=== PATIENT | male | born 1940 | race Caucasian/White ===

== ENCOUNTER 2021-01-02 10:01 | Outpatient (CLI) | payer MEDICARE, MEDICAID, SELFPAY ==
--- NOTE | 2021-01-03 07:37 | ONC CON_ITS ---
Dr. Trivedi New Patient Note Patient: Mingo Davis V Unit #: [id number]: 1940 Dicatated By: Mingo Trivedi M.D.Date of Visit: Jan 02, 2021 Onc MED New Patient/Consult Referring Physician: Rashaad Bruce Chief Complaint: Basal cell skin cancer. 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 In September [address] Reji Villatoro in [place] for a skin lesion in his upper chest area. 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 He then had surgical oncology consultation with Dr. Yoandy Alan at the [facility] on 12/13/2020. Yes I do have a biopsy somewhere. On exam at that time, the lesion did appear locally advanced with fixation to the underlying sternum. He was felt to be a poor surgical candidate due to his underlying medical illnesses and comorbidities he was recommended to be evaluated for possible targeted therapy with vismodegib with possible surgery or radiation to follow. He has COPD, coronary artery disease, and a history of multiple strokes. His energy is poor and he has limited activity. ECOG score is 3. He had not been eating well, and his weight has dropped to as low as 130 pounds. He has since then been supplementing with Ensure and his weight has gotten back up to 150. He does not have fever. He sometimes has sweating at night. He is short of breath with activity. He coughs to clear phlegm from his throat. It is usually clear. He does not complain of chest pain. He sometimes has nausea. He reports having acid reflux all the time despite taking Prilosec. Bowel function has been okay. He has urinary frequency and nocturia. He reports having terrible arthritis, particularly in his wrists, knees, and hips. He also has chronic back pain. He does not complain of headache. He sometimes has dizziness. He has numbness and tingling in his hands and feet, but it is intermittent. He admits to having some depression. Past Medical History: His medical history includes chronic obstructive pulmonary disease, coronary artery disease, and gastroesophageal reflux disease. He is known to have an abdominal aortic aneurysm. He has a history of myocardial infarction and a history of multiple strokes. Past Surgical History: His surgical/procedural history includes wrist surgery, coronary angioplasty/stent placement in 1999, and back surgery in 1971. Medications: Mupirocin 1 Applicator (of 2 %) Ointment Topical every am, Omeprazole 1 Caplet (of 20 mg) Capsule Delayed Release Oral daily Allergies: No Known Allergies. Social History: Mr. Davis is . He has history of smoking since age 8, least 1 pack of cigarettes daily. He had heavy alcohol use beginning as a teenager. He quit drinking more than 30 years ago. Family History: His father and 2 brothers of cancer, but he does not know what type. He does not know the cause of his mother's . Review Of Symptoms: Constitutional - His energy has been poor and he has limited activity. He had not been eating well and he had lost weight. He has since then started drinking Ensure and he has gained 20 pounds. He does not have fever. He sometimes has sweating at night. ECOG score is 3, Eyes - He has cataracts, ENMT - No hearing loss or tinnitus. No sinus congestion/drainage. No mouth sores. No sore throat or difficulty swallowing, Hematologic/Lymphatic - He bruises easily, Respiratory - He has shortness of breath with activity. He has to cough to clear phlegm from his throat It is usually clear. No pleuritic pain or hemoptysis, Cardiovascular - No angina pain. No palpitations, Gastrointestinal - He sometimes has nausea. He reports having acid reflux all the time despite taking Prilosec. No diarrhea or constipation. No blood in the stool or black stools, Genitourinary (M) - No dysuria or hematuria. He has urinary frequency and he has nocturia up to 3 or 4 times. No urgency or incontinence, Musculoskeletal - He has terrible arthritis, mainly in his wrists, knees, and hips. He has chronic back pain, Integumentary - He has a skin cancer, Neurologic - No headache. He sometimes has dizziness. He has numbness/tingling in his hands and feet, but it is intermittent, Psychiatric - He has depression. No insomnia. Vital Signs: Performed on Jan 02, 2021 10:55: 0, 20.45, 1.89 sq.m, 72 in, 96 %, 57 /min (LOW), 18 /min, 137/70 mm(hg), 98.3 F (LOW), and 150.8 lbs (HIGH). Physical Examination: Constitutional - He appears chronically ill, Eyes - Sclerae nonicteric. Conjunctivae clear, ENMT - No lesions noted in the oral cavity, Neck - No mass or thyromegaly, Hematologic/Lymphatic - No cervical, clavicular, or axillary adenopathy, Respiratory - Lungs show diminished air movement with coarse rhonchi bilaterally, Cardiovascular - Heart tones are distant. The rhythm appears regular. There is no murmur, gallop, or rub noted, Abdomen - Soft and non-tender. Liver and spleen are not enlarged. There is no abdominal mass or ascites noted and there is no inguinal adenopathy, Back/Spine - No spine or CVA tenderness noted, Extremities - No edema. Pedal pulses are palpable bilaterally, Integumentary - There is an ulcerative lesion in the upper chest overlying the manubrium measuring approximately 2 x 1 cm. There is induration and erythema in the surrounding skin, Neurologic - No focal neurologic deficits noted. Problem List: 1. 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 2. COPD. 3. Coronary artery disease with previous myocardial infarction. 4. History of multiple strokes. 5. GERD. 6. Degenerative arthritis/degenerative disease of the spine. Problems Addressed with this Encounter and Plan: 1. 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 By clinical evaluation there appears to be fixation to the underlying sternum. As per recommendations, he will be given the option to begin a trial of therapy with vismodegib at a standard dose of 150 mg daily. Side effects may include fatigue, nausea, diarrhea, alopecia, and musculoskeletal pain, among others, including risk of severe skin reaction. Once we have verified insurance coverage, he will be scheduled for baseline laboratory studies to include CBC, comprehensive metabolic profile, and TSH level, and he will also have a staging chest CT scan. 2. He has GERD with persistent symptoms despite taking Prilosec. He will be given a prescription for Protonix 40 mg daily. 3. He is having depression and he would like to try medication for it. He will also be given a prescription for citalopram 10 mg daily. Signed By: Mingo Trivedi M.D. <<Signature on File>>
== END 2021-01-02 10:02 | disposition home or self-care (01) ==
PROVIDERS: Family Provider Internal Medicine; PCP Nurse Practitioner; Visit Provider Internal Medicine Medical Oncology
DX: C44.519 Basal cell carcinoma of skin of other part of trunk (principal); K21.9 Gastro-esophageal reflux disease without esophagitis; F32.9 Major depressive disorder, single episode, unspecified; Z79.899 Other long term (current) drug therapy
CPT/HCPCS: 99215

== ENCOUNTER 2021-03-30 11:27 | Outpatient (CLI) | payer MEDICARE, MEDICAID, SELFPAY ==
--- NOTE | 2021-03-30 13:00 | CT_ITS ---
WS: [id number] CT scan of the chest with IV contrast, additional two-dimensional coronal and sagittal reconstruction was performed. 03/30/2021 Clinical Data: UNSPECIFIED MALIGNANT NEOPLASM OF SKIN OF OTHER PART TRUNK Comparison: CT chest, 07/06/2018. DLP: 808.[address] scans at [facility] use at least one of these dose optimization techniques: automat ed exposure control; mA and/or kV adjustment per patient size (includes targeted exams where dose is matched to clinical indication); or iterative reconstruction. Findings: No nodules, masses or effusions are seen. No pneumonia or pneumothorax is seen. The heart size is nor mal with no pericardial effusion. The pulmonary arterial system and thoracic aorta demonstrate no dil atations. There is atherosclerotic change of the descending thoracic aorta and minimal mural thrombus . The trachea bifurcates into the bronchi. There is no axillary or significant mediastinal adenopathy . The upper abdomen shows irregularity of the liver surface which can be seen with cirrhosis. There is a low density area in the left lobe of the liver which is probably a cyst. There is a cyst of the rig ht kidney. The pancreas, gallbladder and spleen are unremarkable. There is vertebroplasty cement at t he T7 and T11 vertebral bodies. CT/CT chest w con* [id number] Impression: 1. Negative for lung nodules or masses. 2. Negative for acute cardiac or pulmonary abnormalities.
[2021-03-30 13:34] LABS: Basophils # 0.1 10^3/uL (0.0-0.1); Basophils % 0.7 %; Eosinophils # 0.1 10^3/uL (0.0-0.8); Eosinophils % 0.9 %; Hematocrit 44.9 % (42.0-52.0); Lymphocytes # 2.4 10^3/uL (0.8-4.8); Lymphocytes % 26.1 %; Mean Corpuscular HGB Conc 33.4 g/dL (30.0-36.0); Mean Corpuscular Hemoglobin 30.3 pg (28.0-34.0); Mean Corpuscular Volume 90.7 fL (80-94); Mean Platelet Volume 10.6 fL (7.4-10.4); Monocytes # 0.6 10^3/uL (0.2-0.9); Neutrophils # 6.04 10^3/uL (1.8-7.7); Neutrophils % 66.2 %; Nucleated Red Blood Cells % 0 %; Platelet Count 252 10^3/cmm (130-400); Red Blood Count 4.95 10^6/uL (4.1-5.3); Red Cell Distribution Width 13.1 % (12.1-15.1); White Blood Count 9.1 10^3/uL (4.0-10.0)
[2021-03-30 14:06] LABS: Alanine Aminotransferase 7 U/L (0-41); Albumin Level 3.8 g/dL (3.5-5.2); Alkaline Phosphatase 113 IU/L (40-130); Aspartate Amino Transferase 19 U/L (0-40); Blood Urea Nitrogen 26 mg/dL (8-23); Calcium 8.5 mg/dL (8.5-10.5); Carbon Dioxide 23 mmol/L (22-29); Chloride 102 mmol/L (98-107); Globulin 3.4 g/dL (1.3-4.6); Glucose 75 mg/dL (65-115); Osmolality Calculated 289 mOsm/kg (285-295); Sodium 138 mmol/L (136-145); Thyroid Stimulating Hormone 2.06 uIU/mL (0.27-4.20); Total Bilirubin 0.2 mg/dL (0.15-1.2); Total Protein 7.2 g/dL (6.6-8.7)
[2021-03-30 14:09] LABS: Anion Gap 17.4 (5-19); Potassium 4.4 mmol/L (3.5-5.1)
[2021-03-30] MEDS: iodixanol 320 mg/mL 100mL Btl IV (14:55)
== END 2021-03-30 11:28 | disposition home or self-care (01) ==
LOC: ONCMED 11:28
PROVIDERS: Internal Medicine Medical Oncology; PCP Nurse Practitioner; Visit Provider Nurse Practitioner
DX: C44.509 Unspecified malignant neoplasm of skin of other part of trunk (principal); Z79.899 Other long term (current) drug therapy
CPT/HCPCS: 36415; 71260; 80053; 84443; 85025; Q9967

== ENCOUNTER 2021-04-19 13:21 | Outpatient (CLI) | payer MEDICARE, MEDICAID, SELFPAY ==
[2021-04-19 14:47] LABS: Basophils % 0.3 %; Eosinophils % 0.4 %; Hematocrit 45.4 % (42.0-52.0); Hemoglobin 15.1 g/dL (11.7-16.6); Lymphocytes # 2.4 10^3/uL (0.8-4.8); Lymphocytes % 22.4 %; Mean Corpuscular HGB Conc 33.3 g/dL (30.0-36.0); Mean Corpuscular Hemoglobin 30.4 pg (28.0-34.0); Mean Corpuscular Volume 91.5 fL (80-94); Monocytes # 0.6 10^3/uL (0.2-0.9); Monocytes % 5.7 %; Neutrophils # 7.45 10^3/uL (1.8-7.7); Nucleated Red Blood Cells % 0 %; Platelet Count 269 10^3/cmm (130-400); Red Blood Count 4.96 10^6/uL (4.1-5.3); Red Cell Distribution Width 13.2 % (12.1-15.1); White Blood Count 10.5 10^3/uL (4.0-10.0)
[2021-04-19 15:03] LABS: Alanine Aminotransferase 9 U/L (0-41); Albumin Level 3.9 g/dL (3.5-5.2); Alkaline Phosphatase 110 IU/L (40-130); Anion Gap 15.1 (5-19); Aspartate Amino Transferase 17 U/L (0-40); Blood Urea Nitrogen 27 mg/dL (8-23); Calcium 9.5 mg/dL (8.5-10.5); Carbon Dioxide 28 mmol/L (22-29); Chloride 101 mmol/L (98-107); Globulin 3.5 g/dL (1.3-4.6); Glucose 97 mg/dL (65-115); Osmolality Calculated 295 mOsm/kg (285-295); Potassium 4.1 mmol/L (3.5-5.1); Sodium 140 mmol/L (136-145); Total Bilirubin 0.2 mg/dL (0.15-1.2); Total Protein 7.4 g/dL (6.6-8.7)
[2021-04-19] MEDS: pantoprazole DR 40 mg Tablet PO (15:44)
--- NOTE | 2021-04-23 08:17 | ONC FU_ITS ---
Dr. Trivedi Patient Follow-Up Note Patient: Mingo Davis V Unit #: [id number]: 1940 Dicatated By: Mingo Trivedi M.D.Date of Visit:Apr 19, 2021 Onc Med Follow-up/Prog Note Chief Complaint: Basal cell skin cancer. 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 In September [address] Reji Villatoro in [place] for a skin lesion in his upper chest area. 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 He then had surgical oncology consultation with Dr. Yoandy Alan at the [facility] on 12/13/2020. On exam at that time, the lesion appeared locally advanced with fixation to the underlying sternum. He was felt to be a poor surgical candidate due to his underlying medical illnesses and comorbidities. He was recommended to be evaluated for possible targeted therapy with vismodegib with possible surgery or radiation to follow. I had seen him initially on 01/02/2021. He then began treatment with vismodegib 150 mg daily. His other medical illnesses include COPD, coronary artery disease, GERD, and degenerative arthritis/degenerative disease of the spine. He has a history of multiple strokes. He is known to have abdominal aortic aneurysm. He has a long history of smoking, at least 1 pack of cigarettes daily. He has had heavy alcohol use in the past, but he quit drinking more than 30 years ago. He is seen for a follow-up visit. He has been feeling pretty good generally. His main complaint is that he had pretty bad nausea and heartburn last night, but he had run out of his medication and had not been taking it for several days. He has limited activity, but he does get up and around. His ECOG score is 2. He has pretty good appetite. He has not had fever. He says he does have night sweating quite a bit. He has not had sore mouth or throat. He is short of breath with activity and he is still smoking a pack of cigarettes daily. He does not complain of cough and he has not been having chest pain. He recently has had constipation. Bladder function remains adequate, but he does get up 3-4 times at night. He has joint pain, particularly in the wrists, and he has had pain in his left hand since his last stroke. He has chronic back pain. He does not complain of headache or dizziness. He does report having some numbness on the left side and he also still has depression. Medications: Mupirocin 1 Applicator (of 2 %) Ointment Topical every am, Omeprazole 1 Caplet (of 20 mg) Capsule Delayed Release Oral daily Allergies: No Known Allergies. Vital Signs: Performed on Apr 19, 2021 13:59 Height - 72.00 in Weight - 145.8 lbs (LOW) BSA - 1.86 sq.m BMI - 19.77 Physical Examination: Constitutional - He appears chronically ill, Eyes - Sclerae nonicteric. Conjunctivae clear, ENMT - No lesions noted in the oral cavity, Hematologic/Lymphatic - No cervical, clavicular, or axillary adenopathy, Respiratory - Lungs show diminished air movement and coarse breath sounds bilaterally, Cardiovascular - Heart tones are distant. The rhythm appears regular. There is no murmur, gallop, or rub noted, Abdomen - Soft. Liver and spleen are not enlarged. There is no abdominal mass or ascites noted and there is no inguinal adenopathy, Extremities - No edema, Integumentary - The ulcerative lesion in the upper chest wall has almost completed resolved. There is some residual scarring, Neurologic - No focal neurologic deficits noted. Lab/Imaging: Test performed on Apr 19, 2021 13:55 Sodium 140 mmol/L Potassium 4.1 mmol/L Chloride 101 mmol/L CO2 28 mmol/L Anion Gap 15.1 BUN 27 mg/dL Creatinine 1.9 mg/dL Cr Clearance (Est) 29.97 mL/min Glucose 97 mg/dL Osmolality - Calculated 295 mOsm/kg Calcium 9.5 mg/dL Protein, Total 7.4 g/dL Albumin 3.9 g/dL Globulin 3.5 g/dL Bilirubin, Total 0.2 mg/dL ALT (SGPT) 9 U/L AST (SGOT) 17 U/L Alkaline Phosphatase 110 IU/L WBC 10.5 10 3/uL RBC 4.96 10 6/uL HGB 15.1 g/dL HCT 45.4 % MCV 91.5 fL MCH 30.4 pg MCHC 33.3 g/dL RDW 13.2 % Platelet Count 269 10 3/cmm MPV 10.0 fL Neutrophils 7.45 10 3/uL Lymphocytes 2.4 10 3/uL Monocytes 0.6 10 3/uL Eosinophils 0.0 10 3/uL Basophils 0.0 10 3/uL Neutrophil % 71.0 % Lymphocyte % 22.4 % Monocyte % 5.7 % Eosinophil % 0.4 % Basophils % 0.3 % NRBC % 0 % Problem List: 1. 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 2. COPD. 3. Coronary artery disease with previous myocardial infarction. 4. History of multiple strokes. 5. GERD. 6. Degenerative arthritis/degenerative disease of the spine. Problems Addressed with this Encounter and Plan: 1. 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 By clinical evaluation there appeared to be fixation to the underlying sternum. In December 2020 he began a trial of therapy with vismodegib at a standard dose of 150 mg daily. He has been tolerating the medication with no apparent adverse effects, and at this point he appears to be showing a very good clinical response. He will continue treatment with vismodegib 150 mg daily. He will be scheduled for a follow-up visit in 3 months. In the meantime, I will confer with Dr. Villatoro regarding his further management. 2. He has GERD. He continues treatment with pantoprazole 40 mg daily. 3. He is still having depression. His citalopram dosage will be increased to 20 mg daily. Signed By: Mingo Trivedi M.D. <<Signature on File>>
== END 2021-04-19 13:22 | disposition home or self-care (01) ==
LOC: ONCMED 13:26
PROVIDERS: PCP Nurse Practitioner; Visit Provider Internal Medicine Medical Oncology
DX: C44.519 Basal cell carcinoma of skin of other part of trunk (principal); J44.9 Chronic obstructive pulmonary disease, unspecified; I25.10 Atherosclerotic heart disease of native coronary artery without angina pectoris; I25.2 Old myocardial infarction; Z86.73 Personal history of transient ischemic attack (TIA), and cerebral infarction without residual deficits; M47.9 Spondylosis, unspecified; Z92.21 Personal history of antineoplastic chemotherapy; K21.9 Gastro-esophageal reflux disease without esophagitis; Z79.899 Other long term (current) drug therapy; F32.9 Major depressive disorder, single episode, unspecified
CPT/HCPCS: 36415; 80053; 85025; 99214

== ENCOUNTER 2021-07-24 14:14 | Outpatient (CLI) | payer MEDICARE, MEDICAID, SELFPAY ==
[2021-07-24 15:10] LABS: Basophils % 0.5 %; Eosinophils # 0.1 10^3/uL (0.0-0.8); Eosinophils % 1.5 %; Hematocrit 44.6 % (42.0-52.0); Hemoglobin 14.9 g/dL (11.7-16.6); Lymphocytes # 2.5 10^3/uL (0.8-4.8); Lymphocytes % 29.1 %; Mean Corpuscular HGB Conc 33.4 g/dL (30.0-36.0); Mean Corpuscular Hemoglobin 30.7 pg (28.0-34.0); Mean Corpuscular Volume 91.8 fl (80-94); Mean Platelet Volume 9.4 fL (7.4-10.4); Monocytes # 0.6 10^3/uL (0.2-0.9); Monocytes % 6.8 %; Neutrophils # 5.31 10^3/uL (1.8-7.7); Neutrophils % 61.9 %; Nucleated Red Blood Cells % 0 %; Platelet Count 292 10^3/cmm (130-400); Red Blood Count 4.86 10^6/uL (4.1-5.3); Red Cell Distribution Width 12.9 % (12.1-15.1); White Blood Count 8.6 10^3/uL (4.0-10.0)
[2021-07-24 15:34] LABS: Alanine Aminotransferase 6 U/L (0-41); Alkaline Phosphatase 108 IU/L (40-130); Anion Gap 16.1 (5-19); Aspartate Amino Transferase 11 U/L (0-40); Blood Urea Nitrogen 15 mg/dL (8-23); Calcium 9.2 mg/dL (8.5-10.5); Carbon Dioxide 23 mmol/L (22-29); Chloride 102 mmol/L (98-107); Globulin 3.5 g/dL (1.3-4.6); Glucose 90 mg/dL (65-115); Osmolality Calculated 284 mOsm/kg (285-295); Potassium 4.1 mmol/L (3.5-5.1); Sodium 137 mmol/L (136-145); Total Bilirubin 0.3 mg/dL (0.15-1.2); Total Protein 7.5 g/dL (6.6-8.7)
--- NOTE | 2021-07-28 11:54 | ONC FU_ITS ---
Dr. Trivedi Patient Follow-Up Note Patient: Mingo Davis V Unit #: [id number]: 1940 Dicatated By: Mingo Trivedi M.D.Date of Visit:Jul 24, 2021 Onc Med Follow-up/Prog Note Chief Complaint: Basal cell skin cancer. 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 In September [address] Reji Villatoro in [place] for a skin lesion in his upper chest area. 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 He then had surgical oncology consultation with Dr. Yoandy Alan at the [facility] on 12/13/2020. On exam at that time, the lesion appeared locally advanced with fixation to the underlying sternum. He was felt to be a poor surgical candidate due to his underlying medical illnesses and comorbidities. He was recommended to be evaluated for possible targeted therapy with vismodegib with possible surgery or radiation to follow. I had seen him initially on 01/02/2021. He then began treatment with vismodegib 150 mg daily. His other medical illnesses include COPD, coronary artery disease, GERD, and degenerative arthritis/degenerative disease of the spine. He has a history of multiple strokes. He is known to have abdominal aortic aneurysm. He has a long history of smoking, at least 1 pack of cigarettes daily. He has had heavy alcohol use in the past, but he quit drinking more than 30 years ago. He is seen for a follow-up visit. He has continued to tolerate the vismodegib with no adverse effects. He has been feeling pretty good generally, though he does have very limited activity. ECOG score is 2. He says his appetite is not that good. He has had significant weight loss, now in the range of 15 pounds since December. He does not have fever or night sweats. He has not had sore mouth or throat. He does cough up phlegm. He has some shortness of breath, but his breathing is pretty good. He does not complain of chest pain. He does have heartburn all the time. He has no other GI or complaints. He has urinary frequency and nocturia. He says he has back pain 21/04. He does not complain of headache or dizziness, and he has no focal neurologic symptoms. He does have significant anxiety/depression. Medications: Citalopram Hydrobromide 1 Tablet (of 20 mg) Oral daily, Mupirocin 1 Applicator (of 2 %) Ointment Topical every am, Omeprazole 1 Caplet (of 20 mg) Capsule Delayed Release Oral daily Allergies: No Known Allergies. Vital Signs: Performed on Jul 24, 2021 15:29 Height - 72.00 in Weight - 134 lbs (LOW) BSA - 1.80 sq.m BMI - 18.17 Temperature - 98.0 F (LOW) Pulse - 61 /min Respiration - 18 /min BP - 133/69 mm(hg) O2 Sat - 97 % Pain - 0 Fatigue - 0 Physical Examination: Constitutional - He appears chronically ill, Eyes - Sclerae nonicteric. Conjunctivae clear, ENMT - No lesions noted in the oral cavity, Hematologic/Lymphatic - No cervical, clavicular, or axillary adenopathy, Respiratory - Lungs show coarse breath sounds with diminished air movement bilaterally, Cardiovascular - Heart rhythm is regular. There is no murmur, gallop, or rub noted, Abdomen - Soft. Liver and spleen are not enlarged. There is no abdominal mass or ascites noted and there is no inguinal adenopathy, Extremities - No edema, Integumentary - The ulcerative lesion in the upper chest wall appears completey healed. There is some residual scarring, and there is some mild desquamation, Neurologic - No focal neurologic deficits noted. Lab/Imaging: Test performed on Jul 24, 2021 14:56 Sodium 137 mmol/L Potassium 4.1 mmol/L Chloride 102 mmol/L CO2 23 mmol/L Anion Gap 16.1 BUN 15 mg/dL Creatinine 1.5 mg/dL Cr Clearance (Est) 34.8900 mL/min Glucose 90 mg/dL Osmolality - Calculated 284 mOsm/kg Calcium 9.2 mg/dL Protein, Total 7.5 g/dL Albumin 4.0 g/dL Globulin 3.5 g/dL Bilirubin, Total 0.3 mg/dL ALT (SGPT) 6 U/L AST (SGOT) 11 U/L Alkaline Phosphatase 108 IU/L WBC 8.6 10 3/uL RBC 4.86 10 6/uL HGB 14.9 g/dL HCT 44.6 % MCV 91.8 fl MCH 30.7 pg MCHC 33.4 g/dL RDW 12.9 % Platelet Count 292 10 3/cmm MPV 9.4 fL Neutrophils 5.31 10 3/uL Lymphocytes 2.5 10 3/uL Monocytes 0.6 10 3/uL Eosinophils 0.1 10 3/uL Basophils 0.0 10 3/uL Neutrophil % 61.9 % Lymphocyte % 29.1 % Monocyte % 6.8 % Eosinophil % 1.5 % Basophils % 0.5 % NRBC % 0 % Problem List: 1. 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 2. COPD. 3. Coronary artery disease with previous myocardial infarction. 4. History of multiple strokes. 5. GERD. 6. Degenerative arthritis/degenerative disease of the spine. Problems Addressed with this Encounter and Plan: 1. 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 By clinical evaluation there appeared to be fixation to the underlying sternum. In December 2020 he began a trial of therapy with vismodegib at a standard dose of 150 mg daily. He has been tolerating the medication with no apparent adverse effects, and he has had a very good clinical response. Following his visit in March 2021 I did confer with his surgeon at [facility], and he indicated that he was not considering any further surgery. As such, it may be reasonable now to consider consolidation radiation. My main concern now is that he has had significant weight loss. It is uncertain to what extent that may be treatment related. For now he will continue the vismodegib at 150 mg twice daily. If he is agreeable to come in for radiation, I will arrange for consultation with Dr. West. 2. He has GERD. He continues treatment with pantoprazole 40 mg daily. 3. He has anxiety and depression. His citalopram dosage will be increased to 40 mg daily. Signed By: Mingo Trivedi M.D. <<Signature on File>>
== END 2021-07-24 14:15 | disposition home or self-care (01) ==
LOC: ONCMED 14:16
PROVIDERS: PCP Nurse Practitioner; Visit Provider Internal Medicine Medical Oncology
DX: C44.509 Unspecified malignant neoplasm of skin of other part of trunk (principal)
CPT/HCPCS: 36415; 80053; 85025; 99214

== ENCOUNTER 2021-08-29 08:55 | Outpatient (CLI) | payer MEDICARE, MEDICAID, SELFPAY ==
--- NOTE | 2021-08-29 09:55 | N.ONRAD NP_ITS ---
Radiation Oncology Consultation Patient Name: Mingo Davis Date of : 1940 Date of Service: 08/29/2021 Attending Physician: Steven West M.D. Mingo Davis was seen in consultation this morning at the request of Mingo Trivedi M.D. for the management of a locally aggressive basal cell carcinoma of the sternum. In September 2020, he was evaluated at [facility] in [place], [place] for a sternal lesion. A punch biopsy (3 mm x 3 mm x 3 mm) diagnosed a sclerosing basal cell carcinoma (the pathology report was requested and personally reviewed in [facility]). He was referred to the [facility] surgical oncology department further management. At the time of consultation in November 2020, physical examination revealed an open wound measuring 4 cm x 2 cm x 1 cm with fixation to the sternum. No adenopathy was described. He was considered medically inoperable and referred for medical oncology evaluation. In December 2020, he was assessed by Mingo Trivedi M.D. The hedgehog signaling pathway targeted agent Erivedge (vismodegib ??? 150 mg daily) was recommended. He began treatment in January 2021 and continues targeted therapy without adverse events. The patient was evaluated for consolidative radiotherapy. I discussed with the patient the potential role of radiotherapy in the context of a complete clinical response with hedgehog signaling pathway inhibitor. No randomized clinical trials have been performed, however, a few case studies have indicated that the addition of radiotherapy to induction therapy provided additional local control. I would endorse a 5-week of radiotherapy considering the patient's response to targeted therapy and the preveniently acknowledged medical reports. The toxicities of radiotherapy were reviewed. The patient has verbalized understanding would like proceed as recommended. The patient's medical treatment plan was discussed with Mingo Trivedi M.D. Signed by: Dr. Steven West 10/02/2021 2:50:58 PM
== END 2021-08-29 08:56 | disposition home or self-care (01) ==
PROVIDERS: PCP Nurse Practitioner; Visit Provider Radiology Radiation Oncology
DX: C44.81 Basal cell carcinoma of overlapping sites of skin (principal); Z79.899 Other long term (current) drug therapy
CPT/HCPCS: 99205

== ENCOUNTER 2021-09-27 06:20 | Outpatient (RCR) | payer MEDICARE, MEDICAID, SELFPAY ==
--- NOTE | 2021-09-11 | CT_ITS ---
Radiation Therapy Planning CT images; total exam DLP: 163.88mGy-cm MTDD
--- NOTE | 2021-09-18 15:37 | ONCRAD TMN_ITS ---
Radiation Oncology Treatment Management Note Patient Name: Mingo Davis Date of : 1940 Date of Service: 09/18/2021 Attending Physician: Steven West M.D. 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 In September 2020, he was evaluated at [facility] in [place], [place] for a sternal lesion. 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 He was referred to the [facility] surgical oncology department further management. At the time of consultation in November 2020, physical examination revealed an open wound measuring 4 cm x 2 cm x 1 cm with fixation to the sternal. No adenopathy was described. He was considered medically inoperable and referred for medical oncology evaluation. In December 2020, he was assessed by Mingo Trivedi M.D. The hedgehog signaling pathway targeted agent Erivedge (vismodegib ??? 150 mg daily) was recommended. He began treatment in January 2021 and continues targeted therapy without adverse events. A significant response was achieved. The patient has received 10 Gy of a prescribed 50 [place] delivered with an enface electron radiotherapy plan and a 0.5 cm daily tissue hair dresser applied to the treatment port. Upon review of systems, he denied any complaints related to radiotherapy. On physical examination, the patient weighed 137 lbs. His temperature was 98.6 ???F and the blood pressure was 114/62 mmHg. His pulse was 59 bpm and the respiratory rate was 20. There was no erythema within the treatment jackson. Continue consolidative radiotherapy as prescribed. Signed by: Dr. Steven West 09/18/2021 3:36:13 PM
--- NOTE | 2021-09-25 15:48 | ONCRAD TMN_ITS ---
Radiation Oncology Weekly Treatment Management Patient: Ryan Cates MR#: [id number] : 1940> Attending Physician: Dr. Lambert Sotomayor Date of Service: 09/25/2021 Referring Physician(s) : Susan Masters Diagnosis: C44.509 - Unspecified malignant neoplasm of skin of other part of trunk, Diagnosed 10/25/2020 (Active) Radiotherapy to date: Course: Skin 2020, Treatment Site: Skin Ca - Chest Wall, Ref. ID: [id number], Energy: 6E, Dose/Fx (cGy): 200, #Fx: , Dose Correction (cGy): 0, Total Dose (cGy): 1,800, Start Date: 09/12/2021, Elapsed Days: 13 Reason for visit: The patient is being seen today as part of their regularly scheduled weekly on treatment visits to assess for acute toxicities from radiotherapy. He is receiving consolidation radiation for a locally advanced basal cell carcinoma of the skin overlying and fixed to the sternum, which is unresectable and has responded very well to Erivedge. Review of Systems: He has no complaints in the area of treatment. Specifically, he denies pain, skin irritation or soreness. His general condition is stable. He continues to have a poor appetite and GERD. He also has generalized fatigue, which is a chronic problem. Vital Signs: Performed on 09/25/2021 3:19 PM BMI - 18.581 kg/m2, Height - 72 in, Weight - 137 lbs, Temperature - 97.7 f, Pulse - 54 /min (low), Respiration - 17 /min, O2 Sat - 94 % (low), Pain - 8, Fatigue - 7 and BP - 117/ 66 mm(hg). Physical Exam: Alert, oriented, no distress. He appears chronically ill. He is ambulatory with the assistance of a cane. In the treatment area, there is very mild erythema. There is no evidence of residual neoplasm. There is no tenderness of the sternum. Imaging: Radiation therapy imaging related to accurate target localization (i.e. KV, MV and CBCT) was reviewed. Appropriate changes, if any, were made to ensure treatment accuracy. Plan: Continue treatment as planned. He was provided Aquaphor, though there is little need for it at this time. He was informed that he has 16 treatments to go. His only question was whether the treatment penetrated through his chest and ??? comes out the back . I discussed with him that the treatment is with a superficial electron beam and that most of the pain is stopped by the sternum. Signed by: Dr. Lambert Sotomayor 09/25/2021 3:48:16 PM
== END 2021-09-28 23:59 | disposition home or self-care (01) ==
LOC: ONCMED 06:20
PROVIDERS: PCP Nurse Practitioner; Visit Provider Specialist
DX: Z51.0 Encounter for antineoplastic radiation therapy (principal); C44.519 Basal cell carcinoma of skin of other part of trunk
CPT/HCPCS: 77290; 77321; 77331; 77334; 77336; 77412

== ENCOUNTER 2021-10-19 14:33 | Outpatient (RCR) | payer MEDICARE, MEDICAID, SELFPAY ==
--- NOTE | 2021-10-02 15:29 | ONCRAD TMN_ITS ---
Radiation Oncology Treatment Management Note Patient Name: Mingo Davis Date of : 1940 Date of Service: 10/02/2021 Attending Physician: Steven West M.D. 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 In September 2020, he was evaluated at [facility] in [place], [place] for a sternal lesion. 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 He was referred to the [facility] oncology department further management. At the time of consultation in November 2020, physical examination revealed an open wound measuring 4 cm x 2 cm x 1 cm with fixation to the sternal. No adenopathy was described. He was considered medically inoperable and referred for medical oncology evaluation. In December 2020, he was assessed by Mingo Trivedi M.D. The hedgehog signaling pathway targeted agent Erivedge (vismodegib ??? 150 mg daily) was recommended. He began treatment in January 2021 and continues targeted therapy without adverse events. A significant response was achieved. The patient has received 26 Gy of a prescribed 50 Piedra delivered with an enface electron radiotherapy plan and a 0.5 cm daily tissue diesel lube tech applied to the treatment port. Upon review of systems, he denied any complaints related to radiotherapy. On physical examination, the patient weighed 140 lbs. His temperature was 98.1 ???F and the blood pressure was 124/71 mmHg. His pulse was 64 bpm and the respiratory rate was 16. There was a grade I erythema of the skin within the treatment jackson. Continue consolidative radiotherapy as planned. Signed by: Dr. Steven West 10/02/2021 3:28:04 PM
--- NOTE | 2021-10-08 15:22 | ONCRAD TMN_ITS ---
Radiation Oncology Treatment Management Note Patient Name: Mingo Davis Date of : 1940 Date of Service: 10/08/2021 Attending Physician: Steven West M.D. 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 In September 2020, he was evaluated at [facility] in [place], [place] for a sternal lesion. 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 He was referred to the [facility] surgical oncology department further management. At the time of consultation in November 2020, physical examination revealed an open wound measuring 4 cm x 2 cm x 1 cm with fixation to the sternal. No adenopathy was described. He was considered medically inoperable and referred for medical oncology evaluation. In December 2020, he was assessed by Mingo Trivedi M.D. The hedgehog signaling pathway targeted agent Erivedge (vismodegib ??? 150 mg daily) was recommended. He began treatment in January 2021 and continues targeted therapy without adverse events. A significant response was achieved. The patient has received 32 Gy of a prescribed 50 Piedra delivered with an enface electron radiotherapy plan and a 0.5 cm daily tissue wash plant operator applied to the treatment port. Upon review of systems, he denied any complaints related to radiotherapy. On physical examination, the patient weighed 141 lbs. His temperature was 98.8 ???F and the blood pressure was 106/69 mmHg. His pulse was 69 bpm and the respiratory rate was 16. There was a grade I erythema of the skin within the treatment jackson. Continue consolidative radiotherapy as prescribed. Signed by: Dr. Steven West 10/08/2021 3:21:09 PM
--- NOTE | 2021-10-16 15:20 | ONCRAD TMN_ITS ---
Radiation Oncology Treatment Management Note Patient Name: Mingo Davis Date of : 1940 Date of Service: 10/16/2021 Attending Physician: Steven West M.D. 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 In September 2020, he was evaluated at [facility] in [place], [place] for a sternal lesion. 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 He was referred to the [facility] oncology department further management. At the time of consultation in November 2020, physical examination revealed an open wound measuring 4 cm x 2 cm x 1 cm with fixation to the sternal. No adenopathy was described. He was considered medically inoperable and referred for medical oncology evaluation. In December 2020, he was assessed by Mingo Trivedi M.D. The hedgehog signaling pathway targeted agent Erivedge (vismodegib ??? 150 mg daily) was recommended. He began treatment in January 2021 and continues targeted therapy without adverse events. A significant response was achieved. The patient has received 44 Gy of a prescribed 50 Piedra delivered with an enface electron radiotherapy plan and a 0.5 cm daily tissue claims supervisor applied to the treatment port. Upon review of systems, he denied any complaints related to radiotherapy. On physical examination, the patient weighed 140 lbs. His temperature was 97.8 ???F and the blood pressure was 120/64 mmHg. His pulse was 60 bpm and the respiratory rate was 19. There was a grade II erythema of the skin within the treatment jackson. Continue consolidative radiotherapy as planned. Signed by: Dr. Steven West 10/16/2021 3:19:23 PM
--- NOTE | 2021-10-19 09:02 | N.ONRD TS_ITS ---
Radiation OncologyTreatment Summary Patient Name: Mingo Davis Date of : 1940 Date of Service: 10/19/2021 Attending Physician: Steven West M.D. 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 In September 2020, he was evaluated at [facility] in [place], [place] for a sternal lesion. 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 He was referred to the [facility] surgical oncology department further management. At the time of consultation in November 2020, physical examination revealed an open wound measuring 4 cm x 2 cm x 1 cm with fixation to the sternal. No adenopathy was described. He was considered medically inoperable and referred for medical oncology evaluation. In December 2020, he was assessed by Mingo Trivedi M.D. The hedgehog signaling pathway targeted agent Erivedge (vismodegib ??? 150 mg daily) was recommended. He began treatment in January 2021 and continues targeted therapy without adverse events. A significant response was achieved. Daily radiotherapy was administered between the dates of September 12, 2021 through October 19, 2021. A prescribed dose of 50 Gy was delivered in 25 fractions encompassing 38 elapsed days. The remnant lesion was treated utilizing an electron treatment plan with enface portal field design. A gantry angle of 355??? was planned with a 0??? collimator angle. A 10 cm x 10 cm electron cone was employed. The SSD measured 100 cm with the field delivering 238 monitor units. All treatments were performed with the [employer] IX linear accelerator and an SSD technique. A daily 1 cm tissue heating element builder was applied. The dose was calculated by Electron Satya Riaz. An electron energy of 6E was administered with the plan prescribed to deliver 100% of the prescription dose to 95% of the target volume. Signed by: Dr. Steven West 10/19/2021 9:01:14 AM
== END 2021-10-29 23:59 | disposition home or self-care (01) ==
LOC: ONCMED 14:33
PROVIDERS: PCP Nurse Practitioner; Visit Provider Radiology Radiation Oncology
DX: Z51.0 Encounter for antineoplastic radiation therapy (principal); C44.509 Unspecified malignant neoplasm of skin of other part of trunk
CPT/HCPCS: 77336; 77412

== ENCOUNTER 2021-11-09 19:57 | Inpatient (IN) | payer MEDICARE, MEDICAID, SELFPAY ==
[2021-11-09 20:52] VITALS: BP 130/69; PULSE 64; RESP 18; TEMP 36.9; O2SAT 91; BMI 21.7
--- NOTE | 2021-11-09 20:59 | ED_ITS ---
Documented by User: Babak Newton MD 11/15/21 04:44 HPI - Altered Mental Status General: Chief Complaint: Weakness Stated Complaint: ams weakness Time Seen by Provider: 11/09/21 20:58 Limitations: altered mental status History of Present Illness: Mr. Davis is a 80-year-old gentleman with history of COPD and history of basal cell carcinoma with chemotherapy and radiation who presents the emergency department due to altered mental status. Patient is the only one present in the room and history is somewhat limited due to this. He reports no significant changes in health. He does have a chronic cough which she thinks is unchanged. He thinks he might be a little more confused but is unsure of exactly how long its been going on. Otherwise denies changes in health, exacerbating, relieving factors. He is unsure how to quantify intensity of symptoms. He denies any numbness, tingling, or motor changes, denies focality of any symptom. Onset (ago): unknown Severity: moderate Consistency of symptoms: Getting Worse Review of Systems General: Reports: ROS unobtainable due to mental status (10 point ROS attempted however reliability is severely limited) PFSH ED PFSH: Medical History AAA (abdominal aortic aneurysm) 4.9cmm 2018 Acute encephalopathy Acute respiratory failure with hypoxemia Basal cell carcinoma CAD (coronary artery disease) COPD (chronic obstructive pulmonary disease) History of heart attack History of stroke Hypoxia NSTEMI (non-ST elevated myocardial infarction) Pneumonia due to 2019 novel coronavirus Smoker unmotivated to quit Surgical History History of back surgery 1972 History of heart artery stent Early 1999 Family History Other Cancer Stroke Denies family history of Diabetes Dementia Hypertension Social History Smoking and tobacco status: current every day smoker cigarettes Packs smoked per day: 1 Years cigarettes smoked: 70 Second hand smoke exposure: No Smoking risk assessment/counseling performed?: Yes Alcohol intake: never Desire information about alcohol rehabilitation?: No Counseling given: No Desire information about substance/drug rehabilitation?: No Counseling given: No Adopted: No Caregiver/support person: No Lives independently: Yes Household members: friend(s) Housing: Manufactured/Mobile home Marital status: Number of children: 2 service: Yes branch: [employer] Current occupational status: retired History of recent travel: No Current gender identity: Male Physical Exam Const: COMMON NORMALS: alert; negative for patient oriented x3 GENERAL APPEARANCE: cooperative, well developed and ill appearing (Somewhat, likely also chronically) HENMT: COMMON NORMALS: normocephalic and atraumatic HEAD & SCALP: normocephalic and atraumatic Eye: COMMON NORMALS: conjunctivae normal CONJUNCTIVA: Yes conjunctivae normal SCLERA: sclerae normal Neck/C-Spine: COMMON NORMALS: supple GENERAL: Yes trachea midline Resp: AUSCULTATION: rhonchi lower bilaterally Cardio: COMMON NORMALS: regular rate and regular rhythm RATE: regular rate RHYTHM: regular rhythm GI: COMMON NORMALS: Soft to palpation PALPATION: Yes Soft to palpation and No Tenderness to palpation present (GI) PERCUSSION: normal to percussion Extremity: GENERAL: Yes normal exam except as noted and No edema Neuro: COMMON NORMALS: CN's II-XII intact bilaterally, moves all extremities, no focal motor deficits and no sensory deficits noted; negative for patient oriented x3 SENSORIUM/ORIENTATION: Yes alert and No Orie ntation impaired Skin: NARRATIVE SKIN EXAM: Prior areas of radiation on the sternal region, mild scabbing. No evidence of superimposed infection. Course ED course: - Patient was seen and evaluated by me at bedside - Patient placed on cardiac monitors, IV access obtained - Initial evaluation notable for nonfocal neurologic exam though patient has altered mental status with limited history provided, he is chronically ill in appearance with some superimposed likely component - Patient becomes tachypneic and in respiratory distress when oxygen removed with desaturation. - Patient care handed off to overnight ED physician Dr. Iglesias pending completion of ED evaluation. - Per review after completion labs notable for no leukocytosis, normal hemoglobin. No evidence of hypercapnia on ABG. Creatinine is elevated though near baseline and no acute electrolyte derangement to explain symptoms. Covid positive. - Per review after completion imaging notable for large chronic right MCA territory infarct without new acute abnormality identified on CT. Chest x-ray with infiltrates. Note: Click bubbles or prepopulated jackson in note writing are used for assistance with data collection and billing and are inherently more limited than narrative and other text portions of this note. Please use narrative for additional clinical history and defer to narrative/free test for any case of contradictory information. If information appears in only free text or click bubble it should be considered present or absent as reported. Please contact note writer technical publications for clarifications of clinical information or contradictory information. MDM is a brief summary, contradictory or erroneous seeming information should be clarified and full note should be reviewed. Vital Signs: Vital signs: Vital Signs Temperature 98.0 F 11/12/21 12:00 Pulse Rate 63 11/12/21 15:46 Respiratory Rate 18 11/12/21 15:46 Blood Pressure 166/92 11/12/21 12:00 Pulse Oximetry 94 11/12/21 15:46 MDM - Altered Mental Status Medical Decision Making 80-year-old gentleman presenting with altered mental status of unclear duration and etiology. Nonfocal neurologic exam. History limited by mental status. Patient care handed off to overnight ED physician Dr. Iglesias pending completion of ED evaluation and likely admission to the hospital. 80-year-old gentleman checked out to me by the previous physician at change of shift. This gentleman came in with altered mental status and generalized weakness. White blood cell count is 5.5, hemoglobin 13.5. Creatinine 1.6 which is his baseline. BMP is otherwise normal.Chest x-ray shows lingular and left lower lobe infiltrates. He is COVID-19 positive. He is hypoxic on blood gas testing, and placed on oxygen with improvement in oxygenation. His blood pressure is 118/64. He is nontachycardic. He likely has mild dementia at baseline, and would not do well at home. He seems frail. He has a history of COPD. He will be admitted for COVID-19 pneumonia with hypoxic respiratory failure. Medical Records I reviewed the patient's medical records. Lab Data I reviewed the patient's lab results. : 11/12/21 04:30 11/12/21 04:30 Radiology Impressions Chest X-Ray 11/09/21 21:11 IMPRESSION: Lingular and left lower lobe infiltrates. Head CT 11/09/21 21:11 IMPRESSION: Large chronic right MCA territory infarct. Carotid Doppler Study 11/10/21 06:26 IMPRESSION: 1. Moderate 50-69% stenosis in the proximal left internal carotid artery. 2. Mild stenosis in the right common carotid and internal carotid arteries. REFERENCES: SRU CRITERIA. The degree of internal carotid artery stenosis is based on criteria defined by the Society of Radiologists in Ultrasound (SRU). Normal is no stenosis. Mild is less than 50% stenosis. Moderate is 50-69% stenosis. Severe is greater than 69% stenosis to near occlusion. Near occlusion is a markedly narrowed lumen. Total occlusion is no detectable patent lumen. Chest CT 11/10/21 06:26 IMPRESSION: 1. Mild tree-in-bud nodularity is seen in the right upper lobe and bilateral lower lobes, consistent with aspiration or pneumonia 2. Partially imaged infrarenal abdominal aortic aneurysm measuring up to at least 4.8 cm. This reportedly measures 4.1 cm in 2018. This could be further evaluated with dedicated CTA abdomen pelvis. Laboratory Results WBC 5.5 10^3/uL (4.0-10.0) 11/09/21 21:05 RBC 4.45 10^6/uL (4.1-5.3) 11/09/21 21:05 Hgb 13.5 g/dL (11.7-16.6) 11/09/21 21:05 Hct 41.4 % (42.0-52.0) L 11/09/21 21:05 MCV 93.0 fl (80-94) 11/09/21 21:05 MCH 30.3 pg (28.0-34.0) 11/09/21 21:05 MCHC 32.6 g/dL (30.0-36.0) 11/09/21 21:05 RDW 13.2 % (12.1-15.1) 11/09/21 21:05 Plt Count 185 10^3/cmm (130-400) 11/09/21 21:05 MPV 10.5 fL (7.4-10.4) H 11/09/21 21:05 Neut % (Auto) 74.3 % 11/09/21 21:05 Lymph % (Auto) 17.5 % 11/09/21 21:05 Chester % (Auto) 7.8 % 11/09/21 21:05 Eos % (Auto) 0.0 % 11/09/21 21:05 Baso % (Auto) 0.2 % 11/09/21 21:05 Neut # (Auto) 4.08 10^3/uL (1.8-7.7) 11/09/21 21:05 Lymph # (Auto) 1.0 10^3/uL (0.8-4.8) 11/09/21 21:05 [place] # (Auto) 0.4 10^3/uL (0.2-0.9) 11/09/21 21:05 Eos # (Auto) 0.0 10^3/uL (0.0-0.8) 11/09/21 21:05 Baso # (Auto) 0.0 10^3/uL (0.0-0.1) 11/09/21 21:05 Nucleated RBC % (auto) 0 % 11/09/21 21:05 Nucleated RBCs # 0.0 /100WBC 11/09/21 21:05 Specimen Type Arterial 11/09/21 21:52 Sample Site Brachial, left 11/09/21 21:52 ABG pH 7.43 (7.35-7.45) 11/09/21 21:52 ABG pCO2 33.7 mmHg (35-45) L 11/09/21 21:52 ABG pO2 69.6 mmHg (80.0-100.0) L 11/09/21 21:52 ABG HCO3 22.1 mmol/L (22-26) 11/09/21 21:52 ABG Base Excess -1.6 mmol/L (-2.0-2.0) 11/09/21 21:52 Kunal Test Pos 11/09/21 21:52 Hematocrit 40.2 % (42-52) L 11/09/21 21:52 O2 Delivery Device Room air 11/09/21 21:52 Senior Storage Administrator ID Buttr 11/09/21 21:52 Sodium 137 mmol/L (136-145) 11/09/21 21:05 Potassium 3.8 mmol/L (3.5-5.1) 11/09/21 21:05 Chloride 101 mmol/L (98-107) 11/09/21 21:05 Carbon Dioxide 23 mmol/L (22-29) 11/09/21 21:05 Anion Gap 16.8 (5-19) 11/09/21 21:05 BUN 34 mg/dL (8-23) H 11/09/21 21:05 Creatinine 1.6 mg/dL (0.7-1.2) H 11/09/21 21:05 GFR Calculation Not Reportable 11/09/21 21:05 Glucose 97 mg/dL (65-115) 11/09/21 21:05 Calculated Osmolality 292 mOsm/kg (285-295) 11/09/21 21:05 Calcium 8.5 mg/dL (8.5-10.5) 11/09/21 21:05 Total Bilirubin 0.2 mg/dL (0.15-1.2) 11/09/21 21:05 AST 29 U/L (0-40) 11/09/21 21:05 ALT 13 U/L (0-41) 11/09/21 21:05 Alkaline Phosphatase 109 IU/L (40-130) 11/09/21 21:05 Troponin T Baseline 36 ng/L (0-15) H 11/09/21 21:05 Troponin T 120 Minute 37.75 ng/L (0-15) H 11/09/21 23:14 Delta Troponin T 1.75 ABS# (0-10) 11/09/21 23:14 C-Reactive Protein 71.1 mg/L (0.0-4.9) H 11/09/21 21:05 NT-Pro-B Natriuret Pep 1721 pg/mL (0-450) H 11/09/21 21:05 Total Protein 7.3 g/dL (6.6-8.7) 11/09/21 21:05 Albumin 3.8 g/dL (3.5-5.2) 11/09/21 21:05 Globulin 3.5 g/dL (1.3-4.6) 11/09/21 21:05 Procalcitonin 0.12 ng/mL (0-0.5) 11/09/21 21:05 TSH 2.39 uIU/mL (0.27-4.20) 11/09/21 21:05 Urine Color Yellow (Yellow) 11/09/21 23:36 Urine Appearance Clear (CLEAR) 11/09/21 23:36 Urine pH 5 (5-7) 11/09/21 23:36 Ur Specific [place]imas 1.020 (1.005-1.030) 11/09/21 23:36 Urine Protein Trace (Negative) 11/09/21 23:36 Urine Glucose (UA) Norm (Normal) 11/09/21 23:36 Urine Ketones 1+ (Negative) H 11/09/21 23:36 Urine Blood 3+ (Negative) H 11/09/21 23:36 Urine Nitrate Negative (Negative) 11/09/21 23:36 Urine Bilirubin Neg (Negative) 11/09/21 23:36 Urine Urobilinogen Norm mg/dL (Negative) 11/09/21 23:36 Ur Leukocyte Esterase Negative (Negative) 11/09/21 23:36 Urine RBC 5-10 /hpf (0-2) H 11/09/21 23:36 Urine WBC 0-4 /hpf (0-5) H 11/09/21 23:36 Ur Squamous Epith Cells 0-4 /hpf (0-5) H 11/09/21 23:36 Amorphous Sediment Trace /hpf 11/09/21 23:36 Urine Bacteria Trace /hpf (NONE) 11/09/21 23:36 SARS-CoV-2 Ag (Rapid) Positive (Negative) H 11/09/21 23:40 EKG Data EKG 1: I personally reviewed and interpreted this EKG as follows: EKG interpretation date: 11/09/21 EKG interpretation time: 22:01 Interpretation: Twelve-lead EKG shows a regular rhythm at a rate of 65. LA interval 125, QRS duration 96, QTc 448 Normal axis. Interpretation: Sinus rhythm. PVCs. Discharge Plan Discharge Patient Disposition: Admitted As Inpatient Admit Provider: Estrada Kimball Clinical Impression: Pneumonia due to 2019 novel coronavirus, Acute respiratory failure with hypoxemia Condition: Stable Discharge Diet: Regular Discharge Activity: Increase activity as tolerated Coding Level of Care Code ED Ski Lift Attendant for Chg Fwd Documented by User: David Iglesias DO 11/10/21 05:39 HPI - Altered Mental Status General: Chief Complaint: Weakness Stated Complaint: ams weakness Time Seen by Provider: 11/09/21 20:58 PFSH ED PFSH: Medical History AAA (abdominal aortic aneurysm) 4.9cmm 2018 Acute encephalopathy Acute respiratory failure with hypoxemia Basal cell carcinoma CAD (coronary artery disease) COPD (chronic obstructive pulmonary disease) History of heart attack History of stroke Hypoxia NSTEMI (non-ST elevated myocardial infarction) Pneumonia due to 2019 novel coronavirus Smoker unmotivated to quit Surgical History History of back surgery 1972 History of heart artery stent Early 1999 Family History Other Cancer Stroke Denies family history of Diabetes Dementia Hypertension Social History Smoking and tobacco status: current every day smoker cigarettes Packs smoked per day: 1 Years cigarettes smoked: 70 Second hand smoke exposure: No Smoking risk assessment/counseling performed?: Yes Alcohol intake: never Desire information about alcohol rehabilitation?: No Counseling given: No Desire information about substance/drug rehabilitation?: No Counseling given: No Adopted: No Caregiver/support person: No Lives independently: Yes Household members: friend(s) Housing: Manufactured/Mobile home Marital status: Number of children: 2 service: Yes branch: [employer] Current occupational status: retired History of recent travel: No Current gender identity: Male Course Consultations: Consultation #1: aliza Time: 02:16 Vital Signs: Vital signs: Vital Signs Temperature 98.0 F 11/12/21 12:00 Pulse Rate 63 11/12/21 15:46 Respiratory Rate 18 11/12/21 15:46 Blood Pressure 166/92 11/12/21 12:00 Pulse Oximetry 94 11/12/21 15:46 MDM - Altered Mental Status Medical Decision Making 80-year-old gentleman checked out to me by the previous physician at change of shift. This gentleman came in with altered mental status and generalized weakness. White blood cell count is 5.5, hemoglobin 13.5. Creatinine 1.6 which is his baseline. BMP is otherwise normal.Chest x-ray shows lingular and left lower lobe infiltrates. He is COVID-19 positive. He is hypoxic on blood gas testing, and placed on oxygen with improvement in oxygenation. His blood pressure is 118/64. He is nontachycardic. He likely has mild dementia at baseline, and would not do well at home. He seems frail. He has a history of COPD. He will be admitted for COVID-19 pneumonia with hypoxic respiratory failure. Lab Data : 11/12/21 04:30 11/12/21 04:30 Radiology Impressions Chest X-Ray 11/09/21 21:11 IMPRESSION: Lingular and left lower lobe infiltrates. Head CT 11/09/21 21:11 IMPRESSION: Large chronic right MCA territory infarct. Carotid Doppler Study 11/10/21 06:26 IMPRESSION: 1. Moderate 50-69% stenosis in the proximal left internal carotid artery. 2. Mild stenosis in the right common carotid and internal carotid arteries. REFERENCES: SRU CRITERIA. The degree of internal carotid artery stenosis is based on criteria defined by the Society of Radiologists in Ultrasound (SRU). Normal is no stenosis. Mild is less than 50% stenosis. Moderate is 50-69% stenosis. Severe is greater than 69% stenosis to near occlusion. Near occlusion is a markedly narrowed lumen. Total occlusion is no detectable patent lumen. Chest CT 11/10/21 06:26 IMPRESSION: 1. Mild tree-in-bud nodularity is seen in the right upper lobe and bilateral lower lobes, consistent with aspiration or pneumonia 2. Partially imaged infrarenal abdominal aortic aneurysm measuring up to at least 4.8 cm. This reportedly measures 4.1 cm in 2018. This could be further evaluated with dedicated CTA abdomen pelvis. Laboratory Results WBC 5.5 10^3/uL (4.0-10.0) 11/09/21 21:05 RBC 4.45 10^6/uL (4.1-5.3) 11/09/21 21:05 Hgb 13.5 g/dL (11.7-16.6) 11/09/21 21:05 Hct 41.4 % (42.0-52.0) L 11/09/21 21:05 MCV 93.0 fl (80-94) 11/09/21 21:05 MCH 30.3 pg (28.0-34.0) 11/09/21 21:05 MCHC 32.6 g/dL (30.0-36.0) 11/09/21 21:05 RDW 13.2 % (12.1-15.1) 11/09/21 21:05 Plt Count 185 10^3/cmm (130-400) 11/09/21 21:05 MPV 10.5 fL (7.4-10.4) H 11/09/21 21:05 Neut % (Auto) 74.3 % 11/09/21 21:05 Lymph % (Auto) 17.5 % 11/09/21 21:05 Chester % (Auto) 7.8 % 11/09/21 21:05 Eos % (Auto) 0.0 % 11/09/21 21:05 Baso % (Auto) 0.2 % 11/09/21 21:05 Neut # (Auto) 4.08 10^3/uL (1.8-7.7) 11/09/21 21:05 Lymph # (Auto) 1.0 10^3/uL (0.8-4.8) 11/09/21 21:05 Chester # (Auto) 0.4 10^3/uL (0.2-0.9) 11/09/21 21:05 Eos # (Auto) 0.0 10^3/uL (0.0-0.8) 11/09/21 21:05 Baso # (Auto) 0.0 10^3/uL (0.0-0.1) 11/09/21 21:05 Nucleated RBC % (auto) 0 % 11/09/21 21:05 Nucleated RBCs # 0.0 /100WBC 11/09/21 21:05 Specimen Type Arterial 11/09/21 21:52 Sample Site Brachial, left 11/09/21 21:52 ABG pH 7.43 (7.35-7.45) 11/09/21 21:52 ABG pCO2 33.7 mmHg (35-45) L 11/09/21 21:52 ABG pO2 69.6 mmHg (80.0-100.0) L 11/09/21 21:52 ABG HCO3 22.1 mmol/L (22-26) 11/09/21 21:52 ABG Base Excess -1.6 mmol/L (-2.0-2.0) 11/09/21 21:52 Kunal Test Pos 11/09/21 21:52 Hematocrit 40.2 % (42-52) L 11/09/21 21:52 O2 Delivery Device Room air 11/09/21 21:52 Senior Storage Administrator ID Buttr 11/09/21 21:52 Sodium 137 mmol/L (136-145) 11/09/21 21:05 Potassium 3.8 mmol/L (3.5-5.1) 11/09/21 21:05 Chloride 101 mmol/L (98-107) 11/09/21 21:05 Carbon Dioxide 23 mmol/L (22-29) 11/09/21 21:05 Anion Gap 16.8 (5-19) 11/09/21 21:05 BUN 34 mg/dL (8-23) H 11/09/21 21:05 Creatinine 1.6 mg/dL (0.7-1.2) H 11/09/21 21:05 GFR Calculation Not Reportable 11/09/21 21:05 Glucose 97 mg/dL (65-115) 11/09/21 21:05 Calculated Osmolality 292 mOsm/kg (285-295) 11/09/21 21:05 Calcium 8.5 mg/dL (8.5-10.5) 11/09/21 21:05 Total Bilirubin 0.2 mg/dL (0.15-1.2) 11/09/21 21:05 AST 29 U/L (0-40) 11/09/21 21:05 ALT 13 U/L (0-41) 11/09/21 21:05 Alkaline Phosphatase 109 IU/L (40-130) 11/09/21 21:05 Troponin T Baseline 36 ng/L (0-15) H 11/09/21 21:05 Troponin T 120 Minute 37.75 ng/L (0-15) H 11/09/21 23:14 Delta Troponin T 1.75 ABS# (0-10) 11/09/21 23:14 C-Reactive Protein 71.1 mg/L (0.0-4.9) H 11/09/21 21:05 NT-Pro-B Natriuret Pep 1721 pg/mL (0-450) H 11/09/21 21:05 Total Protein 7.3 g/dL (6.6-8.7) 11/09/21 21:05 Albumin 3.8 g/dL (3.5-5.2) 11/09/21 21:05 Globulin 3.5 g/dL (1.3-4.6) 11/09/21 21:05 Procalcitonin 0.12 ng/mL (0-0.5) 11/09/21 21:05 TSH 2.39 uIU/mL (0.27-4.20) 11/09/21 21:05 Urine Color Yellow (Yellow) 11/09/21 23:36 Urine Appearance Clear (CLEAR) 11/09/21 23:36 Urine pH 5 (5-7) 11/09/21 23:36 Ur Specific Animas 1.020 (1.005-1.030) 11/09/21 23:36 Urine Protein Trace (Negative) 11/09/21 23:36 Urine Glucose (UA) Norm (Normal) 11/09/21 23:36 Urine Ketones 1+ (Negative) H 11/09/21 23:36 Urine Blood 3+ (Negative) H 11/09/21 23:36 Urine Nitrate Negative (Negative) 11/09/21 23:36 Urine Bilirubin Neg (Negative) 11/09/21 23:36 Urine Urobilinogen Norm mg/dL (Negative) 11/09/21 23:36 Ur Leukocyte Esterase Negative (Negative) 11/09/21 23:36 Urine RBC 5-10 /hpf (0-2) H 11/09/21 23:36 Urine WBC 0-4 /hpf (0-5) H 11/09/21 23:36 Ur Squamous Epith Cells 0-4 /hpf (0-5) H 11/09/21 23:36 Amorphous Sediment Trace /hpf 11/09/21 23:36 Urine Bacteria Trace /hpf (NONE) 11/09/21 23:36 SARS-CoV-2 Ag (Rapid) Positive (Negative) H 11/09/21 23:40 Discharge Plan Discharge Patient Disposition: Admitted As Inpatient Admit Provider: Estrada Kimball Clinical Impression: Pneumonia due to 2019 novel coronavirus, Acute respiratory failure with hypoxemia Condition: Stable Discharge Diet: Regular Discharge Activity: Increase activity as tolerated Coding Level of Care Code ED Ski Lift Attendant for [employer]encion[employer] Caryl
--- NOTE | 2021-11-09 21:11 | ECG_ITS ---
[facility] Test Date: 2021-11-09 Pat Name: Mingo Davis Department: Room: Gender: Male [place] Laborer: : 1940 Requested By: Babak Newton Order Number: [id number] Jesus MD: Librado Villarreal M.D. Measurements Intervals [place] Rate: 65 P: 94 [place]: 125 QRS: 11 QRSD: 96 T: 28 QT: 437 QTc: 455 Interpretive Statements SINUS RHYTHM WITH OCCASIONAL VENTRICULAR PREMATURE COMPLEXES POSSIBLE RIGHT VENTRICULAR CONDUCTION DELAY [RSR (QR) IN V1/V2] Compared to ECG 01/08/2018 18:19:28 Ventricular premature complex(es) now present Incomplete right bundle-branch block no longer present Myocardial infarct finding no longer present Electronically Signed On 11-12-2021 8:54:48 UTILITY ASSEMBLER by Librado Villarreal M.D. [id number] f
--- NOTE | 2021-11-09 21:11 | XRR_ITS ---
PROCEDURE INFORMATION: Exam: XR Chest Exam date and time: 11/09/2021 9:11 PM Age: 80 years old Clinical indication: Cough; Additional info: AMS, cough TECHNIQUE: Imaging protocol: XR of the chest. Views: 1 view. COMPARISON: 1. CT chest w con* [id number] 2021-03-30 14:36 2. CR Chest 1 [place] [id number] 2018-01-31 19:48 3. CR Chest 1 [place] [id number] 2018-01-08 13:03 4. CR Chest 1 [place] [id number] 2017-10-10 21:40 FINDINGS: Lungs: Lingular and left lower lobe infiltrates. Pleural spaces: Unremarkable. No pleural effusion. No pneumothorax. Heart/Mediastinum: Unremarkable. No cardiomegaly. Bones/joints: Prior vertebral plasty of the thoracic spine. XR/XR chest 1V portable [id number] IMPRESSION: Lingular and left lower lobe infiltrates.
--- NOTE | 2021-11-09 21:11 | CTR_ITS ---
PROCEDURE INFORMATION: Exam: CT Head Without Contrast Exam date and time: 11/09/2021 9:11 PM Age: 80 years old Clinical indication: Altered mental status/memory loss; Confusion or disorientation; Patient HX: Weakness, confusion x 3 days; Additional info: AMS, HX cancer TECHNIQUE: Imaging protocol: Computed tomography of the head without contrast. Radiation optimization: All CT scans at this facility use at least one of these dose optimization techniques: automated exposure control; mA and/or kV adjustment per patient size (includes targeted exams where dose is matched to clinical indication); or iterative reconstruction. COMPARISON: MRI Cervical Spine w/o* [id number] 2016-04-23 07:58 RADIATION DOSE METRICS: Total DLP (mGy-cm): 808.58 FINDINGS: Brain: Large chronic right MCA territory infarct. Scattered chronic appearing lacunae in the deep castro structures and/or periventricular white matter. No midline shift, mass, fluid collection, or evidence of acute hemorrhage. Moderate chronic cerebral white matter disease. Cerebral ventricles: Right lateral ventricle ex vacuo dilatation from volume loss. Paranasal sinuses: Visualized sinuses are unremarkable. No fluid levels. Mastoid air cells: Visualized mastoid air cells are well aerated. Bones/joints: Unremarkable. No acute fracture. Soft tissues: Unremarkable. CT/CT head wo con* [id number] IMPRESSION: Large chronic right MCA territory infarct.
[2021-11-09] MEDS: sodium chloride 0.9% 500 ML IV (21:46)
[2021-11-09 21:50] LABS: Basophils % 0.2 %; Hematocrit 41.4 % (42.0-52.0); Hemoglobin 13.5 g/dL (11.7-16.6); Lymphocytes % 17.5 %; Mean Corpuscular HGB Conc 32.6 g/dL (30.0-36.0); Mean Corpuscular Hemoglobin 30.3 pg (28.0-34.0); Mean Platelet Volume 10.5 fL (7.4-10.4); Monocytes # 0.4 10^3/uL (0.2-0.9); Monocytes % 7.8 %; Neutrophils # 4.08 10^3/uL (1.8-7.7); Neutrophils % 74.3 %; Nucleated Red Blood Cells % 0 %; Platelet Count 185 10^3/cmm (130-400); Red Blood Count 4.45 10^6/uL (4.1-5.3); Red Cell Distribution Width 13.2 % (12.1-15.1); White Blood Count 5.5 10^3/uL (4.0-10.0)
[2021-11-09 22:05] LABS: ABG PCO2 33.7 mmHg (35-45); ABG PH Result 7.43 (7.35-7.45); Arterial Blood Gas Hematocrit 40.2 % (42-52); Base Excess ABG -1.6 mmol/L (-2.0-2.0); Blood Gas Allen Test Pos; Blood Gas Sample Site Brachial, left; Blood Gas Sample Type Arterial; HCO3 ABG 22.1 mmol/L (22-26); Oxygen Device ROOM AIR; PO2 ABG 69.6 mmHg (80.0-100.0)
[2021-11-09 22:38] LABS: Troponin(5th) Baseline 36 ng/L (0-15)
[2021-11-09 22:51] LABS: NT Pro B Type Natriuretic Pept 1721 pg/mL (0-450); Procalcitonin 0.12 ng/mL (0-0.5); Thyroid Stimulating Hormone 2.39 uIU/mL (0.27-4.20)
[2021-11-09 23:09] LABS: Alanine Aminotransferase 13 U/L (0-41); Albumin Level 3.8 g/dL (3.5-5.2); Alkaline Phosphatase 109 IU/L (40-130); Anion Gap 16.8 (5-19); Aspartate Amino Transferase 29 U/L (0-40); Blood Urea Nitrogen 34 mg/dL (8-23); C Reactive Protein 71.1 mg/L (0.0-4.9); Calcium 8.5 mg/dL (8.5-10.5); Carbon Dioxide 23 mmol/L (22-29); Chloride 101 mmol/L (98-107); Globulin 3.5 g/dL (1.3-4.6); Glucose 97 mg/dL (65-115); Osmolality Calculated 292 mOsm/kg (285-295); Potassium 3.8 mmol/L (3.5-5.1); Sodium 137 mmol/L (136-145); Total Bilirubin 0.2 mg/dL (0.15-1.2); Total Protein 7.3 g/dL (6.6-8.7)
[2021-11-09 23:27] LABS: Creatinine Clr Calc Pharmacy 41.9131
[2021-11-09 23:53] LABS: Troponin 5 2HR 37.75 ng/L (0-15)
[2021-11-09 23:55] LABS: Troponin 5 2HR Delta 1.75 ABS# (0-10)
[2021-11-10] VITALS (16 sets, daily range): BP systolic 101–134; BP diastolic 68–74; PULSE 62–81; RESP 16–19; TEMP 36.6–36.7; O2SAT 90–98
[2021-11-10 00:40] LABS: Bilirubin Urine Neg (Negative); Blood Urine 3+ (Negative); Glucose Urine UA Norm (Normal); Ketones Urine 1+ (Negative); Leukocyte Esterase Urine Negative (Negative); Nitrate Urine Negative (Negative); Protein Urine Trace (Negative); Urine Appearance Clear (CLEAR); Urine Color Yellow (Yellow); Urobilinogen Urine Norm (Negative); pH Urine 5 (5-7)
[2021-11-10 00:41] LABS: Add Urine Microscopic? YES
[2021-11-10] MEDS: LORazepam 2 mg/mL INJ 1 mL 1 MG IVP (00:42)
[2021-11-10 00:54] LABS: Add Urine Culture? No; Amorphous Sediment Urine TRACE /hpf; Bacteria Urine TRACE /hpf; Squamous Epithelial Cell Urine 0-4 /hpf (0-5); WBC Urine 0-4 /hpf (0-5)
[2021-11-10 01:19] LABS: SARS Covid-2 Antigen Positive (Negative)
--- NOTE | 2021-11-10 03:11 | ECG_ITS ---
[facility] Test Date: 2021-11-10 Pat Name: Mingo Davis Department: Room: Gender: Male Executive Relations Specialist: : 1940 Requested By: Babak Newton Order Number: [id number] Ann Marie MD: Librado Villarreal M.D. Measurements Intervals [place] Rate: 64 P: 59 [place]: 184 QRS: -12 QRSD: 82 T: 51 QT: 408 QTc: 423 Interpretive Statements SINUS RHYTHM LOW QRS VOLTAGE IN PRECORDIAL LEADS [QRS DEFLECTION < 1.0 mV IN CHEST LEADS] POSSIBLE RIGHT VENTRICULAR CONDUCTION DELAY [RSR (QR) IN V1/V2] NONSPECIFIC T-WAVE ABNORMALITY Compared to ECG 11/09/2021 21:55:30 Low QRS voltage now present T-wave abnormality now present Ventricular premature complex(es) no longer present Electronically Signed On 11-12-2021 9:04:21 GIFT MANAGER by Librado Villarreal M.D. [id number]
--- NOTE | 2021-11-10 03:18 | P.HP_ITS ---
Providers/Chief Complaint Primary Care Provider: Susan Masters, ELAINAC Chief Complaint: ams weakness History of Present Illness Mingo Davis is a 80 year old male with a past medical history of multiple CVAs, CAD, COPD, history of smoking, history of basal cell carcinoma status post radiation therapy who presents [facility] due to altered mental status. Currently patient is alert, does wake up, is on the liter, has active wheezing, but does not really answer questions, the most I got out of him after sternal rubbing him and ask him what was wrong he said I do not know, and kept repeating I do not know. Currently normotensive, pulse 64, respiratory rate 18, O2 sats 91%, requiring 1 L. Does localize pain, does withdraw from pain, spontaneous eye opening, pupils equal round reactive to light. No family at bed side. According to ER staff his mentation has not improved since getting here. His CT of his head shows an old right MCA stroke, looking at his prior CTs, he had old right MCA strokes and multiple locations, back in 2011. Review of Systems General: Reports: ROS unobtainable due to mental status Medications/Allergies Home Medications Medication Instructions Recorded Confirmed Last Taken Type mupirocin 2 % topical ointment 1 applic TOPICAL BID #22 g 09/18/20 12/22/20 Unknown Rx ranitidine HCl 150 mg tablet mg PO 09/18/20 12/22/20 Unknown History albuterol sulfate 90 mcg/actuation 2 puff INHALATION Q6H PRN 12/22/20 12/22/20 Unknown History aerosol inhaler (Ventolin HFA) budesonide-formoterol HFA 160 2 puff INHALATION BID 12/22/20 12/22/20 Unknown History mcg-4.5 mcg/actuation aerosol inhaler (Symbicort) Allergies Allergy/AdvReac Type Severity Reaction Status Date / Time No Known Allergies Allergy Verified 11/09/21 21:00 PFSH Acute PFSH: Medical History (Updated 11/10/21 @ 03:21 by Estrada Kimball MD) AAA (abdominal aortic aneurysm) 4.9cmm 2017 CAD (coronary artery disease) COPD (chronic obstructive pulmonary disease) History of heart attack History of stroke Surgical History History of back surgery 1972 History of heart artery stent Early 1999 Family History Other Cancer Stroke Denies family history of Diabetes Dementia Hypertension Social History Smoking and tobacco status: current every day smoker cigarettes Packs smoked per day: 1 Years cigarettes smoked: 70 Second hand smoke exposure: No Smoking risk assessment/counseling performed?: Yes Alcohol intake: never Desire information about alcohol rehabilitation?: No Counseling given: No Desire information about substance/drug rehabilitation?: No Counseling given: No Adopted: No Caregiver/support person: No Lives independently: Yes Household members: friend(s) Housing: Manufactured/Mobile home Marital status: Number of children: 2 service: Yes branch: [employer] Current occupational status: retired History of recent travel: No Current gender identity: Male Vitals/I&O/Wt Last Vital Signs Temp 98.4 F 11/09/21 20:52 Pulse 64 11/09/21 20:52 Resp 18 11/09/21 20:52 BP 130/69 11/09/21 20:52 Pulse Ox 91 11/09/21 20:52 11/09/21 11/09/21 11/10/21 14:59 22:59 06:59 Intake Total 500 / 500 Balance 500 / 500 Weight last 48 hrs Weight 74.843 kg Physical Exam Const: COMMON NORMALS: no acute distress EXAM LIMITATIONS: altered mental status ORIENTATION/CONSCIOUSNESS: Yes awake and Yes confused; not oriented to person, not oriented to place and not oriented to time HENMT: COMMON NORMALS: normocephalic HEAD & SCALP: normocephalic Eye: COMMON NORMALS: Equal, round and reactive pupils present Neck/C-Spine: COMMON NORMALS: no JVD Chest: OTHER: Center of the chest, 3 x 4 cm round superficial lesion Resp: COMMON NORMALS: normal respiratory effort, No retractions, No use of accessory muscles and clear to auscultation bilaterally AUSCULTATION: wheezes Cardio: COMMON NORMALS: no JVD, regular rate, regular rhythm, S1 normal heart sound present and S2 normal heart sound present RATE: regular rate RHYTHM: regular rhythm HEART SOUNDS: S1 normal heart sound present and S2 normal heart sound present GI: COMMON NORMALS: Normal to inspection, nondistended, normoactive bowel sounds present, Soft to palpation, non-tender, No hepatosplenomegaly present, no masses and no bruits PALPATION: Yes Soft to palpation and Yes No hepatosplenomegaly present Extremity: COMMON NORMALS: capillary refill normal, no clubbing, cyanosis or edema, no calf tenderness and no pedal edema Neuro: ALDA COMA SCALE: document GCS findings Mcgrann coma scale eye openin g: Spontaneous Mcgrann coma scale verbal response: Confused Mcgrann coma scale motor response: Localising Mcgrann coma scale total score: 13 Data : 11/09/21 21:05 11/09/21 21:05 A&P Assessment and plan (1) Pneumonia due to 2019 novel coronavirus: Status: Acute (2) Acute respiratory failure with hypoxemia: Status: Acute (3) COPD (chronic obstructive pulmonary disease): Status: Chronic (4) Basal cell carcinoma: Status: Acute (5) Smoker unmotivated to quit: Status: Acute (6) Acute encephalopathy: Status: Acute (7) NSTEMI (non-ST elevated myocardial infarction): Status: Acute Plan Hypoxia secondary COVID-19 -Decadron day one of 10 -Remdesivir day one of 5 -Sputum cultures, blood cultures, urine bacterial antigens, rapid flu -Rocephin and azithromycin -Vitamin C, vitamin D, zinc -Budesonide, ipratropium -Incentive spirometer, flutter valve -Full code -Lovenox for DVT prophylaxis -D-dimer, CT chest Acute encephalopathy -Secondary to COVID-19, hypoxia -On antibiotics as above -Carotid artery ultrasound, cardiac echo -Neurochecks, aspiration precautions History of seizure multiple CVAs History of CAD Elevated troponins, likely secondary to hypoxia secondary COVID-19, telemetry monitoring, serial EKGs, serial troponin, aspirin statin Basal cell carcinoma status post radiation chemotherapy Attestations Medical Necessity Statement*: Patient requires hospitalization for acute encephalopathy, COVID-19 pneumonia, greater than 2 midnights Coding Level of Care Code 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
[2021-11-10 03:54] LABS: Influenza A by IFA Negative (Negative); Influenza B by IFA Negative (Negative)
[2021-11-10 03:55] LABS: D Dimer 2.92 ug/mIFEU (0-0.59)
--- NOTE | 2021-11-10 06:26 | USCV_ITS ---
Mingo Davis Age: 80 Gender: M : 1940 Exam Date: 11/10/2021 10:17 Ordering Phys: Estrada Kimball MD Technologist: Bre Franco Exam Location: [facility] [place] Indication: AMS BP: 116 / 80 HR: 63 Rhythm: Sinus Technical Quality: Very technically difficult study MEASUREMENTS (Male / Female) Normal Values DOPPLER AV Peak Velocity 126.0 cm/s LVOT Peak Velocity 108.0 cm/s MV Area PHT 3.7 cm squared Mitral E to A Ratio 0.7 MV E' Velocity 35.2 cm/s Mitral E to MV E' Ratio 8.7 Mitral E to LV E' Lateral Ratio 8.3 Mitral E to LV E' Septal Ratio 9.1 FINDINGS Left Ventricle Grossly LV systolic function appears normal. Regional wall motion abnormalities cannot be assessed because of poor visualization Right Ventricle Not visualized Right Atrium Not visualized Left Atrium Not visualized Mitral Valve Not visualized Aortic Valve Not visualized Tricuspid Valve Not visualized Pulmonic Valve Not visualized Pericardium Not visualized Aorta Not visualized CONCLUSIONS Technically very limited quality echocardiogram with very limited visualization of cardiac structures. Grossly LV systolic function appears to be normal. Regional wall motion abnormalities cannot be assessed because of poor visualization. Comparison with prior echocardiograms is not possible because of poor quality images Librado Villarreal MD (Electronically Signed) Final Date: 10 November 2021 19:58 S
--- NOTE | 2021-11-10 06:26 | USR_ITS ---
PROCEDURE INFORMATION: Exam: US Duplex Bilateral Extracranial Arteries, Carotid Arteries Exam date and time: 11/10/2021 6:26 AM Age: 80 years old Clinical indication: Altered mental status/memory loss; Additional info: AMS TECHNIQUE: Imaging protocol: Real-time Duplex ultrasound scan of the bilateral carotid and vertebral arteries combining castro scale, color Doppler and spectral waveform analysis. Bilateral exam. Exam focused on the carotid arteries. COMPARISON: CT head wo con* [id number] 11/09/2021 9:23 PM FINDINGS: Right common carotid artery: The there is atherosclerotic plaque in the right common carotid artery with mild stenosis. Velocities and waveforms are normal. Right internal carotid artery: There is atherosclerotic plaque in the right internal carotid artery with mild stenosis. Velocities and waveforms are normal. Right ICA/CCA ratio: Within normal limits. Right external carotid artery: No stenosis in the origin. Right vertebral artery: Unremarkable. Antegrade flow. Left common carotid artery: Unremarkable. No occlusion or stenosis. Waveforms are normal. Left internal carotid artery: There is atherosclerotic plaque at the origin of the left internal carotid artery. Velocities are elevated in the proximal internal carotid artery with a peak systolic velocity of 149 cm/seconds. Findings are consistent with moderate 50-69% stenosis Left ICA/CCA ratio: Abnormally elevated at 4.28. Left external carotid artery: No stenosis in the origin. Left vertebral artery: Unremarkable. Antegrade flow. US/CV carotid duplex BI* [id number] IMPRESSION: 1. Moderate 50-69% stenosis in the proximal left internal carotid artery. 2. Mild stenosis in the right common carotid and internal carotid arteries. REFERENCES: SRU CRITERIA. The degree of internal carotid artery stenosis is based on criteria defined by the Society of Radiologists in Ultrasound (SRU). Normal is no stenosis. Mild is less than 50% stenosis. Moderate is 50-69% stenosis. Severe is greater than 69% stenosis to near occlusion. Near occlusion is a markedly narrowed lumen. Total occlusion is no detectable patent lumen.
--- NOTE | 2021-11-10 06:26 | CTR_ITS ---
PROCEDURE INFORMATION: Exam: CT Chest Without Contrast; Diagnostic Exam date and time: 11/10/2021 6:26 AM Age: 80 years old Clinical indication: Shortness of breath; Additional info: Pna, covid TECHNIQUE: Imaging protocol: Diagnostic computed tomography of the chest without contrast. Radiation optimization: All CT scans at this facility use at least one of these dose optimization techniques: automated exposure control; mA and/or kV adjustment per patient size (includes targeted exams where dose is matched to clinical indication); or iterative reconstruction. COMPARISON: CT chest w con* [id number] 03/30/2021 2:36 PM RADIATION DOSE METRICS: Total DLP (mGy-cm): 523.2 FINDINGS: Lungs: Moderate centrilobular emphysema. There is some tree-in-bud nodularity in the bilateral lower lobes and right upper lobe. Calcified granuloma in the right lung. Pleural spaces: Unremarkable. No pneumothorax. No pleural effusion. Heart: Mild coronary artery calcification. Aorta: Partially imaged infrarenal abdominal aortic aneurysm measuring up to at least 4.8 cm in AP dimension. This reportedly measured up to 4.1 cm on 01/31/2018. Lymph nodes: Calcified mediastinal and right hilar lymph nodes. Bones/joints: Remote compression fractures of T7 and T11 with changes of vertebral augmentation. Osteopenia. Soft tissues: Unremarkable. CT/CT chest con [id number] IMPRESSION: 1. Mild tree-in-bud nodularity is seen in the right upper lobe and bilateral lower lobes, consistent with aspiration or pneumonia 2. Partially imaged infrarenal abdominal aortic aneurysm measuring up to at least 4.8 cm. This reportedly measures 4.1 cm in 2018. This could be further evaluated with dedicated CTA abdomen pelvis.
--- NOTE | 2021-11-10 06:50 | PC.NURSE ---
Report given to Cindy MONTENEGRO
[2021-11-10] MEDS: enoxaparin 40 mg/0.4 mL Syringe SUBCUT (07:25)
[2021-11-10] MEDS: cefTRIAXone 1,000 MG in sodium chloride 0.9% (plus) 50 ML 100 MG IV (07:25)
[2021-11-10] MEDS: dexamethasone 10 mg/mL INJ 6 MG IVP (07:25)
[2021-11-10] MEDS: pantoprazole 40 mg SDV IVP (07:25)
[2021-11-10] MEDS: ipratropium-albuterol 3 mL Neb INHALATION ×4 (09:57→19:54)
[2021-11-10] MEDS: budesonide 0.5 mg/2 mL Neb INHALATION ×2 (09:57→19:54)
[2021-11-10] MEDS: azithromycin 500 MG in sodium chloride 0.9% 250 ML 250 MG IV (10:23)
[2021-11-10] MEDS: cholecalciferol (vitamin D3) 1,000 unit Tablet 1000 UNIT PO (10:23)
[2021-11-10] MEDS: docusate sodium 100 mg Capsule PO ×2 (10:23→18:18)
[2021-11-10] MEDS: aspirin 81 mg EC Tablet PO (10:23)
[2021-11-10] MEDS: ascorbic acid 500 mg Tablet PO ×2 (10:23→18:18)
[2021-11-10] MEDS: zinc gluconate 50 mg Tablet PO (10:23)
--- NOTE | 2021-11-10 19:39 | PC.NURSE ---
Patient asking to eat-currently NPO. Voalte message sent to Dr. Rhodes requesting to advance his diet. Awaiting diet.
[2021-11-11] VITALS (17 sets, daily range): BP systolic 108–132; BP diastolic 57–67; PULSE 56–70; RESP 14–18; TEMP 36.4–37; O2SAT 92–95
[2021-11-11 04:47] LABS: Hematocrit 40.4 % (42.0-52.0); Lymphocytes # 1.4 10^3/uL (0.8-4.8); Mean Corpuscular HGB Conc 32.2 g/dL (30.0-36.0); Mean Corpuscular Hemoglobin 30.2 pg (28.0-34.0); Mean Corpuscular Volume 93.7 fl (80-94); Mean Platelet Volume 10.6 fL (7.4-10.4); Monocytes # 0.6 10^3/uL (0.2-0.9); Neutrophils # 5.95 10^3/uL (1.8-7.7); Neutrophils % 74.6 %; Nucleated Red Blood Cells % 0 %; Platelet Count 186 10^3/cmm (130-400); Red Blood Count 4.31 10^6/uL (4.1-5.3); Red Cell Distribution Width 13.1 % (12.1-15.1)
[2021-11-11 05:01] LABS: D Dimer 2.62 ug/mIFEU (0-0.59)
[2021-11-11 05:05] LABS: Alanine Aminotransferase 18 U/L (0-41); Albumin Level 3.5 g/dL (3.5-5.2); Alkaline Phosphatase 100 IU/L (40-130); Blood Urea Nitrogen 29 mg/dL (8-23); C Reactive Protein 58.7 mg/L (0.0-4.9); Calcium 7.7 mg/dL (8.5-10.5); Carbon Dioxide 23 mmol/L (22-29); Chloride 105 mmol/L (98-107); Globulin 2.9 g/dL (1.3-4.6); Glucose 93 mg/dL (65-115); Magnesium 2.2 mg/dL (1.7-2.3); Osmolality Calculated 298 mOsm/kg (285-295); Phosphorus 2.1 mg/dL (2.5-4.5); Sodium 141 mmol/L (136-145); Total Bilirubin 0.2 mg/dL (0.15-1.2); Total Protein 6.4 g/dL (6.6-8.7)
[2021-11-11 05:07] LABS: Lactate (Lactic Acid level) 1.6 mmol/L (0.5-2.2)
[2021-11-11 05:09] LABS: Anion Gap 17.5 (5-19); Aspartate Amino Transferase 48 U/L (0-40); Creatinine Clr Calc Pharmacy 41.9131; Potassium 4.5 mmol/L (3.5-5.1)
[2021-11-11 05:14] LABS: NT Pro B Type Natriuretic Pept 2363 pg/mL (0-450); Procalcitonin 0.11 ng/mL (0-0.5)
[2021-11-11] MEDS: dexamethasone 10 mg/mL INJ 6 MG IVP (05:28)
[2021-11-11] MEDS: pantoprazole 40 mg SDV IVP (05:28)
[2021-11-11] MEDS: cefTRIAXone 1,000 MG in sodium chloride 0.9% (plus) 50 ML 100 MG IV (05:28)
[2021-11-11] MEDS: enoxaparin 40 mg/0.4 mL Syringe SUBCUT (05:28)
[2021-11-11 05:35] LABS: Creatine Phosphokinase 759 U/L (39-308)
[2021-11-11] MEDS: azithromycin 500 MG in sodium chloride 0.9% 250 ML 250 MG IV (06:01)
[2021-11-11] MEDS: budesonide 0.5 mg/2 mL Neb INHALATION ×2 (08:32→20:01)
[2021-11-11] MEDS: ipratropium-albuterol 3 mL Neb INHALATION ×4 (08:32→20:01)
[2021-11-11] MEDS: ascorbic acid 500 mg Tablet PO ×2 (09:07→16:31)
[2021-11-11] MEDS: aspirin 81 mg EC Tablet PO (09:07)
[2021-11-11] MEDS: zinc gluconate 50 mg Tablet PO (09:07)
[2021-11-11] MEDS: docusate sodium 100 mg Capsule PO ×2 (09:07→16:31)
--- NOTE | 2021-11-11 14:52 | P.PN_ITS ---
Subjective Subjective: Mentation continues to improve. AAox3 currently. between RA to 2lpm on supplemental 02. denies dyspnea, chest pain Vitals/I&O/Wt Last Vital Signs Temp 98.3 F 11/11/21 12:00 Pulse 60 11/11/21 12:00 Resp 18 11/11/21 12:00 BP 132/67 11/11/21 07:54 Pulse Ox 94 11/11/21 12:00 11/10/21 11/11/21 11/11/21 22:59 06:59 14:59 Intake Total 730 / 780 290 / 1070 970 / 970 Output Total 250 / 400 Balance 480 / 380 290 / 670 970 / 970 Weight last 48 hrs Weight 74.843 kg Physical Exam Narrative: GEN: Awake, alert and oriented, no acute distress, intermittently tearful, wishes to eat a regular diet CVS: S1S2 N RS: CTA B/L Abd: Soft, nt/nd , bs+ RUBBER CHEMIST: no focal neuro deficits Data : 11/11/21 04:28 11/11/21 04:28 Micro: Microbiology 11/10/21 03:30 Blood Culture - Preliminary Blood NEGATIVE TO DATE 11/10/21 03:30 Blood Culture - Preliminary Blood NEGATIVE TO DATE A&P Assessment and plan (1) Acute encephalopathy: Status: Acute (2) Pneumonia due to 2019 novel coronavirus: Status: Acute (3) Hypoxia: Status: Acute (4) COPD (chronic obstructive pulmonary disease): Status: Chronic Plan Hypoxia secondary COVID-19 -Decadron 6mg IVP to continue -Remdesivir day 2/5 -Continue Rocephin day 2/5 -Vitamin C, vitamin D, zinc -Budesonide, ipratropium standing nebulization - supplemental 02 to keep sat >90% -Incentive spirometer, flutter valve -Full code -Lovenox for DVT prophylaxis -D-dime elevated, however unable to get CTA due to cr 1.6 (baseline 1..6-1.9), lower suspicion as patient otherwise on room air today. CT chest w/o contrast with Mild tree-in-bud nodularity is seen in the right upper lobe and bilateral lower lobes, consistent with aspiration or pneumonia Acute encephalopathy -Secondary to COVID-19, hypoxia - mentation now improved, AAOx3 currently -On treatment as above - Ct head without acute events -Carotid artery ultrasound ?Moderate 50-69% stenosis in the proximal left internal carotid artery.Recommend outpatient f/up -Neurochecks, aspiration precautions History of seizure multiple CVAs History of CAD Elevated troponins, likely secondary to hypoxia secondary COVID-19, telemetry monitoring, serial EKGs, serial troponin, aspirin statin, no c/o chest pain at this time. 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
[2021-11-11] MEDS: sodium chloride 0.9% 1,000 ML 50 ML IV (16:31)
[2021-11-11] MEDS: atorvastatin 40 mg Tablet PO (20:41)
[2021-11-11] MEDS: acetaminophen 325 mg Tablet 650 MG PO (20:44)
[2021-11-12] VITALS (12 sets, daily range): BP systolic 132–166; BP diastolic 72–92; PULSE 59–79; RESP 16–20; TEMP 36.7–36.9; O2SAT 92–96
[2021-11-12 05:19] LABS: Basophils % 0.1 %; Hemoglobin 13.1 g/dL (11.7-16.6); Lymphocytes # 1.5 10^3/uL (0.8-4.8); Lymphocytes % 17.5 %; Mean Corpuscular Hemoglobin 30.3 pg (28.0-34.0); Mean Corpuscular Volume 94.7 fl (80-94); Mean Platelet Volume 10.6 fL (7.4-10.4); Monocytes # 0.8 10^3/uL (0.2-0.9); Monocytes % 8.8 %; Neutrophils # 6.34 10^3/uL (1.8-7.7); Neutrophils % 73.3 %; Nucleated Red Blood Cells % 0 %; Platelet Count 200 10^3/cmm (130-400); Red Blood Count 4.33 10^6/uL (4.1-5.3); White Blood Count 8.7 10^3/uL (4.0-10.0)
[2021-11-12] MEDS: cefTRIAXone 1,000 MG in sodium chloride 0.9% (plus) 50 ML 100 MG IV (05:34)
[2021-11-12] MEDS: enoxaparin 40 mg/0.4 mL Syringe SUBCUT (05:35)
[2021-11-12] MEDS: dexamethasone 10 mg/mL INJ 6 MG IVP (05:35)
[2021-11-12 05:39] LABS: Alanine Aminotransferase 22 U/L (0-41); Albumin Level 3.4 g/dL (3.5-5.2); Alkaline Phosphatase 92 IU/L (40-130); Anion Gap 17.5 (5-19); Aspartate Amino Transferase 48 U/L (0-40); Blood Urea Nitrogen 25 mg/dL (8-23); C Reactive Protein 27.6 mg/L (0.0-4.9); Calcium 8.2 mg/dL (8.5-10.5); Carbon Dioxide 19 mmol/L (22-29); Chloride 109 mmol/L (98-107); Globulin 3.2 g/dL (1.3-4.6); Glucose 86 mg/dL (65-115); Osmolality Calculated 298 mOsm/kg (285-295); Potassium 3.5 mmol/L (3.5-5.1); Sodium 142 mmol/L (136-145); Total Bilirubin 0.2 mg/dL (0.15-1.2); Total Protein 6.6 g/dL (6.6-8.7)
[2021-11-12 05:49] LABS: Creatine Phosphokinase 777 U/L (39-308)
[2021-11-12] MEDS: ipratropium-albuterol 3 mL Neb INHALATION ×2 (07:54→12:09)
[2021-11-12] MEDS: budesonide 0.5 mg/2 mL Neb INHALATION (07:54)
[2021-11-12] MEDS: aspirin 81 mg EC Tablet PO (09:39)
[2021-11-12] MEDS: docusate sodium 100 mg Capsule PO (09:39)
[2021-11-12] MEDS: ascorbic acid 500 mg Tablet PO (09:39)
[2021-11-12] MEDS: pantoprazole DR 40 mg Tablet PO (09:39)
[2021-11-12] MEDS: zinc gluconate 50 mg Tablet PO (09:39)
--- NOTE | 2021-11-12 11:38 | P.DS_ITS ---
Discharge Providers Date of Admission: 11/10/21 02:18 Date of Discharge: November 12, 2021 Attending Provider at Admission: Estrada Kimball MD Attending Provider at Discharge: Bernardo Couch MD Primary Care Provider: ANNA Elise Diagnoses at Discharge Discharge Diagnosis (1) Acute encephalopathy: Status: Acute (2) Pneumonia due to 2019 novel coronavirus: Status: Acute (3) Hypoxia: Status: Acute (4) COPD (chronic obstructive pulmonary disease): Status: Chronic Reason for Visit Reason for Visit: ams weakness Hospital Course Hospital Course 80 year old male with a past medical history of multiple CVAs, CAD, COPD, history of smoking, history of basal cell carcinoma status post radiation therapy who presents [facility] due to altered mental status. Further work-up during the hospital stay was managed for Ac encephalopathy secondary to COVID-19 , hypoxia, hypoxia secondary to COVID-19. Patient was continued on neuroid remdesivir,' DuoNebs , inhalers , supplemental oxygen as needed, incentive spirometry and flutter valve, CT chest w/o contrast with?Mild tree-in-bud nodularity is seen in the right upper lobe and bilateral lower lobes, consistent with aspiration or pneumonia , Ct head without no acute intracranial pathology, Carotid artery ultrasound??Moderate 50-69% stenosis in the proximal left internal carotid artery.blood culture were negative at the time of discharge. Responded well to the above medical management He was discharged on room air, the time of discharge he was at his baseline mentation. Patient family was reached out to make sure that he has good social support and is safe to be discharged to home. Family assured that he has good social support during this ongoing recovery phase. Patient was discharged in stable condition to home, he was continued on dexamethasone 2 mg p.o. daily for another 3 days, and continued on home inhalers. Physical Exam Const: COMMON NORMALS: patient oriented x3 HENMT: COMMON NORMALS: normocephalic, atraumatic, hearing grossly normal bilaterally and external ears normal HEAD & SCALP: normocephalic and atraumatic EXTERNAL EAR: Yes external ears normal Eye: COMMON NORMALS: no scleral icterus GENERAL EYE: appearance normal, both eyes and all related structures Chest: COMMONS NORMALS: normal inspection of the chest and normal palpation of entire chest wall CHEST: Yes Symmetrical chest wall rise Resp: COMMON NORMALS: normal respiratory effort, No retractions, No use of accessory muscles and clear to auscultation bilaterally EFFORT & INSPECTION: Yes symmetric chest movement AUSCULTATION: clear to auscultation bilaterally Cardio: COMMON NORMALS: regular rate, regular rhythm, S1 normal heart sound present, S2 normal heart sound present, No gallops present (Cardio), No murmurs present (Cardio), No rub (Cardio) and Peripheral pulses 2+ throughout RATE: regular rate RHYTHM: regular rhythm HEART SOUNDS: S1 normal heart sound present and S2 normal heart sound present PERIPHERAL PULSES: Peripheral pulses 2+ throughout GI: COMMON NORMALS: Normal to inspection, nondistended, normoactive bowel sounds present, Soft to palpation, non-tender, No hepatosplenomegaly present and no masses AUSCULTATION: Yes normoactive bowel sounds PALPATION: Yes Soft to palpation and Yes No hepatosplenomegaly present RECTAL EXAM: Yes deferred Extremity: COMMON NORMALS: no clubbing, cyanosis or edema and no pedal edema Neuro: COMMON NORMALS: patient oriented x3 Discharge Data Studies Completed and Pending Completed Studies During Hospitalization Category Date Time Status CT chest wo con [id number] Urgent Cat Scan 11/10/21 06:[address] head wo con* [id number] Urgent Cat Scan 11/09/21 21:11 Completed XR chest 1V portable [id number] Urgent Exams 11/09/21 21:11 Completed CV carotid duplex BI* [id number] Routine Ultrasound 11/10/21 06:26 Completed CV. echo complete* [id number] Routine Ultrasound 11/10/21 06:26 Completed Pending at discharge Category Date Time Status Bacterial Antigen Stat Lab 11/10/21 07:13 Ordered Blood Culture Stat Lab 11/10/21 03:30 Results C Reactive Protein AM LABS Lab 11/13/21 04:00 Ordered Complete Blood Count w/Auto AM LABS Lab 11/13/21 04:00 Ordered Comprehensive Metabolic Panel AM LABS Lab 11/13/21 04:00 Ordered Creatine Phosphokinase AM LABS Lab 11/13/21 04:00 Ordered Legionella Antigen STAT Stat Lab 11/10/21 07:13 Ordered Sputum Culture and Gram Stain Stat Lab 11/10/21 03:13 Uncollected Radiology Impressions Chest X-Ray 11/09/21 21:11 IMPRESSION: Lingular and left lower lobe infiltrates. Head CT 11/09/21 21:11 IMPRESSION: Large chronic right MCA territory infarct. Carotid Doppler Study 11/10/21 06:26 IMPRESSION: 1. Moderate 50-69% stenosis in the proximal left internal carotid artery. 2. Mild stenosis in the right common carotid and internal carotid arteries. REFERENCES: SRU CRITERIA. The degree of internal carotid artery stenosis is based on criteria defined by the Society of Radiologists in Ultrasound (SRU). Normal is no stenosis. Mild is less than 50% stenosis. Moderate is 50-69% stenosis. Severe is greater than 69% stenosis to near occlusion. Near occlusion is a markedly narrowed lumen. Total occlusion is no detectable patent lumen. Chest CT 11/10/21 06:26 IMPRESSION: 1. Mild tree-in-bud nodularity is seen in the right upper lobe and bilateral lower lobes, consistent with aspiration or pneumonia 2. Partially imaged infrarenal abdominal aortic aneurysm measuring up to at least 4.8 cm. This reportedly measures 4.1 cm in 2018. This could be further evaluated with dedicated CTA abdomen pelvis. Laboratory Results WBC 8.7 10^3/uL (4.0-10.0) 11/12/21 04:30 RBC 4.33 10^6/uL (4.1-5.3) 11/12/21 04:30 Hgb 13.1 g/dL (11.7-16.6) 11/12/21 04:30 Hct 41.0 % (42.0-52.0) L 11/12/21 04:30 MCV 94.7 fl (80-94) H 11/12/21 04:30 MCH 30.3 pg (28.0-34.0) 11/12/21 04:30 MCHC 32.0 g/dL (30.0-36.0) 11/12/21 04:30 RDW 13.0 % (12.1-15.1) 11/12/21 04:30 Plt Count 200 10^3/cmm (130-400) 11/12/21 04:30 MPV 10.6 fL (7.4-10.4) H 11/12/21 04:30 Neut % (Auto) 73.3 % 11/12/21 04:30 Lymph % (Auto) 17.5 % 11/12/21 04:30 [place] % (Auto) 8.8 % 11/12/21 04:30 Eos % (Auto) 0.0 % 11/12/21 04:30 Baso % (Auto) 0.1 % 11/12/21 04:30 Neut # (Auto) 6.34 10^3/uL (1.8-7.7) 11/12/21 04:30 Lymph # (Auto) 1.5 10^3/uL (0.8-4.8) 11/12/21 04:30 [place] # (Auto) 0.8 10^3/uL (0.2-0.9) 11/12/21 04:30 Eos # (Auto) 0.0 10^3/uL (0.0-0.8) 11/12/21 04:30 Baso # (Auto) 0.0 10^3/uL (0.0-0.1) 11/12/21 04:30 Nucleated RBC % (auto) 0 % 11/12/21 04:30 Nucleated RBCs # 0.0 /100WBC 11/12/21 04:30 D-Dimer 2.62 ug/mIFEU (0-0.59) H 11/11/21 04:28 Specimen Type Arterial 11/09/21 21:52 Sample Site Brachial, left 11/09/21 21:52 ABG pH 7.43 (7.35-7.45) 11/09/21 21:52 ABG pCO2 33.7 mmHg (35-45) L 11/09/21 21:52 ABG pO2 69.6 mmHg (80.0-100.0) L 11/09/21 21:52 ABG HCO3 22.1 mmol/L (22-26) 11/09/21 21:52 ABG Base Excess -1.6 mmol/L (-2.0-2.0) 11/09/21 21:52 Kunal Test Pos 11/09/21 21:52 Hematocrit 40.2 % (42-52) L 11/09/21 21:52 O2 Delivery Device Room air 11/09/21 21:52 Copy Machine Operator ID Buttr 11/09/21 21:52 Sodium 142 mmol/L (136-145) 11/12/21 04:30 Potassium 3.5 mmol/L (3.5-5.1) 11/12/21 04:30 Chloride 109 mmol/L (98-107) H 11/12/21 04:30 Carbon Dioxide 19 mmol/L (22-29) L 11/12/21 04:30 Anion Gap 17.5 (5-19) 11/12/21 04:30 BUN 25 mg/dL (8-23) H 11/12/21 04:30 Creatinine 1.4 mg/dL (0.7-1.2) H 11/12/21 04:30 GFR Calculation Not Reportable 11/12/21 04:30 Glucose 86 mg/dL (65-115) 11/12/21 04:30 Calculated Osmolality 298 mOsm/kg (285-295) H 11/12/21 04:30 Lactate 1.6 mmol/L (0.5-2.2) 11/11/21 04:28 Calcium 8.2 mg/dL (8.5-10.5) L 11/12/21 04:30 Phosphorus 2.1 mg/dL (2.5-4.5) L 11/11/21 04:28 Magnesium 2.2 mg/dL (1.7-2.3) 11/11/21 04:28 Total Bilirubin 0.2 mg/dL (0.15-1.2) 11/12/21 04:30 AST 48 U/L (0-40) H 11/12/21 04:30 ALT 22 U/L (0-41) 11/12/21 04:30 Alkaline Phosphatase 92 IU/L (40-130) 11/12/21 04:30 Creatine Kinase 777 U/L (39-308) H* 11/12/21 04:30 Troponin T Baseline 36 ng/L (0-15) H 11/09/21 21:05 Troponin T 120 Minute 37.75 ng/L (0-15) H 11/09/21 23:14 Delta Troponin T 1.75 ABS# (0-10) 11/09/21 23:14 Troponin T Hi Sens 6Hr 42.30 ng/L (0-15) H 11/10/21 03:30 Troponin T Hi Sens 6Hr Delta 6.30 ng/L (0-12) 11/10/21 03:30 C-Reactive Protein 27.6 mg/L (0.0-4.9) H 11/12/21 04:30 NT-Pro-B Natriuret Pep 2363 pg/mL (0-450) H 11/11/21 04:28 Total Protein 6.6 g/dL (6.6-8.7) 11/12/21 04:30 Albumin 3.4 g/dL (3.5-5.2) L 11/12/21 04:30 Globulin 3.2 g/dL (1.3-4.6) 11/12/21 04:30 Procalcitonin 0.11 ng/mL (0-0.5) 11/11/21 04:28 TSH 3.00 uIU/mL (0.27-4.20) 11/10/21 03:30 Urine Color Yellow (Yellow) 11/09/21 23:36 Urine Appearance Clear (CLEAR) 11/09/21 23:36 Urine pH 5 (5-7) 11/09/21 23:36 Ur Specific [place] 1.020 (1.005-1.030) 11/09/21 23:36 Urine Protein Trace (Negative) 11/09/21 23:36 Urine Glucose (UA) Norm (Normal) 11/09/21 23:36 Urine Ketones 1+ (Negative) H 11/09/21 23:36 Urine Blood 3+ (Negative) H 11/09/21 23:36 Urine Nitrate Negative (Negative) 11/09/21 23:36 Urine Bilirubin Neg (Negative) 11/09/21 23:36 Urine Urobilinogen Norm mg/dL (Negative) 11/09/21 23:36 Ur Leukocyte Esterase Negative (Negative) 11/09/21 23:36 Urine RBC 5-10 /hpf (0-2) H 11/09/21 23:36 Urine WBC 0-4 /hpf (0-5) H 11/09/21 23:36 Ur Squamous Epith Cells 0-4 /hpf (0-5) H 11/09/21 23:36 Amorphous Sediment Trace /hpf 11/09/21 23:36 Urine Bacteria Trace /hpf (NONE) 11/09/21 23:36 Influenza Type A Ag Negative (Negative) 11/10/21 03:25 Influenza Type B Ag Negative (Negative) 11/10/21 03:25 SARS-CoV-2 Ag (Rapid) Positive (Negative) H 11/09/21 23:40 Vitals Last Vital Signs Temp 98.2 F 11/12/21 08:00 Pulse 59 L 11/12/21 08:04 Resp 17 11/12/21 08:04 BP 132/74 11/12/21 08:00 Pulse Ox 94 11/12/21 08:04 Discharge Plan Discharge Patient Disposition: Home Condition: Stable Prescriptions: New dexamethasone 2 mg tablet 2 mg PO DAILY 3 Days Qty: 3 0RF Continued mupirocin 2 % ointment 1 applic topical BID Qty: 22 0RF citalopram 40 mg tablet 40 mg PO DAILY 0RF pantoprazole 40 mg tablet,delayed release (DR/EC) 40 mg PO DAILY 0RF Ventolin HFA 90 mcg/actuation HFA aerosol inhaler 2 puff inhalation Q6H PRN (Reason: shortness of breath or wheezing) 30 Days 1RF Symbicort 160-4.5 mcg/actuation HFA aerosol inhaler 2 puff inhalation BID 30 Days 1RF Discharge Orders: Discharge Order (Routine); Ordered 11/12/21 Ordered By: Bernardo Couch Other Ambulatory Orders: DME: [facility] (Order) Location: None Selected Ordered By: Steffanie Beebe Referrals: Susan Masters FNP-C [Primary Care Provider] - 11/13/21 11:20 am Discharge Diet: Regular Discharge Activity: Increase activity as tolerated Patient Instructions: Dexamethasone (By mouth), Hypoxia (GEN), COVID-19 (Coronavirus Disease 2019) (GEN), Opioid Safety Discharge Attestations Time Spent in Discharge Care*: greater than 30 min Specific Discharge Activities: educating patient, educating and/or supporting family/caregiver, discussing with case planner/social workers/dc planners, documenting/other paperwork and evaluating patient/reviewing data Status at Discharge: Cognitive status at discharge: cognitively intact , Behavioral status at discharge: cooperative , Functional status at discharge: independent ambulation , Overall status at discharge: patient is progressing back to baseline Quality Metrics Clinical Quality Measures [ No reported AMI, CVA or VTE this stay] Coding Level of Care Code Acute Chg FW DC note Diagnoses Acute encephalopathy G93.40 Pneumonia due to 2019 novel coronavirus U07.1; J12.82 Hypoxia R09.02 COPD (chronic obstructive pulmonary disease) J44.9
== END 2021-11-12 15:46 | disposition home or self-care (01) | DRG 177 ==
LOC: ER 11-10 02:17 → MEDSURG 11-10 06:45
PROVIDERS: Emergency Medicine; Admitting Provider Family Medicine; Emergency Provider Emergency Medicine; PCP Nurse Practitioner; Visit Provider Internal Medicine
DX: U07.1 COVID-19 (principal); J12.82 Pneumonia due to coronavirus disease 2019; J96.01 Acute respiratory failure with hypoxia; G93.40 Encephalopathy, unspecified; F17.210 Nicotine dependence, cigarettes, uncomplicated; Z86.73 Personal history of transient ischemic attack (TIA), and cerebral infarction without residual deficits; I25.10 Atherosclerotic heart disease of native coronary artery without angina pectoris; J44.9 Chronic obstructive pulmonary disease, unspecified; Z92.3 Personal history of irradiation; C44.91 Basal cell carcinoma of skin, unspecified; I65.22 Occlusion and stenosis of left carotid artery
CPT/HCPCS: 36415; 36600; 70450; 71045; 71250; 80053; 81001; 82550; 82803; 83605; 83735; 83880; 84100; 84145; 84443; 84484; 85025; 85378; 86140; 87040; 87426; 87804; 92523; 92610; 93005; 93306; 93880; 94640; 96361; 96372; 96374; 97110; 97116; 97161; 97166; 97530; 97535; 99285; C9113; J0456; J0696; J1100; J1650; J2060; J7030; J7040; J7050; J7626

== ENCOUNTER 2021-11-16 08:42 | Outpatient (RCR) | payer MEDICARE, MEDICAID, SELFPAY ==
--- NOTE | 2021-11-16 09:37 | ONCRAD EPV_ITS ---
Radiation Oncology Follow-Up Note Patient Name: Mingo Davis Date of : 1940 Date of Service: 11/16/2021 Attending Physician: Steven West M.D. Mingo Davis returned to my office this morning for a routinely scheduled follow-up appointment. He completed consolidative radiotherapy in September for the management of a locally advanced basal cell carcinoma of the chest wall. In September 2020, he was evaluated at [facility] in [place], [place] for a sternal lesion. 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 He was referred to the [facility] surgical oncology department further management. At the time of consultation in November 2020, physical examination revealed an open wound measuring 4 cm x 2 cm x 1 cm with fixation to the sternal. No adenopathy was described. He was considered medically inoperable and referred for medical oncology evaluation. In December 2020, he was assessed by Mingo Trivedi M.D. The hedgehog signaling pathway targeted agent Erivedge (vismodegib ??? 150 mg daily) was recommended. He began treatment in January 2021 and continues targeted therapy without adverse events. A significant response was achieved. Daily radiotherapy was administered between the dates of September 12, 2021 through October 19, 2021. A prescribed dose of 50 Gy was delivered in 25 fractions encompassing 38 elapsed days. On review of systems, he denied skin complaints related to radiotherapy. Examination identified hypopigmentation of the skin of the sternum with telangiectasias present. In summary, Mr. Davis returned for a routine post-radiotherapy follow-up. He has no sequelae from treatment and will continue follow-up with his medical oncologist. Signed by: Dr. Steven West 11/16/2021 9:35:32 AM
== END 2021-11-26 23:59 | disposition home or self-care (01) ==
LOC: ONCMED 08:42
PROVIDERS: PCP Nurse Practitioner; Visit Provider Radiology Radiation Oncology
DX: Z51.0 Encounter for antineoplastic radiation therapy (principal); C44.519 Basal cell carcinoma of skin of other part of trunk; Z79.899 Other long term (current) drug therapy
CPT/HCPCS: 99024

== ENCOUNTER 2021-12-12 08:48 | Outpatient (RCR) | payer MEDICARE, MEDICAID, SELFPAY ==
[2021-12-12 09:32] LABS: Basophils % 0.3 %; Eosinophils # 0.1 10^3/uL (0.0-0.8); Eosinophils % 1.3 %; Hemoglobin 13.8 g/dL (11.7-16.6); Lymphocytes # 1.6 10^3/uL (0.8-4.8); Lymphocytes % 16.9 %; Mean Corpuscular HGB Conc 32.9 g/dL (30.0-36.0); Mean Corpuscular Hemoglobin 30.3 pg (28.0-34.0); Mean Corpuscular Volume 92.3 fl (80-94); Mean Platelet Volume 9.4 fL (7.4-10.4); Monocytes # 0.6 10^3/uL (0.2-0.9); Monocytes % 6.2 %; Neutrophils # 7.25 10^3/uL (1.8-7.7); Neutrophils % 75.1 %; Nucleated Red Blood Cells % 0 %; Platelet Count 290 10^3/cmm (130-400); Red Blood Count 4.55 10^6/uL (4.1-5.3); Red Cell Distribution Width 13.6 % (12.1-15.1); White Blood Count 9.7 10^3/uL (4.0-10.0)
[2021-12-12 10:17] LABS: Alanine Aminotransferase 19 U/L (0-41); Alkaline Phosphatase 103 IU/L (40-130); Anion Gap 16.9 (5-19); Aspartate Amino Transferase 16 U/L (0-40); Blood Urea Nitrogen 27 mg/dL (8-23); Calcium 9.2 mg/dL (8.5-10.5); Carbon Dioxide 21 mmol/L (22-29); Chloride 102 mmol/L (98-107); Globulin 3.3 g/dL (1.3-4.6); Glucose 108 mg/dL (65-115); Osmolality Calculated 288 mOsm/kg (285-295); Potassium 3.9 mmol/L (3.5-5.1); Sodium 136 mmol/L (136-145); Total Bilirubin 0.4 mg/dL (0.15-1.2); Total Protein 7.3 g/dL (6.6-8.7)
--- NOTE | 2021-12-12 11:35 | ONC FU_ITS ---
Dr. Trivedi Patient Follow-Up Note Patient: Mingo Davis V Unit #: [id number]: 1940 Dicatated By: Mingo Trivedi M.D.Date of Visit:Dec 12, 2021 Onc Med Follow-up/Prog Note Chief Complaint: Basal cell skin cancer. 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 In September [address] Reji Villatoro in [place] for a skin lesion in his upper chest area. 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 He then had surgical oncology consultation with Dr. Yoandy Alan at the [facility] on 12/13/2020. On exam at that time, the lesion appeared locally advanced with fixation to the underlying sternum. He was felt to be a poor surgical candidate due to his underlying medical illnesses and comorbidities. He was recommended to be evaluated for possible targeted therapy with vismodegib with possible surgery or radiation to follow. I had seen him initially on 01/02/2021. He then began treatment with vismodegib 150 mg daily. As of his follow-up visit in June 2021 he appeared to be showing a very good clinical response. He had experienced some weight loss, which I suspected to have been treatment related. He was otherwise tolerating it well. He was then referred to Dr. West, and he began radiation to the involved area on 09/12/2021. He completed treatment on 10/19/2021 to a total dose of 5000 cGy, administered in 25 fractions. He tolerated it well. He was recommended to stop the vismodegib. His other medical illnesses include COPD, coronary artery disease, GERD, and degenerative arthritis/degenerative disease of the spine. He has a history of multiple strokes. He is known to have abdominal aortic aneurysm. He has a long history of smoking, at least 1 pack of cigarettes daily. He has had heavy alcohol use in the past, but he quit drinking more than 30 years ago. INTERIM HISTORY: On 09/09/2022 he was admitted to the hospital with pneumonia and acute respiratory failure in association with COVID-19 virus infection. He had presented to the emergency room with altered mental status. His head CT showed a large chronic right MCA territory infarct, but no acute findings. His chest CT showed some tree-in-bud nodularity in the bilateral lower lobes and in the right upper lobe consistent with aspiration or pneumonia. There was moderate centrilobular emphysema. Also noted was a partially imaged abdominal aortic aneurysm measuring up to at least 4.8 cm, increased from 4.1 cm in 2018. He had uneventful recovery on treatment with remdesivir and steroid therapy. He was discharged home on 09/11/2022. He returns for a scheduled follow-up visit. His main complaint is he has been feeling tired. He is up and around but he is mostly sitting and watching TV. He complains that he has no appetite, but his weight is up about 5 pounds since June. He is not having fever or night sweats. He does not complain of sore mouth or throat. He says he coughs to clear his throat. He has shortness of breath with activity. He does not complain of chest pain. He recently had some indigestion/vomiting, that seems to have resolved. Bowel and bladder function remain adequate, though he does have some urgency with urination. He does not so much complain of musculoskeletal pain as tiredness. He recently had a headache which came up from the back of his neck. It was severe enough that he thought it was going to kill him. He has no focal neurologic symptoms. Medications: Citalopram Hydrobromide 1 Tablet (of 20 mg) Tablet Oral daily, Mupirocin 1 Applicator (of 2 %) Ointment Topical every am Allergies: No Known Allergies. Vital Signs: Performed on Dec 12, 2021 10:44 Height - 72.00 in Weight - 140.4 lbs (HIGH) BSA - 1.83 sq.m BMI - 19.04 Temperature - 97.8 F (LOW) Pulse - 65 /min Respiration - 18 /min BP - 117/71 mm(hg) O2 Sat - 95 % (LOW) Pain - 0 Fatigue - 8 Physical Examination: Constitutional - He appears generally weak and chronically ill, Eyes - Sclerae nonicteric. Conjunctivae clear, ENMT - No lesions noted in the oral cavity, Hematologic/Lymphatic - No cervical, clavicular, or axillary adenopathy, Respiratory - Lungs show coarse breath sounds with diminished air movement bilaterally, Cardiovascular - Heart rhythm is regular. There is no murmur, gallop, or rub noted, Abdomen - Soft. Liver and spleen are not enlarged. There is no abdominal mass or ascites noted and there is no inguinal adenopathy, Extremities - No edema, Integumentary - The side of his basal cell cancer in the upper chest wall shows some residual scarring, but it appears well-healed with no evidence of local recurrence, Neurologic - No focal neurologic deficits noted. Lab/Imaging: Test performed on Dec 12, 2021 09:23 Sodium 136 mmol/L Potassium 3.9 mmol/L Chloride 102 mmol/L CO2 21 mmol/L Anion Gap 16.9 BUN 27 mg/dL Creatinine 1.6 mg/dL Cr Clearance (Est) 34.28 mL/min Glucose 108 mg/dL Osmolality - Calculated 288 mOsm/kg Calcium 9.2 mg/dL Protein, Total 7.3 g/dL Albumin 4.0 g/dL Globulin 3.3 g/dL Bilirubin, Total 0.4 mg/dL ALT (SGPT) 19 U/L AST (SGOT) 16 U/L Alkaline Phosphatase 103 IU/L WBC 9.7 10 3/uL RBC 4.55 10 6/uL HGB 13.8 g/dL HCT 42.0 % MCV 92.3 fl MCH 30.3 pg MCHC 32.9 g/dL RDW 13.6 % Platelet Count 290 10 3/cmm MPV 9.4 fL Neutrophils 7.25 10 3/uL Lymphocytes 1.6 10 3/uL Monocytes 0.6 10 3/uL Eosinophils 0.1 10 3/uL Basophils 0.0 10 3/uL Neutrophil % 75.1 % Lymphocyte % 16.9 % Monocyte % 6.2 % Eosinophil % 1.3 % Basophils % 0.3 % NRBC % 0 % Problem List: 1. 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 2. COPD. 3. Coronary artery disease with previous myocardial infarction. 4. History of multiple strokes. 5. GERD. 6. Degenerative arthritis/degenerative disease of the spine. 7. Abdominal aortic aneurysm. Problems Addressed with this Encounter and Plan: 1. 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 By clinical evaluation there appeared to be fixation to the underlying sternum. In December 2020 he began a trial of therapy with vismodegib at a standard dose of 150 mg daily. As of his follow-up visit in June 2021 he appeared to be showing a very good clinical response. He had experienced some weight loss, which I suspected to have been treatment related. He was otherwise tolerating it well. He was then referred to Dr. West, and he began radiation to the involved area on 09/12/2021. He completed treatment on 10/19/2021 to a total dose of 5000 cGy, administered in 25 fractions. He tolerated it well. He was recommended to stop the vismodegib. His further clinical course was complicated by hospitalization for COVID-19 virus infection with acute respiratory failure/pneumonia, but he recovered uneventfully. At this point any continues to have marginal performance status, but he does appear to have regained some weight. There has been no evidence of recurrence of the basal cell carcinoma. He continues on expectant management. I will see him again in 3 months. 2. He has a known abdominal aortic aneurysm. His recent CT scan showed a significant increase to 4.8 cm compared to 4.1 cm in 2018. As such, I will repeat a CT abdomen/pelvis with his follow-up visit in 3 months. Signed By: Mingo Trivedi M.D. <<Signature on File>>
== END 2021-12-27 23:59 | disposition home or self-care (01) ==
LOC: ONCMED 08:48
PROVIDERS: PCP Nurse Practitioner; Visit Provider Internal Medicine Medical Oncology
DX: Z08 Encounter for follow-up examination after completed treatment for malignant neoplasm (principal); Z85.828 Personal history of other malignant neoplasm of skin; J44.9 Chronic obstructive pulmonary disease, unspecified; I25.10 Atherosclerotic heart disease of native coronary artery without angina pectoris; I25.2 Old myocardial infarction; K21.9 Gastro-esophageal reflux disease without esophagitis; M47.9 Spondylosis, unspecified; I71.4 Abdominal aortic aneurysm, without rupture; Z86.73 Personal history of transient ischemic attack (TIA), and cerebral infarction without residual deficits; Z92.21 Personal history of antineoplastic chemotherapy; Z92.3 Personal history of irradiation
CPT/HCPCS: 36415; 80053; 85025; 99214

== ENCOUNTER 2022-04-15 11:00 | Oncology outpatient (recurring) (ONCR) | payer MEDICARE, MEDICAID, SELFPAY ==
--- NOTE | 2022-04-12 11:52 | CT_ITS ---
WS: [id number] CT ABDOMEN PELVIS TECHNIQUE: Contrast-enhanced CT of the abdomen and pelvis with coronal and sagittal reformatted image s. CLINICAL INFORMATION: ABDOMINAL ANEURYSM COMPARISON: None. DLP: 842.[address] scans at [facility] use at least one of these dose optimization techniques: automated e xposure control; mA and/or kV adjustment per patient size (includes targeted exams where dose is matc hed to clinical indication); or iterative reconstruction. FINDINGS: Infrarenal abdominal aortic aneurysm with peripheral thrombus measuring approximately 5.1 x 4.6 x 7.8 cm AP by transverse by craniocaudal. This is slightly progressed compared to 2018 where it measured approximately 4.1 x 4.2 x 4.7 cm. Tortuous common iliac arteries. Slightly aneurysmal RIGHT proximal common iliac artery measuring 13 m m. Lung bases are well aerated. Atelectasis in the lung bases. Mild diffuse fatty infiltration of the li felix. Small incidental RIGHT hepatic cyst. Normal portal vein and splenic vein. Fatty atrophy of the p ancreas. Celiac and SMA are patent. Bilateral renal atrophy. No hydronephrosis in either kidney. Simp le bilateral renal cysts. Adrenal glands are normal. Normal spleen.444 Mild rectosigmoid constipation. Disc space narrowing L5-S1. Chronic compression with vertebroplasty c hanges at T11. CT/CT abdomen pelvis w con* [id number] IMPRESSION: 1. Infrarenal abdominal aortic aneurysm with peripheral mural thrombus measuri ng 5.1 x 4.6 x 7.8 cm AP by transverse by craniocaudal. This is progressed comp ared to 2018. 2. Slightly aneurysmal RIGHT common iliac artery measuring 13 mm. 3. Mild diffuse fatty infiltration liver. 4. No other significant changes compared to previous.
[2022-04-12 13:35] LABS: Blood Urea Nitrogen 25 mg/dL (8-23)
[2022-04-12] MEDS: barium sulfate 450 mL Oral Susp PO (13:53)
[2022-04-12] MEDS: iodixanol 320 mg/mL 100mL Btl IV (13:55)
[2022-04-15 12:00] LABS: Basophils % 0.3 %; Eosinophils # 0.2 10^3/uL (0.0-0.8); Eosinophils % 1.5 %; Hematocrit 43.1 % (42.0-52.0); Hemoglobin 14.6 g/dL (11.7-16.6); Lymphocytes % 19.9 %; Mean Corpuscular HGB Conc 33.9 g/dL (30.0-36.0); Mean Corpuscular Hemoglobin 29.9 pg (28.0-34.0); Mean Corpuscular Volume 88.3 fl (80-94); Mean Platelet Volume 10.1 fL (7.4-10.4); Monocytes # 0.6 10^3/uL (0.2-0.9); Monocytes % 5.8 %; Neutrophils # 7.29 10^3/uL (1.8-7.7); Neutrophils % 72.2 %; Nucleated Red Blood Cells % 0 %; Platelet Count 245 10^3/cmm (130-400); Red Blood Count 4.88 10^6/uL (4.1-5.3); Red Cell Distribution Width 13.6 % (12.1-15.1); White Blood Count 10.1 10^3/uL (4.0-10.0)
[2022-04-15 12:30] LABS: Alanine Aminotransferase 10 U/L (0-41); Alkaline Phosphatase 95 IU/L (40-130); Aspartate Amino Transferase 16 U/L (0-40); Blood Urea Nitrogen 23 mg/dL (8-23); Carbon Dioxide 23 mmol/L (22-29); Chloride 105 mmol/L (98-107); Globulin 3.4 g/dL (1.3-4.6); Glucose 85 mg/dL (65-115); Osmolality Calculated 291 mOsm/kg (285-295); Sodium 139 mmol/L (136-145); Thyroid Stimulating Hormone 1.41 uIU/mL (0.27-4.20); Total Bilirubin 0.3 mg/dL (0.15-1.2); Total Protein 7.4 g/dL (6.6-8.7)
[2022-04-15 12:36] LABS: Anion Gap 15.3 (5-19); Potassium 4.3 mmol/L (3.5-5.1)
== END 2022-04-28 23:59 | disposition home or self-care (01) ==
LOC: RAD 11:05 → ONCMED 11:05
PROVIDERS: Internal Medicine Medical Oncology; PCP Nurse Practitioner; Referring Provider Nurse Practitioner; Visit Provider Nurse Practitioner
DX: C44.519 Basal cell carcinoma of skin of other part of trunk (principal); I71.4 Abdominal aortic aneurysm, without rupture; F17.210 Nicotine dependence, cigarettes, uncomplicated; R63.4 Abnormal weight loss; R53.83 Other fatigue
CPT/HCPCS: 74177; 80053; 82565; 84443; 84520; 85025; 99214

== ENCOUNTER → 2022-05-23 12:40 | Outpatient (BNVA) | payer MEDICARE, MEDICAID, SELFPAY | PROVIDERS: PCP Nurse Practitioner; Visit Provider Thoracic Surgery (Cardiothoracic Vascular Surgery) | DX: I71.4 Abdominal aortic aneurysm, without rupture (principal); J44.9 Chronic obstructive pulmonary disease, unspecified; F17.210 Nicotine dependence, cigarettes, uncomplicated | CPT/HCPCS: 99203 ==

== ENCOUNTER → 2022-05-30 14:08 | Outpatient (BNVA) | payer MEDICARE, MEDICAID, SELFPAY | PROVIDERS: PCP Nurse Practitioner; Visit Provider Internal Medicine Pulmonary Disease | DX: Z01.811 Encounter for preprocedural respiratory examination (principal); I71.4 Abdominal aortic aneurysm, without rupture; R06.09 Other forms of dyspnea; J43.2 Centrilobular emphysema; I69.354 Hemiplegia and hemiparesis following cerebral infarction affecting left non-dominant side; F17.210 Nicotine dependence, cigarettes, uncomplicated; Z99.81 Dependence on supplemental oxygen; Z86.16 Personal history of COVID-19 | CPT/HCPCS: 99204 ==

== ENCOUNTER 2022-07-31 12:26 | Outpatient (CLI) | payer MEDICARE, MEDICAID, SELFPAY | END 2022-07-31 12:27 | disposition home or self-care (01) | PROVIDERS: PCP Nurse Practitioner; Visit Provider Internal Medicine Pulmonary Disease | DX: J44.9 Chronic obstructive pulmonary disease, unspecified (principal) | CPT/HCPCS: 94060; 94618; 94726; 94729; J7611 ==

== ENCOUNTER 2022-11-18 10:48 | Oncology outpatient (recurring) (ONCR) | payer MEDICARE, MEDICAID, SELFPAY ==
[2022-11-18 11:41] LABS: Basophils # 0.1 10^3/uL (0.0-0.1); Basophils % 0.6 %; Eosinophils # 0.2 10^3/uL (0.0-0.8); Eosinophils % 1.9 %; Hemoglobin 13.5 g/dL (11.7-16.6); Lymphocytes # 2.2 10^3/uL (0.8-4.8); Lymphocytes % 25.8 %; Mean Corpuscular HGB Conc 32.9 g/dL (30.0-36.0); Mean Corpuscular Hemoglobin 30.1 pg (28.0-34.0); Mean Corpuscular Volume 91.5 fl (80-94); Mean Platelet Volume 9.7 fL (7.4-10.4); Monocytes # 0.6 10^3/uL (0.2-0.9); Monocytes % 6.4 %; Neutrophils # 5.56 10^3/uL (1.8-7.7); Neutrophils % 65.1 %; Nucleated Red Blood Cells % 0 %; Platelet Count 232 10^3/cmm (130-400); Red Blood Count 4.48 10^6/uL (4.1-5.3); Red Cell Distribution Width 13.5 % (12.1-15.1); White Blood Count 8.6 10^3/uL (4.0-10.0)
[2022-11-18 11:59] LABS: Alanine Aminotransferase < 5 U/L (0-41); Albumin Level 3.8 g/dL (3.5-5.2); Alkaline Phosphatase 120 U/L (40-130); Anion Gap 16.5 (5-19); Aspartate Amino Transferase 16 U/L (0-40); Blood Urea Nitrogen 25 mg/dL (8-23); Calcium 8.7 mg/dL (8.5-10.5); Carbon Dioxide 25 mmol/L (22-29); Chloride 102 mmol/L (98-107); Globulin 3.4 g/dL (1.3-4.6); Glucose 88 mg/dL (65-115); Osmolality Calculated 292 mOsm/kg (285-295); Potassium 4.5 mmol/L (3.5-5.1); Sodium 139 mmol/L (136-145); Total Bilirubin 0.2 mg/dL (0.15-1.2); Total Protein 7.2 g/dL (6.6-8.7)
== END 2022-11-26 23:59 | disposition home or self-care (01) ==
PROVIDERS: Internal Medicine Medical Oncology; PCP Nurse Practitioner; Visit Provider Nurse Practitioner Family
DX: C44.519 Basal cell carcinoma of skin of other part of trunk (principal); I71.40 Abdominal aortic aneurysm, without rupture, unspecified; F17.210 Nicotine dependence, cigarettes, uncomplicated; Z86.16 Personal history of COVID-19; Z92.3 Personal history of irradiation; Z79.899 Other long term (current) drug therapy
CPT/HCPCS: 36415; 80053; 85025; 99214

== ENCOUNTER 2023-01-23 01:12 | Inpatient (IN) | payer MEDICARE, MEDICAID, SELFPAY ==
[2023-01-23] VITALS (15 sets, daily range): BP systolic 90–160; BP diastolic 58–85; PULSE 58–79; RESP 16–22; TEMP 36.6–36.7; O2SAT 94–97; BMI 19.2; BMI 18.6
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
--- NOTE | 2023-01-23 01:16 | W.ED.CHESTPA ---
HPI - Chest Pain General: Chief Complaint: Chest Pain Stated Complaint: CP Time Seen by Provider: 01/23/23 01:12 Source: patient and EMS Mode of arrival: EMS Limitations: no limitations History of Present Illness: 32-year-old male states that he has been having chest pain for roughly the last hour he states is a pain in the center of his chest was going to the left side given nitro by EMS states currently pain-free does have a history of coronary disease denies any nausea denies any shortness of breath denies any diaphoresis. No vomiting or diarrhea. Associated symptoms: Deny abdominal pain, dyspnea, fever(s), nausea or vomiting Review of Systems Const: Denies: fever(s), chills, body aches or change in appetite Eyes: Denies: eye discomfort ENMT: Denies: throat pain or dental pain Card: Reports: chest pain Resp: Denies: dyspnea GI: Denies: abdominal pain, nausea, vomiting or diarrhea : Denies: dysuria Musc: Denies: neck pain or back pain Skin/Breast: Denies: rash Neuro: Denies: headache(s) Psych: Denies: depression PFSH ED PFSH: Medical History AAA (abdominal aortic aneurysm) 4.9cmm 2018 Acid reflux Acute encephalopathy Acute respiratory failure with hypoxemia Anxiety, generalized Basal cell carcinoma CAD (coronary artery disease) COPD (chronic obstructive pulmonary disease) History of heart attack History of stroke Hypoxia NSTEMI (non-ST elevated myocardial infarction) Pneumonia due to 2019 novel coronavirus Smoker unmotivated to quit Surgical History History of back surgery 1972 History of heart artery stent Early 1999 Family History Other Cancer Stroke Denies family history of Diabetes Dementia Hypertension Social History Smoking and tobacco status: current every day smoker cigarettes Packs smoked per day: 1 Years cigarettes smoked: 73 [ Other cigarette details: Started smoking at age 8.] Second hand smoke exposure: No Smoking risk assessment/counseling performed?: Yes Alcohol intake: never Desire information about alcohol rehabilitation?: No Counseling given: No Substance/Drug Use: current Substance/Drug use frequency: few times a week Desire information about substance/drug rehabilitation?: No Counseling given: No Adopted: No Caregiver/support person: No Lives independently: Yes Household members: friend(s) Housing: Manufactured/Mobile home Marital status: Number of children: 2 service: Yes branch: [employer] Current occupational status: retired Do you think of yourself as: Straight/Heterosexual Current gender identity: Male Physical Exam Const: COMMON NORMALS: no acute distress, patient oriented x3 and healthy appearing HENMT: COMMON NORMALS: normocephalic and atraumatic HEAD & SCALP: normocephalic and atraumatic Eye: COMMON NORMALS: conjunctivae normal CONJUNCTIVA: Yes conjunctivae normal Neck/C-Spine: COMMON NORMALS: full ROM and supple Chest: COMMONS NORMALS: normal inspection of the chest and normal palpation of entire chest wall Resp: COMMON NORMALS: normal respiratory effort, No retractions, No use of accessory muscles and clear to auscultation bilaterally AUSCULTATION: clear to auscultation bilaterally Cardio: COMMON NORMALS: regular rate, regular rhythm and No murmurs present (Cardio) RATE: regular rate RHYTHM: regular rhythm GI: COMMON NORMALS: Normal to inspection, nondistended, normoactive bowel sounds present, Soft to palpation, non-tender and no masses PALPATION: Yes Soft to palpation Extremity: COMMON NORMALS: normal to inspection and full ROM Neuro: COMMON NORMALS: patient oriented x3, moves all extremities and no focal motor deficits Psych: COMMON NORMALS: mental status grossly normal, Normal thought process present and cooperative THOUGHT PROCESS: Normal thought process present Skin: COMMON NORMALS: no rashes or lesions noted and no wounds GENERAL SKIN EXAM: no rashes or lesions noted Course Vital Signs: Vital signs: Vital Signs Temperature 98.0 F 01/23/23 01:13 Pulse Rate 59 L 01/23/23 02:30 Respiratory Rate 16 01/23/23 02:30 Blood Pressure 93/61 01/23/23 02:30 Pulse Oximetry 95 01/23/23 02:30 Oxygen Delivery Me thod Room Air 01/23/23 02:18 [facility] - Chest Pain Medical Decision Making Patient presents here with chest pain he has been chest pain-free here after nitro repeat troponin is positive will give him Lovenox spoke to the hospitalist and will admit at this time. Lab Data 01/23/23 00:45 01/23/23 00:45 Radiology Impressions Chest X-Ray 01/23/23 01:12 IMPRESSION: Negative for acute pulmonary disease. Laboratory Results WBC 10.4 10^3/uL (4.0-10.0) H 01/23/23 00:45 RBC 4.80 10^6/uL (4.1-5.3) 01/23/23 00:45 Hgb 14.1 g/dL (11.7-16.6) 01/23/23 00:45 Hct 43.4 % (42.0-52.0) 01/23/23 00:45 MCV 90.4 fl (80-94) 01/23/23 00:45 MCH 29.4 pg (28.0-34.0) 01/23/23 00:45 MCHC 32.5 g/dL (30.0-36.0) 01/23/23 00:45 RDW 13.7 % (12.1-15.1) 01/23/23 00:45 Plt Count 295 10^3/cmm (130-400) 01/23/23 00:45 MPV 10.6 fL (7.4-10.4) H 01/23/23 00:45 Neut % (Auto) 54.0 % 01/23/23 00:45 Lymph % (Auto) 37.0 % 01/23/23 00:45 [place] % (Auto) 7.1 % 01/23/23 00:45 Eos % (Auto) 1.3 % 01/23/23 00:45 Baso % (Auto) 0.4 % 01/23/23 00:45 Neut # (Auto) 5.62 10^3/uL (1.8-7.7) 01/23/23 00:45 Lymph # (Auto) 3.9 10^3/uL (0.8-4.8) 01/23/23 00:45 [place] # (Auto) 0.7 10^3/uL (0.2-0.9) 01/23/23 00:45 Eos # (Auto) 0.1 10^3/uL (0.0-0.8) 01/23/23 00:45 Baso # (Auto) 0.0 10^3/uL (0.0-0.1) 01/23/23 00:45 Nucleated RBC % (auto) 0 % 01/23/23 00:45 Nucleated RBCs # 0.0 /100WBC 01/23/23 00:45 Sodium 136 mmol/L (136-145) 01/23/23 00:45 Potassium 3.7 mmol/L (3.5-5.1) 01/23/23 00:45 Chloride 98 mmol/L (98-107) 01/23/23 00:45 Carbon Dioxide 26 mmol/L (22-29) 01/23/23 00:45 Anion Gap 15.7 (5-19) 01/23/23 00:45 BUN 29 mg/dL (8-23) H 01/23/23 00:45 Creatinine 1.6 mg/dL (0.7-1.2) H 01/23/23 00:45 GFR Calculation Not Reportable 01/23/23 00:45 Glucose 118 mg/dL (65-115) H 01/23/23 00:45 Calculated Osmolality 289 mOsm/kg (285-295) 01/23/23 00:45 Calcium 8.8 mg/dL (8.5-10.5) 01/23/23 00:45 Total Bilirubin 0.2 mg/dL (0.15-1.2) 01/23/23 00:45 AST 17 U/L (0-40) 01/23/23 00:45 ALT 8 U/L (0-41) 01/23/23 00:45 Alkaline Phosphatase 107 U/L (40-130) 01/23/23 00:45 Troponin T Baseline 26 ng/L (0-15) H 01/23/23 00:45 Troponin T 120 Minute 49.98 ng/L (0-15) H 01/23/23 02:35 Delta Troponin T 23.98 ABS# (0-10) H* 01/23/23 02:35 Total Protein 7.3 g/dL (6.6-8.7) 01/23/23 00:45 Albumin 4.0 g/dL (3.5-5.2) 01/23/23 00:45 Globulin 3.3 g/dL (1.3-4.6) 01/23/23 00:45 Imaging Data CXR: My impression: No acute abnormalities EKG Data EKG 1: I personally reviewed and interpreted this EKG as follows: EKG interpretation date: 01/23/23 EKG interpretation time: 01:17 Interpretation: nsr hr [address] elevation qrs 72 qtc 418 Discharge Plan Discharge Patient Disposition: Admitted As Inpatient Clinical Impression: Non-ST elevation [place] (NSTEMI) Condition: Stable Coding Level of Care Code ED Facility Technician for Thierno Hutson
--- NOTE | 2023-01-23 01:17 | ECG_ITS ---
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 Measurements Intervals [place] Rate: 68 P: 76 CO: 198 QRS: -41 QRSD: 72 T: 74 QT: 402 QTc: 428 Interpretive Statements SINUS RHYTHM WITH FREQUENT VENTRICULAR PREMATURE COMPLEXES WITH OCCASIONAL SUPRAVENTRICULAR PREMATURE COMPLEXES LEFT AXIS DEVIATION [QRS AXIS < -30] LOW QRS VOLTAGE IN PRECORDIAL LEADS [QRS DEFLECTION < 1.0 mV IN CHEST LEADS] POSSIBLE RIGHT VENTRICULAR CONDUCTION DELAY [RSR (QR) IN V1/V2] NONSPECIFIC ST & T-WAVE ABNORMALITY Compared to ECG 11/10/2021 03:08:54 Ventricular premature complex(es) now present Left-axis deviation now present T-wave abnormality still present Electronically Signed On 01-23-2023 16:13:27 CDT by Renny Johnson M.D. [id number]
[2023-01-23 01:23] LABS: Basophils % 0.4 %; Eosinophils # 0.1 10^3/uL (0.0-0.8); Eosinophils % 1.3 %; Hematocrit 43.4 % (42.0-52.0); Hemoglobin 14.1 g/dL (11.7-16.6); Lymphocytes # 3.9 10^3/uL (0.8-4.8); Mean Corpuscular HGB Conc 32.5 g/dL (30.0-36.0); Mean Corpuscular Hemoglobin 29.4 pg (28.0-34.0); Mean Corpuscular Volume 90.4 fl (80-94); Mean Platelet Volume 10.6 fL (7.4-10.4); Monocytes # 0.7 10^3/uL (0.2-0.9); Monocytes % 7.1 %; Neutrophils # 5.62 10^3/uL (1.8-7.7); Nucleated Red Blood Cells % 0 %; Platelet Count 295 10^3/cmm (130-400); Red Cell Distribution Width 13.7 % (12.1-15.1); White Blood Count 10.4 10^3/uL (4.0-10.0)
[2023-01-23 01:42] LABS: Alanine Aminotransferase 8 U/L (0-41); Alkaline Phosphatase 107 U/L (40-130); Aspartate Amino Transferase 17 U/L (0-40); Blood Urea Nitrogen 29 mg/dL (8-23); Calcium 8.8 mg/dL (8.5-10.5); Carbon Dioxide 26 mmol/L (22-29); Chloride 98 mmol/L (98-107); Globulin 3.3 g/dL (1.3-4.6); Glucose 118 mg/dL (65-115); Osmolality Calculated 289 mOsm/kg (285-295); Sodium 136 mmol/L (136-145); Total Bilirubin 0.2 mg/dL (0.15-1.2); Total Protein 7.3 g/dL (6.6-8.7)
[2023-01-23 01:43] LABS: Troponin(5th) Baseline 26 ng/L (0-15)
[2023-01-23 01:45] LABS: Anion Gap 15.7 (5-19); Potassium 3.7 mmol/L (3.5-5.1)
[2023-01-23] MEDS: sodium chloride 0.9% 1,000 ML 999 ML IV (02:52)
[2023-01-23 03:02] LABS: Troponin 5 2HR 49.98 ng/L (0-15)
[2023-01-23 03:08] LABS: Troponin 5 2HR Delta 23.98 ABS# (0-10)
--- NOTE | 2023-01-23 03:12 | ECG_ITS ---
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 Measurements Intervals [place] Rate: 54 P: 0 [place]: 0 QRS: -52 QRSD: 88 T: 120 QT: 434 QTc: 412 Interpretive Statements SUPRAVENTRICULAR BRADYCARDIA POSSIBLE RIGHT VENTRICULAR CONDUCTION DELAY [RSR (QR) IN V1/V2] LEFT ANTERIOR FASCICULAR BLOCK [QRS AXIS <= -45, QR IN I, RS IN II] ST DEVIATION AND MODERATE T-WAVE ABNORMALITY, CONSIDER ANTERIOR ISCHEMIA [-0.1+ mV T-WAVE IN V3/V4] Compared to ECG 01/23/2023 01:17:35 Left anterior fascicular block now present Possible ischemia now present Sinus rhythm no longer present Ventricular premature complex(es) no longer present Left-axis deviation no longer present T-wave abnormality still present Electronically Signed On 01-23-2023 16:16:10 CDT by Renny Johnson M.D. [id number]
[2023-01-23] MEDS: enoxaparin 80 mg/0.8 mL Syringe 70 MG SUBCUT (03:15)
--- NOTE | 2023-01-23 03:42 | P.HP_ITS ---
Providers/Chief Complaint Admitting Physician: Yusef Brice MD Primary Care Provider: Susan Masters, ARABELLA-C Chief Complaint: CP History of Present Illness Mingo Davis is a 82 year old male with past history of coronary disease and RCA stent greater than 10 years ago who presents to the emergency department with complaints of chest discomfort started about 130 this morning when he got up to urinate. He reports it was sharp, central but hard to define, with radia tion to his left arm. He believes it lasted about 30 minutes despite him sitting down to rest when he got it. He received some nitroglycerin, and aspirin by emergency services, and chest discomfort was gone by the time he arrived in the emergency department. He denies any preceding episodes of di scomfort in the last several months. He does report he falls on occasion, and he is not sure why. Usually this is when he gets up to urinate. No recent fevers, cough. Was evaluated for abdominal aortic aneurysm by 5 x 5 by 8 earlier this year and reports he does not want it repaired currently. Is amenable to coronary intervention if needed. Reports he had some darker stool several weeks ago but no obvious bright red blood. Review of Systems General: Reports: 10 or more systems reviewed and unremarkable except in HPI and below Const: Denies: fever(s) or chills Card: Reports: chest pain Resp: Denies: dyspnea, productive cough or non-productive cough GI: Denies: abdominal pain or hematochezia Medications/Allergies Home Medications Medication Instructions Recorded Confirmed Last Taken Type albuterol sulfate 90 mcg/actuation 2 puff inhalation Q6H PRN 11/12/21 11/18/22 Unknown Rx aerosol inhaler (Ventolin HFA) shortness of breath or wheezing 30 days hydrocodone 10 mg-acetaminophen 1 tab PO Q6H PRN 05/30/22 11/18/22 Unknown History 325 mg tablet fluticasone fur. 100 mcg-umeclid 1 inh inhalation DAILY #60 ea 10/02/22 11/18/22 Unknown Rx 62.5 mcg-vilant 25 mcg inhalat.powder (Trelegy Ellipta) citalopram 40 mg tablet 40 mg PO DAILY #30 tabs 01/01/23 Unknown Rx pantoprazole 40 mg tablet,delayed 40 mg PO DAILY #30 tabs 01/01/23 Unknown Rx release Allergies Allergy/AdvReac Type Severity Reaction Status Date / Time No Known Allergies Allergy Verified 01/23/23 01:19 PFSH Acute PFSH: Medical History AAA (abdominal aortic aneurysm) 4.9cmm 2017 Acid reflux Acute encephalopathy Acute respiratory failure with hypoxemia Anxiety, generalized Basal cell carcinoma CAD (coronary artery disease) Chronic kidney disease COPD (chronic obstructive pulmonary disease) History of heart attack History of stroke Hypoxia NSTEMI (non-ST elevated myocardial infarction) Pneumonia due to 2019 novel coronavirus Smoker unmotivated to quit Surgical History History of back surgery 1972 History of heart artery stent Early 1999 Family History Other Cancer Stroke Denies family history of Diabetes Dementia Hypertension Social History Smoking and tobacco status: current every day smoker cigarettes Packs smoked per day: 1 Years cigarettes smoked: 73 [ Other cigarette details: Started smoking at age 8.] Second hand smoke exposure: No Smoking risk assessment/counseling performed?: Yes Alcohol intake: never Desire information about alcohol rehabilitation?: No Counseling given: No Substance/Drug Use: current Substance/Drug use frequency: few times a week Desire information about substance/drug rehabilitation?: No Counseling given: No Adopted: No Caregiver/support person: No Lives independently: Yes Household members: friend(s) Housing: Manufactured/Mobile home Marital status: Number of children: 2 service: Yes branch: [employer] Current occupational status: retired Do you think of yourself as: Straight/Heterosexual Current gender identity: Male Vitals/I&O/Wt Last Vital Signs Temp 98.0 F 01/23/23 01:13 Pulse 79 01/23/23 03:00 Resp 20 H 01/23/23 03:00 BP 105/58 01/23/23 03:00 Pulse Ox 97 01/23/23 03:00 O2 Del Method Room Air 01/23/23 02:18 Weight last 48 hrs Weight 66.224 kg Physical Exam Narrative: General exam is a white male, in no distress, reporting no chest or arm discomfort. HEENT: Atraumatic and normocephalic. Pupils equally round. Oropharynx clear. Neck is supple no lymphadenopathy or thyromegaly Cardiovascular heart sounds distant. Regular and bradycardic. No murmur. Lungs diminished breath sounds bilaterally but no wheezes or crackles Abdomen is soft nontender positive bowel sounds. No obvious organomegaly exam was deferred Extremities no cyanosis clubbing or edema, cap refill brisk Skin no rash, scar chest consistent with previous treated basal cell carcinoma Neuro no obvious focal deficits Data 01/23/23 00:45 01/23/23 00:45 Other Labs: Chest x-ray to my read demonstrates foreign body near left humerus, atherosclerotic disease, no infiltrate EKG demonstrates occasional PVCs, left axis deviation, heart rate of 65, flipped T waves V2 through 5, 1 which appear new from prior EKGs LFTs are normal Initial troponin 26 with repeat of 50 Albumin normal Calcium normal A&P Assessment and plan (1) Non-ST elevation [place] (NSTEMI): Patient presents with chest pain and has enzyme elevation consistent with non-ST elevation ME. His EKG has some T wave changes from prior. He has no chest discomfort right now. He has received aspirin. Initiate statin Beta-maddie contraindicated secondary to his bradycardia Considered Plavix but is he is chest discomfort free currently, his coronary status is not known we will hold off. If he becomes symptomatic we will go ahead and load. If he needs bypass surgery, this could delay his surgery if given. His anticoagulation CBC tomorrow Lipid profile tomorrow Cardiology consultation. (2) AAA (abdominal aortic aneurysm): His abdominal aortic aneurysm is quite large. Currently he is refusing any surgery for this. He had met with pulmonary for preoperative clearance but is somewhat concerned about the risk of surgery. (3) COPD (chronic obstructive pulmonary disease): Budesonide DuoNeb every 6 hours as needed No evidence of active exacerbation (4) Syncope: Patient has had some episodes of syncope, went up to the bathroom at night to urinate. This might be vasovagal. We will await his medicine reconciliation. We will need to first address his non-ST elevation ME. Consider orthostatic blood pressures following this. Hydrate. Telemetry Check magnesium level, TSH (5) Smoker: Counseled on abstinence (6) Chronic kidney disease: Creatinine is 1.6, which appears better than his usual. No evidence of heart failure currently. Continue hydration until it is decided if he needs any cardiac intervention. He will be n.p.o. during this time. BMP daily Plan GERD. Continue Protonix. Hemoglobin is normal. Multiple other medical problems as outlined in past medical history Full code Lovenox will suffice for DVT prophylaxis Attestations Medical Necessity Statement*: Will need greater than 2 midnight stay for evaluation and treatment of non-ST elevation myocardial infarction. Diagnoses Non-ST elevation [place] (NSTEMI) I21.4 AAA (abdominal aortic aneurysm) I71.4 COPD (chronic obstructive pulmonary disease) J44.9 Syncope R55 Smoker F17.200 Chronic kidney disease N18.9 Time Spent (min) 49
[2023-01-23 04:06] LABS: Chol HDL Ratio 4.18 mg/dL (1.0-5.00); Cholesterol 138 mg/dL (0-200); HDL Cholesterol 33 mg/dL (60-100); LDL Cholesterol Calculated 79 mg/dL (50-129); LDL HDL Ratio 2.39 RATIO (0.00-3.22); Triglycerides 132 mg/dL (0-150)
[2023-01-23] MEDS: sodium chloride 0.9% 1,000 ML 75 ML IV (04:24)
[2023-01-23 04:40] LABS: Magnesium 2.3 mg/dL (1.7-2.3); Thyroid Stimulating Hormone 3.46 uIU/mL (0.27-4.20)
--- NOTE | 2023-01-23 06:27 | ECG_ITS ---
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 Measurements Intervals [place] Rate: 59 P: 0 [place]: 0 QRS: -56 QRSD: 74 T: 47 QT: 421 QTc: 420 Interpretive Statements Sinus bradycardia With PVCs LOW QRS VOLTAGE IN PRECORDIAL LEADS [QRS DEFLECTION < 1.0 mV IN CHEST LEADS] INFERIOR MYOCARDIAL INFARCTION , PROBABLY OLD [40+ ms Q WAVE AND/OR ST/T ABNORMALITY IN II/aVF] Compared to ECG 01/23/2023 03:18:48 Ventricular premature complex(es) now present Low QRS voltage now present Myocardial infarct finding now present Left anterior fascicular block no longer present T-wave abnormality no longer present Possible ischemia no longer present Electronically Signed On 01-23-2023 16:17:12 CDT by Renny Johnson M.D. [id number]
--- NOTE | 2023-01-23 07:50 | P.CONIM_ITS ---
Providers/Reason For Consult Consulting Physician/Specialty*: Cardiovascular medicine Reason for Consult*: Chest pain elevated troponin Requesting Physician: Yuniel Attending Physician: Yusef Brice MD Primary Care Provider: ANNA Elise History of Present Illness History of Present Illness Mingo Davis is a 82 year old male who was admitted a few hours ago with chest pain and a mild elevation in his troponin. He woke in the middle of the night to urinate and as he got back in bed he noticed some left-sided chest pain which radiated down his left arm. He called the ambulance. They gave him an aspirin and the pain went away. He has had no further pain. By the time he arrived here he was pain-free. He has chronic kidney disease with a creatinine of 1.6. His troponins have been 26 and 49. The third troponin is pending. Chest x-ray is unremarkable. He has been admitted. The aspirin continues. He has not been placed on a beta- maddie due to bradycardia. He is also been having some episodes of dizziness and syncope. He has been a smoker since age 8 at least 1 pack/day. He has a AAA. The last measurement was 5.1 x 4.6 cm. He was originally seen by Dr. Davis and plans were being made to repair this endovascularly. The risk was high and both he and the physicians decided not to intervene. He has longstanding COPD. 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 He had COVID in 2019. Several years ago he had a heart attack had a stent placed in his right coronary artery. He has degenerative joint disease. He had a locally advancing basal cell carcinoma of the upper chest. He was not a surgical candidate. He underwent radiation therapy with a good response. That portion of his chest has healed nicely. He also has carotid disease with a greater than 50% left internal carotid artery lesion. He had an echo a year ago which was very poor quality due to his COPD. No specifics could be delineated. Review of Systems Narrative: He complains of generalized weakness, dizziness and occasional episodes of syncope. Medications/Allergies Home Medications Medication Instructions Recorded Confirmed Last Taken Type albuterol sulfate 90 mcg/actuation 2 puff inhalation Q6H PRN 11/12/21 01/23/23 Unknown Rx aerosol inhaler (Ventolin HFA) shortness of breath or wheezing 30 days hydrocodone 10 mg-acetaminophen 1 tab PO Q6H PRN pain 05/30/22 01/23/23 Unknown History 325 mg tablet fluticasone fur. 100 mcg-umeclid 1 inh inhalation DAILY #60 ea 10/02/22 01/23/23 Unknown Rx 62.5 mcg-vilant 25 mcg inhalat.powder (Trelegy Ellipta) citalopram 40 mg tablet 40 mg PO DAILY #30 tabs 01/01/23 01/23/23 Unknown Rx pantoprazole 40 mg tablet,delayed 40 mg PO DAILY #30 tabs 01/01/23 01/23/23 Unknown Rx release Allergies Allergy/AdvReac Type Severity Reaction Status Date / Time No Known Allergies Allergy Verified 01/23/23 01:19 Current Medications Generic Name Dose Route Start Last Admin Trade Name Freq PRN Reason Stop Dose Admin Sodium Chloride 1,000 mls @ 75 mls/hr 01/23/23 03:45 01/23/23 04:24 Sodium Chloride 0.9% IV 75 mls/hr .[id number] AZAEL Administration PFSH Acute PFSH: Medical History AAA (abdominal aortic aneurysm) 4.9cmm 2018 Acid reflux Acute encephalopathy Acute respiratory failure with hypoxemia Anxiety, generalized Basal cell carcinoma CAD (coronary artery disease) Carotid stenosis Chronic kidney disease COPD (chronic obstructive pulmonary disease) History of heart attack History of stroke Hypoxia NSTEMI (non-ST elevated myocardial infarction) Pneumonia due to 2019 novel coronavirus Smoker unmotivated to quit Surgical History History of back surgery 1972 History of heart artery stent Early 1999 Family History Other Cancer Stroke Denies family history of Diabetes Dementia Hypertension Social History Smoking and tobacco status: current every day smoker cigarettes Packs smoked per day: 1 Years cigarettes smoked: 73 [ Other cigarette details: Started smoking at age 8.] Second hand smoke exposure: No Smoking risk assessment/counseling performed?: Yes Alcohol intake: never Desire information about alcohol rehabilitation?: No Counseling given: No Substance/Drug Use: current Substance/Drug use frequency: few times a week Desire information about substance/drug rehabilitation?: No Counseling given: No Adopted: No Caregiver/support person: No Lives independently: Yes Household members: friend(s) Housing: Manufactured/Mobile home Marital status: Number of children: 2 service: Yes branch: [employer] Current occupational status: retired Do you think of yourself as: Straight/Heterosexual Current gender identity: Male Vitals/I&O/Wt Last Vital Signs Temp 97.9 F 01/23/23 07:12 Pulse 59 L 01/23/23 07:12 Resp 18 01/23/23 07:12 BP 90/62 01/23/23 07:12 Pulse Ox 97 01/23/23 07:12 O2 Del Method Room Air 01/23/23 07:12 01/22/23 01/23/23 01/23/23 22:59 06:59 14:59 Output Total 0 / 0 290 / 290 Balance 0 / 0 -290 / -290 Weight last 48 hrs Weight 141 lb 5.061 oz Weight 146 lb Physical Exam Narrative: GENERAL: In general he is awake and alert but very thin and frail HEENT: Exam within normal limits. [] NECK: Supple without jugular vein distention. The carotid upstroke is normal without bruits. [] BACK: Exam normal. [] LUNGS: Clear. Decreased breath sounds bilaterally. Expiratory phase greater than the inspiratory phase. Occasional scattered wheezes. HEART: Regular rate and rhythm. [] ABDOMEN: Benign without organomegaly or tenderness. [] EXTREMITIES: No edema. [] NEUROLOGIC: Exam normal. [] SKIN: The skin of the chest at the point of radiation has healed nicely. Data 01/23/23 00:45 01/23/23 00:45 A&P Assessment and plan (1) Chronic kidney disease: (2) Syncope: (3) Non-ST elevation [place] (NSTEMI): (4) Smoker: (5) Exertional dyspnea: (6) CAD (coronary artery disease): (7) Basal cell carcinoma: (8) AAA (abdominal aortic aneurysm): (9) COPD (chronic obstructive pulmonary disease): (10) History of stroke: (11) Carotid stenosis: Consult Attestations Medical Necessity Statement: He presents a difficult challenge. Angiography will be relatively high risk due to his underlying renal insufficiency, lung disease, presence of the AAA. Sin ce his troponins were minimally elevated and he is free of pain I would like to start out with a stress test to stratify his risk. He would not be a candidate for open heart surgery in any way due to his underlying age, frailty, COPD and the radiation treatment to his chest wall. Angiography would be done first through the arm to avoid the AAA. The AAA may not be negotiable from below. If he has no or a small amount of ischemia my preference would be to treat him medically. and Moderate Time for a total of 50 minutes, includes reviewing past or interval history, examining/interviewing patient, placing orders, counseling patient/family/other support, updating patient/family/other support, discussing plan of care with staff, communicating with other healthcare providers, documenting encounter and coordinating care Diagnoses Chronic kidney disease N18.9 Syncope R55 Non-ST elevation [place] (NSTEMI) I21.4 Smoker F17.200 Exertional dyspnea R06.09 CAD (coronary artery disease) I25.10 Basal cell carcinoma C44.91 AAA (abdominal aortic aneurysm) I71.4 COPD (chronic obstructive pulmonary disease) J44.9 History of stroke Z86.73 Carotid stenosis I65.29
[2023-01-23] MEDS: pantoprazole DR 40 mg Tablet PO (08:22)
[2023-01-23] MEDS: aspirin 325 mg EC Tablet PO (08:22)
[2023-01-23] MEDS: citalopram 20 mg Tablet 40 MG PO (08:22)
[2023-01-23 08:31] LABS: Troponin 5 6HR 152.9 ng/L (0-15); Troponin 5 6HR Delta 126.9 ng/L (0-12)
[2023-01-23] MEDS: budesonide 0.5 mg/2 mL Neb INHALATION (08:36)
[2023-01-23] MEDS: enoxaparin 100 mg/mL Syringe 70 MG SUBCUT (14:16)
[2023-01-23] MEDS: atorvastatin 40 mg Tablet PO (20:45)
[2023-01-24] VITALS (11 sets, daily range): BP systolic 106–137; BP diastolic 62–81; PULSE 51–68; RESP 16–26; TEMP 36.4–37; O2SAT 93–97
--- NOTE | 2023-01-24 | ECG_ITS ---
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 Interpretive Statements NAME OF STUDY: LEXISCAN SESTAMIBI STRESS TEST INDICATION: Chest Pain, PROCEDURE: At the baseline, the EKG revealed sinus bradycardia with a rate of 55 bpm. Possibly due to V2 V3 reversal. Diffuse nonspecific T wave changes. The baseline heart was 55 bpm with a blood pressue of 178/84 mm of Hg Lexiscan was infused over a period of 20 seconds. A total of 0.4 milligrams of Lexiscan was infused. The stress phase was continued for a total of 5 minutes. Heart rate at the end of the stress phase was 72 bpm with a blood pressure 133/62 mm of Hg. The EKG at the peak infusion revealed no significant changes frequent PVCs were noted with a peak infusion. Sestamibi was injected 20 seconds after the Lexiscan infusion. Heart rate at the end of the recovery phase was 67 bpm with a blood pressure of 146/63 mm of Hg. CONCLUSION: 1. No significant EKG changes with the LexiScan infusion 2. No LexiScan induced chest pain or cardiac arrhythmia 3. Normal blood pressure and heart rate response 4. Sestamibi/sestamibi perfusion scan pending; see separate report. Electronically Signed On 01-26-2023 23:13:22 CDT by Lety Fox M.D. [id number]
[2023-01-24] MEDS: enoxaparin 100 mg/mL Syringe 70 MG SUBCUT ×2 (02:16→14:56)
[2023-01-24 03:22] LABS: Basophils # 0.1 10^3/uL (0.0-0.1); Basophils % 0.7 %; Eosinophils # 0.2 10^3/uL (0.0-0.8); Eosinophils % 1.9 %; Hemoglobin 13.1 g/dL (11.7-16.6); Lymphocytes # 2.9 10^3/uL (0.8-4.8); Lymphocytes % 34.7 %; Mean Corpuscular Volume 90.9 fl (80-94); Mean Platelet Volume 10.2 fL (7.4-10.4); Monocytes # 0.6 10^3/uL (0.2-0.9); Monocytes % 7.7 %; Neutrophils # 4.53 10^3/uL (1.8-7.7); Neutrophils % 54.8 %; Nucleated Red Blood Cells % 0 %; Platelet Count 260 10^3/cmm (130-400); Red Blood Count 4.51 10^6/uL (4.1-5.3); Red Cell Distribution Width 13.7 % (12.1-15.1); White Blood Count 8.3 10^3/uL (4.0-10.0)
[2023-01-24 03:51] LABS: Alanine Aminotransferase 8 U/L (0-41); Albumin Level 3.5 g/dL (3.5-5.2); Alkaline Phosphatase 86 U/L (40-130); Aspartate Amino Transferase 16 U/L (0-40); Blood Urea Nitrogen 21 mg/dL (8-23); Calcium 8.3 mg/dL (8.5-10.5); Carbon Dioxide 24 mmol/L (22-29); Chloride 108 mmol/L (98-107); Glucose 82 mg/dL (65-115); Magnesium 2.2 mg/dL (1.7-2.3); Osmolality Calculated 294 mOsm/kg (285-295); Sodium 141 mmol/L (136-145); Total Bilirubin 0.3 mg/dL (0.15-1.2); Total Protein 6.5 g/dL (6.6-8.7)
[2023-01-24] MEDS: regadenoson 0.4 Mg/5 ml Syringe IVP (07:31)
--- NOTE | 2023-01-24 07:41 | PM.PN ---
Subjective Subjective: Patient is down in nuclear medicine for the remainder of the stress test. His third troponin was 153. No further symptoms. Vitals/I&O/Wt Last Vital Signs Temp 97.6 F 01/24/23 04:00 Pulse 68 01/24/23 07:32 Resp 17 01/24/23 04:00 BP 135/62 01/24/23 07:32 Pulse Ox 95 01/24/23 04:00 O2 Del Method Room Air 01/24/23 04:00 01/23/23 01/24/23 01/24/23 22:59 06:59 14:59 Intake Total 2380 / 2740 200 / 2940 Output Total 600 / 890 300 / 1190 Balance 1780 / 1850 -100 / 1750 Weight last 48 hrs Weight 138 lb 7.205 oz Weight 141 lb 5.061 oz Weight 146 lb Physical Exam Narrative: GENERAL: In general he is unchanged from yesterday HEENT: Exam within normal limits. NECK: Supple without jugular vein distention. The carotid upstroke is normal without bruits. BACK: Exam normal. LUNGS: Decreased breath sounds. Scattered wheezing. HEART: Regular rate and rhythm. ABDOMEN: Benign without organomegaly or tenderness. EXTREMITIES: No edema. NEUROLOGIC: Exam normal. SKIN: Unremarkable. Data 01/24/23 02:19 01/24/23 02:19 A&P Assessment and plan (1) Carotid stenosis: (2) Chronic kidney disease: (3) Syncope: (4) Non-ST elevation [place] (NSTEMI): (5) Smoker: (6) CAD (coronary artery disease): (7) AAA (abdominal aortic aneurysm): (8) COPD (chronic obstructive pulmonary disease): Plan Evaluate stress test. Based on results, medical therapy versus coronary angiography. Attestations Medical Necessity Statement*: Hospitalization for chest pain and troponin elevation. and Straight Forward/Low Time for a total of 15 minutes, includes reviewing past or interval history, examining/interviewing patient, updating patient/family/other support and documenting encounter Diagnoses Carotid stenosis I65.29 Chronic kidney disease N18.9 Syncope R55 Non-ST elevation [place] (NSTEMI) I21.4 Smoker F17.200 CAD (coronary artery disease) I25.10 AAA (abdominal aortic aneurysm) I71.4 COPD (chronic obstructive pulmonary disease) J44.9
--- NOTE | 2023-01-24 07:48 | NMCV_ITS ---
NM ruby perf SPECT r/s* [id number] Mingo Davis Age: 82 Gender: M : 1940 Exam Date: 01/24/2023 06:41 Ordering Phys: Renny Johnson MD ([email or web address]) Technologist: MERLE Finch Exam Location: [facility] Indications: CHEST PAIN STRESS TEST Please see separate stress test report in [facility] for full findings IMAGE PROTOCOL Rest/Stress 1 Lexiscan Day Radiopharmaceutical Dose (mCi) Administration Site Administered by Rest: Tc-99m 10.7 IV MERLE Weiss Sestamibi Stress:Tc-99m 32.4 IV MERLE Weiss Sestamibi Rest: 24-Jan-2023 60 Discovery 630 Stress: 24-Jan-2023 30 Discovery 630 0.4mg Lexiscan. Supine position only as patient was unable to lay prone. SPECT RESULTS Technical Quality: Excellent Raw Data Analysis: Normal, Subdiaphragmatic activity Image Corrections: No attenuation or motion correction applied Summed Stress Score: 7 Summed Rest Score: 10 Summed Difference Score: 0 PERFUSION FINDINGS Moderate area of moderately decreased tracer uptake in the basal and mid inferolateral, mid and apical inferior wall regions. No significant reversibility was noted in these regions. FUNCTIONAL RESULTS (calculated via Gated SPECT) Stress Image LV EF (%): 50 Stress EDV (mL):118 TID: 0.84 Stress ESV (mL):59 FUNCTIONAL FINDINGS: Segmental wall motion analysis revealing no gross wall motion abnormalities IMPRESSIONS 1. Myocardial perfusion imaging revealing moderate area of persistent decreased tracer uptake inferior and inferolateral regions, suggesting myocardial scarring versus attenuation artifact. 2. Normal LV ejection fraction of 50%. 3. LV wall motion analysis revealing no gross wall motion abnormalities. 4. Mildly dilated LV cavity No significant coronary ischemia, based on the above findings Dr Lety Fox MD FAC (Electronically Signed) Final Date: 24 January 2023 15:48 S
[2023-01-24] MEDS: pantoprazole DR 40 mg Tablet PO (08:46)
[2023-01-24] MEDS: aspirin 325 mg EC Tablet PO (08:46)
[2023-01-24] MEDS: citalopram 20 mg Tablet 40 MG PO (08:46)
--- NOTE | 2023-01-24 09:07 | P.PN_ITS ---
Subjective Subjective: Mingo reports no chest discomfort this morning. He has undergone a stress test. Denies any shortness of breath. Overall feels better. Medications: Reviewed: Yes Vitals/I&O/Wt Last Vital Signs Temp 97.6 F 01/24/23 04:00 Pulse 68 01/24/23 07:32 Resp 17 01/24/23 04:00 BP 135/62 01/24/23 07:32 Pulse Ox 95 01/24/23 04:00 O2 Del Method Room Air 01/24/23 04:00 01/23/23 01/24/23 01/24/23 22:59 06:59 14:59 Intake Total 2380 / 2740 200 / 2940 Output Total 600 / 890 300 / 1190 Balance 1780 / 1850 -100 / 1750 Weight last 48 hrs Weight 62.8 kg Weight 64.1 kg Weight 66.224 kg Physical Exam 2 Narrative: General exam no distress, denies pain, eating breakfast Neck is supple no lymphadenopathy or thyromegaly Cardiovascular heart sounds distant. Regular without murmur. Telemetry reviewed. Episodes of bradycardia noted Lungs diminished breath sounds bilaterally but no wheezes or crackles Abdomen is soft nontender positive bowel sounds. No obvious organomegaly Extremities no cyanosis clubbing or edema, cap refill brisk Data 01/24/23 02:19 01/24/23 02:19 A&P Assessment and plan (1) Non-ST elevation [place] (NSTEMI): Patient presents with chest pain and has enzyme elevation consistent with non-ST elevation [place]. His EKG has some T wave changes from prior. He has no chest discomfort right now. Continue aspirin and statin Beta-maddie contraindicated secondary to his bradycardia Considered Plavix but is he is chest discomfort free currently, his coronary status is not known we will hold off. If he becomes symptomatic we will go ahead and load. If he needs bypass surgery, this could delay his surgery if given. Continue anticoagulation with Lovenox. Likely continue this for another 24 hours making 48 hours total CBC and BMP tomorrow Appreciate cardiology consultation. Nuclear stress testing being performed today to stratify risk. (2) AAA (abdominal aortic aneurysm): His abdominal aortic aneurysm is quite large. Currently he is refusing any surgery for this. He had met with pulmonary for preoperative clearance but is somewhat concerned about the risk of surgery. (3) COPD (chronic obstructive pulmonary disease): Budesonide DuoNeb every 6 hours as needed No evidence of active exacerbation (4) Syncope: Patient has had some episodes of syncope, went up to the bathroom at night to urinate. This might be vasovagal. Denies dizziness today. Check orthostatic blood pressures. Telemetry Magnesium level, TSH acceptable (5) Smoker: Counseled on abstinence (6) Chronic kidney disease: Creatinine 1.6 today, improved Hold further hydration BMP daily Plan GERD. Continue Protonix. Hemoglobin is normal. Multiple other medical problems as outlined in past medical history Full code Lovenox will suffice for DVT prophylaxis Attestations Medical Necessity Statement*: Needs continued hospitalization for further delineation of non-ST elevation myocardial infarction, possible need for intervention, continue anticoagulation for another 24 hours Diagnoses Non-ST elevation [place] (NSTEMI) I21.4 AAA (abdominal aortic aneurysm) I71.4 COPD (chronic obstructive pulmonary disease) J44.9 Syncope R55 Smoker F17.200 Chronic kidney disease N18.9 Time Spent (min) 25
[2023-01-24] MEDS: budesonide 0.5 mg/2 mL Neb INHALATION (20:55)
[2023-01-24] MEDS: acetaminophen 325 mg Tablet 650 MG PO (21:04)
[2023-01-24] MEDS: atorvastatin 40 mg Tablet PO (21:04)
[2023-01-24] MEDS: HYDROcodone-acetaminophen 5-325 mg Tablet 1 TAB PO (22:25)
[2023-01-25] VITALS (14 sets, daily range): BP systolic 91–146; BP diastolic 44–82; PULSE 50–68; RESP 16–20; TEMP 36.6–36.9; O2SAT 90–96
[2023-01-25 03:40] LABS: Basophils % 0.5 %; Eosinophils # 0.1 10^3/uL (0.0-0.8); Eosinophils % 1.7 %; Hematocrit 40.7 % (42.0-52.0); Hemoglobin 13.4 g/dL (11.7-16.6); Lymphocytes # 2.7 10^3/uL (0.8-4.8); Lymphocytes % 33.1 %; Mean Corpuscular HGB Conc 32.9 g/dL (30.0-36.0); Mean Corpuscular Hemoglobin 29.5 pg (28.0-34.0); Mean Corpuscular Volume 89.5 fl (80-94); Mean Platelet Volume 9.9 fL (7.4-10.4); Monocytes # 0.6 10^3/uL (0.2-0.9); Monocytes % 6.9 %; Neutrophils # 4.72 10^3/uL (1.8-7.7); Neutrophils % 57.6 %; Nucleated Red Blood Cells % 0 %; Platelet Count 242 10^3/cmm (130-400); Red Blood Count 4.55 10^6/uL (4.1-5.3); Red Cell Distribution Width 13.5 % (12.1-15.1); White Blood Count 8.2 10^3/uL (4.0-10.0)
[2023-01-25 04:00] LABS: Anion Gap 16.8 (5-19); Blood Urea Nitrogen 17 mg/dL (8-23); Calcium 8.1 mg/dL (8.5-10.5); Carbon Dioxide 20 mmol/L (22-29); Chloride 108 mmol/L (98-107); Glucose 82 mg/dL (65-115); Osmolality Calculated 293 mOsm/kg (285-295); Potassium 3.8 mmol/L (3.5-5.1); Sodium 141 mmol/L (136-145)
[2023-01-25] MEDS: budesonide 0.5 mg/2 mL Neb INHALATION ×2 (07:41→20:22)
[2023-01-25] MEDS: isosorbide mononitrate ER 30 mg Tablet PO (09:21)
[2023-01-25] MEDS: pantoprazole DR 40 mg Tablet PO (09:21)
[2023-01-25] MEDS: aspirin 325 mg EC Tablet PO (09:21)
[2023-01-25] MEDS: citalopram 20 mg Tablet 40 MG PO (09:21)
[2023-01-25] MEDS: enoxaparin 30 mg/0.3 mL Syringe SUBCUT (09:22)
[2023-01-25] MEDS: HYDROcodone-acetaminophen 5-325 mg Tablet 1 TAB PO ×2 (09:57→18:18)
--- NOTE | 2023-01-25 13:35 | PM.PN ---
Subjective Subjective: Cardiology coverage patient did not have any chest pain since yesterday. Denies any unusual shortness of breath. No new symptoms. No fever or chills. Still has a shortness of breath with activities which is almost back to his baseline status. Medications: Medication Review Details: Current Medications Acetaminophen (Acetaminophen 325 Mg Tablet) 650 mg PO Q6H PRN PRN Reason: Mild/Mod Pain Or Temp >/= 101 Last Admin: 01/24/23 21:04 Dose: 650 mg Hydrocodone Bitart/Acetaminophen (Hydrocodone-Acetaminophen 5-325 Mg Tablet) 1 tab PO Q6H PRN PRN Reason: MODERATE PAIN Last Admin: 01/25/23 09:57 Dose: 1 tab Albuterol/Ipratropium (Ipratropium-Albuterol 3 Ml Neb) 3 ml INHALATION Q6H.RESP PRN PRN Reason: SHORTNESS OF BREATH Aspirin (Aspirin 325 Mg Ec Tablet) 325 mg PO DAILY [facility] Last Admin: 01/25/23 09:21 Dose: 325 mg Atorvastatin Calcium (Atorvastatin 40 Mg Tablet) 40 mg PO BEDTIME AZAEL Last Admin: 01/24/23 21:04 Dose: 40 mg Budesonide (Budesonide 0.5 Mg/2 Ml Neb) 0.5 mg INHALATION BID.RESPIRATORY [facility] Last Admin: 01/25/23 07:41 Dose: 0.5 mg Citalopram Hydrobromide (Citalopram 20 Mg Tablet) 40 mg PO DAILY [facility] Last Admin: 01/25/23 09:21 Dose: 40 mg Enoxaparin Sodium (Enoxaparin 30 Mg/0.3 Ml Syringe) 30 mg SUBCUT DAILY [facility] Last Admin: 01/25/23 09:22 Dose: 30 mg Isosorbide Mononitrate (Isosorbide Mononitrate Er 30 Mg Tablet) 30 mg PO DAILY [facility] Last Admin: 01/25/23 09:21 Dose: 30 mg Ondansetron HCl (Ondansetron 2 Mg/Ml Sdv 2 Ml) 4 mg IVP Q6H PRN PRN Reason: vomiting, or N/V if npo Ondansetron HCl (Ondansetron 2 Mg/Ml Sdv 2 Ml) 4 mg IVP Q2M PRN PRN Reason: NAUSEA Pantoprazole Sodium (Pantoprazole Dr 40 Mg Tablet) 40 mg PO DAILY [facility] Last Admin: 01/25/23 09:21 Dose: 40 mg Vitals/I&O/Wt Last Vital Signs Temp 97.8 F 01/25/23 07:38 Pulse 62 01/25/23 11:31 Resp 18 01/25/23 11:31 BP 106/59 01/25/23 11:31 Pulse Ox 90 01/25/23 11:31 O2 Del Method Room Air 01/25/23 11:31 01/24/23 01/25/23 01/25/23 22:59 06:59 14:59 Intake Total 120 / 360 200 / 560 720 / 720 Output Total 700 / 1300 400 / 400 Balance -580 / -940 200 / -740 320 / 320 Weight last 48 hrs Weight 61 lb 14.4 oz Weight 138 lb 7.205 oz Physical Exam Narrative: GENERAL: The patient is alert and oriented times three. Not in any acute distress. HEENT: Moderate pallor. No icterus or lymphadenopathy.Oral cavity: There are no mucous membrane lesions. NECK: Trachea appears to be central. No masses noted. No JVD or thyromegaly appreciated. RESPIRATORY: Breath sounds heard bilaterally with scattered expiratory wheezing and occasional coarse crackles. The intensity of breath sounds are diminished in the bases. BREASTS: Deferred. HEART: The heart sounds are normal. No S3 or S4. Short systolic murmur at the left sternal border. No diastolic murmurs. No pericardial rub ABDOMEN: No vessel pulsations or distention. No tenderness. No organomegaly appreciated. Bowel sounds are normally heard. : Deferred. RECTAL: Deferred. LYMPHATIC: No lymphadenopathy noted in the neck. EXTREMITIES: No edema or cyanosis. No clubbing. MUSCULOSKELETAL: No acute joint deformities or swelling SKIN: There are no significant rashes or ecchymosis NEUROPSYCHIATRIC: The patient is alert and oriented x3. Appears to be in a good mood. No focal motor deficits. Data 01/25/23 03:10 01/25/23 03:10 Other Labs: Laboratory Last Values WBC 8.2 10^3/uL (4.0-10.0) 01/25/23 03:10 RBC 4.55 10^6/uL (4.1-5.3) 01/25/23 03:10 Hgb 13.4 g/dL (11.7-16.6) 01/25/23 03:10 Hct 40.7 % (42.0-52.0) L 01/25/23 03:10 MCV 89.5 fl (80-94) 01/25/23 03:10 MCH 29.5 pg (28.0-34.0) 01/25/23 03:10 MCHC 32.9 g/dL (30.0-36.0) 01/25/23 03:10 RDW 13.5 % (12.1-15.1) 01/25/23 03:10 Plt Count 242 10^3/cmm (130-400) 01/25/23 03:10 MPV 9.9 fL (7.4-10.4) 01/25/23 03:10 Neut % (Auto) 57.6 % 01/25/23 03:10 Lymph % (Auto) 33.1 % 01/25/23 03:10 Cotton % (Auto) 6.9 % 01/25/23 03:10 Eos % (Auto) 1.7 % 01/25/23 03:10 Baso % (Auto) 0.5 % 01/25/23 03:10 Neut # (Auto) 4.72 10^3/uL (1.8-7.7) 01/25/23 03:10 Lymph # (Auto) 2.7 10^3/uL (0.8-4.8) 01/25/23 03:10 Cotton # (Auto) 0.6 10^3/uL (0.2-0.9) 01/25/23 03:10 Eos # (Auto) 0.1 10^3/uL (0.0-0.8) 01/25/23 03:10 Baso # (Auto) 0.0 10^3/uL (0.0-0.1) 01/25/23 03:10 Nucleated RBC % (auto) 0 % 01/25/23 03:10 Nucleated RBCs # 0.0 /100WBC 01/25/23 03:10 Sodium 141 mmol/L (136-145) 01/25/23 03:10 Potassium 3.8 mmol/L (3.5-5.1) 01/25/23 03:10 Chloride 108 mmol/L (98-107) H 01/25/23 03:10 Carbon Dioxide 20 mmol/L (22-29) L 01/25/23 03:10 Anion Gap 16.8 (5-19) 01/25/23 03:10 BUN 17 mg/dL (8-23) 01/25/23 03:10 Creatinine 1.4 mg/dL (0.7-1.2) H 01/25/23 03:10 GFR Calculation Not Reportable 01/25/23 03:10 Glucose 82 mg/dL (65-115) 01/25/23 03:10 Calculated Osmolality 293 mOsm/kg (285-295) 01/25/23 03:10 Calcium 8.1 mg/dL (8.5-10.5) L 01/25/23 03:10 Magnesium 2.2 mg/dL (1.7-2.3) 01/24/23 02:19 Total Bilirubin 0.3 mg/dL (0.15-1.2) 01/24/23 02:19 AST 16 U/L (0-40) 01/24/23 02:19 ALT 8 U/L (0-41) 01/24/23 02:19 Alkaline Phosphatase 86 U/L (40-130) 01/24/23 02:19 Troponin T Baseline 26 ng/L (0-15) H 01/23/23 00:45 Troponin T 120 Minute 49.98 ng/L (0-15) H 01/23/23 02:35 Delta Troponin T 23.98 ABS# (0-10) H* 01/23/23 02:35 Troponin T Hi Sens 6Hr 152.9 ng/L (0-15) H 01/23/23 06:56 Troponin T Hi Sens 6Hr Delta 126.9 ng/L (0-12) H* 01/23/23 06:56 Total Protein 6.5 g/dL (6.6-8.7) L 01/24/23 02:19 Albumin 3.5 g/dL (3.5-5.2) 01/24/23 02:19 Globulin 3.0 g/dL (1.3-4.6) 01/24/23 02:19 Triglycerides 132 mg/dL (0-150) 01/23/23 02:35 Cholesterol 138 mg/dL (0-200) 01/23/23 02:35 LDL Cholesterol, Calc 79 mg/dL (50-129) 01/23/23 02:35 HDL Cholesterol 33 mg/dL (60-100) L 01/23/23 02:35 LDL/HDL Ratio 2.39 RATIO (0.00-3.22) 01/23/23 02:35 Cholesterol/HDL Ratio 4.18 mg/dL (1.0-5.00) 01/23/23 02:35 TSH 3.46 uIU/mL (0.27-4.20) 01/23/23 02:35 A&P Assessment and plan (1) Non-ST elevation [place] (NSTEMI): Pain and currently seems to be stable hemodynamically. Has not had any chest pain for the last 24 hours. May continue on the current medications. It would be ideal for him to be on Plavix as well. But because of the anemia, there is an increased chance of bleeding. I will discuss with the primary and then make a decision on this. (2) Carotid stenosis: The patient is known to have 50 to 69% stenosis on the left side and less than 50% stenosis on the right side. Has not had any recent CVAs. May continue on the current medication. (3) Chronic kidney disease: Continue on the current measures. (4) Syncope: Has not had a recent syncope. (5) CAD (coronary artery disease): It was decided to treat the patient medically. At this point, we may optimize her medical treatment. (6) AAA (abdominal aortic aneurysm): Patient has a large infrarenal abdominal aortic aneurysm with thrombus formation. It was decided not to intervene (7) COPD (chronic obstructive pulmonary disease): Continue on the current measures. Plan Continue to optimize medical treatment. Since he seems to be stable with no recurrence of chest pain, may continue on the current medications for the time being. Attestations Medical Necessity Statement*: Disposition as per the primary Coding Level of Care Code 88885 Diagnoses Non-ST elevation [place] (NSTEMI) I21.4 Carotid stenosis I65.29 Chronic kidney disease N18.9 Syncope R55 CAD (coronary artery disease) I25.10 AAA (abdominal aortic aneurysm) I71.4 COPD (chronic obstructive pulmonary disease) J44.9
--- NOTE | 2023-01-25 13:58 | P.PN_ITS ---
Subjective Subjective: Denies any chest pain or shortness of breath today. He did have his stress test yesterday. No other concerns at this time. Vitals/I&O/Wt Last Vital Signs Temp 97.8 F 01/25/23 07:38 Pulse 62 01/25/23 11:31 Resp 18 01/25/23 11:31 BP 106/59 01/25/23 11:31 Pulse Ox 90 01/25/23 11:31 O2 Del Method Room Air 01/25/23 11:31 01/24/23 01/25/23 01/25/23 22:59 06:59 14:59 Intake Total 120 / 360 200 / 560 720 / 720 Output Total 700 / 1300 400 / 400 Balance -580 / -940 200 / -740 320 / 320 Weight last 48 hrs Weight 61 lb 14.4 oz Weight 138 lb 7.205 oz Physical Exam Narrative: General: Cooperative patient in no apparent distress. Well developed. HEENT: Normocephalic, Atraumatic. External ears normal. Nasal passages patent without drainage. MMM. Heart: RRR. Resp: LCTA. No respiratory distress, no use of accessory muscles. Abd: Soft, non-tender. Non-distended. Extremities: No edema. Skin: No rash or lesions on exposed areas. Data 01/25/23 03:10 01/25/23 03:10 A&P Assessment and plan (1) Non-ST elevation KS (NSTEMI): Patient presents with chest pain and has enzyme elevation consistent with non-ST elevation KS. Stress test performed yesterday. No significant ischemia was ascertained. Continue aspirin and statin. Can consider Plavix per cardiology. Will continue to monitor his anemia, and if this stays stable and we have no other bleeding develop we can add at discharge or possibly with F/U with PCP. Beta-maddie contraindicated secondary to his bradycardia Continue anticoagulation with Lovenox. Likely continue this for another 24 hours making 48 hours total CBC and BMP tomorrow Appreciate cardiology consultation. (2) AAA (abdominal aortic aneurysm): His abdominal aortic aneurysm is quite large. Currently he is refusing any chris mony for this. He had met with pulmonary for preoperative clearance but is somewhat concerned about the risk of surgery. (3) COPD (chronic obstructive pulmonary disease): Budesonide DuoNeb every 6 hours as needed No evidence of active exacerbation (4) Syncope: Patient has had some episodes of syncope, went up to the bathroom at night to urinate. This might be vasovagal. Denies dizziness today. Check orthostatic blood pressures. Telemetry Magnesium level, TSH acceptable (5) Smoker: Counseled on abstinence (6) Chronic kidney disease: Creatinine 1.6 today, improved Hold further hydration BMP daily Plan Code Status: Full IVF: Non DVT PPx: Lovenox GI PPx: protonix ABx: None Diet: Cardiac Discharge plan: Home Attestations Medical Necessity Statement*: Continue inpatient monitoring for cardiac monitoring, ACS protocol and anemia. Coding Level of Care Code Acute Code for Chg Fwd Moderate MDM includes number and complexity of problems actively addressed during encounter, amount and/or complexity of data reviewed/ordered and described risk of complication, morbidity or mortality of management as documented Diagnoses Non-ST elevation KS (NSTEMI) I21.4 AAA (abdominal aortic aneurysm) I71.4 COPD (chronic obstructive pulmonary disease) J44.9 Syncope R55 Smoker F17.200 Chronic kidney disease N18.9
--- NOTE | 2023-01-25 14:54 | PC.NURSE ---
Patient ambulated in gomez with RN. Patient was able to ambulate in the gomez for about 50 feet. Patient did not have any problems turning around to return back to his room. Patient returned to room and placed on monitor. Patient tolerated well.
--- NOTE | 2023-01-25 18:33 | PC.NURSE ---
Patient and patient's son completed a medical power of trademark attorney for the patient. A copy was made and placed in that patient's chart.
[2023-01-25] MEDS: atorvastatin 40 mg Tablet PO (21:04)
[2023-01-26] VITALS (7 sets, daily range): BP systolic 90–140; BP diastolic 52–73; PULSE 52–74; RESP 15–18; TEMP 36.5–37.1; O2SAT 90–94
[2023-01-26 05:20] LABS: Basophils # 0.1 10^3/uL (0.0-0.1); Basophils % 0.6 %; Eosinophils # 0.1 10^3/uL (0.0-0.8); Eosinophils % 1.5 %; Hematocrit 39.6 % (42.0-52.0); Lymphocytes # 2.7 10^3/uL (0.8-4.8); Lymphocytes % 30.2 %; Mean Corpuscular HGB Conc 32.8 g/dL (30.0-36.0); Mean Corpuscular Hemoglobin 29.9 pg (28.0-34.0); Mean Platelet Volume 9.9 fL (7.4-10.4); Monocytes # 0.6 10^3/uL (0.2-0.9); Neutrophils # 5.47 10^3/uL (1.8-7.7); Neutrophils % 60.4 %; Nucleated Red Blood Cells % 0 %; Platelet Count 254 10^3/cmm (130-400); Red Blood Count 4.35 10^6/uL (4.1-5.3); Red Cell Distribution Width 13.6 % (12.1-15.1); White Blood Count 9.1 10^3/uL (4.0-10.0)
[2023-01-26 05:31] LABS: Blood Urea Nitrogen 19 mg/dL (8-23); Calcium 8.5 mg/dL (8.5-10.5); Carbon Dioxide 21 mmol/L (22-29); Chloride 104 mmol/L (98-107); Glucose 74 mg/dL (65-115); Osmolality Calculated 285 mOsm/kg (285-295); Sodium 137 mmol/L (136-145)
--- NOTE | 2023-01-26 08:18 | P.PN_ITS ---
Subjective Subjective: The patient is feeling okay. Has no recurrence of chest pain. Vital signs are stable. No new symptoms. Medications: Medication Review Details: Current Medications Acetaminophen (Acetaminophen 325 Mg Tablet) 650 mg PO Q6H PRN PRN Reason: Mild/Mod Pain Or Temp >/= 101 Last Admin: 01/24/23 21:04 Dose: 650 mg Hydrocodone Bitart/Acetaminophen (Hydrocodone-Acetaminophen 5-325 Mg Tablet) 1 tab PO Q6H PRN PRN Reason: MODERATE PAIN Last Admin: 01/25/23 18:18 Dose: 1 tab Albuterol/Ipratropium (Ipratropium-Albuterol 3 Ml Neb) 3 ml INHALATION Q6H.RESP PRN PRN Reason: SHORTNESS OF BREATH Aspirin (Aspirin 325 Mg Ec Tablet) 325 mg PO DAILY AZAEL Last Admin: 01/25/23 09:21 Dose: 325 mg Atorvastatin Calcium (Atorvastatin 40 Mg Tablet) 40 mg PO BEDTIME AZAEL Last Admin: 01/25/23 21:04 Dose: 40 mg Budesonide (Budesonide 0.5 Mg/2 Ml Neb) 0.5 mg INHALATION BID.RESPIRATORY AZAEL Last Admin: 01/25/23 20:22 Dose: 0.5 mg Citalopram Hydrobromide (Citalopram 20 Mg Tablet) 40 mg PO DAILY AZAEL Last Admin: 01/25/23 09:21 Dose: 40 mg Enoxaparin Sodium (Enoxaparin 30 Mg/0.3 Ml Syringe) 30 mg SUBCUT DAILY AZAEL Last Admin: 01/25/23 09:22 Dose: 30 mg Isosorbide Mononitrate (Isosorbide Mononitrate Er 30 Mg Tablet) 30 mg PO DAILY AZALE Last Admin: 01/25/23 09:21 Dose: 30 mg Ondansetron HCl (Ondansetron 2 Mg/Ml Sdv 2 Ml) 4 mg IVP Q6H PRN PRN Reason: vomiting, or N/V if npo Ondansetron HCl (Ondansetron 2 Mg/Ml Sdv 2 Ml) 4 mg IVP Q2M PRN PRN Reason: NAUSEA Pantoprazole Sodium (Pantoprazole Dr 40 Mg Tablet) 40 mg PO DAILY AZAEL Last Admin: 01/25/23 09:21 Dose: 40 mg Vitals/I&O/Wt Last Vital Signs Temp 98.8 F 01/26/23 07:43 Pulse 61 01/26/23 07:43 Resp 17 01/26/23 07:43 BP 125/73 01/26/23 07:43 Pulse Ox 90 01/26/23 07:43 O2 Del Method Room Air 01/26/23 07:43 01/25/23 01/26/23 01/26/23 22:59 06:59 14:59 Intake Total 450 / 1170 Output Total 350 / 750 200 / 950 Balance 100 / 420 -200 / 220 Weight last 48 hrs Weight 61 lb 14.4 oz Physical Exam Narrative: GENERAL: The patient is alert and oriented times three. Not in any acute distress. HEENT: Moderate pallor. No icterus or lymphadenopathy.Oral cavity: There are no mucous membrane lesions. NECK: Trachea appears to be central. No masses noted. No JVD or thyromegaly appreciated. RESPIRATORY: Breath sounds heard bilaterally with scattered expiratory wheezing and occasional coarse crackles. The intensity of breath sounds are diminished in the bases. BREASTS: Deferred. HEART: The heart sounds are normal. No S3 or S4. Short systolic murmur at the left sternal border. No diastolic murmurs. No pericardial rub ABDOMEN: No vessel pulsations or distention. No tenderness. No organomegaly appreciated. Bowel sounds are normally heard. : Deferred. RECTAL: Deferred. LYMPHATIC: No lymphadenopathy noted in the neck. EXTREMITIES: No edema or cyanosis. No clubbing. MUSCULOSKELETAL: No acute joint deformities or swelling SKIN: There are no significant rashes or ecchymosis NEUROPSYCHIATRIC: The patient is alert and oriented x3. Appears to be in a good mood. No focal motor deficits. Data 01/26/23 04:37 01/26/23 04:37 Other Labs: Laboratory Last Values WBC 9.1 10^3/uL (4.0-10.0) 01/26/23 04:37 RBC 4.35 10^6/uL (4.1-5.3) 01/26/23 04:37 Hgb 13.0 g/dL (11.7-16.6) 01/26/23 04:37 Hct 39.6 % (42.0-52.0) L 01/26/23 04:37 MCV 91.0 fl (80-94) 01/26/23 04:37 MCH 29.9 pg (28.0-34.0) 01/26/23 04:37 MCHC 32.8 g/dL (30.0-36.0) 01/26/23 04:37 RDW 13.6 % (12.1-15.1) 01/26/23 04:37 Plt Count 254 10^3/cmm (130-400) 01/26/23 04:37 MPV 9.9 fL (7.4-10.4) 01/26/23 04:37 Neut % (Auto) 60.4 % 01/26/23 04:37 Lymph % (Auto) 30.2 % 01/26/23 04:37 [place] % (Auto) 7.0 % 01/26/23 04:37 Eos % (Auto) 1.5 % 01/26/23 04:37 Baso % (Auto) 0.6 % 01/26/23 04:37 Neut # (Auto) 5.47 10^3/uL (1.8-7.7) 01/26/23 04:37 Lymph # (Auto) 2.7 10^3/uL (0.8-4.8) 01/26/23 04:37 [place] # (Auto) 0.6 10^3/uL (0.2-0.9) 01/26/23 04:37 Eos # (Auto) 0.1 10^3/uL (0.0-0.8) 01/26/23 04:37 Baso # (Auto) 0.1 10^3/uL (0.0-0.1) 01/26/23 04:37 Nucleated RBC % (auto) 0 % 01/26/23 04:37 Nucleated RBCs # 0.0 /100WBC 01/26/23 04:37 Sodium 137 mmol/L (136-145) 01/26/23 04:37 Potassium 4.0 mmol/L (3.5-5.1) 01/26/23 04:37 Chloride 104 mmol/L (98-107) 01/26/23 04:37 Carbon Dioxide 21 mmol/L (22-29) L 01/26/23 04:37 Anion Gap 16.0 (5-19) 01/26/23 04:37 BUN 19 mg/dL (8-23) 01/26/23 04:37 Creatinine 1.6 mg/dL (0.7-1.2) H 01/26/23 04:37 GFR Calculation Not Reportable 01/26/23 04:37 Glucose 74 mg/dL (65-115) 01/26/23 04:37 Calculated Osmolality 285 mOsm/kg (285-295) 01/26/23 04:37 Calcium 8.5 mg/dL (8.5-10.5) 01/26/23 04:37 Magnesium 2.2 mg/dL (1.7-2.3) 01/24/23 02:19 Total Bilirubin 0.3 mg/dL (0.15-1.2) 01/24/23 02:19 AST 16 U/L (0-40) 01/24/23 02:19 ALT 8 U/L (0-41) 01/24/23 02:19 Alkaline Phosphatase 86 U/L (40-130) 01/24/23 02:19 Troponin T Baseline 26 ng/L (0-15) H 01/23/23 00:45 Troponin T 120 Minute 49.98 ng/L (0-15) H 01/23/23 02:35 Delta Troponin T 23.98 ABS# (0-10) H* 01/23/23 02:35 Troponin T Hi Sens 6Hr 152.9 ng/L (0-15) H 01/23/23 06:56 Troponin T Hi Sens 6Hr Delta 126.9 ng/L (0-12) H* 01/23/23 06:56 Total Protein 6.5 g/dL (6.6-8.7) L 01/24/23 02:19 Albumin 3.5 g/dL (3.5-5.2) 01/24/23 02:19 Globulin 3.0 g/dL (1.3-4.6) 01/24/23 02:19 Triglycerides 132 mg/dL (0-150) 01/23/23 02:35 Cholesterol 138 mg/dL (0-200) 01/23/23 02:35 LDL Cholesterol, Calc 79 mg/dL (50-129) 01/23/23 02:35 HDL Cholesterol 33 mg/dL (60-100) L 01/23/23 02:35 LDL/HDL Ratio 2.39 RATIO (0.00-3.22) 01/23/23 02:35 Cholesterol/HDL Ratio 4.18 mg/dL (1.0-5.00) 01/23/23 02:35 TSH 3.46 uIU/mL (0.27-4.20) 01/23/23 02:35 A&P Assessment and plan (1) Non-ST elevation HI (NSTEMI): Pain and currently seems to be stable hemodynamically. Has not had any chest pain for the last 24 hours. May continue on the current medications. It was decided to continue the medical treatment (2) Carotid stenosis: The patient is known to have 50 to 69% stenosis on the left side and less than 50% stenosis on the right side. Has not had any recent CVAs. May continue on the current medication. (3) Chronic kidney disease: Continue on the current measures. (4) Syncope: Has not had a recent syncope. (5) CAD (coronary artery disease): It was decided to treat the patient medically. At this point, we may optimize h er medical treatment. (6) AAA (abdominal aortic aneurysm): Patient has a large infrarenal abdominal aortic aneurysm with thrombus formation. It was decided not to intervene (7) COPD (chronic obstructive pulmonary disease): Continue on the current measures. Plan Continue on the current treatment. The Myocardial perfusion imaging results and its implications were once again discussed with the patient. Attestations Medical Necessity Statement*: Deferred to the primary Coding Level of Care Code 32456 Diagnoses Non-ST elevation HI (NSTEMI) I21.4 Carotid stenosis I65.29 Chronic kidney disease N18.9 Syncope R55 CAD (coronary artery disease) I25.10 AAA (abdominal aortic aneurysm) I71.4 COPD (chronic obstructive pulmonary disease) J44.9
[2023-01-26] MEDS: budesonide 0.5 mg/2 mL Neb INHALATION (08:30)
[2023-01-26] MEDS: enoxaparin 30 mg/0.3 mL Syringe SUBCUT (09:21)
[2023-01-26] MEDS: HYDROcodone-acetaminophen 5-325 mg Tablet 1 TAB PO (09:21)
[2023-01-26] MEDS: aspirin 325 mg EC Tablet PO ×2 (09:21)
[2023-01-26] MEDS: citalopram 20 mg Tablet 40 MG PO (09:22)
[2023-01-26] MEDS: pantoprazole DR 40 mg Tablet PO (09:22)
--- NOTE | 2023-01-26 09:24 | PC.SOCIAL ---
IMM update IMM updated with patient. Copy Pg 2 provided. Verbalized an understanding. Initialled, dated, timed, and placed in chart.
[2023-01-26] MEDS: isosorbide mononitrate ER 30 mg Tablet PO (09:54)
--- NOTE | 2023-01-26 10:21 | PM.DCS ---
Discharge Providers Date of Admission: 01/23/23 03:46 Date of Discharge: January 26, 2023 Attending Provider at Admission: Yusef Brice MD Attending Provider at Discharge: Prosper Nicolas MD Primary Care Provider: ANNA Elise Diagnoses at Discharge Discharge Diagnosis (1) Non-ST elevation ID (NSTEMI): Status: Acute (2) Carotid stenosis: Status: Acute (3) Chronic kidney disease: Status: Acute (4) Syncope: Status: Acute (5) CAD (coronary artery disease): Status: Acute (6) AAA (abdominal aortic aneurysm): Status: Acute Permanent problem details: 4.9cmm 2018 (7) COPD (chronic obstructive pulmonary disease): Status: Chronic Reason for Visit Reason for Visit: CP Hospital Course Hospital Course 82-year-old male who lives with a friend, has history of coronary disease with stent in the RCA 10 years ago, AAA 5x8, malnourished, during this visit patient was admitted for management evaluation of NSTEMI, cardiology was consulted, Dr. Johnson recommended stress test which showed old scarring versus attenuation artifact, patient has chronic kidney disease decision was made to manage medically with optimization of medication to aspirin and Plavix, he does have AAA with mural thrombus, decision was made not to intervene at this point, patient has COPD as well however not requiring oxygen during this visit, patient is very frail and lethargic does not want to go to any long-term stating he would like to go back home, he has been counseled on smoking cessation, creatinine around baseline. Goals of care discussed with the patient he remains full code He is high risk for complications related to his multiple comorbid conditions. Physical Exam Narrative: patient looks malnourished Cachectic S1, S2 Hemodynamic stable currently on room air No active complaints Awake and alert Pleasant and cooperative Discharge Data Studies Completed and Pending Completed Studies During Hospitalization Category Date Time Status Cardiac Stress Test MIBI [Sestamibi Stress Test Request Exams 01/24/23 07:04 Draft ] Routine XR chest 1V portable [id number] Stat Exams 01/23/23 01:12 Completed NM ruby perf SPECT r/s* [id number] Routine Nuc Med 01/24/23 07:48 Completed Radiology Impressions Chest X-Ray 01/23/23 01:12 IMPRESSION: Negative for acute pulmonary disease. Laboratory Results WBC 9.1 10^3/uL (4.0-10.0) 01/26/23 04:37 RBC 4.35 10^6/uL (4.1-5.3) 01/26/23 04:37 Hgb 13.0 g/dL (11.7-16.6) 01/26/23 04:37 Hct 39.6 % (42.0-52.0) L 01/26/23 04:37 MCV 91.0 fl (80-94) 01/26/23 04:37 MCH 29.9 pg (28.0-34.0) 01/26/23 04:37 MCHC 32.8 g/dL (30.0-36.0) 01/26/23 04:37 RDW 13.6 % (12.1-15.1) 01/26/23 04:37 Plt Count 254 10^3/cmm (130-400) 01/26/23 04:37 MPV 9.9 fL (7.4-10.4) 01/26/23 04:37 Neut % (Auto) 60.4 % 01/26/23 04:37 Lymph % (Auto) 30.2 % 01/26/23 04:37 [place] % (Auto) 7.0 % 01/26/23 04:37 Eos % (Auto) 1.5 % 01/26/23 04:37 Baso % (Auto) 0.6 % 01/26/23 04:37 Neut # (Auto) 5.47 10^3/uL (1.8-7.7) 01/26/23 04:37 Lymph # (Auto) 2.7 10^3/uL (0.8-4.8) 01/26/23 04:37 [place] # (Auto) 0.6 10^3/uL (0.2-0.9) 01/26/23 04:37 Eos # (Auto) 0.1 10^3/uL (0.0-0.8) 01/26/23 04:37 Baso # (Auto) 0.1 10^3/uL (0.0-0.1) 01/26/23 04:37 Nucleated RBC % (auto) 0 % 01/26/23 04:37 Nucleated RBCs # 0.0 /100WBC 01/26/23 04:37 Sodium 137 mmol/L (136-145) 01/26/23 04:37 Potassium 4.0 mmol/L (3.5-5.1) 01/26/23 04:37 Chloride 104 mmol/L (98-107) 01/26/23 04:37 Carbon Dioxide 21 mmol/L (22-29) L 01/26/23 04:37 Anion Gap 16.0 (5-19) 01/26/23 04:37 BUN 19 mg/dL (8-23) 01/26/23 04:37 Creatinine 1.6 mg/dL (0.7-1.2) H 01/26/23 04:37 GFR Calculation Not Reportable 01/26/23 04:37 Glucose 74 mg/dL (65-115) 01/26/23 04:37 Calculated Osmolality 285 mOsm/kg (285-295) 01/26/23 04:37 Calcium 8.5 mg/dL (8.5-10.5) 01/26/23 04:37 Magnesium 2.2 mg/dL (1.7-2.3) 01/24/23 02:19 Total Bilirubin 0.3 mg/dL (0.15-1.2) 01/24/23 02:19 AST 16 U/L (0-40) 01/24/23 02:19 ALT 8 U/L (0-41) 01/24/23 02:19 Alkaline Phosphatase 86 U/L (40-130) 01/24/23 02:19 Troponin T Baseline 26 ng/L (0-15) H 01/23/23 00:45 Troponin T 120 Minute 49.98 ng/L (0-15) H 01/23/23 02:35 Delta Troponin T 23.98 ABS# (0-10) H* 01/23/23 02:35 Troponin T Hi Sens 6Hr 152.9 ng/L (0-15) H 01/23/23 06:56 Troponin T Hi Sens 6Hr Delta 126.9 ng/L (0-12) H* 01/23/23 06:56 Total Protein 6.5 g/dL (6.6-8.7) L 01/24/23 02:19 Albumin 3.5 g/dL (3.5-5.2) 01/24/23 02:19 Globulin 3.0 g/dL (1.3-4.6) 01/24/23 02:19 Triglycerides 132 mg/dL (0-150) 01/23/23 02:35 Cholesterol 138 mg/dL (0-200) 01/23/23 02:35 LDL Cholesterol, Calc 79 mg/dL (50-129) 01/23/23 02:35 HDL Cholesterol 33 mg/dL (60-100) L 01/23/23 02:35 LDL/HDL Ratio 2.39 RATIO (0.00-3.22) 01/23/23 02:35 Cholesterol/HDL Ratio 4.18 mg/dL (1.0-5.00) 01/23/23 02:35 TSH 3.46 uIU/mL (0.27-4.20) 01/23/23 02:35 Vitals Last Vital Signs Temp 98.8 F 01/26/23 07:43 Pulse 70 01/26/23 08:29 Resp 16 01/26/23 08:29 BP 125/73 01/26/23 07:43 Pulse Ox 92 01/26/23 08:29 O2 Del Method Room Air 01/26/23 08:29 Discharge Plan Discharge Patient Disposition: Home Condition: Stable Prescriptions: New aspirin 81 mg tablet,delayed release (DR/EC) 81 mg PO DAILY Qty: 90 3RF atorvastatin 40 mg tablet 40 mg PO DAILY Qty: 90 3RF clopidogrel [Plavix] 75 mg tablet 75 mg PO DAILY Qty: 90 3RF Continued hydrocodone-acetaminophen 10-325 mg tablet 1 tab PO Q6H PRN (Reason: pain) Trelegy Ellipta 100-62.5-25 mcg blister with device 1 inh inhalation DAILY Qty: 60 3RF citalopram 40 mg tablet 40 mg PO DAILY Qty: 30 1RF pantoprazole 40 mg tablet,delayed release (DR/EC) 40 mg PO DAILY Qty: 30 1RF albuterol sulfate [Ventolin HFA] 90 mcg/actuation HFA aerosol inhaler 2 puff inhalation Q6H PRN (Reason: shortness of breath or wheezing) 30 Days 1RF Discharge Orders: Discharge Order (Routine); Ordered 01/26/23 Ordered By: Prosper Nicolas Referrals: Susan Masters FNP-C [Primary Care Provider] - Patient Instructions: Opioid Safety Discharge Attestations Time Spent in Discharge Care*: greater than 30 min Status at Discharge: Cognitive status at discharge: cognitively intact, Behavioral status at discharge: cooperative, Quality Metrics Clinical Quality Measures [ No reported AMI, CVA or VTE this stay] Coding Level of Care Code Acute Code for Chg Fwd Diagnoses Non-ST elevation ID (NSTEMI) I21.4 Carotid stenosis I65.29 Chronic kidney disease N18.9 Syncope R55 CAD (coronary artery disease) I25.10 AAA (abdominal aortic aneurysm) I71.4 COPD (chronic obstructive pulmonary disease) J44.9
--- NOTE | 2023-01-26 12:38 | PC.NURSE ---
Patient ambulated with min assist. Patient tolerated activity well. Discharge education provided to patient. His new medication will be going to [facility] in [place], [place] and RN verified that they were open to fill his prescriptions. All discharge questions and concerns were answered and addressed. Patient discharge home with friend.
== END 2023-01-26 12:45 | disposition home or self-care (01) | DRG 281 ==
LOC: ER 03:16 → CSU 03:18
PROVIDERS: Family Medicine; Admitting Provider Internal Medicine; Emergency Provider Emergency Medicine; PCP Nurse Practitioner; Visit Provider Internal Medicine
DX: I21.4 Non-ST elevation (NSTEMI) myocardial infarction (principal); E46 Unspecified protein-calorie malnutrition; Z68.1 Body mass index [BMI] 19.9 or less, adult; N17.9 Acute kidney failure, unspecified; I25.10 Atherosclerotic heart disease of native coronary artery without angina pectoris; Z95.5 Presence of coronary angioplasty implant and graft; I71.40 Abdominal aortic aneurysm, without rupture, unspecified; J44.9 Chronic obstructive pulmonary disease, unspecified; Z79.891 Long term (current) use of opiate analgesic; Z79.51 Long term (current) use of inhaled steroids; F41.1 Generalized anxiety disorder; Z85.828 Personal history of other malignant neoplasm of skin; Z86.73 Personal history of transient ischemic attack (TIA), and cerebral infarction without residual deficits; I25.2 Old myocardial infarction; Z86.16 Personal history of COVID-19; F17.210 Nicotine dependence, cigarettes, uncomplicated; K21.9 Gastro-esophageal reflux disease without esophagitis; Z92.3 Personal history of irradiation; R55 Syncope and collapse
CPT/HCPCS: 36415; 71045; 78452; 80048; 80053; 80061; 83735; 84443; 84484; 85025; 93005; 93017; 94640; 96372; 96374; 99285; A9500; G0378; J1650; J2785; J7030; J7626

== ENCOUNTER 2023-03-27 01:35 | Inpatient (IN) | payer MEDICARE, MEDICAID, SELFPAY ==
[2023-03-27] VITALS (94 sets, daily range): BP systolic 69–166; BP diastolic 28–83; PULSE 50–105; RESP 14–22; TEMP 36.5–37.4; O2SAT 93–100; BMI 17.1
--- NOTE | 2023-03-27 01:38 | XRR_ITS ---
PROCEDURE INFORMATION: Exam: XR Chest Exam date and time: 03/27/2023 1:43 AM Age: 82 years old Clinical indication: Other: Stemi TECHNIQUE: Imaging protocol: Radiologic exam of the chest. Views: 1 view. COMPARISON: CR (CHEST, ) 01/23/2023 1:15 AM FINDINGS: Lungs: Hazy left basilar opacity which could be secondary to atelectasis or pneumonia. Pleural spaces: Unremarkable. No pleural effusion. No pneumothorax. Heart/Mediastinum: Unremarkable. No cardiomegaly. Bones/joints: kyphoplasty has been performed at multiple thoracic vertebral bodies. XR/XR chest 1V portable [id number] IMPRESSION: Hazy left basilar opacity which could be secondary to atelectasis or pneumonia.
--- NOTE | 2023-03-27 01:39 | ECG_ITS ---
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 Measurements Intervals [place] Rate: 90 P: 72 [place]: 171 QRS: -46 QRSD: 99 T: 64 QT: 376 QTc: 461 Interpretive Statements SINUS RHYTHM LOW QRS VOLTAGE [QRS DEFLECTION < 0.5/1.0 mV IN LIMB/CHEST LEADS] INFERIOR MYOCARDIAL INFARCTION , OF INDETERMINATE AGE [40+ ms Q WAVE AND/OR ST/T ABNORMALITY IN II/aVF] ANTEROLATERAL MYOCARDIAL INFARCTION , PROBABLY RECENT [40+ ms Q WAVE IN I/aVL/V3-V6] ACUTE RI Compared to ECG 01/23/2023 06:27:03 Sinus bradycardia no longer present Ventricular premature complex(es) no longer present Myocardial infarct finding still present Electronically Signed On 03-27-2023 11:02:24 CDT by Mayte Manjarrez M.D. [email or web address]
[2023-03-27] MEDS: aspirin 325 mg Tablet PO (01:43)
[2023-03-27] MEDS: clopidogrel 300 mg Tablet 600 MG PO (01:43)
[2023-03-27] MEDS: heparin 5,000 unit/mL INJ 1 mL 4000 UNIT IVP (01:44)
[2023-03-27 01:45] LABS: Basophils # 0.1 10^3/uL (0.0-0.1); Basophils % 0.5 %; Eosinophils # 0.3 10^3/uL (0.0-0.8); Eosinophils % 2.6 %; Hematocrit 40.1 % (42.0-52.0); Hemoglobin 12.8 g/dL (11.7-16.6); Lymphocytes # 4.3 10^3/uL (0.8-4.8); Lymphocytes % 35.9 %; Mean Corpuscular HGB Conc 31.9 g/dL (30.0-36.0); Mean Corpuscular Hemoglobin 28.6 pg (28.0-34.0); Mean Corpuscular Volume 89.7 fl (80-94); Mean Platelet Volume 10.7 fL (7.4-10.4); Monocytes # 0.9 10^3/uL (0.2-0.9); Monocytes % 7.4 %; Neutrophils # 6.41 10^3/uL (1.8-7.7); Neutrophils % 53.4 %; Nucleated Red Blood Cells % 0 %; Platelet Count 266 10^3/cmm (130-400); Red Blood Count 4.47 10^6/uL (4.1-5.3); Red Cell Distribution Width 13.2 % (12.1-15.1)
--- NOTE | 2023-03-27 01:46 | XACV_ITS ---
Exam Room: ED.ROOM10 Ht: 183 cm Wt: 68 kg BSA: 1.85 m2 Gender: Male : 1940 Exam Priority: Routine Indication(s): - ST changes Procedure(s): Procedure Description: Diagnostic procedure Procedure Description: PCI procedure Procedure Description: Aortogram Procedure Description: Drug Eluting Coronary Stent Procedure Description: PTCA Procedure Description: Miscellaneous Procedure Description: IABP Insertion Procedure Description: ACT Procedure Description: Coronary Angiography Diagnostic Cath Status: Emergency Diagnostic Findings * INDICATION: ST elevation WA. * Left Main has no significant disease. * Circumflex has diffuse luminal irregularities. * Proximal Left Anterior Descending: total thrombotic occlusion, NATASHA: 0 flow. This is culprit vessel for ST elevation WA. * Mid Right Coronary Artery: critical 95% in-stent thrombotic stenosis, NATASHA: 3 flow. * Abdominal aorta is aneurysmal. * Coronary angiography shows right dominance. PCI Status: Emergency PCI Indication: Immediate PCI for STEMI Interventional Findings * PROCEDURE DETAIL: We engaged left artery with XB 3.5 guide catheter. IV heparin was administered to maintain anticoagulation. 0.014 run-through guidewire was used to cross the totally occluded proximal LAD segment. This was culprit vessel for ST elevation [place]. We then predilated the stenosis with 2.5 x 12 mm semicompliant balloon. This was followed by placement of 3.5 x 18 mm resolute [place] drug-eluting stent. At this time final angiogram was performed that showed excellent stent apposition, no residual stenosis and NATASHA-3 flow. We then turned attention to RCA. We engaged with JR4 guide catheter. Run-through wire was used to cross the stenotic segment. In-stent restenotic segment was treated with balloon angioplasty with 2.5 x 12 mm balloon. This restored blood flow with good expansion. At this time final angiogram was performed. Patient developed pulmonary edema during the procedure. Emergent intubation was performed. Patient also had cardiogenic shock. Access was obtained in the right common femoral artery.We proceeded with emergent placement of intra-aortic balloon pump. . * Proximal Left Anterior Descendin% stenosis treated with a AB TREK 2.50X12 RX BALLOON, and MDT R CLARENCE 3.5X18 RUDOLPH. 0% residual stenosis, NATASHA: 3 flow. * Mid Right Coronary Artery: 95% stenosis treated with a AB TREK 2.50X12 RX BALLOON. 0% residual stenosis, NATASHA: 3 flow. Conclusions 1. Total thrombotic occlusion of proximal LAD s/p successful revascularization with 1 stent. 2. Severe in-stent restenosis of 3. mid RCA 4. with 5. thrombosis 6. . S/p successful revascularization with balloon angioplasty.. 7. Cardiogenic shock. S/p successful placement of intra-aortic balloon pump. 8. Proximal Left Anterior Descending was treated with a Balloon, and Drug Eluting Stent. 9. Mid Right Coronary Artery was treated with a Balloon. Recommendations * Transfer to ICU. * Daul antiplatelet therapy with aspirin and plavix. * Ordering echocardiogram. * Vasopressors as needed. Interventional RX Recommendation: PCI w/o planned CABG Diagnostic RX Recommendation: PCI w/o planned CABG Pressures Phase:Rest AO : 94 / 73 ( 84 ) @ 10:30:47 PM 88 / 70 ( 79 ) @ 10:30:47 PM 61 / 54 ( 58 ) @ 10:30:47 PM 121 / 71 ( 87 ) @ 10:30:47 PM 107 / 63 ( 75 ) @ 10:30:47 PM 75 / 48 ( 56 ) @ 10:30:47 PM 120 / 69 ( 83 ) @ 10:30:47 PM 137 / 76 ( 94 ) @ 10:30:47 PM Clinical Evaluation EBL: 5mL-10mL Procedural Details Admit Source: Emergency department. Pre-Procedure Time Out. Identified patient by full name and date of as verbalized by the patient/guarantor. Does the consent match the physician's order: N/A Emergent; Informed Consent not obtained due to time critical life threat. Accurate & Complete Informed Consent: N/A Emergent; Informed Consent not obtained due to time critical life threat. Inpatient/Outpatient History & Physical on Chart: N/A Emergent; Informed Consent not obtained due to time critical life threat. If H&P is completed, is and addenduem needed: N/A Emergent; Informed Consent not obtained due to time critical life threat; If yes, is the addendum complete: N/A Emergent; Informed Consent not obtained due to time critical life threat. Visualize and Verify Site with Patient/Guarantor: N/A. Relevant Radiology Images available: N/A. The risks, benefits, and alternatives of sedation and/or procedure were discussed by physician. The patient agrees to continue. Procedure started. [facility] Clinical Fraility Score: 6: Moderately Frail. Shipyard Helper Indications: ACS <= 24 hours. Chest Pain Symptom Assessment: Typical Angina Symptoms. Cardiovascular Instability: Yes, if yes, Persistant Ischemic Symptoms. Correct patient, site and procedure confirmed by cath team. Current diagnosis: STEMI. PERRLA. Strong, equal hand gas engine performance engineer bilaterally. Lungs clear x 5 lobes. IV Site on Arrival: 18 gauge in the right anticubital. IV Site on Arrival: 20 gauge in the right hand. IV Fluids: 0.9% NaCl at KVO. 0 mL infused prior to microbiology lab technician. Pre Procedural Pulses: right radial was 2+. Pre Procedural Pulses: bilateral dorsalis pedis was 2+. Oxygen started at 2liters/min via nasal canula. right groin was prepped with chloroprep then draped in the usual sterile fashion. right radial was prepped with chloroprep then draped in the usual sterile fashion. Physician notified. Baseline sample Acquired. HR: 108 BPM. Physician arrived. Physician scrubbed in. Immediate Pre-Procedure Time Out. Correct Patient: Yes; Correct Procedure: Yes; Correct Site: Yes; Correct Patient Position: Yes; Correct Supplies: Yes; Dried Flammable Prep: Yes; Blood Products Available: N/A;. Lidocaine 1% infiltrated to the right radial. Arterial access obtained. 6 kinyarwanda XB 3.5 guide catheter was inserted over the wire. Multiple views taken of left coronary artery. Runthrough guidewire was advanced through the guide catheter to lesion in the prox LAD and positioned in the distal LAD. Balloon inserted to lesion in the prox LAD. Inflation number : 1 A AB TREK 2.50X12 RX BALLOON was prepped and advanced across the Prox LAD , then inflated to 4 NICOLASA for 0:08 seconds. Inflation number: 2 The AB TREK 2.50X12 RX BALLOON was reinflated across the Prox LAD, to 8 NICOLASA for 0:12 seconds. Results checked. Inflation number: 3 The AB TREK 2.50X12 RX BALLOON was reinflated across the Prox LAD, to 12 NICOLASA for 0:11 seconds. Balloon out. Results checked. Stent inserted to lesion in the prox LAD. Inflation Number : 4 A EMEKA Andrade CLARENCE 3.5X18 RUDOLPH -Lot Number# [id number] Exp 11/12/2024 was prepped and advanced across the Prox LAD. The stent was deployed at 12 NICOLASA for 0:17 seconds. Stent balloon out over wire. Results checked. Guide catheter and Runthrough wire out. A 6 kinyarwanda JR4 catheter in over wire. Multiple views taken of right coronary artery. Catheter out over the exchange wire. 6 kinyarwanda JR 4 guide catheter was inserted over the wire. ACT drawn. Results 280 seconds. Therapeutic limits - pre-heparin administration 90-150 seconds and monitoring heparin during a vascular procedure >250 seconds. Current Diagnosis : STEMI. Runthrough guidewire was advanced through the guide catheter to lesion in the mid RCA. PCI Indication : Immediate PCI for STEMI. Inflation number: 1 The AB TREK 2.50X12 RX BALLOON was reinflated across the Mid RCA, to 12 NICOLASA for 0:04 seconds. Inflation number: 2 The AB TREK 2.50X12 RX BALLOON was reinflated across the Mid RCA, to 12 NICOLASA for 0:09 seconds. Balloon inserted to lesion in the mid RCA. ED called to intubate patient due to respiratory status and overall deterioration. Balloon out and wire out. Results checked. Levophed gtt increased to 16mcg/min. Dr Newton present to intubate patient at this time, RT in room. Arreguin catheter inserted by Bre MONTENEGRO. Ketamine 250mg given prior to intubation. ACT drawn. Results 301 seconds. Therapeutic limits - pre-heparin administration 90-150 seconds and monitoring heparin during a vascular procedure >250 seconds. Lidocaine 1% infiltrated to the right groin. Pt was intibated by Dr Newtonwith a 8.0Fr endotrachial tube. Breath sounds equal bilaterally. Tube was taped into position at 24cm. Ventilator settings being monitored by RT. A 5 kinyarwanda Angled Pig catheter in over wire. Pigtail positioned in the abdominal aorta. Aortogram performed in [place] @ 10 mL/second for a total of 20 mL. Catheter out over the standard wire. 5 [place] sheath exchanged for IABP 6 [place] sheath. 40cc IAB inserted in the Right Femoral Artery. Augmentation: 1:1. Trigger: Pressure. Augmenter BP: 91/60. A Suture was successful obtaining hemostatsis at the Right Femoral artery insertion site. Post-op diagnosis: Totally occluded Prox LAD s/p x1 stent, Subtotally occluded RCA with successful ballooning, Cardiogenic Shock. A TR Band was successful obtaining hemostatsis at the Right Radial artery insertion site. Sheath(s) sutured into position with 2-0 silk and sterile 4x4's and Op-site applied over the site. No oozing or signs and symptoms of hematoma noted. Post Procedure: Pulses reassessed and unchanged. PERRLA. Strong, equal hand gas engine performance engineer bilaterally. No VTE prophylaxis required. Medication's Wasted: Other = Fentanyl 75 mcg. Medication's Wasted: Other = Lasix 60 mg. Total IV fluids: 46 mL. PCI Indication: STEMI. Complications: none. Estimated blood loss: 5mL-10mL. Responsiveness - Sedated/Intubated. Airway - Mechanical Ventilation. Circulation: W/N/L, pulses unchanged. Nausea/Vomiting: No. Procedure completed. Patient transferred by bed to ICU. Vital chart was stopped. Access Site Site: Right Radial artery Sheath Size: 6 Fr Hemostasis Method: TR Band Hemostasis Success: Successful Site: Right Femoral artery Sheath Size: 5 Fr Hemostasis Method: Suture Hemostasis Success: Successful Procedure Medications Start: 2:04 AM Stop: 2:04 AM Medication: Versed Amount: 1 mg Route: I.V. Start: 2:09 AM Stop: 2:09 AM Medication: Heparin Amount: 2000 units Route: I.V. Start: 2:11 AM Stop: 2:11 AM Medication: Versed Amount: 1 mg Route: I.V. Start: 2:18 AM Stop: 2:18 AM Medication: Neosynephrine Amount: 100 mcg Route: I.V. Start: 2:19 AM Stop: 2:19 AM Medication: Lasix (furosemide) Amount: 40 mg Route: I.V. Start: 2:21 AM Stop: 2:21 AM Medication: Neosynephrine Amount: 100 mcg Route: I.V. Start: 2:25 AM Stop: 2:25 AM Medication: Heparin Amount: 1000 units Route: I.V. Start: 2:27 AM Stop: 2:27 AM Medication: Levophed (norepinephrine) Amount: 4 mcg/min Route: I.V. drip Start: 2:38 AM Stop: 2:38 AM Medication: Heparin Amount: 1000 units Route: I.V. Start: 2:59 AM Stop: 2:59 AM Medication: Versed Amount: 1 mg Route: I.V. Start: 3:16 AM Stop: 3:16 AM Medication: Versed Amount: 1 mg Route: I.V. Start: 3:17 AM Stop: 3:17 AM Medication: Fentanyl Amount: 25 mcg Route: I.V. I, the attending physician, have reviewed and verified all procedure medications. Yes, all medications given per verbal order History/Risk Factors Peripheral Arterial Disease (PAD): No Report Signatures Finalized by Librado Villarreal MD on 03/29/2023 09:31 AM
[2023-03-27] MEDS: sodium chloride 0.9% 1,000 ML 999 ML IV ×2 (01:47→09:40)
--- NOTE | 2023-03-27 01:52 | W.ED.CHESTPA ---
HPI - Chest Pain General: Chief Complaint: Chest Pain Stated Complaint: CHEST PAIN Time Seen by Provider: 03/27/23 01:36 History of Present Illness: Mr. Davis is an 82-year-old gentleman with significant past medical history of CAD, COPD, history of NSTEMI, stroke, [place], AAA presented to the emergency department for chest pain as EMS STEMI activation. He endorses symptoms began acutely less than 2 hours ago. Substernal pain that woke him from sleep. Pain radiates to the left arm. EMS found the patient to be somewhat diaphoretic and mildly hypotensive. EKG showed evolution of STEMI and patient brought emergently to the emergency department. He denies frequent episodes of chest pain. Otherwise denies changes in health. No other specific changes in health, exacerbating, or alleviating factors identified. Onset (ago): hour(s) Timing of current episode: constant Onset: awoke with symptoms Severity: severe Associated symptoms: Reports diaphoresis and dyspnea Review of Systems General: Reports: 10 or more systems reviewed and unremarkable except in HPI and below Const: Reports: diaphoresis Resp: Reports: dyspnea PFS ED PFSH: Medical History (Updated 03/27/23 @ 02:00 by Librado Villarreal M.D) AAA (abdominal aortic aneurysm) 4.9cmm 2018 Acid reflux Acute encephalopathy Acute respiratory failure with hypoxemia Anxiety, generalized Basal cell carcinoma CAD (coronary artery disease) Carotid stenosis Chronic kidney disease COPD (chronic obstructive pulmonary disease) Exertional dyspnea History of heart attack History of stroke Hypoxia Non-ST elevation [place] (NSTEMI) NSTEMI (non-ST elevated myocardial infarction) Pneumonia due to 2019 novel coronavirus Smoker Smoker unmotivated to quit Syncope Surgical History History of back surgery 1972 History of heart artery stent Early 1999 Family History Other Cancer Stroke Denies family history of Diabetes Dementia Hypertension Social History Smoking and tobacco status: current every day smoker cigarettes Packs smoked per day: 1 Years cigarettes smoked: 73 [ Other cigarette details: Started smoking at age 8.] Second hand smoke exposure: No Smoking risk assessment/counseling performed?: Yes Alcohol intake: never Desire information about alcohol rehabilitation?: No Counseling given: No Substance/Drug Use: current Substance/Drug use frequency: few times a week Desire information about substance/drug rehabilitation?: No Counseling given: No Adopted: No Caregiver/support person: No Lives independently: Yes Household members: friend(s) Housing: Manufactured/Mobile home Marital status: Number of children: 2 service: Yes branch: [employer] Current occupational status: retired Do you think of yourself as: Straight/Heterosexual Current gender identity: Male Physical Exam Const: COMMON NORMALS: alert GENERAL APPEARANCE: cooperative, well developed and ill appearing HENMT: COMMON NORMALS: normocephalic and atraumatic HEAD & SCALP: normocephalic and atraumatic Eye: COMMON NORMALS: conjunctivae normal CONJUNCTIVA: Yes conjunctivae normal SCLERA: sclerae normal Neck/C-Spine: COMMON NORMALS: supple GENERAL: Yes trachea midline Resp: COMMON NORMALS: clear to auscultation bilaterally EFFORT & INSPECTION: Yes able to speak in complete sentences AUSCULTATION: clear to auscultation bilaterally Cardio: COMMON NORMALS: regular rate and regular rhythm RATE: regular rate RHYTHM: regular rhythm OTHER: Normal peripheral pulses, warm well-perfused extremities. GI: COMMON NORMALS: Soft to palpation PALPATION: Yes Soft to palpation and No Tenderness to palpation present (GI) Extremity: GENERAL: Yes normal exam except as noted and No edema Neuro: COMMON NORMALS: moves all extremities SENSORIUM/ORIENTATION: Yes alert and No Orientation impaired Psych: COMMON NORMALS: mental status grossly normal and Normal thought process present THOUGHT PROCESS: Normal thought process present Course Vital Signs: Vital signs: Vital Signs Pulse Rate 95 03/27/23 01:37 Respiratory Rate 18 03/27/23 01:37 Blood Pressure 101/60 03/27/23 01:37 Pulse Oximetry 95 03/27/23 01:37 Oxygen Delivery Me thod Nasal Cannula 03/27/23 01:37 Oxygen Flow Rate 2 03/27/23 01:37 MDM - Chest Pain Medical Decision Making 82-year-old gentleman presenting via EMS as a STEMI activation. Patient has chronically ill appearance however is nontoxic. Lung sounds diminished throughout with history of COPD. He is requiring oxygen which is new for him. No evidence of gross peripheral volume overload. Upon review of EKG STEMI activation confirmed. Patient treated with aspirin, heparin bolus, Plavix. tire center supervisor on-call at bedside. Laboratory studies at time of admission. Chest x-ray reviewed without lobar consolidation or pneumothorax. Discussed results of evaluation with patient and need for emergent transfer to [facility] for intervention. Patient transferred to [facility] in guarded condition. Medical Records I reviewed the patient's medical records. Lab Data I reviewed the patient's lab results. 03/27/23 01:37 03/27/23 01:37 Laboratory Results WBC 12.0 10^3/uL (4.0-10.0) H 03/27/23 01:37 RBC 4.47 10^6/uL (4.1-5.3) 03/27/23 01:37 Hgb 12.8 g/dL (11.7-16.6) 03/27/23 01:37 Hct 40.1 % (42.0-52.0) L 03/27/23 01:37 MCV 89.7 fl (80-94) 03/27/23 01:37 MCH 28.6 pg (28.0-34.0) 03/27/23 01:37 MCHC 31.9 g/dL (30.0-36.0) 03/27/23 01:37 RDW 13.2 % (12.1-15.1) 03/27/23 01:37 Plt Count 266 10^3/cmm (130-400) 03/27/23 01:37 MPV 10.7 fL (7.4-10.4) H 03/27/23 01:37 Neut % (Auto) 53.4 % 03/27/23 01:37 Lymph % (Auto) 35.9 % 03/27/23 01:37 [place] % (Auto) 7.4 % 03/27/23 01:37 Eos % (Auto) 2.6 % 03/27/23 01:37 Baso % (Auto) 0.5 % 03/27/23 01:37 Neut # (Auto) 6.41 10^3/uL (1.8-7.7) 03/27/23 01:37 Lymph # (Auto) 4.3 10^3/uL (0.8-4.8) 03/27/23 01:37 [place] # (Auto) 0.9 10^3/uL (0.2-0.9) 03/27/23 01:37 Eos # (Auto) 0.3 10^3/uL (0.0-0.8) 03/27/23 01:37 Baso # (Auto) 0.1 10^3/uL (0.0-0.1) 03/27/23 01:37 Nucleated RBC % (auto) 0 % 03/27/23 01:37 Nucleated RBCs # 0.0 /100WBC 03/27/23 01:37 PT 12.30 SECONDS (12.1-14.9) 03/27/23 01:37 INR 0.89 (0.8-1.2) 03/27/23 01:37 APTT 25.4 SECONDS (23.9-36.7) 03/27/23 01:37 Sodium 143 mmol/L (136-145) 03/27/23 01:37 Potassium 4.3 mmol/L (3.5-5.1) 03/27/23 01:37 Chloride 105 mmol/L (98-107) 03/27/23 01:37 Carbon Dioxide 24 mmol/L (22-29) 03/27/23 01:37 Anion Gap 18.3 (5-19) 03/27/23 01:37 BUN 40 mg/dL (8-23) H 03/27/23 01:37 Creatinine 1.9 mg/dL (0.7-1.2) H 03/27/23 01:37 GFR Calculation Not Reportable 03/27/23 01:37 Glucose 150 mg/dL (65-115) H 03/27/23 01:37 Calculated Osmolality 309 mOsm/kg (285-295) H 03/27/23 01:37 Calcium 8.9 mg/dL (8.5-10.5) 03/27/23 01:37 Total Bilirubin 0.2 mg/dL (0.15-1.2) 03/27/23 01:37 AST 15 U/L (0-40) 03/27/23 01:37 ALT 9 U/L (0-41) 03/27/23 01:37 Alkaline Phosphatase 123 U/L (40-130) 03/27/23 01:37 Troponin T Baseline 33 ng/L (0-15) H 03/27/23 01:37 NT-Pro-B Natriuret Pep 922 pg/mL (0-450) H 03/27/23 01:37 Total Protein 7.2 g/dL (6.6-8.7) 03/27/23 01:37 Albumin 4.3 g/dL (3.5-5.2) 03/27/23 01:37 Globulin 2.9 g/dL (1.3-4.6) 03/27/23 01:37 Lipase 35 U/L (13-60) 03/27/23 01:37 Critical Care Time Critical Care Time: Critical Care Time: Yes Total Critical Care Time: 31 Attestation: Due to a high probability of clinically significant, possibly life threatening deterioration, the patient required my highest level of attention and preparedness to intervene emergently and I personally spent this critical care time directly and personally managing the patient. This critical care time included obtaining a history; examining the patient; pulse oximetry; ordering and review of laboratory and imaging studies; arranging urgent treatment with development of a management plan; evaluation of patient's response to treatment; frequent reassessment; and, discussions with other providers as applicable. It was exclusive of separately billable procedures. Primary system involved is cardiovascular. Discharge Plan Discharge Patient Disposition: Admitted As Inpatient Clinical Impression: ST elevation myocardial infarction (STEMI) Condition: Serious Coding Level of Care Code ED Safe And Vault Installer for Thierno Hutson
--- NOTE | 2023-03-27 01:55 | P.HP_ITS ---
Providers/Chief Complaint Admitting Physician: Librado Villarreal MD/ Cardiology Primary Care Provider: ANNA Elise Chief Complaint: CHEST PAIN History of Present Illness Mingo Davis is a 82 year old male with past medical history of CAD, COPD, AAA who presented with 1 hour of severe substernal chest pain. EKG demonstrated significant ST elevations from the distal V1 through V6 and inferior leads. Patient was brought emergently to cardiac An Employee Sponsor Or Advocate And Review of Systems General: Reports: 10 or more systems reviewed and unremarkable except in HPI and below Const: Reports: diaphoresis Card: Reports: chest pain Resp: Reports: dyspnea Medications/Allergies Home Medications Medication Instructions Recorded Confirmed Last Taken Type albuterol sulfate 90 mcg/actuation 2 puff inhalation Q6H PRN 11/12/21 01/23/23 Unknown Rx aerosol inhaler (Ventolin HFA) shortness of breath or wheezing 30 days hydrocodone 10 mg-acetaminophen 1 tab PO Q6H PRN pain 05/30/22 01/23/23 Unknown History 325 mg tablet fluticasone fur. 100 mcg-umeclid 1 inh inhalation DAILY #60 ea 10/02/22 01/23/23 Unknown Rx 62.5 mcg-vilant 25 mcg inhalat.powder (Trelegy Ellipta) citalopram 40 mg tablet 40 mg PO DAILY #30 tabs 01/01/23 01/23/23 Unknown Rx pantoprazole 40 mg tablet,delayed 40 mg PO DAILY #30 tabs 01/01/23 01/23/23 Unknown Rx release aspirin 81 mg tablet,delayed 81 mg PO DAILY #90 tabs 01/26/23 Unknown Rx release atorvastatin 40 mg tablet 40 mg PO DAILY #90 tabs 01/26/23 Unknown Rx clopidogrel 75 mg tablet (Plavix) 75 mg PO DAILY #90 tabs 01/26/23 Unknown Rx Allergies Allergy/AdvReac Type Severity Reaction Status Date / Time No Known Allergies Allergy Verified 01/23/23 01:19 PFSH Acute PFSH: Medical History (Updated 03/27/23 @ 02:00 by Librado Villarreal M.D) AAA (abdominal aortic aneurysm) 4.9cmm 2017 Acid reflux Acute encephalopathy Acute respiratory failure with hypoxemia Anxiety, generalized Basal cell carcinoma CAD (coronary artery disease) Carotid stenosis Chronic kidney disease COPD (chronic obstructive pulmonary disease) Exertional dyspnea History of heart attack History of stroke Hypoxia Non-ST elevation [place] (NSTEMI) NSTEMI (non-ST elevated myocardial infarction) Pneumonia due to 2019 novel coronavirus Smoker Smoker unmotivated to quit Syncope Surgical History History of back surgery 1972 History of heart artery stent Early 1999 Family History Other Cancer Stroke Denies family history of Diabetes Dementia Hypertension Social History Smoking and tobacco status: current every day smoker cigarettes Packs smoked per day: 1 Years cigarettes smoked: 73 [ Other cigarette details: Started smoking at age 8.] Second hand smoke exposure: No Smoking risk assessment/counseling performed?: Yes Alcohol intake: never Desire information about alcohol rehabilitation?: No Counseling given: No Substance/Drug Use: current Substance/Drug use frequency: few times a week Desire information about substance/drug rehabilitation?: No Counseling given: No Adopted: No Caregiver/support person: No Lives independently: Yes Household members: friend(s) Housing: Manufactured/Mobile home Marital status: Number of children: 2 service: Yes branch: [employer] Current occupational status: retired Do you think of yourself as: Straight/Heterosexual Current gender identity: Male Vitals/I&O/Wt Last Vital Signs Pulse 95 03/27/23 01:37 Resp 18 03/27/23 01:37 BP 101/60 03/27/23 01:37 Pulse Ox 95 03/27/23 01:37 O2 Del Method Nasal Cannula 03/27/23 01:37 O2 Flow Rate 2 03/27/23 01:37 Weight last 48 hrs Weight 130 lb Physical Exam Narrative: GENERAL: Patient is alert, awake and oriented x3. [] NECK: No jugular vein distension. [] HEENT: No cyanosis. No icterus. No pallor. [] HEART: Regular S1 and S2. No murmur, rub or gallop. [] LUNGS:Has bilateral crackles CENTRAL NERVOUS SYSTEM: Grossly nonfocal. [] EXTREMITIES: Lower extremities with no edema Data 03/27/23 01:37 03/27/23 01:37 A&P Assessment and plan (1) ST elevation myocardial infarction (STEMI): (2) CAD (coronary artery disease): (3) Chronic kidney disease: Plan Patient has presented with ST elevation [place]. He is emergently taken to cardiac An Employee Sponsor Or Advocate And for coronary angiogram with percutaneous coronary intervention. He has been loaded with aspirin, Plavix and heparin bolus. We will obtain echocardiogram. Attestations Medical Necessity Statement*: Care expected to cross 2 midnights. Patient has presented with ST elevation OK and is going for emergent cardiac catheterization. Coding Level of Care Code Acute Code for [facility] Diagnoses ST elevation myocardial infarction (STEMI) I21.3 CAD (coronary artery disease) I25.10 Chronic kidney disease N18.9
[2023-03-27 01:57] LABS: INR 0.89 (0.8-1.2); Partial Thromboplastin Time 25.4 SECONDS (23.9-36.7)
[2023-03-27 02:07] LABS: Troponin(5th) Baseline 33 ng/L (0-15)
[2023-03-27 02:16] LABS: Alanine Aminotransferase 9 U/L (0-41); Albumin Level 4.3 g/dL (3.5-5.2); Alkaline Phosphatase 123 U/L (40-130); Anion Gap 18.3 (5-19); Aspartate Amino Transferase 15 U/L (0-40); Blood Urea Nitrogen 40 mg/dL (8-23); Calcium 8.9 mg/dL (8.5-10.5); Carbon Dioxide 24 mmol/L (22-29); Chloride 105 mmol/L (98-107); Globulin 2.9 g/dL (1.3-4.6); Glucose 150 mg/dL (65-115); Lipase 35 U/L (13-60); NT Pro B Type Natriuretic Pept 922 pg/mL (0-450); Osmolality Calculated 309 mOsm/kg (285-295); Potassium 4.3 mmol/L (3.5-5.1); Sodium 143 mmol/L (136-145); Total Bilirubin 0.2 mg/dL (0.15-1.2); Total Protein 7.2 g/dL (6.6-8.7)
--- NOTE | 2023-03-27 03:01 | P.PNCC_ITS ---
Critical Care Event Note I was requested by truck car and bus cleaner to the It Support Consultant to intubate patient. Patient has evidence of pulmonary edema and worsening vital signs/clinical status. He requires additional procedures which need to be performed emergently and require intubation to prevent clinically significant deterioration and/or . Patient intubated as noted below. Babak Newton MD Emergency Medicine Critical Care Time Code activated: No Critical Care Time (min): 0 Procedures Intubation Time out performed: No (Patient emergently to It Support Consultant and procedure performed under emergent condi) Sedative: ketamine Mg given: 250 Paralytic: rocuronium Mg given: 7 Laryngoscope: fiber optic video scope ET tube size: 8 ET tube uncuffed: No Tube secured depth (cm): 23 Tube secured location: teeth Tube placement confirmation: visualized tube passing through cords, equal breath sounds bilaterally and color change noted Patient tolerated procedure: well Additional comments: Patient required 2 attempts at laryngoscopy, first attempt complicated by inadequate paralysis and cough reflex. Patient received qsk-sglfz-jlnk ventilations and subsequent attempt with easy success. Patient's underlying medical conditions and current clinical status did have suboptimal starting oxygenation and oxygen saturation postintubation did decrease to just above 70% prior to quickly recovering. Coding Level of Care Code Acute Code for Chg Fwd
--- NOTE | 2023-03-27 03:38 | ECG_ITS ---
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 Measurements Intervals [place] Rate: 100 P: 66 AR: 207 QRS: -43 QRSD: 91 T: 38 QT: 354 QTc: 458 Interpretive Statements SINUS TACHYCARDIA WITH FREQUENT VENTRICULAR PREMATURE COMPLEXES LEFT AXIS DEVIATION [QRS AXIS < -30] LOW QRS VOLTAGE [QRS DEFLECTION < 0.5/1.0 mV IN LIMB/CHEST LEADS] POSSIBLE INFERIOR MYOCARDIAL INFARCTION , OF INDETERMINATE AGE [30 ms Q WAVE IN II/aVF] ANTEROSEPTAL MYOCARDIAL INFARCTION , PROBABLY RECENT [40+ ms Q WAVE IN V1-V4] Compared to ECG 03/27/2023 01:39:00 Ventricular premature complex(es) now present Left-axis deviation now present Sinus rhythm no longer present Myocardial infarct finding still present Electronically Signed On 03-27-2023 12:22:10 CDT by Mayte Manjarrez M.D. [id number]
--- NOTE | 2023-03-27 03:39 | XR_ITS ---
WS: [id number] Exam: XR chest 1V portable [id number] Date/Time of Exam: 03/27/2023 5:36 AM Reason For Exam: Assess endotracheal tube position Comparison with the last exam performed 03/27/2023 at 1:45 AM. An ET tube is been placed and ends about 6 cm above the gill in satisfactory position. A second opa que line noted in the midline that may represent an esophageal monitoring lead. The chest otherwise s hows little change since the prior study. Heart size remains normal. The lung apices are out of the f [id number]. Signs of vertebral plasty involving the thoracic spine. XR/XR chest 1V portable [id number] IMPRESSION: 1. ET tube ending about 6 cm above the gill in good position. 2. A second opaque lead is noted in the midline and may represent an esophageal monitoring device. The chest is otherwise unchanged.
--- NOTE | 2023-03-27 03:44 | P.MISC_ITS ---
Miscellaneous Note Purpose of Documentation: Brief procedure note Note: Patient underwent successful revascularization of the proximal LAD that was totally occluded (culprit vessel for STEMI) with 1 stent. Patient also had subtotal occlusion of mid RCA stent that underwent successful revascularization with balloon angioplasty. He went into pulmonary edema and cardiogenic shock during the procedure. Was put on Levophed. He was intubated. We placed intra-aortic balloon pump. Patient left cath lab radiology technician in a stable condition. Recommendations: Continue aspirin and Plavix Transfer to ICU. We will consult hospitalist service for management of vent, sedation and medical therapy for other noncardiac medical issues. Continue Levophed drip. Maintain balloon pump on 1:1 augmentation. We will start heparin infusion at 500units/h as has balloon pump in place. Lasix dose given during procedure. Monitor urine output. Has CKD and creatinine is 1.9.
--- NOTE | 2023-03-27 03:50 | USCV_ITS ---
RyanMingo Age: 82 Gender: M : 1940 Exam Date: 03/27/2023 08:04 Ordering Phys: Librado Villarreal M.D ([email or web address]) Technologist: Mir Lai [place] [facility] [place] Ind[place]: pt on vent BP: / HR: Rhythm: Sinus Technical Quality: no echo windows MEASUREMENTS (Male / Female) Normal Values FINDINGS Left Ventricle Right Ventricle Right Atrium Left Atrium Mitral Valve Aortic Valve Tricuspid Valve Pulmonic Valve Pericardium Aorta IVC CONCLUSIONS Different views were attempted however cardiac structures could not be visualized because of extremely limited echocardiographic windows. Librado Villarreal MD (Electronically Signed) Final Date: 27 March 2023 11:47 S
[2023-03-27] MEDS: propofol 1,000 MG/100 ML INJ 10.61 MG IV (04:32)
[2023-03-27] MEDS: heparin drip 25,000 UNIT/500 ML PREMIX 10 UNIT IV (04:42)
--- NOTE | 2023-03-27 05:02 | P.CONIM_ITS ---
Providers/Reason For Consult Consulting Physician/Specialty*: Hospitalist Reason for Consult*: vent management Requesting Physician: Cherelle Attending Physician: Librado Villarreal M.D Primary Care Provider: ANNA Elise History of Present Illness History of Present Illness Mingo Davis is a 82 year old male with known coronary artery disease and RCA stent greater than 10 years prior. He was hospitalized in December 2022 for a non- ST segment elevation SD he had a negative stress test at that time. He was no sadie to have a large infrarenal AAA with thrombosis that was not intervened on. He was given medical therapy for his NSTEMI. Patient presented today with marked ST ELEVATION in the inferior leads and V1 through V6. Patient was taken to Track Service Person where a stent was placed in the LAD and balloon angioplasty was performed on the RCA stent. Patient was placed on a intra arterial balloon pump and was intubated and sent to ICU in cardiogenic shock. Patient has a history of tobacco abuse and is a current everyday smoker, COPD, CKD. While it was reported that patient did not want his brother contacted, his chart reveals a life partner Isabela Oden [phone]. His living will and DPOA name Naty Mathis [phone]. Please refer to this documentation that shows his wishes if meaningful recovery is not attainable Review of Systems General: Reports: ROS unobtainable due to endotracheal tube and ROS unobtainable due to medical condition Medications/Allergies Home Medications Medication Instructions Recorded Confirmed Last Taken Type albuterol sulfate 90 mcg/actuation 2 puff inhalation Q6H PRN 11/12/21 01/23/23 Unknown Rx aerosol inhaler (Ventolin HFA) shortness of breath or wheezing 30 days hydrocodone 10 mg-acetaminophen 1 tab PO Q6H PRN pain 05/30/22 01/23/23 Unknown History 325 mg tablet fluticasone fur. 100 mcg-umeclid 1 inh inhalation DAILY #60 ea 10/02/22 01/23/23 Unknown Rx 62.5 mcg-vilant 25 mcg inhalat.powder (Trelegy Ellipta) citalopram 40 mg tablet 40 mg PO DAILY #30 tabs 01/01/23 01/23/23 Unknown Rx pantoprazole 40 mg tablet,delayed 40 mg PO DAILY #30 tabs 01/01/23 01/23/23 Unknown Rx release aspirin 81 mg tablet,delayed 81 mg PO DAILY #90 tabs 01/26/23 Unknown Rx release atorvastatin 40 mg tablet 40 mg PO DAILY #90 tabs 01/26/23 Unknown Rx clopidogrel 75 mg tablet (Plavix) 75 mg PO DAILY #90 tabs 01/26/23 Unknown Rx Allergies Allergy/AdvReac Type Severity Reaction Status Date / Time No Known Allergies Allergy Verified 01/23/23 01:19 Current Medications Generic Name Dose Route Start Last Admin Trade Name Jasonq PRN Reason Stop Dose Admin Norepinephrine Bitartrate 4 mg 254 mls @ 0 mls/hr 03/27/23 02:30 03/27/23 04:00 / Dextrose IV 16 mcg/min .Q0M AZAEL 60.96 mls/hr Administration Protocol Per Protocol Heparin Sodium/Sodium Chloride 25,000 unit in 500 mls @ 10 mls/hr 03/27/23 03:45 03/27/23 04:42 Heparin Drip IV 500 unit/hr .Q24H AZAEL 10 mls/hr Administration Protocol Fentanyl 2,500 mcg/ Sodium 250 mls @ 0 mls/hr 03/27/23 04:00 03/27/23 04:38 Chloride IV 25 mcg/hr .Q0M AZAEL 2.5 mls/hr Administration Protocol Per Protocol Propofol 1,000 mg in 100 mls @ 0 mls/hr 03/27/23 04:00 03/27/23 04:32 Diprivan IV 30 mcg/kg/min .Q0M AZAEL 10.61 mls/hr Administration Protocol Per Protocol PFSH Acute PFSH: Medical History (Updated 03/27/23 @ 05:20 by Sea Cabello DO) AAA (abdominal aortic aneurysm) 4.9cmm 2017 Acid reflux Acute encephalopathy Acute respiratory failure with hypoxemia Anxiety, generalized Basal cell carcinoma CAD (coronary artery disease) Carotid stenosis Chronic kidney disease COPD (chronic obstructive pulmonary disease) Exertional dyspnea History of heart attack History of stroke Hypoxia Non-ST elevation SD (NSTEMI) NSTEMI (non-ST elevated myocardial infarction) Pneumonia due to 2019 novel coronavirus Smoker Smoker unmotivated to quit Syncope Surgical History History of back surgery 1972 History of heart artery stent Early 1999 Family History Other Cancer Stroke Denies family history of Diabetes Dementia Hypertension Social History Smoking and tobacco status: current every day smoker cigarettes Packs smoked per day: 1 Years cigarettes smoked: 73 [ Other cigarette details: Started smoking at age 8.] Second hand smoke exposure: No Smoking risk assessment/counseling performed?: Yes Alcohol intake: never Desire information about alcohol rehabilitation?: No Counseling given: No Substance/Drug Use: current Substance/Drug use frequency: few times a week Desire information about substance/drug rehabilitation?: No Counseling given: No Adopted: No Caregiver/support person: No Lives independently: Yes Household members: friend(s) Housing: Manufactured/Mobile home Marital status: Number of children: 2 service: Yes branch: [employer] Current occupational status: retired Do you think of yourself as: Straight/Heterosexual Current gender identity: Male Vitals/I&O/Wt Last Vital Signs Pulse 92 03/27/23 01:45 Resp 15 03/27/23 04:00 BP 98/73 03/27/23 01:45 Pulse Ox 99 03/27/23 04:00 O2 Del Method Nasal Cannula 03/27/23 01:45 O2 Flow Rate 2 03/27/23 01:37 FiO2 100 03/27/23 04:00 03/26/23 03/26/23 03/27/23 14:59 22:59 06:59 Intake Total 1000 / 1000 Balance 1000 / 1000 Weight last 48 hrs Weight 58.967 kg Physical Exam Narrative: Patient is seen in ICU bed 5. He is sedated on the ventilator. His eye lids are open. Thin cachectic appearing male Neuro: Response to deep painful stimuli HEENT: Nc/AT. Pupils pinpt ET tube in place. clear secretions in pharynx, Neck thin no carotid bruit ausc. However, lungs very rhochrous. H: distant heart sounds, regular L: loud rhonchi heard without stethoscope in all lung jackson a: thin soft decreased BS E: no edema nl male skin: no lesions/rashes Data 03/27/23 01:37 03/27/23 01:37 In icu: EKG computer-generated impression: old inf and lateral SD ABG Interpretation 2: 03/27/23 04:53 ABG pH 7.36 ABG pCO2 41.3 ABG pO2 419.0 H ABG HCO3 23.3 ABG O2 Saturation > 100.0 ABG Base Excess -2.1 L My Interpretation: Normal acid-base. Hyperoxygenated. A&P Assessment and plan (1) Ventilator dependence: Sedated, not breathing over vent. Will wean oxygen per protocol. Maintain current settings otherwise. (2) Pulmonary edema cardiac cause: Per nursing staff patient received dose of Lasix in Track Service Person. Will likely need persistent dosing (3) Postprocedural cardiogenic shock: IABP per cardiology (4) Chronic kidney disease: With worsening creatinine. Repeat labs pending (5) ST elevation myocardial infarction (STEMI): Status post stenting to LAD and angioplasty to RCA Consult Attestations Medical Necessity Statement: Acute SD with cardiogenic shock patient requires ICU level care. Will need greater than 2 midnights Coding Level of Care Code Acute Code for Chg Fwd Diagnoses Ventilator dependence Z99.11 Pulmonary edema cardiac cause I50.1 Postprocedural cardiogenic shock T81.11XA Chronic kidney disease N18.9 ST elevation myocardial infarction (STEMI) I21.3
[2023-03-27 05:06] LABS: ABG PCO2 41.3 mmHg (35-45); ABG PH Result 7.36 (7.35-7.45); Base Excess ABG -2.1 mmol/L (-2.0-2.0); Blood Gas Allen Test Pos; Blood Gas Operator Identificat MONRO; Blood Gas Sample Site Femoral, left; Blood Gas Sample Type Arterial; Carboxyhemoglobin 1.1 %THgb (0.4-20.1); HCO3 ABG 23.3 mmol/L (22-26); HGB O2 Sat 99.3 % (95-100); Ionized Calcium Level - ABG 1.1 mmol/L (1.1-1.4); Methemoglobin 0.3 % (0.4-1.5); Oxygen Device VENT; Oxygen Saturation ABG > 100.0; Potassium Level - ABG 4.5 mmol/L (3.5-5.0); Total Hemoglobin 12.4 g/dL (14-18)
[2023-03-27 05:07] LABS: Alveolar-Arterial Oxygen Gradi 29.8 mmHg (5-10)
[2023-03-27 05:31] LABS: Basophils # 0.1 10^3/uL (0.0-0.1); Basophils % 0.5 %; Eosinophils # 0.1 10^3/uL (0.0-0.8); Eosinophils % 0.5 %; Hematocrit 40.7 % (42.0-52.0); Hemoglobin 12.3 g/dL (11.7-16.6); Lymphocytes # 1.6 10^3/uL (0.8-4.8); Lymphocytes % 9.8 %; Mean Corpuscular HGB Conc 30.2 g/dL (30.0-36.0); Mean Corpuscular Hemoglobin 28.5 pg (28.0-34.0); Mean Corpuscular Volume 94.4 fl (80-94); Mean Platelet Volume 10.7 fL (7.4-10.4); Monocytes # 0.8 10^3/uL (0.2-0.9); Neutrophils # 13.87 10^3/uL (1.8-7.7); Neutrophils % 83.8 %; Nucleated Red Blood Cells % 0 %; Platelet Count 253 10^3/cmm (130-400); Red Blood Count 4.31 10^6/uL (4.1-5.3); Red Cell Distribution Width 13.1 % (12.1-15.1); White Blood Count 16.6 10^3/uL (4.0-10.0)
[2023-03-27 05:49] LABS: Alanine Aminotransferase 77 U/L (0-41); Albumin Level 3.6 g/dL (3.5-5.2); Alkaline Phosphatase 120 U/L (40-130); Anion Gap 18.2 (5-19); Aspartate Amino Transferase 391 U/L (0-40); Blood Urea Nitrogen 40 mg/dL (8-23); Calcium 8.3 mg/dL (8.5-10.5); Carbon Dioxide 21 mmol/L (22-29); Chloride 103 mmol/L (98-107); Globulin 3.2 g/dL (1.3-4.6); Glucose 184 mg/dL (65-115); Osmolality Calculated 301 mOsm/kg (285-295); Potassium 4.2 mmol/L (3.5-5.1); Sodium 138 mmol/L (136-145); Total Bilirubin 0.2 mg/dL (0.15-1.2); Total Protein 6.8 g/dL (6.6-8.7)
[2023-03-27 05:51] LABS: Lactate (Lactic Acid level) 2.9 mmol/L (0.5-2.2)
[2023-03-27 06:00] LABS: Partial Thromboplastin Time 220.9 SECONDS (23.9-36.7)
--- NOTE | 2023-03-27 06:30 | PC.NURSE ---
At 0440 Lost Gas Pressure alarm sounded, with subsequent auto hold of bedside Impella. Pt was assessed with no distress noted. All lines and cables between balloon pump and patient were assessed, with no obvious indicators of alarm. Dr Hurley and Riaz gonsalez notified immediately. advised this RN to press IAB Fill and restart the balloon pump. After a total of 13 minutes paused, the IABP restarted. Pt remained free of distress. Dr Hurley arrived in the ICU at 0515, he assessed pt and IABP. No new orders at this time. Will continue to monitor.
[2023-03-27 06:43] LABS: Troponin T (5th) Once > 10000 ng/L (0-15)
--- NOTE | 2023-03-27 07:38 | ECG_ITS ---
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 Measurements Intervals [place] Rate: 62 P: 72 LA: 176 QRS: -69 QRSD: 79 T: 0 QT: 403 QTc: 412 Interpretive Statements SINUS RHYTHM LOW QRS VOLTAGE [QRS DEFLECTION < 0.5/1.0 mV IN LIMB/CHEST LEADS] INFERIOR MYOCARDIAL INFARCTION , PROBABLY OLD [40+ ms Q WAVE AND/OR ST/T ABNORMALITY IN II/aVF] ANTEROSEPTAL MYOCARDIAL INFARCTION , OF INDETERMINATE AGE [40+ ms Q WAVE IN V1-V4] Compared to ECG 03/27/2023 04:49:06 Sinus tachycardia no longer present Ventricular premature complex(es) no longer present Left-axis deviation no longer present Myocardial infarct finding still present Electronically Signed On 03-27-2023 11:22:37 CDT by Mayte Manjarrez M.D. [id number]
--- NOTE | 2023-03-27 08:20 | PC.NURSE ---
Repositioning: HOB elevation and lateral lying contraindicated due to IABP. Bed lateral rotation and reverse trendelenburg positions utilized frequently for prevention of pressure areas. Heel protectors applied to prevent pressure areas. Bilat legs slightly elevated to alleviate heel pressure also.
--- NOTE | 2023-03-27 08:55 | P.PN_ITS ---
Subjective Subjective: Admitted overnight. H&P and labs appreciated. Today morning seen in ICU on ventilator support with FiO2 of 40%, PEEP of 5. ABG appreciated on FiO2 of 100%. Currently patient is on Levophed of 16, propofol of 50, fentanyl of 50 with fluids running at 30 cc/h. IABP in place 1 EXTR 1. Mean artery pressure maintained around 65 with systolic in 70 mmHg with augmentation. Poor urine output. Blood work appreciated for leukocytosis, hemoglobin of 12.3, creatinine of 1.9 with mild BUN elevation and mild metabolic acidosis. Elevated troponin of more than 10,000, elevated LFTs. Vitals/I&O/Wt Last Vital Signs Temp 97.9 F 03/27/23 07:45 Pulse 67 03/27/23 07:45 Resp 15 03/27/23 07:45 BP 109/72 03/27/23 07:45 Pulse Ox 100 03/27/23 07:45 O2 Del Method Mechanical Ventilation 03/27/23 07:45 O2 Flow Rate 2 03/27/23 01:37 FiO2 40 03/27/23 08:00 03/26/23 03/27/23 03/27/23 22:59 06:59 14:59 Intake Total 1215.260 / 1215.260 Output Total 100 / 100 Balance 1215.260 / 1215.260 -100 / -100 Weight last 48 hrs Weight 58.967 kg Physical Exam Narrative: General: Intubated, sedated, on IABP HEENT: PERRLA, pupils bilaterally equal and reactive Chest: Bilateral bronchial breath sounds all over lung jackson with occasional rhonchi, CVS: S1-S2 regular, soft pansystolic murmur at apex, early diastolic murmur at aortic, no tachycardia, no gallops, no rubs Abdomen: Soft, nontender, no organomegaly, bowel sounds present, Neuro: Intubated, sedated Data 03/27/23 05:14 03/27/23 05:14 A&P Assessment and plan (1) ST elevation myocardial infarction (STEMI): Post successful revascularization of proximal LAD with 1 RUDOLPH, balloon angioplasty of mid RCA stent. Continue with aspirin, Plavix, statin. Follow-up echocardiogram. We will start beta-maddie and AKIKO inhibitor once out of cardiogenic shock. (2) Cardiogenic shock: With assistance from intra-aortic balloon pump. Currently 1: 1. Management as per cardiology team. Keep mean artery pressure greater than 65-70. Wean Levophed accordingly. 1.5 L fluid bolus followed by normal saline at 50 cc/h. Strict input output charting. Continue [place] catheter. (3) On intra-aortic balloon pump assist: (4) Respiratory failure: Ventilator dependent. Most likely in setting of cardiogenic shock and pulmonary edema ABG, chest x-ray daily. Keep saturation over 92%. DuoNebs every 6 hours, budesonide twice daily. Qualifiers: Chronicity: acute Respiratory failure complication: hypoxia Qualified Code(s): J96.01 - Acute respiratory failure with hypoxia (5) Acute kidney injury superimposed on CKD: Baseline creatinine 1.4-1.6. Currently 1.9. Medical reconciliation done for nephrotoxic drugs. Maintain mean artery pressure above. Fluid as above. Monitor electrolytes and for metabolic acidosis. Strict input output charting. (6) Leukocytosis: Most likely reactionary to ST elevation NJ. As patient is critically sick for now will cover with IV antibiotics. Follow-up sputum culture. Check urinalysis, blood culture, MRSA swab. Follow empirically started on IV vancomycin and Zosyn as per creatinine clearance. Will eval creatinine levels. Change vancomycin dose accordingly. (7) Elevated lactic acid level: Most likely in setting of cardiogenic shock. IABP and fluids as above. Wean Levophed accordingly. (8) AAA (abdominal aortic aneurysm): Last imaging from March 2022 shows abdominal aortic aneurysm with peripheral mural thrombus measuring 5.1 x 4.6 x 7.8 which had progressed since 2018. We will continue to monitor. Plan CODE STATUS: Discussed in detail with patient's [id number] who is also secondary DPOA. Full code for now. NG tube placement. N.p.o. for now. Protonix for PUD prophylaxis. Heparin drip through IABP will suffice as DVT prophylaxis. Patient is critically sick. Goals of care discussion: Discussed in detail with patient's son and casey? Ms. Prakash over the phone. We discussed that unfortunately patient is critically sick because of extubation NJ complicated by cardiogenic shock and respiratory failure. We discussed for now patient is requiring mechanical and medical support for cardiogenic shock. DPOA is patient's son and son's casey? yesterday. Son is [employer] with numbers [phone] while son casey? dizziness Naty Mathis [phone].? Please refer to this documentation that shows his wishes if meaningful recovery is not attainable Attestations Medical Necessity Statement*: Patient requires further hospitalization for management of cardiogenic shock requiring IABP, respiratory failure in setting of ST elevation NJ Coding Level of Care Code Critical Care >/= 30 minutes Critical care time (in minutes): 70 The high probability of a clinically significant, sudden or life threatening deterioration, as referenced in this documentation, required my full and direct attention, intervention and personal management. The critical care time shown is in addition to time spent performing any reported separately billable procedures and includes the following: [x] Data and vital sign review and interpretation [x ] Patient assessment, examination and intervention [x] Medication orders and management [x] Patient/Family updates as able [x] Care Coordination and Documentation. Diagnoses ST elevation myocardial infarction (STEMI) I21.3 Cardiogenic shock R57.0 On intra-aortic balloon pump assist Z98.890 Respiratory failure J96.01 Chronicity: acute Respiratory failure complication: hypoxia Acute kidney injury superimposed on CKD N17.9; N18.9 Leukocytosis D72.829 Elevated lactic acid level R79.89 AAA (abdominal aortic aneurysm) I71.4
--- NOTE | 2023-03-27 09:14 | XR_ITS ---
WS: [id number] Exam: XR chest 1V portable [id number] Date/Time of Exam: 03/27/2023 9:26 AM Reason For Exam: OG placement and other tube placements Comparison with the earlier exam performed on the same day at 5:41 AM. An OG tube has been placed and the ends in the fundus of the stomach in good position. ET tube remain s in place ending about 4 cm above the gill in satisfactory location. An esophageal monitoring lead is again noted. Heart size remains normal. The remainder of the chest is unchanged. XR/XR chest 1V portable [id number] IMPRESSION: 1. OG tube in satisfactory location in the fundus of the stomach. ET tube remai ns in satisfactory position without change. 2. No other changes in the overall appearance the chest.
[2023-03-27] MEDS: sodium chloride 0.9% 1,000 ML 50 ML IV (09:40)
[2023-03-27 09:42] LABS: Add Urine Microscopic? YES; Bilirubin Urine Neg (Negative); Blood Urine 2+ (Negative); Glucose Urine UA Norm (Normal); Ketones Urine Negative (Negative); Leukocyte Esterase Urine Negative (Negative); Nitrate Urine Negative (Negative); Protein Urine Neg (Negative); Specific Gravity, Urine 1.015 (1.005-1.030); Urine Appearance Clear (CLEAR); Urine Color Yellow (Yellow); Urobilinogen Urine Norm (Negative); pH Urine 5 (5-7)
[2023-03-27] MEDS: budesonide 0.5 mg/2 mL Neb INHALATION ×2 (09:45→20:04)
[2023-03-27 09:48] LABS: Partial Thromboplastin Time 57.6 SECONDS (23.9-36.7)
[2023-03-27 09:52] LABS: Iron 42 ug/dL (59-158); Percent Saturation 14.6 % (20-50); Total Iron Binding Capacity 287 mcg/dl; Unsaturated Iron Binding 245 ug/dL (112-347)
[2023-03-27 09:52] LABS: Lactic Sepsis W/Reflex 3.5 mmol/L (0.5-2.2)
[2023-03-27] MEDS: propofol 1,000 MG/100 ML INJ 14.15 MG IV ×2 (09:52→19:18)
[2023-03-27] MEDS: pantoprazole 40 mg SDV IVP (09:52)
[2023-03-27 09:58] LABS: Potassium, Radom Urine 48 mmol/L
[2023-03-27 10:08] LABS: Vitamin B12 391 pg/mL (232-1245)
[2023-03-27 10:19] LABS: Urine Random Chloride 16 mmol/L; Urine Random Sodium < 10 mmol/L
[2023-03-27 10:21] LABS: Add Urine Culture? No; Bacteria Urine TRACE /hpf; Fine Granular Casts Urine RARE /lpf; Mucus Urine 1+ /hpf; RBC Urine 0-4 /hpf (0-2); Squamous Epithelial Cell Urine 0-4 /hpf (0-5); WBC Urine 0-4 /hpf (0-5)
[2023-03-27] MEDS: vancomycin 1,000 MG in sodium chloride 0.9% 250 ML 250 MG IV (10:51)
[2023-03-27] MEDS: clopidogrel 75 mg Tablet OG-TUBE (10:51)
[2023-03-27] MEDS: piperacillin-tazobactam 3.375 GM in sodium chloride 0.9% (plus) 50 ML IV ×2 (10:51→17:56)
[2023-03-27] MEDS: aspirin 81 mg EC Tablet XX (10:52)
[2023-03-27 11:18] LABS: Reflex Lactate Order REFLEX LACTIC ORDERD
[2023-03-27] MEDS: sodium chloride 0.9% 500 ML 999 ML IV (11:18)
--- NOTE | 2023-03-27 11:50 | PC.NURSE ---
Frequent alarming from monitor: Low voltage or asystole. Pt does has pulse.
[2023-03-27] MEDS: ipratropium-albuterol 3 mL Neb INHALATION ×2 (13:30→20:04)
[2023-03-27 13:53] LABS: Lactic Acid level (Lactate) 3.8 mmol/L (0.5-2.2)
--- NOTE | 2023-03-27 14:09 | PC.NURSE ---
Brownish p ink drainage noted in oral cavity. Oral suctioning provided. OG now to
[2023-03-27 15:06] LABS: Albumin Level 3.1 g/dL (3.5-5.2); Alkaline Phosphatase 104 U/L (40-130); Blood Urea Nitrogen 39 mg/dL (8-23); Calcium 7.6 mg/dL (8.5-10.5); Carbon Dioxide 19 mmol/L (22-29); Chloride 104 mmol/L (98-107); Globulin 3.3 g/dL (1.3-4.6); Glucose 189 mg/dL (65-115); Osmolality Calculated 298 mOsm/kg (285-295); Sodium 137 mmol/L (136-145); Total Bilirubin 0.2 mg/dL (0.15-1.2); Total Protein 6.4 g/dL (6.6-8.7)
[2023-03-27 15:09] LABS: Anion Gap 19.5 (5-19); Aspartate Amino Transferase 437 U/L (0-40); Potassium 5.5 mmol/L (3.5-5.1)
[2023-03-27 15:10] LABS: Alanine Aminotransferase 93 U/L (0-41)
--- NOTE | 2023-03-27 15:20 | PC.NURSE ---
TR band removal completed. Bioclusive dressing applied.
[2023-03-27] MEDS: norepinephrine 8 MG in dextrose 5 % 500 ML 64.77 MG IV (15:49)
[2023-03-27] MEDS: insulin regular-human 10 UNIT in SYRINGE 1 EACH IVP (16:01)
[2023-03-27] MEDS: sodium bicarbonate 8.4% 1 mEq/mL 50mL Syr 100 MEQ IVP (16:01)
[2023-03-27] MEDS: sodium chloride 0.9% 1,000 ML 75 ML IV (17:58)
--- NOTE | 2023-03-27 18:19 | PC.NURSE ---
Lost gas pressure alarm on IABP. No signs of pt distress noted. No blood inline or loosened connections noted. Followed previous note prompts IAP fill, start then IAP fill again. No further alarms or issues. Pt remains distress free.
--- NOTE | 2023-03-27 18:25 | PC.NURSE ---
SHift report: Pt remains sedated and intubated. FIO2 now at 30%. IAPB remains in place at 1:1 augmentation. Site asymptomatic, no bleeding or hematomas noted. Line remains free of blood., slight fogging in line nearest module unchanged this shift. Pedal pulses barely able to doppler. Pt is in sinus rhythm with frequent PVCs noted. Pt remains on Levophed at 17mcg/min, unable to wean down this shift. Heparin restarted at 500units/ hour. No change in Fentanyl gtt 25mcg/hr. Propofol adjusted down to 30mcg/kg/min today but pt started coughing and biting tube some, increased it back to the 40. SBP 77-126 today. MAP 56-80's today. Urine output 420ml this shift. Dr Rosado and Dr Villarreal had been notified and are aware of low out. NO BM or flatulence noted today. Skin is intact with no reddened areas. Heel protectors remained in place. Repositioning done with bed maneuvers frequently throughout the shift.
[2023-03-27] MEDS: norepinephrine 8 MG in dextrose 5 % 500 ML 72.39 MG IV (19:57)
[2023-03-27 21:04] LABS: Anion Gap 16.1 (5-19); Blood Urea Nitrogen 35 mg/dL (8-23); Carbon Dioxide 22 mmol/L (22-29); Chloride 105 mmol/L (98-107); Glucose 129 mg/dL (65-115); Osmolality Calculated 298 mOsm/kg (285-295); Potassium 4.1 mmol/L (3.5-5.1); Sodium 139 mmol/L (136-145)
--- NOTE | 2023-03-27 23:37 | PM.MISC ---
Miscellaneous Note Purpose of Documentation: Overnight events Note: Pt's son Odell Davis Jr and his son came to visit bedside. They were distraught. They spoke mostly about the travel distance. Initially with the RN, son wished for patient to be removed from machines. I spoke with Dr. Lomeli. We both agree that it hasn't even been 24 hours since the patients STEMI and it's too early to prognosticate. Dr. Lomeli plans to meet with family tomorrow at 11 am to discuss. I relayed this to the son. Again his major concern was distance and both he and the grandson (who ended up walking away abruptly) said they were going home and live >3 hours away. My advice was for them to go home or find a place to stay. They declined assistance with accomodations from our CM team. Therefore, I recommended that they give their loved one about 72 hrs to be able to make an informed decision for their dad/grandfather. The son was in agreement and they left. Pt is stable, no change.
[2023-03-28] VITALS (90 sets, daily range): BP systolic 72–117; BP diastolic 35–72; PULSE 0–91; RESP 12–26; TEMP 36.5–38.5; O2SAT 91–100
[2023-03-28] MEDS: norepinephrine 8 MG in dextrose 5 % 500 ML 49.53 MG IV (00:59)
[2023-03-28] MEDS: piperacillin-tazobactam 3.375 GM in sodium chloride 0.9% (plus) 50 ML IV ×3 (01:33→17:38)
[2023-03-28] MEDS: propofol 1,000 MG/100 ML INJ 14.15 MG IV (01:33)
[2023-03-28] MEDS: ipratropium-albuterol 3 mL Neb INHALATION ×4 (02:53→20:35)
[2023-03-28 04:54] LABS: Basophils # 0.1 10^3/uL (0.0-0.1); Basophils % 0.6 %; Eosinophils # 0.1 10^3/uL (0.0-0.8); Eosinophils % 1.1 %; Hemoglobin 10.4 g/dL (11.7-16.6); Lymphocytes # 2.3 10^3/uL (0.8-4.8); Lymphocytes % 17.7 %; Mean Corpuscular HGB Conc 30.6 g/dL (30.0-36.0); Mean Corpuscular Hemoglobin 28.5 pg (28.0-34.0); Mean Corpuscular Volume 93.2 fl (80-94); Mean Platelet Volume 10.7 fL (7.4-10.4); Monocytes % 7.6 %; Neutrophils # 9.22 10^3/uL (1.8-7.7); Neutrophils % 72.6 %; Nucleated Red Blood Cells % 0 %; Platelet Count 190 10^3/cmm (130-400); Red Blood Count 3.65 10^6/uL (4.1-5.3); Red Cell Distribution Width 13.3 % (12.1-15.1); White Blood Count 12.7 10^3/uL (4.0-10.0)
[2023-03-28 05:03] LABS: ABG PCO2 39.5 mmHg (35-45); ABG PH Result 7.41 (7.35-7.45); Alveolar-Arterial Oxygen Gradi 10.3 mmHg (5-10); Arterial Blood Gas Hematocrit 42.2 % (42-52); Base Excess ABG 0.6 mmol/L (-2.0-2.0); Blood Gas Allen Test Pos; Blood Gas Sample Site Brachial, right; Blood Gas Sample Type Arterial; Blood Gas Tidal Volume 0.45; Carboxyhemoglobin 1.3 %THgb (0.4-20.1); HCO3 ABG 25.2 mmol/L (22-26); HGB O2 Sat 95.9 % (95-100); Methemoglobin 0.6 % (0.4-1.5); Oxygen Device VENT; Oxygen Saturation ABG 97.6; Potassium Level - ABG 3.9 mmol/L (3.5-5.0); Total Hemoglobin 13.8 g/dL (14-18)
[2023-03-28 05:10] LABS: Estmated Average Glucose 111; Hemoglobin A1C 5.5 % (4.0-6.0); Partial Thromboplastin Time 51.5 SECONDS (23.9-36.7)
[2023-03-28 05:13] LABS: Vancomycin Random 5.6 ug/mL (20.0-40.0)
[2023-03-28 05:15] LABS: Alanine Aminotransferase 68 U/L (0-41); Albumin Level 2.8 g/dL (3.5-5.2); Alkaline Phosphatase 75 U/L (40-130); Anion Gap 15.9 (5-19); Aspartate Amino Transferase 251 U/L (0-40); Blood Urea Nitrogen 32 mg/dL (8-23); Calcium 6.7 mg/dL (8.5-10.5); Carbon Dioxide 22 mmol/L (22-29); Chloride 104 mmol/L (98-107); Globulin 2.4 g/dL (1.3-4.6); Glucose 142 mg/dL (65-115); Osmolality Calculated 295 mOsm/kg (285-295); Potassium 3.9 mmol/L (3.5-5.1); Sodium 138 mmol/L (136-145); Total Bilirubin 0.2 mg/dL (0.15-1.2); Total Protein 5.2 g/dL (6.6-8.7)
--- NOTE | 2023-03-28 06:00 | XRR_ITS ---
PROCEDURE INFORMATION: Exam: XR Chest Exam date and time: 03/28/2023 4:00 AM Age: 82 years old Clinical indication: Other: Daily port for intubated patient; Patient HX: Balloon pump TECHNIQUE: Imaging protocol: Radiologic exam of the chest. Views: 1 view. COMPARISON: CR XR chest 1V portable [id number] 03/27/2023 8:28 AM FINDINGS: Tubes, catheters and devices: ET tube in place within the lower trachea with tip approximately 1.4 cm above the gill. OG tube extends into the stomach and below the lower edge of the x-ray. Esophageal probe in place within the lower esophagus adjacent to the OG tube. IABP unchanged in position with radiopaque tip marker in place just below the aortic knob. Numerous monitor leads and wires project over the chest. Lungs: Mild hazy bilateral interstitial edema versus pneumonia. No lobar consolidation. Pleural spaces: No significant costophrenic angle blunting. No evidence of pneumothorax. Heart/Mediastinum: Heart size within normal limits given the portable AP technique. Vasculature: Atherosclerotic tortuosity of the thoracic aorta. Bones/joints: Previous T7 and T11 vertebroplasty. XR/XR chest 1V portable [id number] IMPRESSION: 1. Supportive lines and tubes in place as described. 2. Mild hazy bilateral interstitial edema versus pneumonia.
[2023-03-28] MEDS: propofol 1,000 MG/100 ML INJ 15.92 MG IV ×3 (07:46→15:21)
[2023-03-28] MEDS: sodium chloride 0.9% 1,000 ML 999 ML IV (07:47)
[2023-03-28] MEDS: sodium chloride 0.9% 1,000 ML 75 ML IV ×2 (07:57→18:29)
[2023-03-28] MEDS: pantoprazole 40 mg SDV IVP ×2 (08:03→23:50)
[2023-03-28] MEDS: aspirin 81 mg EC Tablet XX (08:03)
[2023-03-28] MEDS: clopidogrel 75 mg Tablet OG-TUBE (08:03)
[2023-03-28] MEDS: atorvastatin 40 mg Tablet PO (08:04)
[2023-03-28] MEDS: budesonide 0.5 mg/2 mL Neb INHALATION ×2 (08:16→20:35)
--- NOTE | 2023-03-28 08:21 | PC.NURSE ---
Dr Limon called update ivf bolus started at this time .. weaning levophed at this time oral care done noted whitish exudate in mouth .pulses in feet weak but palpable
--- NOTE | 2023-03-28 08:25 | P.PN_ITS ---
Subjective Subjective: Patient had brief episode of V-fib today. Brief CPR. Labs are stable today. Vitals/I&O/Wt Last Vital Signs Temp 97.9 F 03/28/23 07:15 Pulse 67 03/28/23 08:15 Resp 12 03/28/23 08:19 BP 84/55 03/28/23 07:45 Pulse Ox 97 03/28/23 08:19 O2 Del Method Mechanical Ventilation 03/28/23 08:15 O2 Flow Rate 2 03/27/23 01:37 FiO2 30 03/28/23 08:19 03/27/23 03/28/23 03/28/23 22:59 06:59 14:59 Intake Total 1234.403 / 3621.238 477.145 / 4098.383 1287.950 / 1287.950 Output Total 1435 / 1715 670 / 2385 100 / 100 Balance -200.597 / 1906.238 -192.855 / 4023.316 5417.950 / 1187.950 Weight last 48 hrs Weight 130 lb Physical Exam Narrative: GENERAL: Patient is intubated and sedated NECK: No jugular vein distension. [] HEENT: No cyanosis. No icterus. No pallor. [] HEART: Regular S1 and S2. No murmur, rub or gallop. [] LUNGS:Diminished breath sounds CENTRAL NERVOUS SYSTEM: Grossly nonfocal. [] EXTREMITIES: Lower extremities with no edema. Has intra-aortic balloon pump in place Urinary Catheter Management: Arreguin: Cath Placed During This Visit: yes Reason for Continuing Indwelling Catheter: Accurate Measurement of Urinary Output in Critically Ill Patients Urinary Catheter Date of Insertion: 03/27/23 Urinary Catheter Time of Insertion: 03:20 Data 03/29/23 04:15 03/29/23 04:15 Micro: Microbiology 03/27/23 03:50 Gram Stain - Final Sputum - Endotracheal Tube Aspirate 03/27/23 09:24 MRSA Culture - Final Nose 03/27/23 09:22 Blood Culture - Preliminary Blood SPECIMEN COLLECTED 03/27/23 09:22 Blood Culture - Preliminary Blood SPECIMEN COLLECTED A&P Assessment and plan (1) ST elevation myocardial infarction (STEMI): (2) CAD (coronary artery disease): (3) Chronic kidney disease: (4) Elevated lactic acid level: (5) Acute kidney injury superimposed on CKD: (6) Cardiogenic shock: (7) Respiratory failure: Qualifiers: Chronicity: acute Respiratory failure complication: hypoxia Qualified Code(s): J96.01 - Acute respiratory failure with hypoxia (8) Ventricular fibrillation: Plan Patient has totally occluded proximal LAD stenosis and underwent successful revascularization with stent and stent. Severe in-stent restenosis of RCA was also found and underwent revascularization with balloon angioplasty. Patient went into cardiogenic shock and had intra-aortic balloon pump inserted as well. No echo windows available however given his presentation patient likely has severely low LV systolic function Continue aspirin and Plavix. Levophed can be titrated with goal mean blood pressure more than 65 mmHg. Patient's intra-aortic balloon pump was inserted emergently during the procedure. Later was found in the chart that he has abdominal aortic aneurysm. Given he is tolerating it, we will continue keeping it for now Renal function has stabilized He had brief episode of V-fib. Started on amiodarone gtt Medicine team on board for medical management. Appreciate recs and communication with family. Once we are able to decrease inotropic support, will remove intra-aortic balloon pump. Vent management per medicine team. Attestations Medical Necessity Statement*: Care expected to cross 2 midnights. Patient had stated with ST elevation NM and underwent successful revascularization of proximal LAD with 1 stent and of RCA with balloon angioplasty. Currently intubated and has intra-aortic balloon pump Coding Level of Care Code Acute Code for [facility] Diagnoses ST elevation myocardial infarction (STEMI) I21.3 CAD (coronary artery disease) I25.10 Chronic kidney disease N18.9 Elevated lactic acid level R79.89 Acute kidney injury superimposed on CKD N17.9; N18.9 Cardiogenic shock R57.0 Respiratory failure J96.01 Chronicity: acute Respiratory failure complication: hypoxia Ventricular fibrillation I49.01
[2023-03-28 09:39] LABS: Lactate (Lactic Acid level) 4.6 mmol/L (0.5-2.2)
[2023-03-28] MEDS: calcium gluconate 0.9% NaCL 1 GM/50 ML PREMIX IV (10:45)
--- NOTE | 2023-03-28 10:55 | PC.NURSE ---
Dr Limon here aware arrythmias. orders noted at this time ... monitor
[2023-03-28 10:57] LABS: Magnesium 1.8 mg/dL (1.7-2.3); Phosphorus 3.4 mg/dL (2.5-4.5)
--- NOTE | 2023-03-28 12:47 | ECG_ITS ---
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 Measurements Intervals [place] Rate: 70 P: 80 [place]: 196 QRS: -61 QRSD: 79 T: -89 QT: 409 QTc: 443 Interpretive Statements SINUS RHYTHM WITH OCCASIONAL VENTRICULAR PREMATURE COMPLEXES LOW QRS VOLTAGE [QRS DEFLECTION < 0.5/1.0 mV IN LIMB/CHEST LEADS] INFERIOR MYOCARDIAL INFARCTION , OF INDETERMINATE AGE [40+ ms Q WAVE AND/OR ST/T ABNORMALITY IN II/aVF] ANTEROSEPTAL MYOCARDIAL INFARCTION , PROBABLY RECENT [40+ ms Q WAVE IN V1-V4] ACUTE VT Compared to ECG 03/27/2023 10:20:21 Ventricular premature complex(es) now present Myocardial infarct finding still present Electronically Signed On 03-28-2023 15:53:07 CDT by Librado Villarreal M.D. [id number]
--- NOTE | 2023-03-28 12:53 | PC.NURSE ---
pt had run of vtach with loss of pulse cpr started for brief time regained rhythm in less than 30 seconds return of pressure on artline noted pulse check done
[2023-03-28] MEDS: norepinephrine 8 MG in dextrose 5 % 500 ML 38.1 MG IV ×2 (13:31→15:59)
[2023-03-28] MEDS: nystatin 100,000 unit/mL UDC 5 mL 100000 UNIT PO ×3 (13:56→22:00)
--- NOTE | 2023-03-28 14:10 | P.PN_ITS ---
Subjective Subjective: No acute events overnight. Patient has remained hemodynamically stable. Mean has maintained over 65. Overnight patient was on Levophed of 19 which is turned down to Levophed of 10 by midday. He is on propofol of 40 and fentanyl 25. IABP continues to remain 1: 1. Documented urine output in last 24 hours of around 2.3 L. Blood work appreciated for resolving leukocytosis down to 12, stable hemoglobin, BMP showing stable electrolytes with creatinine of 2.1 and BUN of 32, lactate of 4.6. Patient having frequent episodes of VPCs on monitor and then had 1 episode of V- fib for which he had small chest compressions after which he he went back into normal sinus rhythm. EKG post V-fib did not show any ST elevations. Patient started on amiodarone drip. ABG appreciated. Ventilator settings are FiO2 30%, tidal volume 450, PEEP of 5. Vitals/I&O/Wt Last Vital Signs Temp 97.7 F 03/28/23 10:30 Pulse 86 03/28/23 14:00 Resp 21 H 03/28/23 13:00 BP 95/56 03/28/23 14:00 Pulse Ox 96 03/28/23 14:00 O2 Del Method Mechanical Ventilation 03/28/23 13:00 O2 Flow Rate 2 03/27/23 01:37 FiO2 30 03/28/23 14:00 03/27/23 03/28/23 03/28/23 22:59 06:59 14:59 Intake Total 1234.403 / 3621.238 477.145 / 4098.383 2665.734 / 2665.734 Output Total 1435 / 1715 670 / 2385 600 / 600 Balance -200.597 / 1906.238 -192.855 / 4518.718 9924.734 / 2065.734 Weight last 48 hrs Weight 58.967 kg Physical Exam Narrative: General: Intubated, sedated, on IABP HEENT: PERRLA, pupils bilaterally equal and reactive Chest: Bilateral bronchial breath sounds all over lung jackson with occasional rhonchi, CVS: S1-S2 regular, soft pansystolic murmur at apex, early diastolic murmur at aortic, no tachycardia, no gallops, no rubs Abdomen: Soft, nontender, no organomegaly, bowel sounds present, Neuro: Intubated, sedated Extremities: Bilateral pulses dopplerable Urinary Catheter Management: Arreguin: Cath Placed During This Visit: yes Reason for Continuing Indwelling Catheter: Accurate Measurement of Urinary Output in Critically Ill Patients Urinary Catheter Date of Insertion: 03/27/23 Urinary Catheter Time of Insertion: 03:20 Data 03/28/23 04:43 03/28/23 04:43 Micro: Microbiology 03/27/23 09:22 Blood Culture - Preliminary Blood NEGATIVE TO DATE 03/27/23 09:22 Blood Culture - Preliminary Blood NEGATIVE TO DATE 03/27/23 03:50 Gram Stain - Final Sputum - Endotracheal Tube Aspirate 03/27/23 09:24 MRSA Culture - Final Nose A&P Assessment and plan (1) ST elevation myocardial infarction (STEMI): Post successful revascularization of proximal LAD with 1 RUDOLPH, balloon angioplasty of mid RCA stent. Continue with aspirin, Plavix, statin. Echocardiogram poor study given body habitus. We will start beta-maddie and AKIKO inhibitor once out of cardiogenic shock. (2) Cardiogenic shock: With assistance from intra-aortic balloon pump. Currently 1: 1. Management as per cardiology team. Keep mean artery pressure greater than 65-70. Wean Levophed accordingly. Strict input/output charting. We will try to balance euvolemia today. Increase fluid up to 125 cc/h. Patient having around 80-100 cc of urine per hour now. (3) Ventricular fibrillation: Keep magnesium around 2, potassium over 4. Replete magnesium and calcium accordingly. Start on amiodarone drip. (4) On intra-aortic balloon pump assist: (5) Respiratory failure: Ventilator dependent. Most likely in setting of cardiogenic shock and pulmonary edema. On minimal ventilator settings. ABG, chest x-ray daily. Keep saturation over 92%. Plan to extubate once IABP is removed. DuoNebs every 6 hours, budesonide twice daily. Qualifiers: Chronicity: acute Respiratory failure complication: hypoxia Qualified Code(s): J96.01 - Acute respiratory failure with hypoxia (6) Acute kidney injury superimposed on CKD: Baseline creatinine 1.4-1.6. Creatinine slightly worsened to 2.1. Medical reconciliation done for nephrotoxic drugs. Maintain mean artery pressure above 65-70. Fluid as above. Monitor electrolytes and for metabolic acidosis. Strict input output charting. (7) Leukocytosis: Most likely reactionary to ST elevation CA. As patient is critically sick for now will cover with IV antibiotics. Follow-up sputum culture, blood culture. MRSA swab negative. Continue vancomycin for at least 24 more hours. If remains afebrile with resolving of leukocytosis further we will stop vancomycin. Continue with vancomycin and Zosyn as per creatinine clearance. Check vancomycin random daily levels. (8) Elevated lactic acid level: Most likely in setting of cardiogenic shock. IABP and fluids as above. Wean Levophed accordingly. (9) AAA (abdominal aortic aneurysm): Last imaging from March 2022 shows abdominal aortic aneurysm with peripheral mural thrombus measuring 5.1 x 4.6 x 7.8 which had progressed since 2018. We will continue to monitor. Plan CODE STATUS: Discussed in detail with patient's [id number] who is also secondary DPOA. Full code for now. NG tube placement. N.p.o. for now. Protonix for PUD prophylaxis. Heparin drip through IABP will suffice as DVT prophylaxis. Patient is critically sick. Repeat CBC, BMP in afternoon. Goals of care discussion: Discussed in detail with patient's son and casey? Ms. Prakash over the phone. We discussed that unfortunately patient is critically sick because of extubation CA complicated by cardiogenic shock and respiratory failure. We discussed for now patient is requiring mechanical and medical support for cardiogenic shock. DPOA is patient's son and son's casey? yesterday. Son is Mingo with numbers [phone] while son casey? dizziness Naty [place] [phone].? Please refer to this documentation that shows his wishes if meaningful recovery is not attainable. Goals of care family meeting with patient's son/DPOA set at around 10 PM on Friday. Attestations Medical Necessity Statement*: Requires further hospitalization for management of cardiogenic shock in setting of ST elevation CA, respiratory failure on mechanical ventilation and IABP, ventricular fibrillation. Coding Level of Care Code Critical Care >/= 30 minutes Critical care time (in minutes): 90 The high probability of a clinically significant, sudden or life threatening deterioration, as referenced in this documentation, required my full and direct attention, intervention and personal management. The critical care time shown is in addition to time spent performing any reported separately billable procedures and includes the following: [x] Data and vital sign review and interpretation [x ] Patient assessment, examination and intervention [x] Medication orders and management [x] Patient/Family updates as able [x] Care Coordination and Documentation. Diagnoses ST elevation myocardial infarction (STEMI) I21.3 Cardiogenic shock R57.0 Ventricular fibrillation I49.01 On intra-aortic balloon pump assist Z98.890 Respiratory failure J96.01 Chronicity: acute Respiratory failure complication: hypoxia Acute kidney injury superimposed on CKD N17.9; N18.9 Leukocytosis D72.829 Elevated lactic acid level R79.89 AAA (abdominal aortic aneurysm) I71.4
[2023-03-28] MEDS: vancomycin 750 MG in sodium chloride 0.9% 250 ML 250 MG IV (14:28)
[2023-03-28 15:11] LABS: Basophils # 0.1 10^3/uL (0.0-0.1); Basophils % 0.4 %; Eosinophils # 0.2 10^3/uL (0.0-0.8); Eosinophils % 1.6 %; Hematocrit 35.2 % (42.0-52.0); Hemoglobin 10.8 g/dL (11.7-16.6); Lymphocytes # 1.8 10^3/uL (0.8-4.8); Lymphocytes % 13.7 %; Mean Corpuscular HGB Conc 30.7 g/dL (30.0-36.0); Mean Corpuscular Hemoglobin 28.3 pg (28.0-34.0); Mean Corpuscular Volume 92.1 fl (80-94); Mean Platelet Volume 10.5 fL (7.4-10.4); Monocytes # 0.9 10^3/uL (0.2-0.9); Monocytes % 7.1 %; Neutrophils # 10.18 10^3/uL (1.8-7.7); Neutrophils % 76.8 %; Nucleated Red Blood Cells % 0 %; Platelet Count 179 10^3/cmm (130-400); Red Blood Count 3.82 10^6/uL (4.1-5.3); Red Cell Distribution Width 13.7 % (12.1-15.1); White Blood Count 13.2 10^3/uL (4.0-10.0)
[2023-03-28 15:23] LABS: Partial Thromboplastin Time 47.2 SECONDS (23.9-36.7)
[2023-03-28 15:33] LABS: Anion Gap 20.1 (5-19); Blood Urea Nitrogen 29 mg/dL (8-23); Carbon Dioxide 20 mmol/L (22-29); Chloride 104 mmol/L (98-107); Glucose 121 mg/dL (65-115); Osmolality Calculated 297 mOsm/kg (285-295); Potassium 4.1 mmol/L (3.5-5.1); Sodium 140 mmol/L (136-145)
[2023-03-28] MEDS: sodium bicarbonate 8.4% 1 mEq/mL 50mL Syr 100 MEQ IVP (16:50)
[2023-03-28] MEDS: acetaminophen 1,000 MG/100 ML PIGGYBACK 400 MG IV (19:39)
[2023-03-28] MEDS: propofol 1,000 MG/100 ML INJ 19.46 MG IV (21:14)
[2023-03-29] VITALS (63 sets, daily range): BP systolic 72–111; BP diastolic 52–80; PULSE 0–90; RESP 14–27; TEMP 36.1–37.5; O2SAT 87–98
[2023-03-29] MEDS: norepinephrine 8 MG in dextrose 5 % 500 ML 68.58 MG IV (01:33)
[2023-03-29] MEDS: sodium chloride 0.9% 1,000 ML 125 ML IV (02:18)
[2023-03-29] MEDS: piperacillin-tazobactam 3.375 GM in sodium chloride 0.9% (plus) 50 ML IV ×3 (02:19→17:39)
[2023-03-29] MEDS: ipratropium-albuterol 3 mL Neb INHALATION ×4 (02:38→19:45)
[2023-03-29] MEDS: propofol 1,000 MG/100 ML INJ 14.15 MG IV (03:04)
--- NOTE | 2023-03-29 03:37 | PM.MISC ---
Miscellaneous Note Purpose of Documentation: overnight events Note: RN notified me that patient had become bradycardic. Of note the patient had been on amiodarone since having an episode of V-fib. After review of the patient's chart, medications it was concluded that perhaps amiodarone should be discontinued as because of bradycardia. Since this was stopped his heart rate came back up to the low 60s. My approach tonight is no escalation of care given the likelihood that the family will likely wish to withdrawal care tomorrow.
[2023-03-29] MEDS: heparin drip 25,000 UNIT/500 ML PREMIX 11 UNIT IV (04:21)
[2023-03-29 04:37] LABS: Basophils # 0.1 10^3/uL (0.0-0.1); Basophils % 0.6 %; Eosinophils # 0.2 10^3/uL (0.0-0.8); Eosinophils % 2.2 %; Hematocrit 33.6 % (42.0-52.0); Hemoglobin 10.2 g/dL (11.7-16.6); Lymphocytes # 1.3 10^3/uL (0.8-4.8); Lymphocytes % 11.9 %; Mean Corpuscular HGB Conc 30.4 g/dL (30.0-36.0); Mean Corpuscular Hemoglobin 29.3 pg (28.0-34.0); Mean Corpuscular Volume 96.6 fl (80-94); Mean Platelet Volume 10.8 fL (7.4-10.4); Monocytes # 0.6 10^3/uL (0.2-0.9); Monocytes % 5.7 %; Neutrophils # 8.59 10^3/uL (1.8-7.7); Neutrophils % 79.2 %; Nucleated Red Blood Cells % 0 %; Platelet Count 160 10^3/cmm (130-400); Red Blood Count 3.48 10^6/uL (4.1-5.3); Red Cell Distribution Width 13.6 % (12.1-15.1); White Blood Count 10.8 10^3/uL (4.0-10.0)
[2023-03-29 05:00] LABS: Alanine Aminotransferase 57 U/L (0-41); Albumin Level 2.4 g/dL (3.5-5.2); Alkaline Phosphatase 82 U/L (40-130); Blood Urea Nitrogen 25 mg/dL (8-23); Calcium 6.9 mg/dL (8.5-10.5); Carbon Dioxide 19 mmol/L (22-29); Chloride 106 mmol/L (98-107); Glucose 140 mg/dL (65-115); Osmolality Calculated 297 mOsm/kg (285-295); Sodium 140 mmol/L (136-145); Total Bilirubin 0.2 mg/dL (0.15-1.2); Total Protein 5.4 g/dL (6.6-8.7)
[2023-03-29 05:01] LABS: Vancomycin Random 7.4 ug/mL (20.0-40.0)
[2023-03-29 05:05] LABS: Aspartate Amino Transferase 158 U/L (0-40)
[2023-03-29 05:22] LABS: ABG PH Result 7.38 (7.35-7.45); Alveolar-Arterial Oxygen Gradi 14.4 mmHg (5-10); Arterial Blood Gas Hematocrit 36.2 % (42-52); Base Excess ABG -2.7 mmol/L (-2.0-2.0); Blood Gas Allen Test Pos; Blood Gas Operator Identificat JB; Blood Gas Sample Site Radial, right; Blood Gas Sample Type Arterial; Blood Gas Tidal Volume 0.45; Carboxyhemoglobin 1.3 %THgb (0.4-20.1); HGB O2 Sat 87.6 % (95-100); Methemoglobin 0.5 % (0.4-1.5); Oxygen Device VENT; Oxygen Saturation ABG 89.2; PO2 ABG 56.5 mmHg (80.0-100.0); Potassium Level - ABG 3.4 mmol/L (3.5-5.0); Total Hemoglobin 11.8 g/dL (14-18)
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
[2023-03-29] MEDS: vancomycin 1,000 MG in sodium chloride 0.9% 250 ML 250 MG IV (07:04)
--- NOTE | 2023-03-29 07:43 | PM.PN ---
Subjective Subjective: Patient is stable. Wakes up on reduction of sedation. Renal function is stable. Has good urine output. Vitals/I&O/Wt Last Vital Signs Temp 97.5 F L 03/29/23 07:30 Pulse 62 03/29/23 07:30 Resp 16 03/29/23 05:00 BP 89/55 03/29/23 07:30 Pulse Ox 88 L 03/29/23 07:30 O2 Del Method Mechanical Ventilation 03/29/23 03:30 O2 Flow Rate 2 03/27/23 01:37 FiO2 30 03/29/23 05:59 03/28/23 03/29/23 03/29/23 22:59 06:59 14:59 Intake Total 2070.706 / 4886.440 1655.950 / 6542.390 Output Total 715 / 1315 / 2024 Balance 1355.706 / 3571.440 945.950 / 4517.390 Physical Exam Narrative: GENERAL: Patient is intubated and sedated NECK: No jugular vein distension. [] HEENT: No cyanosis. No icterus. No pallor. [] HEART: Regular S1 and S2. No murmur, rub or gallop. [] LUNGS:Diminished breath sounds CENTRAL NERVOUS SYSTEM: Grossly nonfocal. [] EXTREMITIES: Lower extremities with no edema. Has intra-aortic balloon pump in place Urinary Catheter Management: Arreguin: Cath Placed During This Visit: yes Reason for Continuing Indwelling Catheter: Accurate Measurement of Urinary Output in Critically Ill Patients Urinary Catheter Date of Insertion: 03/27/23 Urinary Catheter Time of Insertion: 03:20 Data 03/30/23 05:08 03/30/23 02:57 Micro: Microbiology 03/27/23 03:50 Gram Stain - Final Sputum - Endotracheal Tube Aspirate Sputum Culture - Preliminary 03/27/23 09:22 Blood Culture - Preliminary Blood NEGATIVE TO DATE 03/27/23 09:22 Blood Culture - Preliminary Blood NEGATIVE TO DATE A&P Assessment and plan (1) ST elevation myocardial infarction (STEMI): (2) CAD (coronary artery disease): (3) Chronic kidney disease: (4) Elevated lactic acid level: (5) Acute kidney injury superimposed on CKD: (6) Cardiogenic shock: (7) Respiratory failure: Qualifiers: Chronicity: acute Respiratory failure complication: hypoxia Qualified Code(s): J96.01 - Acute respiratory failure with hypoxia (8) Ventricular fibrillation: Plan Patient has totally occluded proximal LAD stenosis and underwent successful revascularization with stent and stent. Severe in-stent restenosis of RCA was also found and underwent revascularization with balloon angioplasty. Patient's cardiogenic shock is improving. We removed intra-aortic balloon pump today. No echo windows available however given his presentation patient likely has severely low LV systolic function Continue aspirin and Plavix. Levophed can be titrated with goal mean blood pressure more than 65 mmHg. Renal function is stable Continue amiodarone PO. Had a vfib brief episode Medicine team on board for medical management. Appreciate recs and communication with family. Vent management per medicine team. We had a detailed discussion with patient's family regarding goals of care. As overall patient is stable, shared decision made with his son to continue vent support for another 24 to 48 hours. His chest x-ray looks volume overloaded. He is getting diuresis. Best chances to avoid re-intubation respiratory failure will be if we have further diuresis. He has showed understanding and agreed. Attestations Medical Necessity Statement*: Care expected to cross 2 midnights. Patient has cardiogenic shock and intubated Coding Level of Care Code Acute Code for [facility] Diagnoses ST elevation myocardial infarction (STEMI) I21.3 CAD (coronary artery disease) I25.10 Chronic kidney disease N18.9 Elevated lactic acid level R79.89 Acute kidney injury superimposed on CKD N17.9; N18.9 Cardiogenic shock R57.0 Respiratory failure J96.01 Chronicity: acute Respiratory failure complication: hypoxia Ventricular fibrillation I49.01
[2023-03-29] MEDS: budesonide 0.5 mg/2 mL Neb INHALATION (08:11)
[2023-03-29] MEDS: atorvastatin 40 mg Tablet PO (08:32)
[2023-03-29] MEDS: clopidogrel 75 mg Tablet OG-TUBE (08:32)
[2023-03-29] MEDS: aspirin 81 mg EC Tablet XX (08:32)
[2023-03-29] MEDS: nystatin 100,000 unit/mL UDC 5 mL 100000 UNIT PO ×4 (08:34→21:40)
[2023-03-29 08:37] LABS: Lactate (Lactic Acid level) 3.5 mmol/L (0.5-2.2)
[2023-03-29] MEDS: propofol 1,000 MG/100 ML INJ 17.69 MG IV ×3 (09:12→23:57)
--- NOTE | 2023-03-29 09:17 | PC.NURSE ---
Dr Rebollar here and heparing gtt stopped prior to remove iabp today .. fio2 increased this am to to and then lowered slowly to 40%
[2023-03-29] MEDS: norepinephrine 8 MG in dextrose 5 % 500 ML 53.34 MG IV ×2 (11:20→22:25)
[2023-03-29] MEDS: sodium bicarbonate 8.4% 1 mEq/mL 50mL Syr 100 MEQ IVP (11:20)
[2023-03-29 11:32] LABS: Partial Thromboplastin Time 31.4 SECONDS (23.9-36.7)
[2023-03-29] MEDS: FUROsemide 10 mg/mL SDV 4mL 40 MG IVP (11:33)
[2023-03-29] MEDS: pantoprazole 40 mg SDV IVP (11:33)
[2023-03-29] MEDS: amiodarone 200 mg Tablet PO ×2 (11:33→17:40)
[2023-03-29 11:43] LABS: Blood Urea Nitrogen 22 mg/dL (8-23); Calcium 6.7 mg/dL (8.5-10.5); Carbon Dioxide 17 mmol/L (22-29); Chloride 108 mmol/L (98-107); Creatinine Clr Calc Pharmacy 24.5696; Glucose 104 mg/dL (65-115); Osmolality Calculated 294 mOsm/kg (285-295); Sodium 140 mmol/L (136-145)
[2023-03-29 11:46] LABS: Anion Gap 18.7 (5-19)
[2023-03-29 11:47] LABS: Potassium 3.7 mmol/L (3.5-5.1)
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
--- NOTE | 2023-03-29 12:42 | PC.NURSE ---
Doctor removed right femoral IABP pressure held and dressing placed
[2023-03-29] MEDS: heparin 5,000 unit/mL INJ 1 mL 5000 UNIT SUBCUT (14:36)
[2023-03-29] MEDS: lidocaine 1% 5 ML in potassium chloride premix 100 ML 26.25 ML IV ×2 (14:37→21:25)
--- NOTE | 2023-03-29 15:28 | P.PN_ITS ---
Subjective Subjective: Overnight patient had episode of hypotension and bradycardia after which amiodarone drip was stopped. Otherwise patient has remained hemodynamically stable with mean arterial pressure over 65-70. Today morning seen with Levophed of 12. Patient is on sedation with fentanyl of 25 and propofol of 40. Patient on slightly higher oxygen supplementation 40% overnight required 50%. PEEP of 5. Around 2 L of urine output in last 24 hours. Patient around 7 L positive. Patient was given 40 mg of IV Lasix after which he had robust urine output till midday. IABP was successfully removed. Levophed has been maintained at around 10. Patient is sedated. Blood work appreciated for stable CBC with resolution of leukocytosis, ABG showing slightly worsening of oxygenation today on 30% FiO2, BMP showing a stable electrolytes with slight worsening of metabolic acidosis, creatinine down to 2 with resolution of uremia, lactate down to 3.5, calcium of 6.7. Goals of care meeting done with son at bedside. Vitals/I&O/Wt Last Vital Signs Temp 98.1 F 03/29/23 09:00 Pulse 89 03/29/23 15:00 Resp 16 03/29/23 14:00 BP 95/60 03/29/23 15:00 Pulse Ox 93 03/29/23 15:00 O2 Del Method Mechanical Ventilation 03/29/23 14:00 O2 Flow Rate 2 03/29/23 14:00 FiO2 40 03/29/23 14:00 03/29/23 03/29/23 03/29/23 06:59 14:59 22:59 Intake Total 1655.950 / 6542.390 1801.253 / 1801.253 Output Total / 2025 1830 / 1830 Balance 945.950 / 4517.390 -28.747 / -28.747 Physical Exam Narrative: General: Intubated, sedated. HEENT: PERRLA, pupils bilaterally equal and reactive Chest: Bilateral bronchial breath sounds all over lung jackson with occasional rhonchi, CVS: S1-S2 regular, soft pansystolic murmur at apex, early diastolic murmur at aortic, no tachycardia, no gallops, no rubs Abdomen: Soft, nontender, no organomegaly, bowel sounds present, Neuro: Intubated, sedated Extremities: Bilateral pulses dopplerable Urinary Catheter Management: Arreguin: Cath Placed During This Visit: yes Reason for Continuing Indwelling Catheter: Accurate Measurement of Urinary Output in Critically Ill Patients Urinary Catheter Date of Insertion: 03/27/23 Urinary Catheter Time of Insertion: 03:20 Data 03/29/23 04:15 03/29/23 11:13 Micro: Microbiology 03/27/23 03:50 Gram Stain - Final Sputum - Endotracheal Tube Aspirate Sputum Culture - Final A&P Assessment and plan (1) ST elevation myocardial infarction (STEMI): Post successful revascularization of proximal LAD with 1 RUDOLPH, balloon angioplasty of mid RCA stent. Continue with aspirin, Plavix, statin. Echocardiogram poor study given body habitus. We will start beta-maddie and AKIKO inhibitor once out of cardiogenic shock. (2) Cardiogenic shock: Improving. IABP removed. Wean Levophed keeping mean arterial pressure over 65-70. Management as per cardiology team. Strict input/output charting. Hold off on fluids today. Will start with IV Lasix today and plan for possible extubation within next 24 to 48 hours. (3) Ventricular fibrillation: Keep magnesium around 2, potassium over 4. Replete magnesium and calcium accordingly. Amiodarone stopped overnight because of bradycardia. Switch to oral amiodarone 200 mg twice daily. (4) On intra-aortic balloon pump assist: Removed on 03/29. (5) Respiratory failure: Ventilator dependent. Most likely in setting of cardiogenic shock and pulmonary edema. Patient developing mild congestive heart failure today. Stop IV fluids. IV Lasix 40 mg one-time. Plan to extubate within next 24 to 48 hours depending on oxygen requirement and chest x-ray. We will try to get patient net negative for next 24 to 46 hours. Start on home dose of Celexa to avoid withdrawal once preparing for extubation Keep saturation over 92%. Qualifiers: Chronicity: acute Respiratory failure complication: hypoxia Qualified Code(s): J96.01 - Acute respiratory failure with hypoxia (6) Acute kidney injury superimposed on CKD: Baseline creatinine 1.4-1.6. Creatinine stable. Uremia resolved. Medical reconciliation done for nephrotoxic drugs. Maintain mean artery pressure above 65-70. Sodium bicarbonate 100 mEq one-time. Monitor electrolytes and for metabolic acidosis. Strict input output charting. (7) Leukocytosis: Most likely reactionary to ST elevation MD. As patient is critically sick for now will cover with IV antibiotics. Sputum cultures so far showing normal sally. Blood cultures so far negative. MRSA swab negative. Discontinue vancomycin. Continue with Zosyn. (8) Elevated lactic acid level: Most likely in setting of cardiogenic shock. (9) AAA (abdominal aortic aneurysm): Last imaging from March 2022 shows abdominal aortic aneurysm with peripheral mural thrombus measuring 5.1 x 4.6 x 7.8 which had progressed since 2018. We will continue to monitor. (10) Goals of care, counseling/discussion: Plan CODE STATUS: Discussed in detail with patient's [id number] who is also secondary DPOA. Full code for now. NG tube placement. N.p.o. for now. Protonix for PUD prophylaxis. Heparin drip through IABP will suffice as DVT prophylaxis. For now start on tube feeds with goal of 40 cc/h. Increase 10 cc every 4 hours. Patient is critically sick. Repeat CBC, BMP in afternoon. Goals of care discussion: Family meeting done with patient's son/DPOA at bedside. We discussed that patient was admitted for ST elevation MD requiring PCI to LAD and balloon angioplasty to RCA. During procedure patient developed cardiogenic shock and pulmonary edema requiring mechanical ventilation and placement of IABP. We discussed patient's renal functions have remained stable, he seems to be improving very gradually with removal of IABP today and patient requiring Levophed. Mean arterial pressure being maintained. Discussed that patient is having good urine output and most likely depending on clinical picture over the next 24 to 48 hours can plan to extubate. Son also has his fianc?e Ms. Anand was also home patient's DPOA paperwork over the phone. All the questions were answered. For now they are agreeable with continuation of current treatment plan. DPOA is patient's son and son's fianc? yesterday. Son is [employer]. with numbers [phone] while son fianc? [facility] [phone].? Please refer to this documentation that shows his wishes if meaningful recovery is not attainable. Attestations Medical Necessity Statement*: Requires further hospitalization for management of cardiogenic shock requiring IABP which was removed on March 29, congestive heart failure in setting of ST elevation MD, respiratory failure as patient remains ventilator dependent Coding Level of Care Code Critical Care >/= 30 minutes Critical care time (in minutes): 80 The high probability of a clinically significant, sudden or life threatening deterioration, as referenced in this documentation, required my full and direct attention, intervention and personal management. The critical care time shown is in addition to time spent performing any reported separately billable procedures and includes the following: [x] Data and vital sign review and interpretation [x ] Patient assessment, examination and intervention [x] Medication orders and management [x] Patient/Family updates as able [x] Care Coordination and Documentation. Diagnoses ST elevation myocardial infarction (STEMI) I21.3 Cardiogenic shock R57.0 Ventricular fibrillation I49.01 On intra-aortic balloon pump assist Z98.890 Respiratory failure J96.01 Chronicity: acute Respiratory failure complication: hypoxia Acute kidney injury superimposed on CKD N17.9; N18.9 Leukocytosis D72.829 Elevated lactic acid level R79.89 AAA (abdominal aortic aneurysm) I71.4 Goals of care, counseling/discussion Z71.89
--- NOTE | 2023-03-29 17:15 | PC.NURSE ---
son here requesting tube feeding off and to goahead and pull everythig else off now too.. he never wanted any of this life support explained that it was only possible for only 24 hrs more and became anxious request that we remove it . Both doctor resendiz and Dr Rebollar called and informed lowered sedation some at this time
--- NOTE | 2023-03-29 18:30 | PC.NUTR ---
MD consult for TF recs. Recommend TF goal rate of Jevity 1.2 at 70ml/hr x 20hrs with FWF 150ml q4hrs. This provides 1400ml TF, 1680kcal, 78g protein, and 1134ml TF fluids; 900ml FWF; total 2043ml fluids. With propofol 17.69ml/hr providing an additional 467kcal. Meeting 100% est needs.
[2023-03-29 20:31] LABS: Anion Gap 11.3 (5-19); Blood Urea Nitrogen 21 mg/dL (8-23); Calcium 6.8 mg/dL (8.5-10.5); Carbon Dioxide 26 mmol/L (22-29); Chloride 102 mmol/L (98-107); Glucose 123 mg/dL (65-115); Magnesium 1.9 mg/dL (1.7-2.3); Osmolality Calculated 286 mOsm/kg (285-295); Potassium 3.3 mmol/L (3.5-5.1); Sodium 136 mmol/L (136-145)
[2023-03-30] VITALS (68 sets, daily range): BP systolic 74–116; BP diastolic 49–79; PULSE 56–121; RESP 9–25; TEMP 36.2–37.3; O2SAT 91–99
[2023-03-30] MEDS: pantoprazole 40 mg SDV IVP ×3 (00:10→23:50)
[2023-03-30] MEDS: ipratropium-albuterol 3 mL Neb INHALATION ×4 (02:27→19:52)
[2023-03-30] MEDS: piperacillin-tazobactam 3.375 GM in sodium chloride 0.9% (plus) 50 ML IV ×3 (03:13→17:30)
[2023-03-30] MEDS: heparin 5,000 unit/mL INJ 1 mL 5000 UNIT SUBCUT ×2 (03:13→14:39)
[2023-03-30 04:45] LABS: Alanine Aminotransferase 41 U/L (0-41); Albumin Level 2.2 g/dL (3.5-5.2); Alkaline Phosphatase 95 U/L (40-130); Anion Gap 15.8 (5-19); Aspartate Amino Transferase 90 U/L (0-40); Blood Urea Nitrogen 21 mg/dL (8-23); Calcium 7.2 mg/dL (8.5-10.5); Carbon Dioxide 23 mmol/L (22-29); Chloride 105 mmol/L (98-107); Globulin 3.1 g/dL (1.3-4.6); Glucose 121 mg/dL (65-115); Osmolality Calculated 294 mOsm/kg (285-295); Potassium 3.8 mmol/L (3.5-5.1); Sodium 140 mmol/L (136-145); Total Bilirubin 0.2 mg/dL (0.15-1.2); Total Protein 5.3 g/dL (6.6-8.7)
[2023-03-30 05:15] LABS: Basophils % 0.4 %; Eosinophils # 0.2 10^3/uL (0.0-0.8); Eosinophils % 2.3 %; Hematocrit 32.3 % (42.0-52.0); Hemoglobin 10.1 g/dL (11.7-16.6); Lymphocytes % 10.8 %; Mean Corpuscular HGB Conc 31.3 g/dL (30.0-36.0); Mean Corpuscular Hemoglobin 28.1 pg (28.0-34.0); Monocytes # 0.6 10^3/uL (0.2-0.9); Monocytes % 6.6 %; Neutrophils # 7.63 10^3/uL (1.8-7.7); Neutrophils % 79.7 %; Nucleated Red Blood Cells % 0 %; Platelet Count 162 10^3/cmm (130-400); Red Blood Count 3.59 10^6/uL (4.1-5.3); Red Cell Distribution Width 13.7 % (12.1-15.1); White Blood Count 9.6 10^3/uL (4.0-10.0)
[2023-03-30] MEDS: propofol 1,000 MG/100 ML INJ 17.69 MG IV ×2 (05:24→11:34)
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
[2023-03-30] MEDS: budesonide 0.5 mg/2 mL Neb INHALATION ×2 (07:49→19:50)
[2023-03-30] MEDS: albumin 12.5 GM/50 ML VIAL IV ×3 (08:04→23:49)
--- NOTE | 2023-03-30 08:37 | P.PN_ITS ---
Subjective Subjective: Patient was extubated. Stable. Vitals/I&O/Wt Last Vital Signs Temp 97.8 F 03/30/23 08:00 Pulse 58 L 03/30/23 08:14 Resp 10 L 03/30/23 07:57 BP 77/53 03/30/23 06:30 Pulse Ox 96 03/30/23 07:57 O2 Del Method Mechanical Ventilation 03/30/23 07:57 O2 Flow Rate 2 03/30/23 05:49 FiO2 35 03/30/23 07:57 03/29/23 03/30/23 03/30/23 22:59 06:59 14:59 Intake Total 793 / 2694.253 737.784 / 3432.037 50 / 50 Output Total 625 / 2455 370 / 2825 Balance 168 / 239.253 367.784 / 607.037 50 / 50 Physical Exam Narrative: GENERAL: Patient is alert. NECK: No jugular vein distension. [] HEENT: No cyanosis. No icterus. No pallor. [] HEART: Regular S1 and S2. No murmur, rub or gallop. [] LUNGS:Diminished breath sounds CENTRAL NERVOUS SYSTEM: Grossly nonfocal. [] EXTREMITIES: Lower extremities with no edema. Has intra-aortic balloon pump in place Urinary Catheter Management: Arreguin: Cath Placed During This Visit: yes Reason for Continuing Indwelling Catheter: Accurate Measurement of Urinary Output in Critically Ill Patients Urinary Catheter Date of Insertion: 03/27/23 Urinary Catheter Time of Insertion: 03:20 Data 03/31/23 02:34 03/31/23 02:34 Micro: Microbiology 03/27/23 03:50 Gram Stain - Final Sputum - Endotracheal Tube Aspirate Sputum Culture - Final A&P Assessment and plan (1) ST elevation myocardial infarction (STEMI): (2) CAD (coronary artery disease): (3) Chronic kidney disease: (4) Elevated lactic acid level: (5) Acute kidney injury superimposed on CKD: (6) Cardiogenic shock: (7) Respiratory failure: Qualifiers: Chronicity: acute Respiratory failure complication: hypoxia Qualified Code(s): J96.01 - Acute respiratory failure with hypoxia (8) Ventricular fibrillation: Plan Patient has totally occluded proximal LAD stenosis and underwent successful revascularization with stent and stent. Severe in-stent restenosis of RCA was also found and underwent revascularization with balloon angioplasty. Patients levophed requirement increased today. Son who is the DPOA wanted to extubate patient as per him his father did not want to be on ventilator unless it was very short term. Patient was extubated after further diuresis. Patient is alert and wants to be full code if needed. No echo windows available however given his presentation patient likely has severely low LV systolic function Continue aspirin and Plavix. Levophed can be titrated with goal mean blood pressure more than 65 mmHg. We will continue diuresis. Continue amiodarone PO. Had a vfib brief episode Medicine team on board for medical management. Appreciate recs and communication with family. Attestations Medical Necessity Statement*: Care expected to cross 2 midnights. Patient has been extubated. Coding Level of Care Code Acute Code for [facility] Diagnoses ST elevation myocardial infarction (STEMI) I21.3 CAD (coronary artery disease) I25.10 Chronic kidney disease N18.9 Elevated lactic acid level R79.89 Acute kidney injury superimposed on CKD N17.9; N18.9 Cardiogenic shock R57.0 Respiratory failure J96.01 Chronicity: acute Respiratory failure complication: hypoxia Ventricular fibrillation I49.01
[2023-03-30] MEDS: norepinephrine 8 MG in dextrose 5 % 500 ML 68.58 MG IV (08:40)
--- NOTE | 2023-03-30 09:46 | PC.SOCIAL ---
IMM update Copy PG 2 left at bedside as patient is intubated and no family at bedside. Patient isn't expected to dc in the next 24-48 hours.
[2023-03-30 09:49] LABS: Lactate (Lactic Acid level) 1.5 mmol/L (0.5-2.2)
[2023-03-30] MEDS: atorvastatin 40 mg Tablet PO (10:04)
[2023-03-30] MEDS: clopidogrel 75 mg Tablet OG-TUBE (10:04)
[2023-03-30] MEDS: citalopram 20 mg Tablet 40 MG PO (10:05)
[2023-03-30] MEDS: aspirin 81 mg EC Tablet XX (10:05)
[2023-03-30] MEDS: amiodarone 200 mg Tablet PO ×2 (10:05→16:57)
[2023-03-30] MEDS: nystatin 100,000 unit/mL UDC 5 mL 100000 UNIT PO ×3 (10:07→21:42)
[2023-03-30] MEDS: FUROsemide 10 mg/mL SDV 4mL 40 MG IVP ×2 (11:23→14:38)
--- NOTE | 2023-03-30 13:18 | PC.NURSE ---
lasix given prior and sedation weaned down to extubate and evaluate pt wishes son
--- NOTE | 2023-03-30 14:07 | PC.NURSE ---
pt extubated and placed on high flow at this time... talked with both doctor and nurse with [facility] that if status does worsen he would want to be reintubated and placed on brooke
--- NOTE | 2023-03-30 15:52 | PM.PN ---
Subjective Subjective: Patient today morning seen with legal summer intern/primary at bedside. Seen multiple times today. Overnight patient remained on mechanical ventilator. Patient had mild hypotension for which Levophed was turned up to 16. Mean artery pressure have remained over 65. Today morning on examination he was on 30% FiO2, tidal volume 450 with PEEP of 5. Chest x-ray reviewed to have bilateral vascular congestion. Urine output documented around 4 L in last 24 hours. Seen with multiple family members at bedside. Blood work done today morning showed a hemoglobin of 10.1, no leukocytosis, BMP showing a creatinine of 2.3 with normal BUN and electrolytes, proBNP of more than 22,000. We discussed that given worsening of cardiogenic shock and patient requiring higher vasopressors today along with vascular congestion on the chest x-ray it might not be a good idea to extubate the patient as he is at a higher risk of failure to extubation. Goals of care discussed in detail with patient's son/DPOA at bedside. As per son his father would not have wanted to be on a mechanical ventilator want him to be extubated at the earliest. We discussed extubation for now would be high risk. Son is agreeable to high risk extubation. We did discuss there is a high chance of failure to extubation for patient requiring reintubation or even . Son verbalized understanding and would want to go ahead with extubation. We did discuss once patient is extubated if patient is AOx3 we will go ahead and discuss with patient again about goals of care. Patient was eventually extubated to heated high flow and then BiPAP. Postextubation once goals of care were confirmed with legal summer intern and nurse at bedside patient confirmed that he would want to remain full code and if needed he is okay with going on ventilator again. Goals of care discussion complicated to patient's son. Vitals/I&O/Wt Last Vital Signs Temp 97.6 F 03/30/23 12:00 Pulse 117 H 03/30/23 14:14 Resp 18 03/30/23 14:03 BP 116/74 03/30/23 14:00 Pulse Ox 93 03/30/23 14:14 O2 Del Method Mechanical Ventilation 03/30/23 13:10 O2 Flow Rate 40 03/30/23 14:03 FiO2 50 03/30/23 14:14 03/30/23 03/30/23 03/30/23 06:59 14:59 22:59 Intake Total 737.784 / 3432.037 540.230 / 540.230 0.253 / 540.483 Output Total 370 / 2825 1000 / 1000 Balance 367.784 / 607.037 -459.770 / -459.770 0.253 / -459.517 Physical Exam Narrative: General: Intubated, sedated and postextubation drowsy, sick appearing but able to follow simple commands HEENT: PERRLA, pupils bilaterally equal and reactive Chest: Bilateral bronchial breath sounds all over lung jackson with occasional rhonchi,, fine crackles present bilaterally up to lower to mid zone CVS: S1-S2 regular, soft pansystolic murmur at apex, early diastolic murmur at aortic, no tachycardia, no gallops, no rubs Abdomen: Soft, nontender, no organomegaly, bowel sounds present, Neuro: No focal deficit Extremities: Bilateral pulses dopplerable Urinary Catheter Management: Arreguin: Cath Placed During This Visit: yes Reason for Continuing Indwelling Catheter: Accurate Measurement of Urinary Output in Critically Ill Patients Urinary Catheter Date of Insertion: 03/27/23 Urinary Catheter Time of Insertion: 03:20 Data 03/30/23 05:08 03/30/23 02:57 Micro: Microbiology 03/27/23 03:50 Gram Stain - Final Sputum - Endotracheal Tube Aspirate Sputum Culture - Final A&P Assessment and plan (1) ST elevation myocardial infarction (STEMI): Post successful revascularization of proximal LAD with 1 RUDOLPH, balloon angioplasty of mid RCA stent. Continue with aspirin, Plavix, statin. Echocardiogram poor study given body habitus. We will start beta-maddie and AKIKO inhibitor once out of cardiogenic shock. (2) Cardiogenic shock: Improving. IABP removed. Wean Levophed as possible keeping mean arterial pressure over 65-70. Management as per cardiology team. Strict input/output charting. IV Lasix 40 mg given earlier in the day. We will most likely repeat further doses as per urine output and hemodynamics for the next 24 hours. (3) Respiratory failure: Extubated 03/30. High risk extubation as per goals of care discussion with patient's DPOA/son at bedside. Extubated to BiPAP. IV Lasix 40 mg one-time. Repeat in afternoon. Possibly we will try to have net negative of at least 2 L in next 24 hours if hemodynamically able Keep saturation over 90%. Ricardo every 6 hour, budesonide twice daily. Strict input/output charting. Daily weights. Fluid restriction up to 1500 cc. Qualifiers: Chronicity: acute Respiratory failure complication: hypoxia Qualified Code(s): J96.01 - Acute respiratory failure with hypoxia (4) Ventricular fibrillation: Keep magnesium around 2, potassium over 4. Replete magnesium and calcium accordingly. Continue with oral amiodarone 200 mg twice daily. (5) Acute kidney injury superimposed on CKD: Baseline creatinine 1.4-1.6. Most likely in setting of ATN from cardiogenic shock. Creatinine stable around 2. Uremia resolved. Monitor urine output. Getting Lasix as above. Medical reconciliation done for nephrotoxic drugs. Maintain mean artery pressure above 65-70. BMP daily. (6) Leukocytosis: Most likely reactionary to ST elevation MD. As patient is critically sick for now will cover with IV antibiotics. Sputum cultures so far showing normal sally. Blood cultures so far negative. MRSA swab negative. Discontinue vancomycin. Continue with Zosyn. Plan to complete antibiotics for 5 days if blood cultures remain negative. (7) Elevated lactic acid level: Most likely in setting of cardiogenic shock. (8) AAA (abdominal aortic aneurysm): Last imaging from March 2022 shows abdominal aortic aneurysm with peripheral mural thrombus measuring 5.1 x 4.6 x 7.8 which had progressed since 2018. We will continue to monitor. (9) On intra-aortic balloon pump assist: Removed on 03/29. (10) Goals of care, counseling/discussion: (11) Congestive heart failure: Plan CODE STATUS: Discussed in detail with patient's [id number] who is also secondary DPOA. Full code for now. N.p.o. for now. Protonix for PUD prophylaxis. Heparin 5000 every 12 hourly for DVT prophylaxis. If patient remains extubated and hemodynamically stable will plan for PT/OT/speech evaluation within next 24 hours. Patient is critically sick. Goals of care discussion: 03/30: We discussed that given worsening of cardiogenic shock and patient requiring higher vasopressors today along with vascular congestion on the chest x-ray it might not be a good idea to extubate the patient as he is at a higher risk of failure to extubation. Goals of care discussed in detail with patient's son/DPOA at bedside. As per son his father would not have wanted to be on a mechanical ventilator want him to be extubated at the earliest. We discussed extubation for now would be high risk. Son is agreeable to high risk extubation. We did discuss there is a high chance of failure to extubation for patient requiring reintubation or even . Son verbalized understanding and would want to go ahead with extubation. We did discuss once patient is extubated if patient is AOx3 we will go ahead and discuss with patient again about goals of care. Patient was eventually extubated to heated high flow and then BiPAP. Postextubation once goals of care were confirmed with legal summer intern and nurse at bedside patient confirmed that he would want to remain full code and if needed he is okay with going on ventilator again. Goals of care discussion complicated to patient's son. We will continue to discuss goals of care further with both patient and patient's son/DPOA when possible. DPOA is patient's son and son's casey? yesterday. Son is [employer]. with numbers [phone] while son casey? dizziness [facility] [phone].? Please refer to this documentation that shows his wishes if meaningful recovery is not attainable. Thank you for involving us in care of Mr. Aguila. We will continue to follow. Care discussed in detail with patient's primary and nurse at bedside. Attestations Medical Necessity Statement*: Requires further hospitalization for management of cardiogenic shock. Patient admitted with acute ST elevation MD, pulmonary edema postextubation care Coding Level of Care Code Critical Care >/= 30 minutes Critical care time (in minutes): 90 The high probability of a clinically significant, sudden or life threatening deterioration, as referenced in this documentation, required my full and direct attention, intervention and personal management. The critical care time shown is in addition to time spent performing any reported separately billable procedures and includes the following: [x] Data and vital sign review and interpretation [x] Patient assessment, examination and intervention [x] Medication orders and management [x] Patient/Family updates as able [x] Care Coordination and Documentation. Diagnoses ST elevation myocardial infarction (STEMI) I21.3 Cardiogenic shock R57.0 Respiratory failure J96.01 Chronicity: acute Respiratory failure complication: hypoxia Ventricular fibrillation I49.01 Acute kidney injury superimposed on CKD N17.9; N18.9 Leukocytosis D72.829 Elevated lactic acid level R79.89 AAA (abdominal aortic aneurysm) I71.4 On intra-aortic balloon pump assist Z98.890 Goals of care, counseling/discussion Z71.89 Congestive heart failure I50.9
[2023-03-30] MEDS: norepinephrine 8 MG in dextrose 5 % 500 ML 60.96 MG IV (16:57)
[2023-03-30 20:12] LABS: Anion Gap 17.5 (5-19); Blood Urea Nitrogen 21 mg/dL (8-23); Calcium 7.8 mg/dL (8.5-10.5); Carbon Dioxide 24 mmol/L (22-29); Chloride 102 mmol/L (98-107); Glucose 107 mg/dL (65-115); Osmolality Calculated 293 mOsm/kg (285-295); Potassium 3.5 mmol/L (3.5-5.1); Sodium 140 mmol/L (136-145)
[2023-03-30] MEDS: HYDROcodone-acetaminophen 5-325 mg Tablet 1 TAB PO (23:49)
[2023-03-30] MEDS: temazepam 15 mg Capsule PO (23:50)
[2023-03-31] VITALS (57 sets, daily range): BP systolic 79–122; BP diastolic 53–70; PULSE 64–118; RESP 13–38; TEMP 36.4–36.6; O2SAT 91–98
[2023-03-31] MEDS: ipratropium-albuterol 3 mL Neb INHALATION ×4 (02:08→20:00)
[2023-03-31] MEDS: heparin 5,000 unit/mL INJ 1 mL 5000 UNIT SUBCUT ×2 (02:56→14:44)
[2023-03-31] MEDS: piperacillin-tazobactam 3.375 GM in sodium chloride 0.9% (plus) 50 ML IV ×3 (02:56→17:24)
[2023-03-31 03:20] LABS: Basophils % 0.4 %; Eosinophils # 0.1 10^3/uL (0.0-0.8); Eosinophils % 0.7 %; Hematocrit 33.6 % (42.0-52.0); Hemoglobin 10.7 g/dL (11.7-16.6); Lymphocytes % 10.4 %; Mean Corpuscular HGB Conc 31.8 g/dL (30.0-36.0); Mean Corpuscular Hemoglobin 29.2 pg (28.0-34.0); Mean Corpuscular Volume 91.8 fl (80-94); Mean Platelet Volume 11.1 fL (7.4-10.4); Monocytes # 0.6 10^3/uL (0.2-0.9); Monocytes % 6.4 %; Neutrophils # 8.01 10^3/uL (1.8-7.7); Neutrophils % 81.8 %; Nucleated Red Blood Cells % 0 %; Platelet Count 183 10^3/cmm (130-400); Red Blood Count 3.66 10^6/uL (4.1-5.3); Red Cell Distribution Width 13.8 % (12.1-15.1); White Blood Count 9.8 10^3/uL (4.0-10.0)
[2023-03-31 03:35] LABS: Alanine Aminotransferase 37 U/L (0-41); Alkaline Phosphatase 100 U/L (40-130); Anion Gap 19.2 (5-19); Aspartate Amino Transferase 79 U/L (0-40); Blood Urea Nitrogen 21 mg/dL (8-23); Calcium 7.6 mg/dL (8.5-10.5); Carbon Dioxide 23 mmol/L (22-29); Chloride 102 mmol/L (98-107); Globulin 3.1 g/dL (1.3-4.6); Glucose 112 mg/dL (65-115); Osmolality Calculated 296 mOsm/kg (285-295); Potassium 3.2 mmol/L (3.5-5.1); Sodium 141 mmol/L (136-145); Total Bilirubin 0.5 mg/dL (0.15-1.2); Total Protein 6.1 g/dL (6.6-8.7)
[2023-03-31] MEDS: HYDROcodone-acetaminophen 5-325 mg Tablet 1 TAB PO ×2 (05:50→21:05)
[2023-03-31] MEDS: norepinephrine 8 MG in dextrose 5 % 500 ML 60.96 MG IV (06:14)
--- NOTE | 2023-03-31 06:20 | XRR_ITS ---
PROCEDURE INFORMATION: Exam: XR Chest Exam date and time: 03/31/2023 6:43 AM Age: 82 years old Clinical indication: Condition or disease; Other: Pulmonary edema TECHNIQUE: Imaging protocol: Radiologic exam of the chest. Views: 1 view. COMPARISON: CR (CHEST, ) 03/30/2023 3:38 AM FINDINGS: Lungs: Similar bilateral interstitial and airspace opacities. Pleural spaces: Small bilateral pleural effusions. No pneumothorax. Heart/Mediastinum: Unremarkable. No cardiomegaly. Bones/joints: Unremarkable. XR/XR chest 1V portable [id number] IMPRESSION: Small bilateral pleural effusions with similar bilateral interstitial and airspace opacities, which may reflect some combination of pneumonia and pulmonary edema.
[2023-03-31 07:16] LABS: NT Pro B Type Natriuretic Pept 37822 pg/mL (0-450)
[2023-03-31 07:29] LABS: Lactate (Lactic Acid level) 1.3 mmol/L (0.5-2.2)
--- NOTE | 2023-03-31 07:41 | PM.PN ---
Subjective Subjective: Patient is short of breath. No chest pain. Vitals/I&O/Wt Last Vital Signs Temp 98.2 F 03/30/23 16:00 Pulse 87 03/31/23 06:00 Resp 23 H 03/31/23 06:00 BP 96/65 03/31/23 06:00 Pulse Ox 96 03/31/23 06:00 O2 Del Method Heated High Flow 03/31/23 02:05 O2 Flow Rate 50 03/31/23 02:05 FiO2 40 03/31/23 06:00 03/30/23 03/31/23 03/31/23 22:59 06:59 14:59 Intake Total 715.253 / 1255.483 919 / 2174.483 50 / 50 Output Total 3300 / 4300 1300 / 5600 Balance -2584.747 / -3044.517 -381 / -3425.517 50 / 50 Physical Exam Narrative: GENERAL: Patient is alert. NECK: No jugular vein distension. [] HEENT: No cyanosis. No icterus. No pallor. [] HEART: Regular S1 and S2. No murmur, rub or gallop. [] LUNGS:Diminished breath sounds CENTRAL NERVOUS SYSTEM: Grossly nonfocal. [] EXTREMITIES: Lower extremities with no edema. Has intra-aortic balloon pump in place Urinary Catheter Management: Arreguin: Cath Placed During This Visit: yes Reason for Continuing Indwelling Catheter: Accurate Measurement of Urinary Output in Critically Ill Patients Urinary Catheter Date of Insertion: 03/27/23 Urinary Catheter Time of Insertion: 03:20 Data 04/01/23 03:35 04/01/23 03:35 A&P Assessment and plan (1) ST elevation myocardial infarction (STEMI): (2) CAD (coronary artery disease): (3) Chronic kidney disease: (4) Elevated lactic acid level: (5) Acute kidney injury superimposed on CKD: (6) Cardiogenic shock: (7) Respiratory failure: Qualifiers: Chronicity: acute Respiratory failure complication: hypoxia Qualified Code(s): J96.01 - Acute respiratory failure with hypoxia (8) Ventricular fibrillation: Plan Patient tolerating extubation. On high flow nasal cannula. O2 sats are maintained. She has diuresed well. Potassium replacement as needed. Renal function is stable. Gentle IV Lasix. Monitor I and Os. Continue levophed. Wean down as able with goal mean BP of 65mmHg. Aspirin and Plavix Medicine team on board for medical management. Appreciate recs and communication with family. Attestations Medical Necessity Statement*: Care expected to cross 2 midnights. Coding Level of Care Code Acute Code for [facility] Fwd Diagnoses ST elevation myocardial infarction (STEMI) I21.3 CAD (coronary artery disease) I25.10 Chronic kidney disease N18.9 Elevated lactic acid level R79.89 Acute kidney injury superimposed on CKD N17.9; N18.9 Cardiogenic shock R57.0 Respiratory failure J96.01 Chronicity: acute Respiratory failure complication: hypoxia Ventricular fibrillation I49.01
[2023-03-31] MEDS: albumin 12.5 GM/50 ML VIAL IV ×3 (08:14→23:17)
[2023-03-31] MEDS: atorvastatin 40 mg Tablet PO (08:15)
[2023-03-31] MEDS: citalopram 20 mg Tablet 40 MG PO (08:15)
[2023-03-31] MEDS: aspirin 81 mg EC Tablet XX (08:15)
[2023-03-31] MEDS: amiodarone 200 mg Tablet PO ×2 (08:15→17:23)
[2023-03-31] MEDS: clopidogrel 75 mg Tablet OG-TUBE (08:15)
[2023-03-31] MEDS: nystatin 100,000 unit/mL UDC 5 mL 100000 UNIT PO ×4 (08:30→21:04)
[2023-03-31] MEDS: budesonide 0.5 mg/2 mL Neb INHALATION ×2 (08:45→20:00)
[2023-03-31] MEDS: FUROsemide 10 mg/mL SDV 2mL 20 MG IVP ×2 (09:14→17:24)
[2023-03-31] MEDS: lidocaine 1% 5 ML in potassium chloride premix 100 ML 26.25 ML IV (09:20)
[2023-03-31] MEDS: pantoprazole 40 mg SDV IVP ×2 (12:19→23:17)
[2023-03-31] MEDS: guaiFENesin 600 mg Tablet 1200 MG PO (17:23)
[2023-03-31] MEDS: norepinephrine 8 MG in dextrose 5 % 500 ML 38.1 MG IV (18:13)
--- NOTE | 2023-03-31 19:01 | PM.PN ---
Subjective Subjective: He is awake. Generally weak. Denies chest pain or pressure. Denies trouble breathing. Has some phlegm building up, says that it is not wanting to come up. Discussed with him expectorant, discussed flutter valve, chest vest. States current year correctly. States that he is upset at his son and at current time does not want us contacting him. He states that his son is his power of research attorney, but that he will not want him making decisions going forward. Naming [place] his instead. Discussing with him regarding further treatments here, subsequently consideration of LTAC, states my son did not let me go up to that place . Vitals/I&O/Wt Last Vital Signs Temp 97.6 F 03/31/23 14:00 Pulse 85 03/31/23 18:00 Resp 22 H 03/31/23 18:00 BP 83/55 03/31/23 18:00 Pulse Ox 94 03/31/23 18:00 O2 Del Method Heated High Flow 03/31/23 17:07 O2 Flow Rate 40 03/31/23 17:07 FiO2 40 03/31/23 17:07 03/31/23 03/31/23 03/31/23 06:59 14:59 22:59 Intake Total 919 / 2174.483 709.152 / 709.152 103.848 / 813.000 Output Total 1300 / 5600 800 / 800 Balance -381 / -3425.517 709.152 / 709.152 -696.152 / 13.000 Physical Exam Const: COMMON NORMALS: patient oriented x3 and alert GENERAL APPEARANCE: cooperative and frail appearing ORIENTATION/CONSCIOUSNESS: Yes awake OTHER: Generally weak HENMT: COMMON NORMALS: oropharynx normal Neck/C-Spine: COMMON NORMALS: no JVD Resp: AUSCULTATION: rhonchi OTHER: HHF Cardio: COMMON NORMALS: no JVD, regular rhythm, S1 normal heart sound present, S2 normal heart sound present and No murmurs present (Cardio) RHYTHM: regular rhythm HEART SOUNDS: S1 normal heart sound present and S2 normal heart sound present GI: COMMON NORMALS: Normal to inspection, nondistended, normoactive bowel sounds present, Soft to palpation and non-tender PALPATION: Yes Soft to palpation Extremity: COMMON NORMALS: no joint enlargement and no pedal edema Neuro: COMMON NORMALS: patient oriented x3 and moves all extremities SENSORIUM/ORIENTATION: Yes alert Urinary Catheter Management: Arreguin: Cath Placed During This Visit: yes Reason for Continuing Indwelling Catheter: Accurate Measurement of Urinary Output in Critically Ill Patients Urinary Catheter Date of Insertion: 03/27/23 Urinary Catheter Time of Insertion: 03:20 Data 03/31/23 02:34 03/31/23 02:34 A&P Assessment and plan (1) Cardiogenic shock: Still hypotensive, requiring pressor, this morning on 16 mcg/min Levophed, pressor requirement with some improvement through the day, down to 14 mcg initially, down to low 8 mcg this evening, although blood pressure soft. Discussed with cardiology. Difficult to assess current LV function. Continue weaning of pressors. He is overall generally weak. Deconditioned. Add PT assessment. IABP removed. Wean Levophed as possible keeping mean arterial pressure over 65-70. Management as per cardiology team. Strict input/output charting. Discussed with case management. Discussed with him depending on further condition consideration of LTAC. (2) Respiratory failure: Significant rhonchi, discussed with him cannot exclude component of pneumonia. Continues on Zosyn. He is coughing, but having difficulty bringing up phlegm. Discussed with him at expectorants, flutter valve. Discussed with cardiology also okay for him to get treatment with chest vest as well. Speech therapy assessment. Aspiration precautions. He additionally received 2 more doses of Lasix 20 mg IV today. Follow-up volume status, chemistry. Extubated 03/30. High risk extubation as per goals of care discussion with patient's DPOA/son at bedside. Extubated to BiPAP. IV Lasix 40 mg one-time. Repeat in afternoon. Possibly we will try to have net negative of at least 2 L in next 24 hours if hemodynamically able Keep saturation over 90%. DuoNebs every 6 hour, budesonide twice daily. Strict input/output charting. Daily weights. Fluid restriction up to 1500 cc. Qualifiers: Chronicity: acute Respiratory failure complication: hypoxia Qualified Code(s): J96.01 - Acute respiratory failure with hypoxia (3) Goals of care, counseling/discussion: He additionally states does not want his son contacted. Does not want him as a deep POA any further. States that he is upset with him. States prefers [place], although I do not see that name listed on his list of contacts. He is oriented at this time. It is not entirely clear how much insight he has into his condition. He states that he is upset at his son for not wanting him to go to that place , and apparent reference to possibly LTAC, although as per discussion with care team does not appear that LTAC has been brought up previously. Will need to reassess. (4) Poor intravenous access: Poor intravenous access, several loose diabetes, additionally still slow to wean off pressors. PICC line discussed with him and requested as per myself and cardiology. (5) ST elevation myocardial infarction (STEMI): Post successful revascularization of proximal LAD with 1 RUDOLPH, balloon angioplasty of mid RCA stent. Continue with aspirin, Plavix, statin. Echocardiogram poor study, difficult to assess current LV function Consider beta-maddie and AKIKO inhibitor once out of cardiogenic shock. (6) Ventricular fibrillation: Received potassium today. Follow-up chemistries requested. Follow-up magnesium level. Check ionized calcium. Keep magnesium around 2, potassium over 4. Replete magnesium and calcium accordingly. Continue with oral amiodarone 200 mg twice daily. (7) Acute kidney injury superimposed on CKD: Creatinine with noted some worsening up to 2.5. Continue hemodynamic support. Albumin. Wean down pressors as tolerating. Possible cardiorenal syndrome. Monitor LARA, weights. Recheck chemistry. (8) Leukocytosis: Resolved. Continue Zosyn for now as he has quite a bit of secretions still currently which she has difficulty clearing, cannot exclude pneumonia on imaging. Most likely reactionary to ST elevation [place]. As patient is critically sick for now will cover with IV antibiotics. Sputum cultures so far showing normal sally. Blood cultures so far negative. MRSA swab negative. Discontinue vancomycin. Continue with Zosyn. (9) Elevated lactic acid level: Most likely in setting of cardiogenic shock. (10) AAA (abdominal aortic aneurysm): Last imaging from March 2022 shows abdominal aortic aneurysm with peripheral mural thrombus measuring 5.1 x 4.6 x 7.8 which had progressed since 2018. We will continue to monitor. (11) On intra-aortic balloon pump assist: Removed on 03/29. (12) Congestive heart failure: Attestations Medical Necessity Statement*: Continue admission for assessment management of cardiogenic shock, slowly improving respiratory failure, CHF, ELIESER on CKD, possible superimposed pneumonia, additional comorbidities as above including deconditioning, further goals of care assessment, post-discharge planning. Coding Level of Care Code Critical Care >/= 30 minutes Critical care time (in minutes): 35 The high probability of a clinically significant, sudden or life threatening deterioration, as referenced in this documentation, required my full and direct attention, intervention and personal management. The critical care time shown is in addition to time spent performing any reported separately billable procedures and includes the following: [x] Data and vital sign review and interpretation [x] Patient assessment, examination and intervention [x] Medication orders and management [x] Patient/Family updates as able [x] Care Coordination and Documentation. Diagnoses Cardiogenic shock R57.0 Respiratory failure J96.01 Chronicity: acute Respiratory failure complication: hypoxia Goals of care, counseling/discussion Z71.89 Poor intravenous access Z78.9 ST elevation myocardial infarction (STEMI) I21.3 Ventricular fibrillation I49.01 Acute kidney injury superimposed on CKD N17.9; N18.9 Leukocytosis D72.829 Elevated lactic acid level R79.89 AAA (abdominal aortic aneurysm) I71.4 On intra-aortic balloon pump assist Z98.890 Congestive heart failure I50.9
--- NOTE | 2023-03-31 19:07 | XRR_ITS ---
PROCEDURE INFORMATION: Exam: XR Chest Exam date and time: 03/31/2023 6:17 PM Age: 82 years old Clinical indication: Device placement; Picc; Additional info: Picc line placement TECHNIQUE: Imaging protocol: Radiologic exam of the chest. Views: 1 view. COMPARISON: CR XR chest 1V portable [id number] 03/31/2023 6:43 AM FINDINGS: Tubes, catheters and devices: A PICC line has been placed on the left, with tip of the catheter appearing in good position at the expected level of the superior vena cava near the cavoatrial junction. Lungs: Continued findings of bilateral airspace disease, particularly mid and lower lungs along with component of basilar effusions as noted with exam earlier same date. Pleural spaces: See Lungs finding. Heart/Mediastinum: Cardiac size is within normal limits. Bones/joints: Chronic changes of prior vertebroplasty. XR/XR chest 1V portable [id number] IMPRESSION: Status post PICC line placement on the left appearing in good position, as noted above.
--- NOTE | 2023-03-31 19:28 | PC.NURSE ---
Consulted by House Charge for placement of PICC for frequent failed PIVs and needs access for an extended period of time. Upon arrival pt is A&Ox4. Pt gave verbal consent to primary nurse and myself. Assessed KRISTINA as SARWAT has 2 upper arm PIVs in place that due to dressing and placement eliminate it as access point. Noted the L basilic vein is 6 mm in diameter and free of evidence of thrombus or stenosis. Using US guidance, MST, and sterile technique the L basilic was accessed x 1 stick. Device fed easily. All 3 ports aspirate and flush easily. Device secured and dressed. EBL 5ml. Pt tolerated well. Chest xray ordered. Device appears to be in lower 1/3 of SVC near CAJ, but pending physician approval. Length 47 cm. KRISTINA circumference at 10 cm above the AC fossa is 27 cm. Report to primary nurse.
[2023-03-31 21:17] LABS: Anion Gap 16.9 (5-19); Blood Urea Nitrogen 24 mg/dL (8-23); Calcium 7.8 mg/dL (8.5-10.5); Carbon Dioxide 23 mmol/L (22-29); Chloride 100 mmol/L (98-107); Glucose 98 mg/dL (65-115); Osmolality Calculated 288 mOsm/kg (285-295); Sodium 137 mmol/L (136-145)
[2023-03-31 21:37] LABS: Potassium 2.9 mmol/L (3.5-5.1)
[2023-03-31] MEDS: LORazepam 2 mg/mL INJ 1 mL 0.25 MG IVP (21:49)
[2023-03-31] MEDS: potassium chloride premix 100 ML 50 MEQ IV (23:18)
[2023-04-01] VITALS (66 sets, daily range): BP systolic 70–138; BP diastolic 48–83; PULSE 84–102; RESP 13–39; TEMP 36.6–37.3; O2SAT 89–98
[2023-04-01] MEDS: ipratropium-albuterol 3 mL Neb INHALATION ×4 (01:51→20:13)
[2023-04-01] MEDS: piperacillin-tazobactam 3.375 GM in sodium chloride 0.9% (plus) 50 ML IV ×3 (02:50→17:24)
[2023-04-01] MEDS: heparin 5,000 unit/mL INJ 1 mL 5000 UNIT SUBCUT ×2 (02:50→16:43)
[2023-04-01 04:02] LABS: Basophils % 0.4 %; Eosinophils # 0.1 10^3/uL (0.0-0.8); Eosinophils % 0.9 %; Hematocrit 31.5 % (42.0-52.0); Hemoglobin 9.7 g/dL (11.7-16.6); Lymphocytes # 0.8 10^3/uL (0.8-4.8); Lymphocytes % 9.7 %; Mean Corpuscular HGB Conc 30.8 g/dL (30.0-36.0); Mean Corpuscular Hemoglobin 29.2 pg (28.0-34.0); Mean Corpuscular Volume 94.9 fl (80-94); Mean Platelet Volume 11.4 fL (7.4-10.4); Monocytes # 0.5 10^3/uL (0.2-0.9); Monocytes % 6.5 %; Neutrophils # 6.49 10^3/uL (1.8-7.7); Neutrophils % 82.1 %; Nucleated Red Blood Cells % 0 %; Platelet Count 155 10^3/cmm (130-400); Red Blood Count 3.32 10^6/uL (4.1-5.3); Red Cell Distribution Width 13.8 % (12.1-15.1); White Blood Count 7.9 10^3/uL (4.0-10.0)
[2023-04-01 04:25] LABS: Alanine Aminotransferase 30 U/L (0-41); Albumin Level 3.5 g/dL (3.5-5.2); Alkaline Phosphatase 92 U/L (40-130); Anion Gap 17.2 (5-19); Aspartate Amino Transferase 53 U/L (0-40); Blood Urea Nitrogen 25 mg/dL (8-23); Calcium 7.6 mg/dL (8.5-10.5); Carbon Dioxide 24 mmol/L (22-29); Chloride 104 mmol/L (98-107); Globulin 1.9 g/dL (1.3-4.6); Glucose 84 mg/dL (65-115); Osmolality Calculated 298 mOsm/kg (285-295); Potassium 3.2 mmol/L (3.5-5.1); Sodium 142 mmol/L (136-145); Total Bilirubin 0.3 mg/dL (0.15-1.2); Total Protein 5.4 g/dL (6.6-8.7)
[2023-04-01] MEDS: albumin 12.5 GM/50 ML VIAL IV ×3 (08:11→23:57)
[2023-04-01] MEDS: budesonide 0.5 mg/2 mL Neb INHALATION ×2 (08:20→20:13)
[2023-04-01] MEDS: aspirin 81 mg EC Tablet XX (08:21)
[2023-04-01] MEDS: amiodarone 200 mg Tablet PO ×2 (08:21→17:24)
[2023-04-01] MEDS: clopidogrel 75 mg Tablet OG-TUBE (08:21)
[2023-04-01] MEDS: atorvastatin 40 mg Tablet PO (08:21)
[2023-04-01] MEDS: citalopram 20 mg Tablet 40 MG PO (08:22)
[2023-04-01] MEDS: guaiFENesin 600 mg Tablet 1200 MG PO ×2 (08:22→17:24)
--- NOTE | 2023-04-01 09:01 | PM.PN ---
Subjective Subjective: Patient is still short of breathl. no chest pain. Vitals/I&O/Wt Last Vital Signs Temp 97.9 F 04/01/23 08:30 Pulse 102 H 04/01/23 08:39 Resp 18 04/01/23 08:36 BP 88/54 04/01/23 08:30 Pulse Ox 96 04/01/23 08:36 O2 Del Method Heated High Flow 04/01/23 08:30 O2 Flow Rate 40 04/01/23 08:36 FiO2 40 04/01/23 08:36 03/31/23 04/01/23 04/01/23 22:59 06:59 14:59 Intake Total 416.893 / 1126.045 414.531 / 1540.576 50 / 50 Output Total 1350 / 1350 1050 / 2400 Balance -933.107 / -223.955 -635.469 / -859.424 50 / 50 Physical Exam Narrative: GENERAL: Patient is alert. NECK: No jugular vein distension. [] HEENT: No cyanosis. No icterus. No pallor. [] HEART: Regular S1 and S2. No murmur, rub or gallop. [] LUNGS:Diminished breath sounds CENTRAL NERVOUS SYSTEM: Grossly nonfocal. [] EXTREMITIES: Lower extremities with no edema. Urinary Catheter Management: Arreguin: Cath Placed During This Visit: yes Reason for Continuing Indwelling Catheter: Accurate Measurement of Urinary Output in Critically Ill Patients Urinary Catheter Date of Insertion: 03/27/23 Urinary Catheter Time of Insertion: 03:20 Data 04/02/23 05:14 04/02/23 05:14 A&P Assessment and plan (1) ST elevation myocardial infarction (STEMI): (2) CAD (coronary artery disease): (3) Chronic kidney disease: (4) Elevated lactic acid level: (5) Acute kidney injury superimposed on CKD: (6) Cardiogenic shock: Resolved (7) Respiratory failure: Qualifiers: Chronicity: acute Respiratory failure complication: hypoxia Qualified Code(s): J96.01 - Acute respiratory failure with hypoxia (8) Ventricular fibrillation: Plan Patient is overall stable. Has been off of Levophed since morning. Maintain maps above 65 mmHg. 1 dose of Lasix IV 20 mg given. Close monitoring of renal function Aspirin and Plavix Medicine team on board for medical management. Appreciate recs and communication with family. Attestations Medical Necessity Statement*: Care expected to cross 2 midnights. Coding Level of Care Code Acute Code for [facility] Fwd Diagnoses ST elevation myocardial infarction (STEMI) I21.3 CAD (coronary artery disease) I25.10 Chronic kidney disease N18.9 Elevated lactic acid level R79.89 Acute kidney injury superimposed on CKD N17.9; N18.9 Cardiogenic shock R57.0 Respiratory failure J96.01 Chronicity: acute Respiratory failure complication: hypoxia Ventricular fibrillation I49.01
[2023-04-01] MEDS: nystatin 100,000 unit/mL UDC 5 mL 100000 UNIT PO ×4 (10:21→21:34)
[2023-04-01] MEDS: FUROsemide 10 mg/mL SDV 2mL 20 MG IVP (10:21)
[2023-04-01] MEDS: lidocaine 1% 5 ML in potassium chloride premix 100 ML 26.25 ML IV (10:33)
--- NOTE | 2023-04-01 12:17 | PC.SOCIAL ---
IMM Updated Updated pt on IMM. No questions voiced. Provided pt a copy. Initialed, dated, & timed copy in chart.
[2023-04-01] MEDS: pantoprazole 40 mg SDV IVP ×2 (12:34→23:59)
--- NOTE | 2023-04-01 15:14 | P.PN_ITS ---
Subjective Subjective: States he is all right. When asked denies chest pain or pressure. Denies being short of breath. Currently on heated high flow, 40% FiO2, 40 L at rest. Having some trouble coming up with where he is, somewhat mumbles the response, but does seem to state place used to be called [facility] . Cannot state what type of facility. Cannot tell me the year. Somewhat difficult to understand, but does seem to state that he is here due to having had a heart attack. Does not want me to call to update his son. Wants us to speak with Isabela. At the end of the visit to see him. Vitals/I&O/Wt Last Vital Signs Temp 97.9 F 04/01/23 08:30 Pulse 91 04/01/23 14:20 Resp 20 H 04/01/23 14:10 BP 104/72 04/01/23 14:00 Pulse Ox 93 04/01/23 14:10 O2 Del Method Heated High Flow 04/01/23 14:10 O2 Flow Rate 40 04/01/23 14:10 FiO2 40 04/01/23 14:10 04/01/23 04/01/23 04/01/23 06:59 14:59 22:59 Intake Total 414.531 / 1540.576 255 / 255 Output Total 1050 / 2400 Balance -635.469 / -859.424 255 / 255 Physical Exam Const: COMMON NORMALS: patient oriented x3 and alert GENERAL APPEARANCE: cooperative and frail appearing ORIENTATION/CONSCIOUSNESS: Yes awake OT HER: Generally weak, able to cough HENMT: COMMON NORMALS: oropharynx normal Neck/C-Spine: COMMON NORMALS: no JVD Resp: AUSCULTATION: rhonchi OTHER: HHF Cardio: COMMON NORMALS: no JVD, regular rhythm, S1 normal heart sound present, S2 normal heart sound present and No murmurs present (Cardio) RHYTHM: regular rhythm HEART SOUNDS: S1 normal heart sound present and S2 normal heart sound present GI: COMMON NORMALS: Normal to inspection, nondistended, normoactive bowel sounds present, Soft to palpation and non-tender PALPATION: Yes Soft to palpation Extremity: COMMON NORMALS: no joint enlargement and no pedal edema Neuro: COMMON NORMALS: patient oriented x3 and moves all extremities SENSORIUM/ORIENTATION: Yes alert Urinary Catheter Management: Arreguin: Cath Placed During This Visit: yes Reason for Continuing Indwelling Catheter: Accurate Measurement of Urinary Output in Critically Ill Patients Urinary Catheter Date of Insertion: 03/27/23 Urinary Catheter Time of Insertion: 03:20 Data 04/01/23 03:35 04/01/23 03:35 Micro: Microbiology 03/27/23 09:22 Blood Culture - Final Blood NO GROWTH AFTER 5 DAYS 03/27/23 09:22 Blood Culture - Final Blood NO GROWTH AFTER 5 DAYS A&P Assessment and plan (1) Cardiogenic shock: Discussed with cardiology. Improving, weaning off pressor, was able to come off Levophed this morning. Blood pressure soft but so far maintaining. Monitor here for now overnight in case needs to resume Levophed again transiently. Considered migraine, but not found to be a safe option at this time. Received additional Lasix 20 mg IV. Monitor for hypotension. Monitor intake and output. Noted hypokalemia. Magnesium WNL. Ionized calcium is 1. Received potassium replacement. Add oral calcium supplement. He is overall generally weak. Deconditioned. PT OT assessment. Discussed with case management. IABP removed. Wean Levophed as possible keeping mean arterial pressure over 65-70. Management as per cardiology team. Strict input/output charting. (2) Respiratory failure: As above. Received additional Lasix. Still significant rhonchi. He had been smoking quite a bit as well, likely also increase secretions secondary to stopping smoking. Possible pneumonia. Continue Zosyn. Continue pulmonary toilet, chest vest, flutter valve as tolerating, Mucinex. Speech therapy assessment appreciated. Aspiration precautions. Dysphagia diet. Extubated 03/30. High risk extubation as per goals of care discussion with patient's DPOA/son at bedside. Extubated to BiPAP. IV Lasix 40 mg one-time. Repeat in afternoon. Possibly we will try to have net negative of at least 2 L in next 24 hours if hemodynamically able Keep saturation over 90%. DuoNebs every 6 hour, budesonide twice daily. Strict input/output charting. Daily weights. Fluid restriction up to 1500 cc. Qualifiers: Chronicity: acute Respiratory failure complication: hypoxia Qualified Code(s): J96.01 - Acute respiratory failure with hypoxia (3) Goals of care, counseling/discussion: He again does not want his son to be called. Once asked to discuss any health related issues with Isabela Oden, however, he is also not entirely oriented, can tell me that he is in a place used to be [facility], but cannot entirely tell me the type of facility. Does not remember the year. Does seem to remember that he was here due to a heart attack. He is also somewhat difficult to understand at times, generally weak. Continue to reassess, revisit goals of care. Consideration of LTAC versus SNF going forward. (4) Poor intravenous access: PICC line (5) ST elevation myocardial infarction (STEMI): Post successful revascularization of proximal LAD with 1 RUDOLPH, balloon angioplasty of mid RCA stent. Continue with aspirin, Plavix, statin. Echocardiogram poor study, difficult to assess current LV function Consider beta-maddie and AKIKO inhibitor once out of cardiogenic shock. (6) Ventricular fibrillation: Received potassium today. Follow-up chemistries requested. Follow-up magnesium level. Check ionized calcium. Keep magnesium around 2, potassium over 4. Replete magnesium and calcium accordingly. Continue with oral amiodarone 200 mg twice daily. (7) Acute kidney injury superimposed on CKD: Creatinine today without change up to 2.5. BUN 25. Continue hemodynamic support. For now continue with albumin. So far weaned off pressors. Possible cardiorenal syndrome. Monitor LARA, weights. Recheck chemistry. (8) Leukocytosis: Resolved. Continue Zosyn for now as he has quite a bit of secretions still currently which she has difficulty clearing, cannot exclude pneumonia on imaging. Check procalcitonin. Most likely reactionary to ST elevation [place]. As patient is critically sick for now will cover with IV antibiotics. Sputum cultures so far showing normal sally. Blood cultures so far negative. MRSA swab negative. Discontinue vancomycin. Continue with Zosyn. (9) Elevated lactic acid level: Most likely in setting of cardiogenic shock. (10) AAA (abdominal aortic aneurysm): Last imaging from March 2022 shows abdominal aortic aneurysm with peripheral mural thrombus measuring 5.1 x 4.6 x 7.8 which had progressed since 2018. We will continue to monitor. His friend Isabela is aware of the seriousness of the AAA, states that he was previously assessed for consideration of repair, but was not found possible due to lack of family available access. (11) On intra-aortic balloon pump assist: Removed on 03/29. (12) Congestive heart failure: Attestations Medical Necessity Statement*: Continue admission for assessment management of improving cardiogenic shock, respiratory failure, CHF, ELIESER on CKD, possible superimposed pneumonia, additiona l comorbidities as above including deconditioning, further goals of care assessment, post-discharge planning. Coding Level of Care Code Critical Care >/= 30 minutes Critical care time (in minutes): 30 The high probability of a clinically significant, sudden or life threatening deterioration, as referenced in this documentation, required my full and direct attention, intervention and personal management. The critical care time shown is in addition to time spent performing any reported separately billable procedures and includes the following: [x] Data and vital sign review and interpretation [x ] Patient assessment, examination and intervention [x] Medication orders and management [x] Patient/Family updates as able [x] Care Coordination and Documentation. Diagnoses Cardiogenic shock R57.0 Respiratory failure J96.01 Chronicity: acute Respiratory failure complication: hypoxia Goals of care, counseling/discussion Z71.89 Poor intravenous access Z78.9 ST elevation myocardial infarction (STEMI) I21.3 Ventricular fibrillation I49.01 Acute kidney injury superimposed on CKD N17.9; N18.9 Leukocytosis D72.829 Elevated lactic acid level R79.89 AAA (abdominal aortic aneurysm) I71.4 On intra-aortic balloon pump assist Z98.890 Congestive heart failure I50.9
[2023-04-01] MEDS: calcium carbonate 500 mg Chew Tablet PO (21:31)
[2023-04-02] VITALS (56 sets, daily range): BP systolic 75–106; BP diastolic 45–85; PULSE 77–102; RESP 15–32; TEMP 36.7–37.5; O2SAT 85–98
[2023-04-02] MEDS: ipratropium-albuterol 3 mL Neb INHALATION ×4 (01:26→19:53)
[2023-04-02] MEDS: heparin 5,000 unit/mL INJ 1 mL 5000 UNIT SUBCUT ×2 (03:04→13:15)
[2023-04-02] MEDS: piperacillin-tazobactam 3.375 GM in sodium chloride 0.9% (plus) 50 ML IV ×2 (03:05→15:45)
[2023-04-02 06:29] LABS: Basophils % 0.3 %; Eosinophils % 0.2 %; Hematocrit 30.1 % (42.0-52.0); Hemoglobin 9.3 g/dL (11.7-16.6); Lymphocytes # 0.7 10^3/uL (0.8-4.8); Lymphocytes % 7.6 %; Mean Corpuscular HGB Conc 30.9 g/dL (30.0-36.0); Mean Corpuscular Hemoglobin 27.9 pg (28.0-34.0); Mean Corpuscular Volume 90.4 fl (80-94); Mean Platelet Volume 11.5 fL (7.4-10.4); Monocytes # 0.6 10^3/uL (0.2-0.9); Monocytes % 6.5 %; Neutrophils # 7.65 10^3/uL (1.8-7.7); Nucleated Red Blood Cells % 0 %; Platelet Count 174 10^3/cmm (130-400); Red Blood Count 3.33 10^6/uL (4.1-5.3)
[2023-04-02 06:58] LABS: Alanine Aminotransferase 26 U/L (0-41); Albumin Level 3.6 g/dL (3.5-5.2); Alkaline Phosphatase 113 U/L (40-130); Anion Gap 22.2 (5-19); Aspartate Amino Transferase 42 U/L (0-40); Blood Urea Nitrogen 33 mg/dL (8-23); Calcium 7.8 mg/dL (8.5-10.5); Carbon Dioxide 21 mmol/L (22-29); Chloride 102 mmol/L (98-107); Globulin 2.3 g/dL (1.3-4.6); Glucose 92 mg/dL (65-115); Magnesium 2.2 mg/dL (1.7-2.3); Osmolality Calculated 301 mOsm/kg (285-295); Potassium 3.2 mmol/L (3.5-5.1); Sodium 142 mmol/L (136-145); Total Bilirubin 0.4 mg/dL (0.15-1.2); Total Protein 5.9 g/dL (6.6-8.7)
--- NOTE | 2023-04-02 06:59 | XR_ITS ---
WS: [id number] XR chest 1V portable [id number] REASON FOR EXAM: Pulmonary edema FINDINGS: Left arm PICC line in proper position. Moderate pulmonary venous engorgement. Interstitial and groundglass opacities diffusely throughout both lungs. Unchanged compared to . Bilateral pleural effusions. Possibly increased compared to 03/31/2023. No new findings. XR/XR chest 1V portable [id number] IMPRESSION: Pulmonary edema and bilateral pleural effusions. Pleural effusions may be incre ased compared to 03/31/2023.
--- NOTE | 2023-04-02 07:03 | PM.PN ---
Subjective Subjective: Patient is doing well. No chest pain. Has lower backache Vitals/I&O/Wt Last Vital Signs Temp 99.5 F 04/02/23 05:30 Pulse 86 04/02/23 06:00 Resp 21 H 04/02/23 06:00 BP 87/59 04/02/23 06:00 Pulse Ox 95 04/02/23 06:00 O2 Del Method Heated High Flow 04/02/23 06:00 O2 Flow Rate 40 04/02/23 06:00 FiO2 40 04/02/23 06:00 04/01/23 04/02/23 04/02/23 22:59 06:59 14:59 Intake Total 340 / 595 1050 / 1645 Output Total 650 / 650 450 / 1100 Balance -310 / -55 600 / 545 Physical Exam Narrative: GENERAL: Patient is alert. NECK: No jugular vein distension. [] HEENT: No cyanosis. No icterus. No pallor. [] HEART: Regular S1 and S2. No murmur, rub or gallop. [] LUNGS:Diminished breath sounds CENTRAL NERVOUS SYSTEM: Grossly nonfocal. [] EXTREMITIES: Lower extremities with no edema. Urinary Catheter Management: Arreguin: Cath Placed During This Visit: yes Reason for Continuing Indwelling Catheter: Accurate Measurement of Urinary Output in Critically Ill Patients Urinary Catheter Date of Insertion: 03/27/23 Urinary Catheter Time of Insertion: 03:20 Data 04/02/23 05:14 04/02/23 05:14 Micro: Microbiology 03/27/23 09:22 Blood Culture - Final Blood NO GROWTH AFTER 5 DAYS 03/27/23 09:22 Blood Culture - Final Blood NO GROWTH AFTER 5 DAYS A&P Assessment and plan (1) ST elevation myocardial infarction (STEMI): (2) CAD (coronary artery disease): (3) Chronic kidney disease: (4) Elevated lactic acid level: (5) Acute kidney injury superimposed on CKD: (6) Cardiogenic shock: Resolved (7) Respiratory failure: Qualifiers: Chronicity: acute Respiratory failure complication: hypoxia Qualified Code(s): J96.01 - Acute respiratory failure with hypoxia (8) Ventricular fibrillation: Plan Staying off of levophed. Replace potassium. Aspirin and Plavix Levophed as needed with goal MAP of >65mmhg. Close monitoring of renal function Antibiotic therapy per medicine team Medicine team on board for medical management. Appreciate recs and communication with family. Patient may need placement to LTAC as has slow recovery Attestations Medical Necessity Statement*: Care expected to cross 2 midnights. Patient recovering from the IN and cardiogenic shock, Still requiring high flow NC. Coding Level of Care Code Acute Code for [facility] Fwd Diagnoses ST elevation myocardial infarction (STEMI) I21.3 CAD (coronary artery disease) I25.10 Chronic kidney disease N18.9 Elevated lactic acid level R79.89 Acute kidney injury superimposed on CKD N17.9; N18.9 Cardiogenic shock R57.0 Respiratory failure J96.01 Chronicity: acute Respiratory failure complication: hypoxia Ventricular fibrillation I49.01
[2023-04-02 07:04] LABS: Procalcitonin 0.36 ng/mL (0-0.5)
[2023-04-02] MEDS: budesonide 0.5 mg/2 mL Neb INHALATION ×2 (07:55→19:53)
[2023-04-02] MEDS: aspirin 81 mg EC Tablet XX (08:35)
[2023-04-02] MEDS: amiodarone 200 mg Tablet PO ×2 (08:35→17:51)
[2023-04-02] MEDS: calcium carbonate 500 mg Chew Tablet PO ×2 (08:35→20:39)
[2023-04-02] MEDS: atorvastatin 40 mg Tablet PO (08:35)
[2023-04-02] MEDS: albumin 12.5 GM/50 ML VIAL IV ×3 (08:35→23:28)
[2023-04-02] MEDS: citalopram 20 mg Tablet 40 MG PO (08:35)
[2023-04-02] MEDS: clopidogrel 75 mg Tablet OG-TUBE (08:35)
[2023-04-02] MEDS: guaiFENesin 600 mg Tablet 1200 MG PO ×2 (08:35→17:52)
[2023-04-02] MEDS: nystatin 100,000 unit/mL UDC 5 mL 100000 UNIT PO ×2 (08:44→20:42)
[2023-04-02] MEDS: HYDROcodone-acetaminophen 5-325 mg Tablet 1 TAB PO ×2 (09:19→20:39)
--- NOTE | 2023-04-02 12:06 | PM.PN ---
Subjective Subjective: States he is doing all right apart from having some pain into the lower back. States that he had gotten some pain medication for it. Vitals/I&O/Wt Last Vital Signs Temp 98.1 F 04/02/23 07:30 Pulse 83 04/02/23 11:41 Resp 26 H 04/02/23 11:41 BP 85/56 04/02/23 10:00 Pulse Ox 94 04/02/23 11:41 O2 Del Method Heated High Flow 04/02/23 07:55 O2 Flow Rate 40 04/02/23 11:41 FiO2 40 04/02/23 11:41 04/01/23 04/02/23 04/02/23 22:59 06:59 14:59 Intake Total 340 / 595 1050 / 1645 Output Total 650 / 650 450 / 1100 Balance -310 / -55 600 / 545 Physical Exam Const: COMMON NORMALS: patient oriented x3 and alert GENERAL APPEARANCE: cooperative and frail appearing ORIENTATION/CONSCIOUSNESS: Yes awake OTHER: Generally weak, able to cough HENMT: COMMON NORMALS: oropharynx normal Neck/C-Spine: COMMON NORMALS: no JVD Resp: AUSCULTATION: rhonchi (With improvement) OTHER: HHF Cardio: COMMON NORMALS: no JVD, regular rhythm, S1 normal heart sound present, S2 normal heart sound present and No murmurs present (Cardio) RHYTHM: regular rhythm HEART SOUNDS: S1 normal heart sound present and S2 normal heart sound present GI: COMMON NORMALS: Normal to inspection, nondistended, normoactive bowel sounds present, Soft to palpation and non-tender PALPATION: Yes Soft to palpation Extremity: COMMON NORMALS: no joint enlargement and no pedal edema Neuro: COMMON NORMALS: patient oriented x3 and moves all extremities SENSORIUM/ORIENTATION: Yes alert Urinary Catheter Management: Arreguin: Cath Placed During This Visit: yes Reason for Continuing Indwelling Catheter: Accurate Measurement of Urinary Output in Critically Ill Patients Urinary Catheter Date of Insertion: 03/27/23 Urinary Catheter Time of Insertion: 03:20 Data 04/02/23 05:14 04/02/23 05:14 Micro: Microbiology 03/27/23 09:22 Blood Culture - Final Blood NO GROWTH AFTER 5 DAYS 03/27/23 09:22 Blood Culture - Final Blood NO GROWTH AFTER 5 DAYS A&P Assessment and plan (1) Cardiogenic shock: Overall with improvement but with some fluctuation of blood pressure. This morning blood pressure is soft. For now keep in ICU in case requiring some transient pressor support. Discussed with cardiology. Considered midodrine, but not found to be a safe option at this time. Monitor volume status. LARA. Additional Lasix as needed. Again hypokalemia, giving replacement. Magnesium WNL. Ionized calcium is 1. Received potassium replacement. Add oral calcium supplement. IABP removed. Wean Levophed as possible keeping mean arterial pressure over 65-70. Management as per cardiology team. Strict input/output charting. (2) Respiratory failure: Continue Zosyn for now, possible component of pneumonia still having secretions but improving over last several days. Continue pulmonary toilet. Lasix as needed for CHF. May repeat dose depending on blood pressure. Monitor blood pressure. Currently soft. Speech therapy assessment appreciated. Aspiration precautions. Dysphagia diet. Extubated 03/30. High risk extubation as per goals of care discussion with patient's DPOA/son at bedside. Extubated to BiPAP. Keep saturation over 90%. DuoNebs every 6 hour, budesonide twice daily. Strict input/output charting. Daily weights. Fluid restriction up to 1500 cc. Qualifiers: Chronicity: acute Respiratory failure complication: hypoxia Qualified Code(s): J96.01 - Acute respiratory failure with hypoxia (3) Goals of care, counseling/discussion: Likely may need LTAC with anticipated slow recovery with borderline blood pressures. (4) Poor intravenous access: PICC line (5) ST elevation myocardial infarction (STEMI): Post successful revascularization of proximal LAD with 1 RUDOLPH, balloon angioplasty of mid RCA stent. Continue with aspirin, Plavix, statin. Echocardiogram poor study, difficult to assess current LV function Consider beta-maddie and AKIKO inhibitor once out of cardiogenic shock. (6) Ventricular fibrillation: Patient on potassium replacement. Potassium 3.2. Magnesium noted 2.2. Follow-up chemistry and magnesium. Started on replacement of hypocalcemia. Keep magnesium around 2, potassium over 4. Replete magnesium and calcium accordingly. Continue with oral amiodarone 200 mg twice daily. (7) Acute kidney injury superimposed on CKD: Creatinine today without change up to 2.5. BUN 25. Continue hemodynamic support. For now continue with albumin. So far weaned off pressors. Possible cardiorenal syndrome. Monitor LARA, weights. Recheck chemistry. (8) Leukocytosis: Resolved. Continue Zosyn for now as he has quite a bit of secretions still currently which she has difficulty clearing, cannot exclude pneumonia on imaging. Procalcitonin noted 2.36. Continue Zosyn for now. Most likely reactionary to ST elevation MS. As patient is critically sick for now will cover with IV antibiotics. Sputum cultures so far showing normal sally. Blood cultures so far negative. MRSA swab negative. Discontinue vancomycin. Continue with Zosyn. (9) Elevated lactic acid level: Most likely in setting of cardiogenic shock. (10) AAA (abdominal aortic aneurysm): Last imaging from March 2022 shows abdominal aortic aneurysm with peripheral mural thrombus measuring 5.1 x 4.6 x 7.8 which had progressed since 2018. Follow-up CBC requested. We will continue to monitor. His friend Isabela is aware of the seriousness of the AAA, states that he was previously assessed for consideration of repair, but was not found possible due to lack of family available access. (11) On intra-aortic balloon pump assist: Removed on 03/29. (12) Congestive heart failure: Plan Lumbar pain: Lidocaine patch. US to reassess AAA. Attestations Medical Necessity Statement*: Continue admission for assessment management of slowly improving cardiogenic shock, respiratory failure, CHF, ELIESER on CKD, possible superimposed pneumonia, additional comorbidities as above including deconditioning, further goals of care assessment, post-discharge planning. Diagnoses Cardiogenic shock R57.0 Respiratory failure J96.01 Chronicity: acute Respiratory failure complication: hypoxia Goals of care, counseling/discussion Z71.89 Poor intravenous access Z78.9 ST elevation myocardial infarction (STEMI) I21.3 Ventricular fibrillation I49.01 Acute kidney injury superimposed on CKD N17.9; N18.9 Leukocytosis D72.829 Elevated lactic acid level R79.89 AAA (abdominal aortic aneurysm) I71.4 On intra-aortic balloon pump assist Z98.890 Congestive heart failure I50.9
--- NOTE | 2023-04-02 12:23 | USCV_ITS ---
Mingo Davis Age: 82 Gender: M : 1940 Exam Date: 04/02/2023 17:20 Ordering Phys: Edwin Reilly MD Technologist: CT Exam Location: [facility] [place] Indication: HISTORY: Diameter (cm) AP x Transverse x Length Velocity (cm/s) Waveform Prox Aorta: 2.72 x 2.36 x 51.30 Mid Aorta: x x Distal Aorta: 4.89 x 5.26 x 24.20 Right Iliac Prox: x x 158.00 Left Iliac Prox: x x 140.00 Stent Prox Landing x x Aneurysmal Sac Max x x Lt Lat Sac Dim Rt Lat Sac Dim Stent Dist Landing x x Right Iliac Stent x x Left Iliac Stent x x Right Renal Art Left Renal Art FINDINGS: CONCLUSIONS Distal AAA 4.9 x 5.3cm. Aorta lumen narrowing distally due to extensive mural thrombus at the bifurcation and not well visualized, Recommend f/u CTA Moderate atheromatous disease with peripheral mural thrombus Iliac arteries difficult to visualize but appear patent Valentino West MD (Electronically Signed) Final Date: 03 April 2023 11:41 S
[2023-04-02] MEDS: pantoprazole 40 mg SDV IVP ×2 (13:16→23:23)
[2023-04-02] MEDS: potassium chloride ER 20 mEq Tablet PO ×2 (13:16)
[2023-04-02] MEDS: LORazepam 2 mg/mL INJ 1 mL 0.25 MG IVP (21:48)
[2023-04-03] VITALS (59 sets, daily range): BP systolic 83–110; BP diastolic 56–75; PULSE 69–89; RESP 12–32; TEMP 36.4–37; O2SAT 88–100
[2023-04-03] MEDS: ipratropium-albuterol 3 mL Neb INHALATION ×4 (01:52→20:31)
[2023-04-03] MEDS: piperacillin-tazobactam 3.375 GM in sodium chloride 0.9% (plus) 50 ML IV ×2 (03:07→15:22)
[2023-04-03] MEDS: heparin 5,000 unit/mL INJ 1 mL 5000 UNIT SUBCUT ×2 (03:10→15:22)
[2023-04-03] MEDS: HYDROcodone-acetaminophen 5-325 mg Tablet 1 TAB PO ×3 (03:59→22:22)
[2023-04-03 05:35] LABS: Basophils % 0.3 %; Eosinophils # 0.1 10^3/uL (0.0-0.8); Eosinophils % 0.5 %; Hematocrit 27.7 % (42.0-52.0); Hemoglobin 8.7 g/dL (11.7-16.6); Lymphocytes % 9.9 %; Mean Corpuscular HGB Conc 31.4 g/dL (30.0-36.0); Mean Corpuscular Hemoglobin 28.8 pg (28.0-34.0); Mean Corpuscular Volume 91.7 fl (80-94); Mean Platelet Volume 11.6 fL (7.4-10.4); Monocytes # 0.6 10^3/uL (0.2-0.9); Monocytes % 5.9 %; Neutrophils % 82.9 %; Nucleated Red Blood Cells % 0.2 %; Platelet Count 166 10^3/cmm (130-400); Red Blood Count 3.02 10^6/uL (4.1-5.3); Red Cell Distribution Width 14.1 % (12.1-15.1); White Blood Count 9.7 10^3/uL (4.0-10.0)
[2023-04-03 05:57] LABS: Magnesium 2.3 mg/dL (1.7-2.3)
[2023-04-03 05:58] LABS: Alanine Aminotransferase 26 U/L (0-41); Albumin Level 3.5 g/dL (3.5-5.2); Alkaline Phosphatase 110 U/L (40-130); Anion Gap 19.9 (5-19); Aspartate Amino Transferase 36 U/L (0-40); Blood Urea Nitrogen 44 mg/dL (8-23); Calcium 8.3 mg/dL (8.5-10.5); Carbon Dioxide 22 mmol/L (22-29); Chloride 103 mmol/L (98-107); Globulin 2.9 g/dL (1.3-4.6); Glucose 116 mg/dL (65-115); Osmolality Calculated 306 mOsm/kg (285-295); Sodium 142 mmol/L (136-145); Total Bilirubin 0.4 mg/dL (0.15-1.2); Total Protein 6.4 g/dL (6.6-8.7)
[2023-04-03 06:07] LABS: Potassium 2.9 mmol/L (3.5-5.1)
[2023-04-03] MEDS: potassium chloride premix 100 ML 50 MEQ IV ×2 (06:19→20:21)
[2023-04-03] MEDS: albumin 12.5 GM/50 ML VIAL IV ×2 (07:18→15:23)
--- NOTE | 2023-04-03 07:51 | USCV_ITS ---
Mingo Davis Age: 82 Gender: M : 1940 Exam Date: 04/03/2023 08:45 Ordering Phys: Librado Villarreal M.D ([email or web address]) Technologist: Mir Lai Exam Location: [facility] [place] Indication: lv funtion BP: 101 / 70 HR: 69 Rhythm: Sinus Technical Quality: MEASUREMENTS (Male / Female) Normal Values 2D ECHO LV Ejection Fraction MOD 2C 58.2 % LV Ejection Fraction 2C AL 57.8 % FINDINGS Left Ventricle Right Ventricle Right Atrium Left Atrium Mitral Valve Aortic Valve Tricuspid Valve Pulmonic Valve Pericardium Aorta IVC CONCLUSIONS This is a limited echocardiogram performed to assess LV systolic function. Extremely limited ultrasonic windows. Even with contrast administration, left ventricle is not well-visualized. Grossly LV systolic function appears to be severely reduced. Librado Villarreal MD (Electronically Signed) Final Date: 03 April 2023 12:46 S
--- NOTE | 2023-04-03 07:51 | P.PN_ITS ---
Subjective Subjective: Patient's urine output has been decreasing. Chest x ray yesterday showed worsening of edema Vitals/I&O/Wt Last Vital Signs Temp 98.2 F 04/03/23 07:37 Pulse 78 04/03/23 06:00 Resp 15 04/03/23 06:00 BP 88/57 04/03/23 05:30 Pulse Ox 99 04/03/23 06:00 O2 Del Method Heated High Flow 04/03/23 06:00 O2 Flow Rate 40 04/03/23 06:00 FiO2 40 04/03/23 06:00 04/02/23 04/03/23 04/03/23 22:59 06:59 14:59 Intake Total 250 / 350 150 / 500 50 / 50 Output Total 425 / 425 Balance 250 / 350 -275 / 75 50 / 50 Physical Exam Narrative: GENERAL: Patient is alert. NECK: No jugular vein distension. [] HEENT: No cyanosis. No icterus. No pallor. [] HEART: Regular S1 and S2. No murmur, rub or gallop. [] LUNGS:Diminished breath sounds CENTRAL NERVOUS SYSTEM: Grossly nonfocal. [] EXTREMITIES: Lower extremities with no edema. Urinary Catheter Management: Arreguin: Cath Placed During This Visit: yes Reason for Continuing Indwelling Catheter: Accurate Measurement of Urinary Output in Critically Ill Patients Urinary Catheter Date of Insertion: 03/27/23 Urinary Catheter Time of Insertion: 03:20 Data 04/04/23 03:41 04/04/23 03:41 A&P Assessment and plan (1) ST elevation myocardial infarction (STEMI): (2) CAD (coronary artery disease): (3) Chronic kidney disease: (4) Elevated lactic acid level: (5) Acute kidney injury superimposed on CKD: (6) Cardiogenic shock: Resolved (7) Respiratory failure: Qualifiers: Chronicity: acute Respiratory failure complication: hypoxia Qualified Code(s): J96.01 - Acute respiratory failure with hypoxia (8) Ventricular fibrillation: Plan Patient had anterior wall ST elevation [place] with a total occlusion of proximal LAD that underwent successful revascularization with 1 stent. Severe thrombotic stenosis of mid RCA stent was treated with ovoid balloon angioplasty. Aspirin and Plavix Levophed as needed with goal MAP of >65mmhg. patient off Levophed for now. Renal function worsening. Close monitoring of renal function. If continues to worsen, consult nephrology. Urine output has decreased recently. Antibiotic therapy per medicine team Medicine team on board for medical management. Appreciate recs and communication with family. Patient may need placement to LTAC as has slow recovery Attestations Medical Necessity Statement*: Care expected to cross 2 midnights. Coding Level of Care Code Acute Code for [facility] Fwd Diagnoses ST elevation myocardial infarction (STEMI) I21.3 CAD (coronary artery disease) I25.10 Chronic kidney disease N18.9 Elevated lactic acid level R79.89 Acute kidney injury superimposed on CKD N17.9; N18.9 Cardiogenic shock R57.0 Respiratory failure J96.01 Chronicity: acute Respiratory failure complication: hypoxia Ventricular fibrillation I49.01
[2023-04-03] MEDS: budesonide 0.5 mg/2 mL Neb INHALATION ×2 (08:08→20:31)
[2023-04-03] MEDS: guaiFENesin 600 mg Tablet 1200 MG PO ×2 (09:08→17:00)
[2023-04-03] MEDS: citalopram 20 mg Tablet 40 MG PO (09:08)
[2023-04-03] MEDS: calcium carbonate 500 mg Chew Tablet PO ×3 (09:08→22:21)
[2023-04-03] MEDS: atorvastatin 40 mg Tablet PO (09:08)
[2023-04-03] MEDS: clopidogrel 75 mg Tablet OG-TUBE (09:09)
[2023-04-03] MEDS: lidocaine 5% Patch 1 PATCH TOPICAL (09:09)
[2023-04-03] MEDS: nystatin 100,000 unit/mL UDC 5 mL 100000 UNIT PO ×4 (09:09→22:21)
[2023-04-03] MEDS: amiodarone 200 mg Tablet PO ×2 (09:09→17:00)
[2023-04-03] MEDS: aspirin 81 mg EC Tablet XX (09:09)
[2023-04-03] MEDS: perflutren protein-a microsphr 0.22 mg/mL SDV 3 mL IV (09:40)
[2023-04-03] MEDS: lidocaine 1% 5 ML in potassium chloride premix 100 ML 26.25 ML IV (10:45)
[2023-04-03] MEDS: pantoprazole 40 mg SDV IVP (13:09)
--- NOTE | 2023-04-03 13:45 | PC.SOCIAL ---
IMM Updated Updated pt & family on IMM. No questions voiced. Provided pt a copy. Initialed, dated, & timed copy in chart.
--- NOTE | 2023-04-03 15:05 | P.PN_ITS ---
Vitals/I&O/Wt Last Vital Signs Temp 98.6 F 04/03/23 12:00 Pulse 80 04/03/23 14:45 Resp 29 H 04/03/23 14:30 BP 85/65 04/03/23 14:30 Pulse Ox 93 04/03/23 14:30 O2 Del Method Nasal Cannula 04/03/23 14:30 O2 Flow Rate 5 04/03/23 14:00 FiO2 30 04/03/23 08:33 04/03/23 04/03/23 04/03/23 06:59 14:59 22:59 Intake Total 150 / 500 545 / 545 Output Total 425 / 425 Balance -275 / 75 545 / 545 Physical Exam Const: COMMON NORMALS: patient oriented x3 and alert GENERAL APPEARANCE: cooperative and frail appearing ORIENTATION/CONSCIOUSNESS: Yes awake OTHER: Generally weak, able to cough HENMT: COMMON NORMALS: oropharynx normal Neck/C-Spine: COMMON NORMALS: no JVD Resp: AUSCULTATION: no rhonchi (With improvement) and wheezes (Min RLL) OTHER: NC Cardio: COMMON NORMALS: no JVD, regular rhythm, S1 normal heart sound present, S2 normal heart sound present and No murmurs present (Cardio) RHYTHM: regular rhythm HEART SOUNDS: S1 normal heart sound present and S2 normal heart sound present GI: COMMON NORMALS: Normal to inspection, nondistended, normoactive bowel sounds present, Soft to palpation and non-tender PALPATION: Yes Soft to palpation Extremity: COMMON NORMALS: no joint enlargement and no pedal edema Neuro: COMMON NORMALS: patient oriented x3 and moves all extremities SENSORIUM/ORIENTATION: Yes alert Urinary Catheter Management: Arreguin: Cath Placed During This Visit: yes Reason for Continuing Indwelling Catheter: Accurate Measurement of Urinary Output in Critically Ill Patients Urinary Catheter Date of Insertion: 03/27/23 Urinary Catheter Time of Insertion: 03:20 Data 04/03/23 05:10 04/03/23 09:58 A&P Assessment and plan (1) Cardiogenic shock: Blood pressure fluctuating, down to as low as 85/65, hypotensive briefly overnight, but did not require pressors. We will stop Levophed at this time. Continue to monitor blood pressures. Mental status continues to gradually improve. More alert today. Blood pressure soft. BUN with worsening up to 44. Creatinine 2.6. Hold off additional Lasix for now. Overall with improvement but with some fluctuation of blood pressure. This morning blood pressure is soft. For now keep in ICU in case requiring some transient pressor support. Discussed with case management. His condition is gradually improving. He is weaned off heated high flow, currently down to 4 L nasal cannula oxygen. Further consideration of discharge planning, in case continues to improve may be candidate to undergo rehabilitation at SNF. Monitor volume status. LARA. Additional Lasix as needed. Again hypokalemia, giving replacement. Magnesium WNL. Ionized calcium is 1. Received potassium replacement. Add oral calcium supplement. IABP removed. Wean Levophed as possible keeping mean arterial pressure over 65-70. Management as per cardiology team. Strict input/output charting. (2) Respiratory failure: Gradually improving. Continue Zosyn for now, possible component of pneumonia still having secretions but improving over last several days. Continue pu lmonary toilet. Lasix as needed for CHF. May repeat dose depending on blood pressure. Monitor blood pressure. Currently soft. Speech therapy assessment appreciated. Aspiration precautions. Dysphagia diet. Extubated 03/30. High risk extubation as per goals of care discussion with patient's DPOA/son at bedside. Extubated to BiPAP. Keep saturation over 90%. DuoNebs every 6 hour, budesonide twice daily. Strict input/output charting. Daily weights. Fluid restriction up to 1500 cc. Qualifiers: Chronicity: acute Respiratory failure complication: hypoxia Qualified Code(s): J96.01 - Acute respiratory failure with hypoxia (3) Goals of care, counseling/discussion: Likely may need LTAC with anticipated slow recovery with borderline blood pressures. (4) Poor intravenous access: PICC line (5) ST elevation myocardial infarction (STEMI): Post successful revascularization of proximal LAD with 1 RUDOLPH, balloon angioplasty of mid RCA stent. Continue with aspirin, Plavix, statin. Echocardiogram poor study, difficult to assess current LV function Consider beta-maddie and AKIKO inhibitor once out of cardiogenic shock. (6) Ventricular fibrillation: Potassium noted 3. Received replacement. Follow-up chemistry requested. Magnesium noted 2.3. Magnesium noted 2.2. Started on replacement of hypocalcemia. Repeat ionized calcium. Keep magnesium around 2, potassium over 4. Replete magnesium and calcium accordingly. Continue with oral amiodarone 200 mg twice daily. (7) Acute kidney injury superimposed on CKD: Creatinine today without change up to 2.6. BUN 44. Continue hemodynamic support. For now continue with albumin. So far weaned off pressors. Hold off additional Lasix for now. Possible cardiorenal syndrome. Monitor LARA, weights. Recheck chemistry. (8) Leukocytosis: Resolved. Continue Zosyn for now as he has quite a bit of secretions still currently which she has difficulty clearing, cannot exclude pneumonia on imaging. Continue Zosyn for now. Most likely reactionary to ST elevation MD. As patient is critically sick for now will cover with IV antibiotics. Sputum cultures so far showing normal sally. Blood cultures so far negative. MRSA swab negative. Discontinue vancomycin. Continue with Zosyn. (9) Elevated lactic acid level: Most likely in setting of cardiogenic shock. (10) AAA (abdominal aortic aneurysm): Last imaging from March 2022 shows abdominal aortic aneurysm with peripheral mural thrombus measuring 5.1 x 4.6 x 7.8 which had progressed since 2018. Follow-up CBC requested. We will continue to monitor. His friend Isabela is aware of the seriousness of the AAA, states that he was previously assessed for consideration of repair, but was not found possible due to lack of family available access. (11) On intra-aortic balloon pump assist: Removed on 03/29. (12) Congestive heart failure: Plan Lumbar pain: Lidocaine patch. US to reassess AAA. Attestations Medical Necessity Statement*: Continue admission for assessment management of gradually improving cardiogenic shock, systolic CHF complicated by worsening renal function, treatment of suspected superimposed pneumonia, discharge planning and arrangements. Diagnoses Cardiogenic shock R57.0 Respiratory failure J96.01 Chronicity: acute Respiratory failure complication: hypoxia Goals of care, counseling/discussion Z71.89 Poor intravenous access Z78.9 ST elevation myocardial infarction (STEMI) I21.3 Ventricular fibrillation I49.01 Acute kidney injury superimposed on CKD N17.9; N18.9 Leukocytosis D72.829 Elevated lactic acid level R79.89 AAA (abdominal aortic aneurysm) I71.4 On intra-aortic balloon pump assist Z98.890 Congestive heart failure I50.9
[2023-04-03 19:00] LABS: Anion Gap 22.4 (5-19); Blood Urea Nitrogen 51 mg/dL (8-23); Calcium 8.4 mg/dL (8.5-10.5); Carbon Dioxide 18 mmol/L (22-29); Chloride 102 mmol/L (98-107); Glucose 164 mg/dL (65-115); Osmolality Calculated 305 mOsm/kg (285-295); Potassium 3.4 mmol/L (3.5-5.1); Sodium 139 mmol/L (136-145)
--- NOTE | 2023-04-03 21:00 | PC.NURSE ---
Respiratory Distress: Pt had a sudden respiratory change with increased work of breathing and distress noted. RT on unit and placed pt on BIPAP. Work of breathing stabilized and SpO2 in the mid 90's. PO medications given late due to this. Dr. Zhao made aware.
[2023-04-04] VITALS (57 sets, daily range): BP systolic 87–113; BP diastolic 55–86; PULSE 68–84; RESP 13–34; O2SAT 90–100
[2023-04-04] MEDS: albumin 12.5 GM/50 ML VIAL IV ×3 (00:06→15:47)
[2023-04-04] MEDS: pantoprazole 40 mg SDV IVP ×2 (00:06→12:35)
[2023-04-04 01:35] LABS: Anion Gap 19.7 (5-19); Blood Urea Nitrogen 56 mg/dL (8-23); Calcium 8.5 mg/dL (8.5-10.5); Carbon Dioxide 22 mmol/L (22-29); Chloride 103 mmol/L (98-107); Creatinine Clr Calc Pharmacy 16.3797; Glucose 126 mg/dL (65-115); Osmolality Calculated 309 mOsm/kg (285-295); Potassium 3.7 mmol/L (3.5-5.1); Sodium 141 mmol/L (136-145)
[2023-04-04] MEDS: piperacillin-tazobactam 3.375 GM in sodium chloride 0.9% (plus) 50 ML IV ×2 (02:59→14:27)
[2023-04-04] MEDS: heparin 5,000 unit/mL INJ 1 mL 5000 UNIT SUBCUT ×2 (03:03→14:27)
[2023-04-04] MEDS: ipratropium-albuterol 3 mL Neb INHALATION ×4 (03:10→19:58)
[2023-04-04 04:57] LABS: Basophils % 0.4 %; Eosinophils # 0.1 10^3/uL (0.0-0.8); Eosinophils % 0.6 %; Hematocrit 28.1 % (42.0-52.0); Hemoglobin 8.8 g/dL (11.7-16.6); Lymphocytes # 1.4 10^3/uL (0.8-4.8); Lymphocytes % 12.6 %; Mean Corpuscular HGB Conc 31.3 g/dL (30.0-36.0); Mean Corpuscular Hemoglobin 28.8 pg (28.0-34.0); Mean Corpuscular Volume 91.8 fl (80-94); Mean Platelet Volume 12.1 fL (7.4-10.4); Monocytes # 0.6 10^3/uL (0.2-0.9); Monocytes % 5.8 %; Neutrophils # 8.84 10^3/uL (1.8-7.7); Neutrophils % 80.1 %; Nucleated Red Blood Cells % 0.4 %; Platelet Count 206 10^3/cmm (130-400); Red Blood Count 3.06 10^6/uL (4.1-5.3); Red Cell Distribution Width 14.4 % (12.1-15.1)
--- NOTE | 2023-04-04 05:23 | PC.NURSE ---
BIPAP: Pt spent majority of the night on BIPAP with the exception of short breaks for sips of water. At 5am RT recommended transitioning back to 4L NC. 15 minutes after the removal of BIPAP the pts work of breathing increased and the pt appeared distressed. BIPAP reapplied.
[2023-04-04 05:24] LABS: Alanine Aminotransferase 29 U/L (0-41); Albumin Level 3.7 g/dL (3.5-5.2); Alkaline Phosphatase 147 U/L (40-130); Anion Gap 21.5 (5-19); Aspartate Amino Transferase 32 U/L (0-40); Blood Urea Nitrogen 58 mg/dL (8-23); Calcium 8.6 mg/dL (8.5-10.5); Carbon Dioxide 21 mmol/L (22-29); Chloride 101 mmol/L (98-107); Globulin 2.7 g/dL (1.3-4.6); Glucose 114 mg/dL (65-115); Osmolality Calculated 307 mOsm/kg (285-295); Potassium 3.5 mmol/L (3.5-5.1); Sodium 140 mmol/L (136-145); Total Bilirubin 0.4 mg/dL (0.15-1.2); Total Protein 6.4 g/dL (6.6-8.7)
--- NOTE | 2023-04-04 07:05 | PM.PN ---
Subjective Subjective: Patient's urine output has been decreasing. No chest pain. Feels short of breath. Vitals/I&O/Wt Last Vital Signs Temp 97.5 F L 04/03/23 19:24 Pulse 78 04/04/23 06:00 Resp 23 H 04/04/23 06:00 BP 103/56 04/04/23 06:00 Pulse Ox 97 04/04/23 06:00 O2 Del Method BiPAP 04/04/23 06:00 O2 Flow Rate 4 04/03/23 20:30 FiO2 30 04/04/23 03:05 04/03/23 04/04/23 04/04/23 22:59 06:59 14:59 Intake Total 250 / 795 150 / 945 Output Total 450 / 450 125 / 575 Balance -200 / 345 25 / 370 Physical Exam Narrative: GENERAL: Patient is alert. NECK: No jugular vein distension. [] HEENT: No cyanosis. No icterus. No pallor. [] HEART: Regular S1 and S2. No murmur, rub or gallop. [] LUNGS:Diminished breath sounds CENTRAL NERVOUS SYSTEM: Grossly nonfocal. [] EXTREMITIES: Lower extremities with no edema. Urinary Catheter Management: Arreguin: Cath Placed During This Visit: yes Reason for Continuing Indwelling Catheter: Accurate Measurement of Urinary Output in Critically Ill Patients Urinary Catheter Date of Insertion: 03/27/23 Urinary Catheter Time of Insertion: 03:20 Data 04/04/23 03:41 04/04/23 03:41 A&P Assessment and plan (1) ST elevation myocardial infarction (STEMI): (2) CAD (coronary artery disease): (3) Chronic kidney disease: (4) Elevated lactic acid level: (5) Acute kidney injury superimposed on CKD: (6) Cardiogenic shock: Resolved (7) Respiratory failure: Qualifiers: Chronicity: acute Respiratory failure complication: hypoxia Qualified Code(s): J96.01 - Acute respiratory failure with hypoxia (8) Ventricular fibrillation: Plan Patient had anterior wall ST elevation ND with a total occlusion of proximal LAD that underwent successful revascularization with 1 stent. Severe thrombotic stenosis of mid RCA stent was treated with ovoid balloon angioplasty. Intra-aortic balloon pump was removed last weekend. Patient has been able to maintain blood pressure without pressor support but urine output has been decreasing. Nephrology on board. Appreciate recs. Resumed Levophed to allow for aggressive diuresis. Monitor renal function, urine output and electrolytes. May add dobutamine if urine output does not improve. Continue Aspirin and Plavix Antibiotic therapy per medicine team Medicine team on board for medical management. Appreciate recs and communication with family. Patient may need placement to LTAC as has slow recovery. With recent deterioration of the renal function, will need goals of care discussion again. Patient still wanted to stay full code but will have further discussion specially if needs dialysis. Attestations Medical Necessity Statement*: Care expected to cross 2 midnights. Had STEMI, revascularized. Now extubated but renal function worsening. Nephrology on board. Coding Level of Care Code Acute Code for [facility] Diagnoses ST elevation myocardial infarction (STEMI) I21.3 CAD (coronary artery disease) I25.10 Chronic kidney disease N18.9 Elevated lactic acid level R79.89 Acute kidney injury superimposed on CKD N17.9; N18.9 Cardiogenic shock R57.0 Respiratory failure J96.01 Chronicity: acute Respiratory failure complication: hypoxia Ventricular fibrillation I49.01
--- NOTE | 2023-04-04 07:43 | PC.NURSE ---
Dr. Reilly contacted for patient anxiety on Bipap, verbal order received to give Ativan ordered for bedtime, now.
[2023-04-04] MEDS: guaiFENesin 600 mg Tablet 1200 MG PO ×2 (07:57→18:07)
[2023-04-04] MEDS: amiodarone 200 mg Tablet PO ×2 (07:57→18:08)
[2023-04-04] MEDS: atorvastatin 40 mg Tablet PO (07:57)
[2023-04-04] MEDS: aspirin 81 mg EC Tablet XX (07:58)
[2023-04-04] MEDS: citalopram 20 mg Tablet 40 MG PO (07:58)
[2023-04-04] MEDS: clopidogrel 75 mg Tablet OG-TUBE (07:58)
[2023-04-04] MEDS: LORazepam 2 mg/mL INJ 1 mL 0.25 MG IVP (07:59)
[2023-04-04] MEDS: nystatin 100,000 unit/mL UDC 5 mL 100000 UNIT PO ×4 (08:09→20:36)
[2023-04-04] MEDS: budesonide 0.5 mg/2 mL Neb INHALATION ×2 (08:55→19:59)
--- NOTE | 2023-04-04 11:19 | PM.CONSULT ---
Providers/Reason For Consult Consulting Physician/Specialty*: Kommana/Nephrology Reason for Consult*: ELIESER , volume overload Attending Physician: Librado Villarreal M.D Primary Care Provider: ANNA Elise History of Present Illness History of Present Illness Mingo Davis is a 82 year old male with past medical history of coronary artery disease prior stents, COPD, congestive cardiac failure, history of AAA, current kidney disease with a baseline creatinine in range of mid ones, scented to the emergency department on 03/19/2023 due to chest pain and was found to be in ST elevation RI he was taken to the [facility] emergently. Patient was noted to be in cardiogenic shock requiring balloon pump . Patient was intubated initially but was extubated, currently he is on 5 L nasal cannula and also requiring high flow oxygen and BiPAP intermittently. Chest x-ray showed pulmonary edema. His creatinine was 2.1 on presentation worsened to 3.2 currently with oliguria. He is made about 500 cc in the last 24 hours. His blood pressures are in the low end-80s to 90s systolic . He was given IV Lasix with no significant diuresis. Recent echo showed ejection fraction of 45%. Medications/Allergies Home Medications Medication Instructions Recorded Confirmed Last Taken Type albuterol sulfate 90 mcg/actuation 2 puff inhalation Q6H PRN 11/12/21 03/27/23 Unknown Rx aerosol inhaler (Ventolin HFA) shortness of breath or wheezing 30 days hydrocodone 10 mg-acetaminophen 1 tab PO Q6H PRN pain 05/30/22 03/27/23 Unknown History 325 mg tablet fluticasone fur. 100 mcg-umeclid 1 inh inhalation DAILY #60 ea 10/02/22 03/27/23 Unknown Rx 62.5 mcg-vilant 25 mcg inhalat.powder (Trelegy Ellipta) citalopram 40 mg tablet 40 mg PO DAILY #30 tabs 01/01/23 03/27/23 Unknown Rx pantoprazole 40 mg tablet,delayed 40 mg PO DAILY #30 tabs 01/01/23 03/27/23 Unknown Rx release aspirin 81 mg tablet,delayed 81 mg PO DAILY #90 tabs 01/26/23 03/27/23 Unknown Rx release atorvastatin 40 mg tablet 40 mg PO DAILY #90 tabs 01/26/23 03/27/23 Unknown Rx clopidogrel 75 mg tablet (Plavix) 75 mg PO DAILY #90 tabs 01/26/23 03/27/23 Unknown Rx Allergies Allergy/AdvReac Type Severity Reaction Status Date / Time No Known Allergies Allergy Verified 03/27/23 08:53 Current Medications Generic Name Dose Route Start Last Admin Trade Name Freq PRN Reason Stop Dose Admin Hydrocodone Bitart/Acetaminophen 1 tab 03/30/23 23:20 04/03/23 22:22 Hydrocodone-Acetaminophen 5-325 Mg Tablet PO 1 tab Q6H PRN Administration MODERATE PAIN Albuterol/Ipratropium 3 ml 03/27/23 14:00 04/04/23 08:55 Ipratropium-Albuterol 3 Ml Neb INHALATION 3 ml Q6H.RESP AZAEL Administration Amiodarone HCl 200 mg 03/29/23 11:15 04/04/23 07:57 Amiodarone 200 Mg Tablet PO 200 mg BID AZAEL Administration Aspirin 81 mg 03/27/23 10:45 04/04/23 07:58 Aspirin 81 Mg Ec Tablet XX 81 mg DAILY AZAEL Administration Atorvastatin Calcium 40 mg 03/27/23 09:00 04/04/23 07:57 Atorvastatin 40 Mg Tablet PO 40 mg DAILY AZAEL Administration Budesonide 0.5 mg 03/27/23 09:00 04/04/23 08:55 Budesonide 0.5 Mg/2 Ml Neb INHALATION 0.5 mg BID.RESPIRATORY AZAEL Administration Calcium Carbonate 500 mg 04/01/23 21:00 04/03/23 22:21 Calcium Carbonate 500 Mg Chew Tablet PO 500 mg TID AZAEL Administration Citalopram Hydrobromide 40 mg 03/30/23 09:00 04/04/23 07:58 Citalopram 20 Mg Tablet PO 40 mg DAILY AZAEL Administration Clopidogrel Bisulfate 75 mg 03/27/23 10:45 04/04/23 07:58 Clopidogrel 75 Mg Tablet OG-TUBE 75 mg DAILY AZAEL Administration Guaifenesin 1,200 mg 03/31/23 18:00 04/04/23 07:57 Guaifenesin 600 Mg Tablet PO 1,200 mg BID AZAEL Administration Heparin Sodium (Porcine) 5,000 unit 03/29/23 14:30 04/04/23 03:03 Heparin 5,000 Unit/Ml Inj 1 Ml SUBCUT 5,000 unit Q12H AZAEL Administration Albumin Human 12.5 gm in 50 mls @ 60 mls/hr 03/30/23 08:00 04/04/23 09:37 Albumin IV Infused Q8H AZAEL Infusion Piperacillin Sod/Tazobactam 50 mls @ 12.5 mls/hr 04/02/23 15:00 04/04/23 02:59 Sod 3.375 gm/ Sodium Chloride IV 12.5 mls/hr Q12H AZAEL Administration Lidocaine 1 patch 04/02/23 21:00 04/04/23 10:31 Lidocaine 5% Patch TOPICAL Not Given [id number] AZAEL Lorazepam 0.25 mg 03/31/23 16:46 04/04/23 07:59 Lorazepam 2 Mg/Ml Inj 1 Ml IVP 04/07/23 16:45 0.25 mg BEDTIME PRN Administration ANXIETY Nystatin 100,000 unit 03/28/23 13:00 04/04/23 08:09 Nystatin 100,000 Unit/Ml Udc 5 Ml PO 100,000 unit QID AZAEL Administration Pantoprazole Sodium 40 mg 03/28/23 12:15 04/04/23 00:06 Pantoprazole 40 Mg Sdv IVP 40 mg Q12H AZAEL Administration Psyllium Hydrophilic Mucilloid 1 packet 04/01/23 09:00 04/04/23 07:59 Psyllium Powder Pkt PO Not Given BID AZAEL PFSH Acute PFSH: Medical History AAA (abdominal aortic aneurysm) 4.9cmm 2018 Acid reflux Acute encephalopathy Acute respiratory failure with hypoxemia Anxiety, generalized Basal cell carcinoma CAD (coronary artery disease) Carotid stenosis Chronic kidney disease COPD (chronic obstructive pulmonary disease) Exertional dyspnea History of heart attack History of stroke Hypoxia Non-ST elevation RI (NSTEMI) NSTEMI (non-ST elevated myocardial infarction) Pneumonia due to 2019 novel coronavirus Smoker Smoker unmotivated to quit Syncope Surgical History History of back surgery 1972 History of heart artery stent Early 1999 Family History Other Cancer Stroke Denies family history of Diabetes Dementia Hypertension Social History Smoking and tobacco status: current every day smoker cigarettes Packs smoked per day: 1 Years cigarettes smoked: 73 [ Other cigarette details: Started smoking at age 8.] Second hand smoke exposure: No Smoking risk assessment/counseling performed?: Yes Alcohol intake: never Desire information about alcohol rehabilitation?: No Counseling given: No Substance/Drug Use: current Substance/Drug use frequency: few times a week Desire information about substance/drug rehabilitation?: No Counseling given: No Adopted: No Caregiver/support person: No Lives independently: Yes Household members: friend(s) Housing: Manufactured/Mobile home Marital status: Number of children: 2 service: Yes branch: [employer] Current occupational status: retired Do you think of yourself as: Straight/Heterosexual Current gender identity: Male Vitals/I&O/Wt Last Vital Signs Temp 97.5 F L 04/03/23 19:24 Pulse 75 04/04/23 10:00 Resp 24 H 04/04/23 10:00 BP 90/58 04/04/23 10:00 Pulse Ox 95 04/04/23 10:00 O2 Del Method Nasal Cannula 04/04/23 10:00 O2 Flow Rate 5 04/04/23 10:00 FiO2 30 04/04/23 08:59 04/03/23 04/04/23 04/04/23 22:59 06:59 14:59 Intake Total 250 / 795 150 / 945 170 / 170 Output Total 450 / 450 125 / 575 Balance -200 / 345 25 / 370 170 / 170 Physical Exam Urinary Catheter Management: Arreguin: Cath Placed During This Visit: yes Reason for Continuing Indwelling Catheter: Accurate Measurement of Urinary Output in Critically Ill Patients Urinary Catheter Date of Insertion: 03/27/23 Urinary Catheter Time of Insertion: 03:20 Data 04/04/23 03:41 04/04/23 03:41 A&P Assessment and plan (1) Acute kidney injury superimposed on CKD: Plan 1. Acute on chronic kidney disease stage III: Baseline creatinine in the mid 1 range, patient now has ELIESER with a creatinine of 3.2 today-secondary to recent contrast exposure and hypotension, in the setting of cardiogenic shock. -Patient is volume overloaded but no response to IV Lasix likely from poor perfusion/low blood pressures. -Could consider inotrope support and improve blood pressures and then attempt to diurese with IV Lasix OR could start CRRT for ultrafiltration. Will discuss with primary team 2. Metabolic acidosis: Mild secondary to worsening ELIESER, monitor 3. Status post STEMI, cardiogenic shock: , Status post left heart cath and proximal LAD stent. Blood pressures on the low side 4. History of COPD: Patient evaluated using audiovisual cart. Time spent 45 minutes Consult Attestations Medical Necessity Statement: per medicine Coding Level of Care Code Acute Code for [facility] Diagnoses Acute kidney injury superimposed on CKD N17.9; N18.9
[2023-04-04] MEDS: calcium carbonate 500 mg Chew Tablet PO (14:27)
[2023-04-04] MEDS: FUROsemide 10 mg/mL SDV 10mL 60 MG IVP (16:32)
--- NOTE | 2023-04-04 18:53 | PC.NURSE ---
Lasix given after dose of Albumen at 1630. Next dose at 1800 not given. Pharmacy called to adjust schedule to BID. See MAR and new order to reflect BID schedule.
--- NOTE | 2023-04-04 19:57 | P.PN_ITS ---
Subjective Subjective: He reports he is feeling all right this morning. Denies chest pain or pressure. No trouble breathing. Discussed with him regarding worsening renal function, nephrology evaluation. Vitals/I&O/Wt Last Vital Signs Temp 97.5 F L 04/03/23 19:24 Pulse 71 04/04/23 18:30 Resp 30 H 04/04/23 18:30 BP 100/66 04/04/23 18:30 Pulse Ox 97 04/04/23 18:30 O2 Del Method BiPAP 04/04/23 18:30 O2 Flow Rate 5 04/04/23 10:00 FiO2 30 04/04/23 15:25 04/04/23 04/04/23 04/04/23 06:59 14:59 22:59 Intake Total 200 / 995 420 / 420 335 / 755 Output Total 125 / 575 150 / 150 Balance 75 / 420 420 / 420 185 / 605 Physical Exam Const: COMMON NORMALS: patient oriented x3 and alert GENERAL APPEARANCE: cooperative and frail appearing ORIENTATION/CONSCIOUSNESS: Yes awake OTHER: Generally weak HENMT: COMMON NORMALS: oropharynx normal Neck/C-Spine: COMMON NORMALS: no JVD Resp: AUSCULTATION: no rhonchi (With improvement) and wheezes (Min RLL) OTHER: NC Cardio: COMMON NORMALS: no JVD, regular rhythm, S1 normal heart sound present, S2 normal heart sound present and No murmurs present (Cardio) RHYTHM: regular rhythm HEART SOUNDS: S1 normal heart sound present and S2 normal heart sound present GI: COMMON NORMALS: Normal to inspection, nondistended, normoactive bowel s ounds present, Soft to palpation and non-tender PALPATION: Yes Soft to pa lpation Extremity: COMMON NORMALS: no joint enlargement and no pedal edema Neuro: COMMON NORMALS: patient oriented x3 and moves all extremities SENSORIUM/ORIENTATION: Yes alert Urinary Catheter Management: Arreguin: Cath Placed During This Visit: yes Reason for Continuing Indwelling Catheter: Accurate Measurement of Urinary Output in Critically Ill Patients Urinary Catheter Date of Insertion: 03/27/23 Urinary Catheter Time of Insertion: 03:20 Data 04/04/23 03:41 04/04/23 03:41 A&P Assessment and plan (1) Acute kidney injury superimposed on CKD: Worsening renal function, creatinine up to 3.2 today. BUN 58. Reduced urine output. Anion gap 29.5. Bicarb 21. With fluid overload, hypoxia, today requiring BiPAP support. Discussed with him, discussed with nephrology in consultation, discussed with cardiology, with concern for cardiorenal syndrome, initiate pressor support, started on scheduled diuretic challenge, monitor urine output. Recheck chemistries. Discussed with him, he is at risk of needing renal replacement therapy. Discussed with case management, discharge deferred. (2) Cardiogenic shock: With slow improvement, blood pressures overall better, however, currently with cardiorenal syndrome, blood pressure soft, started on pressors as above. Consider dobutamine, but may lower his blood pressure instead. Monitor response, addition of dobutamine still may be given consideration. Hyperkalemia improved, potassium 3.5. Magnesium WNL. Ionized calcium is 1. Continue oral calcium supplement. IABP removed. Wean Levophed as possible keeping mean arterial pressure over 65-70. Management as per cardiology team. Strict input/output charting. (3) Respiratory failure: Currently worsening respiratory failure with decompensated CHF, worsening renal function with reduced urine output. Additional management as above. Rhonchi have improved,Continue Zosyn for now, possible component of pneumonia still having secretions but improving over last several days. Continue pulmonary toilet. Speech therapy assessment appreciated. Aspiration precautions. Dysphagia diet. Extubated 03/30. High risk extubation as per goals of care discussion with patient's DPOA/son at bedside. Extubated to BiPAP. Keep saturation over 90%. DuoNebs every 6 hour, budesonide twice daily. Strict input/output charting. Daily weights. Fluid restriction up to 1500 cc. Qualifiers: Chronicity: acute Respiratory failure complication: hypoxia Qualified Code(s): J96.01 - Acute respiratory failure with hypoxia (4) Goals of care, counseling/discussion: Discharge currently deferred. Discussed with case management. Further consideration of LTAC versus SNF depending on his progress. (5) Poor intravenous access: PICC line (6) ST elevation myocardial infarction (STEMI): Post successful revascularization of proximal LAD with 1 RUDOLPH, balloon angioplasty of mid RCA stent. Continue with aspirin, Plavix, statin. Echocardiogram poor study, difficult to assess current LV function Consider beta-maddie and AKIKO inhibitor once out of cardiogenic shock. (7) Ventricular fibrillation: Continue replacement of potassium, calcium as above. Keep magnesium around 2, potassium over 4. Replete magnesium and calcium accordingly. Continue with oral amiodarone 200 mg twice daily. (8) Leukocytosis: Continued worsening up to 11. Secretions have been improving. Continue Zosyn, cannot exclude pneumonia on imaging. Most likely reactionary to ST elevation [place]. As patient is critically sick for now will cover with IV antibiotics. Sputum cultures so far showing normal sally. Blood cultures so far negative. MRSA swab negative. Discontinue vancomycin. Continue with Zosyn. (9) Elevated lactic acid level: Most likely in setting of cardiogenic shock. (10) AAA (abdominal aortic aneurysm): Last imaging from March 2022 shows abdominal aortic aneurysm with peripheral mural thrombus measuring 5.1 x 4.6 x 7.8 which had progressed since 2018. Follow-up CBC requested. We will continue to monitor. His friend Isabela is aware of the seriousness of the AAA, states that he was previously assessed for consideration of repair, but was not found possible due to lack of family available access. (11) On intra-aortic balloon pump assist: Removed on 03/29. (12) Congestive heart failure: Plan Lumbar pain: Lidocaine patch. US to reassess AAA. Attestations Medical Necessity Statement*: Continue admission for assessment management of acute renal failure, possible ca rdiorenal syndrome, decompensated CHF, respiratory failure. Coding Level of Care Code Critical Care >/= 30 minutes Critical care time (in minutes): 40 The high probability of a clinically significant, sudden or life threatening deterioration, as referenced in this documentation, required my full and direct attention, intervention and personal management. The critical care time shown is in addition to time spent performing any reported separately billable procedures and includes the following: [x] Data and vital sign review and interpretation [x ] Patient assessment, examination and intervention [x] Medication orders and management [x] Patient/Family updates as able [x] Care Coordination and Documentation. Diagnoses Acute kidney injury superimposed on CKD N17.9; N18.9 Cardiogenic shock R57.0 Respiratory failure J96.01 Chronicity: acute Respiratory failure complication: hypoxia Goals of care, counseling/discussion Z71.89 Poor intravenous access Z78.9 ST elevation myocardial infarction (STEMI) I21.3 Ventricular fibrillation I49.01 Leukocytosis D72.829 Elevated lactic acid level R79.89 AAA (abdominal aortic aneurysm) I71.4 On intra-aortic balloon pump assist Z98.890 Congestive heart failure I50.9
[2023-04-05] VITALS (58 sets, daily range): BP systolic 85–119; BP diastolic 56–88; PULSE 67–78; RESP 14–37; O2SAT 86–100
[2023-04-05] MEDS: pantoprazole 40 mg SDV IVP ×2 (00:39→12:35)
[2023-04-05] MEDS: albumin 12.5 GM/50 ML VIAL IV ×3 (00:39→15:51)
[2023-04-05] MEDS: ipratropium-albuterol 3 mL Neb INHALATION ×4 (01:19→20:13)
[2023-04-05] MEDS: heparin 5,000 unit/mL INJ 1 mL 5000 UNIT SUBCUT ×2 (02:28→15:51)
[2023-04-05] MEDS: piperacillin-tazobactam 3.375 GM in sodium chloride 0.9% (plus) 50 ML IV ×2 (02:29→15:56)
[2023-04-05 03:02] LABS: Basophils % 0.3 %; Eosinophils # 0.1 10^3/uL (0.0-0.8); Eosinophils % 0.6 %; Hematocrit 27.6 % (42.0-52.0); Hemoglobin 8.6 g/dL (11.7-16.6); Lymphocytes # 1.5 10^3/uL (0.8-4.8); Lymphocytes % 12.2 %; Mean Corpuscular HGB Conc 31.2 g/dL (30.0-36.0); Mean Corpuscular Hemoglobin 28.6 pg (28.0-34.0); Mean Corpuscular Volume 91.7 fl (80-94); Mean Platelet Volume 12.1 fL (7.4-10.4); Monocytes # 0.8 10^3/uL (0.2-0.9); Monocytes % 6.5 %; Neutrophils # 9.74 10^3/uL (1.8-7.7); Neutrophils % 79.9 %; Nucleated Red Blood Cells # 0.1 /100WBC; Nucleated Red Blood Cells % 0.6 %; Platelet Count 239 10^3/cmm (130-400); Red Blood Count 3.01 10^6/uL (4.1-5.3); Red Cell Distribution Width 14.5 % (12.1-15.1); White Blood Count 12.2 10^3/uL (4.0-10.0)
[2023-04-05 03:16] LABS: Alanine Aminotransferase 31 U/L (0-41); Alkaline Phosphatase 171 U/L (40-130); Anion Gap 22.5 (5-19); Aspartate Amino Transferase 35 U/L (0-40); Blood Urea Nitrogen 67 mg/dL (8-23); Calcium 8.7 mg/dL (8.5-10.5); Carbon Dioxide 21 mmol/L (22-29); Chloride 99 mmol/L (98-107); Globulin 2.7 g/dL (1.3-4.6); Glucose 121 mg/dL (65-115); Osmolality Calculated 309 mOsm/kg (285-295); Potassium 3.5 mmol/L (3.5-5.1); Sodium 139 mmol/L (136-145); Total Bilirubin 0.5 mg/dL (0.15-1.2); Total Protein 6.7 g/dL (6.6-8.7)
[2023-04-05] MEDS: FUROsemide 10 mg/mL SDV 10mL 60 MG IVP ×2 (07:13→20:02)
[2023-04-05] MEDS: budesonide 0.5 mg/2 mL Neb INHALATION ×2 (08:42→20:13)
--- NOTE | 2023-04-05 09:08 | P.PN_ITS ---
Subjective Subjective: Mingo is a complicated patient who has a long history of frailty and underlying organic heart disease with other medical problems as well. When he was here in late December I saw him with chest pain and an elevation in his troponin. At that time his stress test did not reveal any significant ischemia and so because of his underlying problems he was treated medically. He has a AAA that has been deemed too risky to treat, history of stroke, degenerative joint disease, basal cell carcinoma of the chest treated with radiation therapy, carotid disease, GERD, chronic kidney disease, active smoker with severe COPD. He came in about 10 days ago on the with an acute anterior wall SC. He was taken to the catheterization laboratory where his LAD was found to be occluded. A drug-eluting stent was placed. At that time there was in-stent restenosis of a previously placed right coronary artery stent which underwent angioplasty. He developed acute pulmonary edema, cardiogenic shock. He was intubated and a balloon pump was placed. He had developed intermittent episodes of ventricular tachycardia and fibrillation. Over the last week to 10 days he was ultimately extubated at the behest of his son who apparently was the DURABLE POWER OF [employer] SERVICE [employer]ENT. The balloon pump was removed. When the patient regained the ability to the make his own decisions he requested that his son not be the DURABLE POWER OF VEHICLE SERVICE AGENT and that his girlfriend take over that role. There were a lot of social difficulties associated with these decisions. Patient then reversed the no code order and wanted to be reintubated if necessary. 2 days ago he had a decrease in his urine output, became oliguric and his creatinine has begun to increase. It is up to 3.3 today. Nephrology saw him yesterday and suggested the possibility of CRRT. He is on 2 mcg/min of norepinephrine. His hemoglobin is 8.6 When I walked in the room the patient was being given some pills in pudding. He was off his BiPAP and is extremely short of breath with audible wheezing and difficulty breathing. He can barely speak 1 or 2 sentences he is so short of breath. He is awake and alert and told me that he wanted to be reintubated and did not want his son making any of the decisions for him but wanted his girlfriend to do so. The only drip is the norepinephrine. Vitals/I&O/Wt Last Vital Signs Temp 97.5 F L 04/03/23 19:24 Pulse 72 07/08/23 08:45 Resp 26 H 04/05/23 08:42 BP 101/66 04/05/23 08:00 Pulse Ox 98 04/05/23 08:45 O2 Del Method BiPAP 04/05/23 08:42 O2 Flow Rate 5 04/04/23 10:00 FiO2 30 04/05/23 08:45 04/04/23 04/05/23 04/05/23 22:59 06:59 14:59 Intake Total 335 / 755 50 / 805 100 / 100 Output Total 175 / 175 375 / 550 Balance 160 / 580 -325 / 255 100 / 100 Physical Exam Narrative: GENERAL: In extremis, short of breath, audible wheezing, unable to complete a sentence. HEENT: Exam within normal limits. NECK: Supple without jugular vein distention. The carotid upstroke is normal without bruits. BACK: Exam normal. LUNGS: Rales, wheezing, extreme shortness of breath HEART: Regular rate and rhythm. ABDOMEN: Benign without organomegaly or tenderness. EXTREMITIES: No edema. NEUROLOGIC: Exam normal. SKIN: Unremarkable. Urinary Catheter Management: Arreguin: Cath Placed During This Visit: yes Reason for Continuing Indwelling Catheter: Accurate Measurement of Urinary Output in Critically Ill Patients Urinary Catheter Date of Insertion: 03/27/23 Urinary Catheter Time of Insertion: 03:20 Data 04/05/23 02:29 04/05/23 02:29 A&P Assessment and plan (1) Congestive heart failure: (2) Goals of care, counseling/discussion: (3) Ventricular fibrillation: (4) AAA (abdominal aortic aneurysm): (5) Acute kidney injury superimposed on CKD: (6) Leukocytosis: (7) Cardiogenic shock: (8) Respiratory failure: Qualifiers: Chronicity: acute Respiratory failure complication: hypoxia Qualified Code(s): J96.01 - Acute respiratory failure with hypoxia (9) Pulmonary edema cardiac cause: (10) CAD (coronary artery disease): (11) ST elevation myocardial infarction (STEMI): (12) Smoker unmotivated to quit: (13) Hypoxia: (14) Carotid stenosis: Plan He is not likely to survive this. His left ventricular function is so poor that despite CRRT and inotropic agents this is most likely a nonsurvivable situation. Patient himself wants to be reintubated. I fear that if he is reintubated he will not get a ventilator there. There are risks with the inotropic agents mainly hypotension. Without an attempt at CRRT and or inotropic agents he will have respiratory failure. We will need to contact his DPOA and as long as he is able to make these decisions they should be made as soon as possible. Attestations Medical Necessity Statement*: ICU care necessary for management of all of the above medical problems. He is critically ill. and High Time for a total of 65 minutes, includes reviewing past or interval history, examining/interviewing patient, placing orders, counseling patient/family/other support, updating patient/family/other support, discussing plan of care with s taff, communicating with other healthcare providers, documenting encounter and coordinating care Diagnoses Congestive heart failure I50.9 Goals of care, counseling/discussion Z71.89 Ventricular fibrillation I49.01 AAA (abdominal aortic aneurysm) I71.4 Acute kidney injury superimposed on CKD N17.9; N18.9 Leukocytosis D72.829 Cardiogenic shock R57.0 Respiratory failure J96.01 Chronicity: acute Respiratory failure complication: hypoxia Pulmonary edema cardiac cause I50.1 CAD (coronary artery disease) I25.10 ST elevation myocardial infarction (STEMI) I21.3 Smoker unmotivated to quit F17.200 Hypoxia R09.02 Carotid stenosis I65.29
[2023-04-05] MEDS: nystatin 100,000 unit/mL UDC 5 mL 100000 UNIT PO ×3 (09:15→20:02)
[2023-04-05] MEDS: atorvastatin 40 mg Tablet PO (09:16)
[2023-04-05] MEDS: guaiFENesin 600 mg Tablet 1200 MG PO (09:16)
[2023-04-05] MEDS: psyllium powder Pkt 1 PACKET PO (09:16)
[2023-04-05] MEDS: amiodarone 200 mg Tablet PO (09:17)
[2023-04-05] MEDS: lidocaine 5% Patch 1 PATCH TOPICAL (09:17)
[2023-04-05] MEDS: aspirin 81 mg EC Tablet XX (09:17)
[2023-04-05] MEDS: citalopram 20 mg Tablet 40 MG PO (09:17)
[2023-04-05] MEDS: clopidogrel 75 mg Tablet OG-TUBE (09:17)
[2023-04-05] MEDS: calcium carbonate 500 mg Chew Tablet PO ×3 (09:17→20:02)
--- NOTE | 2023-04-05 10:32 | PM.PN ---
Subjective Subjective: U urine output remains low, blood pressure borderline low in the 90s to 100s systolic, on Levophed, on 30% FiO2 on BiPAP Medications: Reviewed: Yes Vitals/I&O/Wt Last Vital Signs Temp 97.5 F L 04/03/23 19:24 Pulse 71 04/05/23 10:26 Resp 26 H 04/05/23 08:42 BP 101/66 04/05/23 08:00 Pulse Ox 97 04/05/23 10:26 O2 Del Method BiPAP 04/05/23 08:42 O2 Flow Rate 5 04/04/23 10:00 FiO2 30 04/05/23 10:26 04/04/23 04/05/23 04/05/23 22:59 06:59 14:59 Intake Total 335 / 755 50 / 805 220 / 220 Output Total 175 / 175 375 / 550 Balance 160 / 580 -325 / 255 220 / 220 Physical Exam Narrative: Patient on BiPAP, mild distress Sinus regular rhythm per report Crackles bilaterally per report No pedal edema Urinary Catheter Management: Arreguin: Cath Placed During This Visit: yes Reason for Continuing Indwelling Catheter: Accurate Measurement of Urinary Output in Critically Ill Patients Urinary Catheter Date of Insertion: 03/27/23 Urinary Catheter Time of Insertion: 03:20 Data 04/05/23 02:29 04/05/23 02:29 A&P Assessment and plan (1) Acute kidney injury superimposed on CKD: Plan 1. Acute on chronic kidney disease stage III: Baseline creatinine in the mid 1 range, patient now has ELIESER with a creatinine of 3.2 today-secondary to recent contrast exposure and hypotension, in the setting of cardiogenic shock. -Patient is volume overloaded but no response to IV Lasix likely from poor perfusion/low blood pressures. - renal function further worse today, with oliguria-no response to IV diuretics with inotrope support -We will attempt CRRT today if patient family agrees 2. Metabolic acidosis: Mild secondary to worsening ELIESER, monitor 3. Status post STEMI, cardiogenic shock: , Status post left heart cath and proximal LAD stent. Blood pressures on the low side 4. History of COPD: Overall poor prognosis due to multiple comorbidities Patient evaluated using audiovisual cart. Time spent 45 minutes Attestations Medical Necessity Statement*: per verena Coding Level of Care Code Acute Code for Chg Fwd Diagnoses Acute kidney injury superimposed on CKD N17.9; N18.9
--- NOTE | 2023-04-05 12:38 | PC.SOCIAL ---
Imm update Imm updated with patient at bedside. copy of page 2 provided. Copy in chart initialed, dated and timed.
--- NOTE | 2023-04-05 15:27 | PC.NURSE ---
patient's son called patient's son called for an update on his father. I asked patient if I could speak with his son on the phone. Patient stated tell him he's getting his wish, i'm going to . I explained that I don't have to give any information or speak with him if he doesn't want me to. He then stated tell him if he wants any information to call my brother Sage. I told the son this on the phone and he began to get angry and said that was ridiculous and that he is the DPOA. I put him on hold and checked the patient's chart as I was told that the DPOA had changed and was no longer the son which was correct. I then explained the situation to the charge nurse, VIRAJ. VIRAJ then picked up the phone and spoke with the patient's son.
--- NOTE | 2023-04-05 17:37 | P.PN_ITS ---
Subjective Subjective: Not in pain. No chest discomfort. BiPAP is helping him take better breaths. Sadly concedes the seriousness of his condition. I am likely going to heaven... . Wish I could go fishing... . Vitals/I&O/Wt Last Vital Signs Temp 97.5 F L 04/03/23 19:24 Pulse 71 04/05/23 17:23 Resp 23 H 04/05/23 16:00 BP 93/66 04/05/23 16:00 Pulse Ox 95 04/05/23 17:23 O2 Del Method BiPAP 04/05/23 13:39 O2 Flow Rate 5 04/04/23 10:00 FiO2 30 04/05/23 17:23 04/05/23 04/05/23 04/05/23 06:59 14:59 22:59 Intake Total 50 / 805 220 / 220 Output Total 375 / 550 Balance -325 / 255 220 / 220 Physical Exam Const: COMMON NORMALS: patient oriented x3 and alert GENERAL APPEARANCE: cooperative and frail appearing ORIENTATION/CONSCIOUSNESS: Yes awake OTHER: Generally weak HENMT: COMMON NORMALS: oropharynx normal Neck/C-Spine: COMMON NORMALS: no JVD Resp: AUSCULTATION: other (Coarse breath sounds) OTHER: BiPAP Cardio: COMMON NORMALS: no JVD, regular rhythm, S1 normal heart sound present, S2 normal heart sound present and No murmurs present (Cardio) RHYTHM: regular rhythm HEART SOUNDS: S1 normal heart sound present and S2 normal heart sound present GI: COMMON NORMALS: Normal to inspection, nondistended, normoactive bowel sounds present, Soft to palpation and non-tender PALPATION: Yes Soft to palpation Extremity: COMMON NORMALS: no joint enlargement and no pedal edema Neuro: COMMON NORMALS: patient oriented x3 and moves all extremities SENSORIUM/ORIENTATION: Yes alert Urinary Catheter Management: Arreguin: Cath Placed During This Visit: yes Reason for Continuing Indwelling Catheter: Accurate Measurement of Urinary Output in Critically Ill Patients Urinary Catheter Date of Insertion: 03/27/23 Urinary Catheter Time of Insertion: 03:20 Data 04/05/23 02:29 04/05/23 02:29 A&P Assessment and plan (1) Acute kidney injury superimposed on CKD: Nephrology assessment appreciated, discussed with nephrology, consideration of obtaining temporary HD catheter and initiating CRRT, however, he declined. Continue pressor support, cardiology considering addition of inotropes. Discussed with nursing staff cardiac systolic pressure 100 mmHg. Continue diuretic. Reassess chemistry. He understands that his prognosis is poor. Discussing CODE STATUS with him with his nurse also present, he realizes that resuscitation in case of cardiac arrest would only at best bring him back to the current condition, and will likely also in worse shape compared to before arrest. He himself mentions that he would not want to have broken ribs. In case was imminent he would be okay with addition of medications to make him comfortable at that point. (2) Cardiogenic shock: He understands that intubation alone without possibility of definitive treatment would not likely lead to a desirable outcome, mechanical ventilatory support could support his respiration in case of worsening pulmonary edema temporarily, though proceeding with intubation may further lead to sooner destabilization of his condition. He does not want intubation at this time. He is okay with continuing BiPAP support and supportive measures as above. He is okay with addition of comfort medicines in case were imminent. At the end of my visit we were also notified that his son was calling. Telling him of this, Mr. Mistry says he would like to go ahead and speak with him. Blood pressure soft, pressor support as well. Consideration of inotropes. (3) Respiratory failure: Currently worsening respiratory failure with decompensated CHF, worsening renal function with reduced urine output. Additional management as above. Rhonchi have improved,Continue Zosyn for now, possible component of pneumonia still having secretions but improving over last several days. Continue pulmonary toilet. We will check procalcitonin Speech therapy assessment appreciated. Aspiration precautions. Dysphagia diet. Extubated 03/30. High risk extubation as per goals of care discussion with patient's DPOA/son at bedside. Extubated to BiPAP. Keep saturation over 90%. DuoNebs every 6 hour, budesonide twice daily. Strict input/output charting. Daily weights. Fluid restriction up to 1500 cc. Qualifiers: Chronicity: acute Respiratory failure complication: hypoxia Qualified Code(s): J96.01 - Acute respiratory failure with hypoxia (4) Goals of care, counseling/discussion: As above. (5) Poor intravenous access: PICC line (6) ST elevation myocardial infarction (STEMI): Post successful revascularization of proximal LAD with 1 RUDOLPH, balloon angioplasty of mid RCA stent. Continue with aspirin, Plavix, statin. Echocardiogram poor study, difficult to assess current LV function Consider beta-maddie and AKIKO inhibitor once out of cardiogenic shock. (7) Ventricular fibrillation: Continue replacement of potassium. Hold calcium supplement. Recheck ionized calcium. Keep magnesium around 2, potassium over 4. Replete magnesium and calcium accordingly. Continue with oral amiodarone 200 mg twice daily. (8) Leukocytosis: Continued worsening up to 12.2. Secretions have been improving. Still coarse sounding. Follow-up chest x-ray. Check procalcitonin. Most likely reactionary to ST elevation [place]. As patient is critically sick for now will cover with IV antibiotics. Sputum cultures grew mixed respiratory sally. Blood cultures so far negative. MRSA swab negative. Off vancomycin. Continue with Zosyn. (9) Elevated lactic acid level: Most likely in setting of cardiogenic shock. (10) AAA (abdominal aortic aneurysm): Last imaging from March 2022 shows abdominal aortic aneurysm with peripheral mural thrombus measuring 5.1 x 4.6 x 7.8 which had progressed since 2018. Follow-up CBC requested. We will continue to monitor. His friend Isabela is aware of the seriousness of the AAA, states that he was previously assessed for consideration of repair, but was not found possible due to lack of family available access. (11) On intra-aortic balloon pump assist: Removed on 03/29. (12) Congestive heart failure: Plan Lumbar pain: Lidocaine patch. Distal AAA 4.9 x 5.3 cm. The ureter lumen narrowing distally due to extensive mural thrombus at the bifurcation and not well visualized. Follow-up CTA recommended. Moderate atheromatous disease with peripheral mural thrombus iliac arteries difficult to visualize but appear patent. Attestations Medical Necessity Statement*: Continue admission for assessment management of acute renal failure, possible cardiorenal syndrome, decompensated CHF, respiratory failure. Coding Level of Care Code Critical Care >/= 30 minutes Critical care time (in minutes): 45 The high probability of a clinically significant, sudden or life threatening deterioration, as referenced in this documentation, required my full and direct attention, intervention and personal management. The critical care time shown is in addition to time spent performing any reported separately billable procedures and includes the following: [x] Data and vital sign review and interpretation [x ] Patient assessment, examination and intervention [x] Medication orders and management [x] Patient/Family updates as able [x] Care Coordination and Documentation. Diagnoses Acute kidney injury superimposed on CKD N17.9; N18.9 Cardiogenic shock R57.0 Respiratory failure J96.01 Chronicity: acute Respiratory failure complication: hypoxia Goals of care, counseling/discussion Z71.89 Poor intravenous access Z78.9 ST elevation myocardial infarction (STEMI) I21.3 Ventricular fibrillation I49.01 Leukocytosis D72.829 Elevated lactic acid level R79.89 AAA (abdominal aortic aneurysm) I71.4 On intra-aortic balloon pump assist Z98.890 Congestive heart failure I50.9
[2023-04-05 21:31] LABS: Procalcitonin 0.52 ng/mL (0-0.5)
[2023-04-05] MEDS: LORazepam 2 mg/mL INJ 1 mL 0.25 MG IVP (23:46)
[2023-04-06] VITALS (60 sets, daily range): BP systolic 91–114; BP diastolic 58–86; PULSE 66–79; RESP 14–30; TEMP 36.9–37.1; O2SAT 78–100
[2023-04-06] MEDS: pantoprazole 40 mg SDV IVP ×2 (00:10→12:21)
[2023-04-06] MEDS: albumin 12.5 GM/50 ML VIAL IV ×2 (00:10→09:02)
[2023-04-06] MEDS: ipratropium-albuterol 3 mL Neb INHALATION ×4 (02:14→20:13)
[2023-04-06] MEDS: piperacillin-tazobactam 3.375 GM in sodium chloride 0.9% (plus) 50 ML IV (03:04)
[2023-04-06] MEDS: heparin 5,000 unit/mL INJ 1 mL 5000 UNIT SUBCUT ×2 (03:04→14:05)
[2023-04-06 03:54] LABS: Ionized Calcium 1.1 mmol/L (1.1-1.4)
[2023-04-06 04:48] LABS: Basophils % 0.3 %; Eosinophils # 0.1 10^3/uL (0.0-0.8); Eosinophils % 0.9 %; Hematocrit 26.4 % (42.0-52.0); Hemoglobin 8.2 g/dL (11.7-16.6); Lymphocytes # 1.5 10^3/uL (0.8-4.8); Lymphocytes % 14.7 %; Mean Corpuscular HGB Conc 31.1 g/dL (30.0-36.0); Mean Corpuscular Hemoglobin 28.3 pg (28.0-34.0); Mean Platelet Volume 12.3 fL (7.4-10.4); Monocytes # 0.6 10^3/uL (0.2-0.9); Monocytes % 5.6 %; Neutrophils # 8.04 10^3/uL (1.8-7.7); Nucleated Red Blood Cells # 0.1 /100WBC; Platelet Count 274 10^3/cmm (130-400); Red Cell Distribution Width 14.6 % (12.1-15.1); White Blood Count 10.3 10^3/uL (4.0-10.0)
[2023-04-06 05:11] LABS: Alanine Aminotransferase 38 U/L (0-41); Alkaline Phosphatase 166 U/L (40-130); Anion Gap 20.8 (5-19); Aspartate Amino Transferase 38 U/L (0-40); Blood Urea Nitrogen 75 mg/dL (8-23); Calcium 8.7 mg/dL (8.5-10.5); Carbon Dioxide 20 mmol/L (22-29); Chloride 97 mmol/L (98-107); Globulin 2.7 g/dL (1.3-4.6); Glucose 105 mg/dL (65-115); Osmolality Calculated 303 mOsm/kg (285-295); Sodium 135 mmol/L (136-145); Total Bilirubin 0.5 mg/dL (0.15-1.2); Total Protein 6.7 g/dL (6.6-8.7)
[2023-04-06 05:24] LABS: Potassium 2.8 mmol/L (3.5-5.1)
--- NOTE | 2023-04-06 06:00 | XRR_ITS ---
PROCEDURE INFORMATION: Exam: XR Chest Exam date and time: 04/06/2023 6:02 AM Age: 82 years old Clinical indication: Shortness of breath; Patient HX: F/u for pulmonary edema. ; Additional info: Hypoxia TECHNIQUE: Imaging protocol: Radiologic exam of the chest. Views: 1 view. COMPARISON: CR XR chest 1V portable [id number] 04/02/2023 6:12 AM FINDINGS: Lungs: There is redistribution and indistinctness of the pulmonary vasculature, in association with haziness of the lungs and small bilateral pleural effusions, which in the setting of cardiomegaly is consistent with pulmonary edema. Pneumonia should be excluded clinically. No pneumothorax. Pleural spaces: See Lungs finding. Heart/Mediastinum: Stable cardiomediastinal silhouette. Bones/joints: Unremarkable. XR/XR chest 1V portable [id number] IMPRESSION: Imaging findings of pulmonary edema with small bilateral pleural effusions. Pneumonia should be excluded clinically.
--- NOTE | 2023-04-06 08:46 | P.PN_ITS ---
Subjective Subjective: Mingo is struggling today. He took his mask off while I was in the room and immediately became so short of breath he could not speak. He became a little bit agitated and tried to get out of bed. He wanted his brother to get his cane out of the closet so that he can go to pentecostalism. Yesterday the decision was made not to perform CRRT. He has told everyone that he does not want to be reintuba sadie. We have therefore decided not to place him on inotropes. He does fairly well while he is on the BiPAP mask. Vitals/I&O/Wt Last Vital Signs Temp 97.5 F L 04/03/23 19:24 Pulse 69 04/06/23 08:00 Resp 21 H 04/06/23 08:00 BP 91/66 04/06/23 08:00 Pulse Ox 100 04/06/23 05:30 O2 Del Method BiPAP 04/06/23 02:14 O2 Flow Rate 5 04/04/23 10:00 FiO2 30 04/06/23 02:14 04/05/23 04/06/23 04/06/23 22:59 06:59 14:59 Intake Total 160 / 400 304 / 704 Output Total 700 / 700 350 / 1050 Balance -540 / -300 -46 / -346 Physical Exam Narrative: GENERAL: In general he is slightly confused and struggling to breathe HEENT: Exam within normal limits. NECK: Supple without jugular vein distention. The carotid upstroke is normal without bruits. BACK: Exam normal. LUNGS: Decreased breath sounds, wheezing and rales HEART: Regular rate and rhythm. ABDOMEN: Benign without organomegaly or tenderness. EXTREMITIES: No edema. NEUROLOGIC: Exam reveals a nonfocal exam but confusion SKIN: Unremarkable. Urinary Catheter Management: Arreguin: Cath Placed During This Visit: yes Reason for Continuing Indwelling Catheter: Accurate Measurement of Urinary Output in Critically Ill Patients Urinary Catheter Date of Insertion: 03/27/23 Urinary Catheter Time of Insertion: 03:20 Data 04/06/23 03:46 04/06/23 03:46 A&P Assessment and plan (1) Carotid stenosis: (2) Hypoxia: (3) Smoker unmotivated to quit: (4) Congestive heart failure: (5) Ventricular fibrillation: (6) AAA (abdominal aortic aneurysm): (7) Leukocytosis: (8) Acute kidney injury superimposed on CKD: (9) Cardiogenic shock: (10) Respiratory failure: Qualifiers: Chronicity: acute Respiratory failure complication: hypoxia Qualified Code(s): J96.01 - Acute respiratory failure with hypoxia (11) Pulmonary edema cardiac cause: (12) CAD (coronary artery disease): (13) ST elevation myocardial infarction (STEMI): Plan His renal function continues to slowly deteriorate. Creatinine is up to 3.6 with a BUN of 75. His potassium is 2.8. I had a long conversation with his brother and his brother's today. We will continue comfort care. Attestations Medical Necessity Statement*: Hospitalization for multiple medical problems, cardiogenic shock, renal failure among others. and High Time for a total of 60 minutes, includes reviewing past or interval history, examining/interviewing patient, placing orders, counseling patient/family/other support, updating patient/family/other support, discussing plan of care with s taff, communicating with other healthcare providers, documenting encounter and coordinating care Diagnoses Carotid stenosis I65.29 Hypoxia R09.02 Smoker unmotivated to quit F17.200 Congestive heart failure I50.9 Ventricular fibrillation I49.01 AAA (abdominal aortic aneurysm) I71.4 Leukocytosis D72.829 Acute kidney injury superimposed on CKD N17.9; N18.9 Cardiogenic shock R57.0 Respiratory failure J96.01 Chronicity: acute Respiratory failure complication: hypoxia Pulmonary edema cardiac cause I50.1 CAD (coronary artery disease) I25.10 ST elevation myocardial infarction (STEMI) I21.3
[2023-04-06] MEDS: atorvastatin 40 mg Tablet PO (09:02)
[2023-04-06] MEDS: potassium chloride ER 20 mEq Tablet PO ×2 (09:02→19:27)
[2023-04-06] MEDS: clopidogrel 75 mg Tablet OG-TUBE (09:02)
[2023-04-06] MEDS: aspirin 81 mg EC Tablet XX (09:02)
[2023-04-06] MEDS: amiodarone 200 mg Tablet PO ×2 (09:02→17:53)
[2023-04-06] MEDS: guaiFENesin 600 mg Tablet 1200 MG PO ×2 (09:03→17:53)
[2023-04-06] MEDS: citalopram 20 mg Tablet 40 MG PO (09:03)
[2023-04-06] MEDS: budesonide 0.5 mg/2 mL Neb INHALATION ×2 (09:05→20:13)
[2023-04-06] MEDS: FUROsemide 10 mg/mL SDV 10mL 60 MG IVP ×2 (09:42→19:27)
[2023-04-06] MEDS: nystatin 100,000 unit/mL UDC 5 mL 100000 UNIT PO ×4 (09:42→20:30)
[2023-04-06] MEDS: cefepime 1,000 MG in sodium chloride 0.9% (plus) 50 ML 100 MG IV (11:01)
--- NOTE | 2023-04-06 11:44 | PM.PN ---
Subjective Subjective: events noted on BIPAP 30% Medications: Reviewed: Yes Vitals/I&O/Wt Last Vital Signs Temp 97.5 F L 04/03/23 19:24 Pulse 71 04/06/23 11:18 Resp 21 H 04/06/23 10:30 BP 103/68 04/06/23 10:30 Pulse Ox 99 04/06/23 11:18 O2 Del Method BiPAP 04/06/23 10:30 O2 Flow Rate 5 04/04/23 10:00 FiO2 30 04/06/23 11:18 04/05/23 04/06/23 04/06/23 22:59 06:59 14:59 Intake Total 160 / 400 304 / 704 150 / 150 Output Total 700 / 700 350 / 1050 Balance -540 / -300 -46 / -346 150 / 150 Physical Exam Narrative: Patient on BiPAP, mild distress Sinus regular rhythm per report Crackles bilaterally per report No pedal edema Urinary Catheter Management: Arreguin: Cath Placed During This Visit: yes Reason for Continuing Indwelling Catheter: Accurate Measurement of Urinary Output in Critically Ill Patients Urinary Catheter Date of Insertion: 03/27/23 Urinary Catheter Time of Insertion: 03:20 Data 04/06/23 03:46 04/06/23 03:46 A&P Assessment and plan (1) Acute kidney injury superimposed on CKD: Plan 1. Acute on chronic kidney disease stage III: Baseline creatinine in the mid 1 range, patient now has ELIESER with a creatinine of 3.2 today-secondary to recent contrast exposure and hypotension, in the setting of cardiogenic shock. -Patient is volume overloaded but no response to IV Lasix likely from poor perfusion/low blood pressures. - renal function further worse today, with oliguria-no response to IV diuretics so far -offered CRRT but pt and family refused 2. Metabolic acidosis: Mild secondary to worsening ELIESER, monitor 3. Status post STEMI, cardiogenic shock: , Status post left heart cath and proximal LAD stent. Blood pressures on the low side 4. History of COPD: Overall poor prognosis due to multiple comorbidities Patient evaluated using audiovisual cart. Time spent 25 minutes Attestations Medical Necessity Statement*: PER MEDICINE Coding Level of Care Code Acute Code for Chg Fwd Diagnoses Acute kidney injury superimposed on CKD N17.9; N18.9
[2023-04-06] MEDS: HYDROmorphone 1 mg/mL INJ 1 mL 0.2 MG IVP (14:05)
[2023-04-06 15:25] LABS: Potassium 3.3 mmol/L (3.5-5.1)
--- NOTE | 2023-04-06 15:51 | P.PN_ITS ---
Vitals/I&O/Wt Last Vital Signs Temp 98.4 F 04/06/23 12:30 Pulse 67 04/06/23 15:38 Resp 23 H 04/06/23 14:30 BP 97/63 04/06/23 14:30 Pulse Ox 98 04/06/23 15:38 O2 Del Method BiPAP 04/06/23 14:30 O2 Flow Rate 5 04/04/23 10:00 FiO2 30 04/06/23 15:38 04/06/23 04/06/23 04/06/23 06:59 14:59 22:59 Intake Total 304 / 704 344.45 / 344.45 110.49 / 454.94 Output Total 350 / 1050 Balance -46 / -346 344.45 / 344.45 110.49 / 454.94 Physical Exam Narrative: BiPAP Const: COMMON NORMALS: patient oriented x3 and alert GENERAL APPEARANCE: cooperative and frail appearing ORIENTATION/CONSCIOUSNESS: Yes awake OTHER: Generally weak HENMT: COMMON NORMALS: oropharynx normal Neck/C-Spine: COMMON NORMALS: no JVD Resp: AUSCULTATION: rhonchi, no wheezes and other (Coarse breath sounds) Cardio: COMMON NORMALS: no JVD, regular rhythm, S1 normal heart sound present, S2 normal heart sound present and No murmurs present (Cardio) RHYTHM: regular rhythm HEART SOUNDS: S1 normal heart sound present and S2 normal heart sound present GI: COMMON NORMALS: Normal to inspection, nondistended, normoactive bowel sounds present, Soft to palpation and non-tender PALPATION: Yes Soft to palpation Extremity: COMMON NORMALS: no joint enlargement and no pedal edema Neuro: COMMON NORMALS: patient oriented x3 and moves all extremities SENSORIUM/ORIENTATION: Yes alert Urinary Catheter Management: Arreguin: Cath Placed During This Visit: yes Reason for Continuing Indwelling Catheter: Accurate Measurement of Urinary Output in Critically Ill Patients Urinary Catheter Date of Insertion: 03/27/23 Urinary Catheter Time of Insertion: 03:20 Data 04/06/23 03:46 04/06/23 14:35 A&P Assessment and plan (1) Acute kidney injury superimposed on CKD: Nephrology note reviewed. Somewhat worse urine output today. Continue diuretic. Will hold albumin. Continue pressor, discussed target systolic blood pressure 100 mmHg. Continue to monitor I&O. CRRT was considered but declined. Continue pressor support, cardiology considering addition of inotropes. Reassess chemistry. Switched antibiotic from Zosyn to cefepime in case any contribution of Zosyn to decline in his renal function. He understands that his prognosis is poor. Discussing CODE STATUS with him with his nurse also present, he realizes that resuscitation in case of cardiac arrest would only at best bring him back to the current condition, and will likely also in worse shape compared to before arrest. He himself mentions that he would not want to have broken ribs. In case was imminent he would be okay with addition of medications to make him comfortable at that point. As per patient wishes, discussed with Isabela Oden today. (2) Cardiogenic shock: Levophed support to allow for renal perfusion as above. Cardiology note appreciated, consideration of inotropes, decision not to start at this time. Currently he is not in distress, but as per prior discussion in case of imminent he would be okay with addition of comfort medication. He is having back pain with staying in bed, limited mobility, lidocaine patches on, added small dose IV for pain control Dilaudid. He understands that intubation alone without possibility of definitive treatment would not likely lead to a desirable outcome, mechanical ventilatory support could support his respiration in case of worsening pulmonary edema temporarily, though proceeding with intubation may further lead to sooner destabilization of his condition. He does not want intubation at this time. He is okay with continuing BiPAP support and supportive measures as above. He is okay with addition of comfort medicines in case were imminent. At the end of my visit we were also notified that his son was calling. Telling him of this, Mr. Mistry says he would like to go ahead and speak with him. Blood pressure soft, pressor support as well. Consideration of inotropes. (3) Respiratory failure: Currently worsening respiratory failure with decompensated CHF, worsening renal function with reduced urine output. Additional management as above. Rhonchi have improved,Continue Zosyn for now, possible component of pneumonia still having secretions but improving over last several days. Continue pulmonary toilet. We will check procalcitonin Speech therapy assessment appreciated. Aspiration precautions. Dysphagia diet. Extubated 03/30. High risk extubation as per goals of care discussion with patient's DPOA/son at bedside. Extubated to BiPAP. Keep saturation over 90%. DuoNebs every 6 hour, budesonide twice daily. Strict input/output charting. Daily weights. Fluid restriction up to 1500 cc. Qualifiers: Chronicity: acute Respiratory failure complication: hypoxia Qualified Code(s): J96.01 - Acute respiratory failure with hypoxia (4) Goals of care, counseling/discussion: As above. (5) Poor intravenous access: PICC line (6) ST elevation myocardial infarction (STEMI): Post successful revascularization of proximal LAD with 1 RUDOLPH, balloon angioplasty of mid RCA stent. Continue with aspirin, Plavix, statin. Echocardiogram poor study, difficult to assess current LV function Consider beta-maddie and AKIKO inhibitor once out of cardiogenic shock. (7) Ventricular fibrillation: Continue replacement of potassium. Hold calcium supplement. Recheck ionized calcium. Keep magnesium around 2, potassium over 4. Replete magnesium and calcium accordingly. Continue with oral amiodarone 200 mg twice daily. (8) Leukocytosis: WBC 10.3. Today somewhat worse rhonchi, antibiotic was adjusted as above due to progression to renal failure. Unable to use flutter valve at this time. We will see if he can have some additional chest PT treatments. Most likely reactionary to ST elevation PR. As patient is critically sick for now will cover with IV antibiotics. Sputum cultures grew mixed respiratory sally. Blood cultures so far negative. MRSA swab negative. Off vancomycin. Stop Zosyn, switched to cefepime. (9) Elevated lactic acid level: Most likely in setting of cardiogenic shock. (10) AAA (abdominal aortic aneurysm): Last imaging from March 2022 shows abdominal aortic aneurysm with peripheral mural thrombus measuring 5.1 x 4.6 x 7.8 which had progressed since 2018. Follow-up CBC requested. We will continue to monitor. His friend Isabela is aware of the seriousness of the AAA, states that he was previously assessed for consideration of repair, but was not found possible due to lack of family available access. (11) On intra-aortic balloon pump assist: Removed on 03/29. (12) Congestive heart failure: Plan Lumbar pain: Lidocaine patch. Distal AAA 4.9 x 5.3 cm. The ureter lumen narrowing distally due to extensive mural thrombus at the bifurcation and not well visualized. Follow-up CTA recommended. Moderate atheromatous disease with peripheral mural thrombus iliac arteries difficult to visualize but appear patent. Attestations Medical Necessity Statement*: Continue admission for assessment management of acute renal failure, possible cardiorenal syndrome, decompensated CHF, respiratory failure. Coding Level of Care Code Critical Care >/= 30 minutes Critical care time (in minutes): 40 The high probability of a clinically significant, sudden or life threatening deterioration, as referenced in this documentation, required my full and direct attention, intervention and personal management. The critical care time shown is in addition to time spent performing any reported separately billable procedures and includes the following: [x] Data and vital sign review and interpretation [x ] Patient assessment, examination and intervention [x] Medication orders and management [x] Patient/Family updates as able [x] Care Coordination and Documentation. Diagnoses Acute kidney injury superimposed on CKD N17.9; N18.9 Cardiogenic shock R57.0 Respiratory failure J96.01 Chronicity: acute Respiratory failure complication: hypoxia Goals of care, counseling/discussion Z71.89 Poor intravenous access Z78.9 ST elevation myocardial infarction (STEMI) I21.3 Ventricular fibrillation I49.01 Leukocytosis D72.829 Elevated lactic acid level R79.89 AAA (abdominal aortic aneurysm) I71.4 On intra-aortic balloon pump assist Z98.890 Congestive heart failure I50.9
[2023-04-06] MEDS: LORazepam 2 mg/mL INJ 1 mL 0.25 MG IVP (20:47)
[2023-04-07] VITALS (43 sets, daily range): BP systolic 73–107; BP diastolic 50–80; PULSE 60–68; RESP 9–30; TEMP 36.3–36.8; O2SAT 89–99
[2023-04-07] MEDS: pantoprazole 40 mg SDV IVP
[2023-04-07] MEDS: ipratropium-albuterol 3 mL Neb INHALATION ×2 (03:02→08:16)
[2023-04-07] MEDS: heparin 5,000 unit/mL INJ 1 mL 5000 UNIT SUBCUT (03:06)
[2023-04-07 04:12] LABS: Basophils # 0.1 10^3/uL (0.0-0.1); Basophils % 0.5 %; Eosinophils # 0.1 10^3/uL (0.0-0.8); Eosinophils % 0.9 %; Hematocrit 29.2 % (42.0-52.0); Lymphocytes # 1.6 10^3/uL (0.8-4.8); Lymphocytes % 13.4 %; Mean Corpuscular HGB Conc 30.8 g/dL (30.0-36.0); Mean Corpuscular Hemoglobin 28.3 pg (28.0-34.0); Mean Corpuscular Volume 91.8 fl (80-94); Monocytes # 0.8 10^3/uL (0.2-0.9); Monocytes % 6.3 %; Neutrophils # 9.52 10^3/uL (1.8-7.7); Neutrophils % 78.3 %; Nucleated Red Blood Cells # 0.2 /100WBC; Nucleated Red Blood Cells % 1.6 %; Platelet Count 336 10^3/cmm (130-400); Red Blood Count 3.18 10^6/uL (4.1-5.3); Red Cell Distribution Width 14.7 % (12.1-15.1); White Blood Count 12.2 10^3/uL (4.0-10.0)
[2023-04-07 04:20] LABS: Alanine Aminotransferase 71 U/L (0-41); Albumin Level 3.9 g/dL (3.5-5.2); Alkaline Phosphatase 165 U/L (40-130); Anion Gap 24.1 (5-19); Aspartate Amino Transferase 76 U/L (0-40); Blood Urea Nitrogen 78 mg/dL (8-23); Calcium 8.7 mg/dL (8.5-10.5); Carbon Dioxide 19 mmol/L (22-29); Chloride 96 mmol/L (98-107); Globulin 2.9 g/dL (1.3-4.6); Glucose 123 mg/dL (65-115); Osmolality Calculated 307 mOsm/kg (285-295); Potassium 3.1 mmol/L (3.5-5.1); Sodium 136 mmol/L (136-145); Total Bilirubin 0.5 mg/dL (0.15-1.2); Total Protein 6.8 g/dL (6.6-8.7)
--- NOTE | 2023-04-07 07:20 | P.PN_ITS ---
Subjective Subjective: Mingo is essentially unchanged today. He is still arousable. He states that his back is killing him. Still utilizing BiPAP. Urine output 1150 mL. Creatinine is 3.9. BUN 78. Potassium 3.1. His transaminases are slightly high today AST 76, ALT 71. Hemoglobin is 9. Vitals/I&O/Wt Last Vital Signs Temp 98.8 F 04/06/23 18:30 Pulse 67 04/07/23 06:00 Resp 22 H 04/07/23 06:00 BP 93/64 04/07/23 06:00 Pulse Ox 97 04/07/23 06:00 O2 Del Method BiPAP 04/07/23 03:02 O2 Flow Rate 5 04/04/23 10:00 FiO2 30 04/07/23 05:47 04/06/23 04/07/23 04/07/23 22:59 06:59 14:59 Intake Total 659.423 / 1003.873 254 / 1257.873 Output Total 725 / 725 425 / 1150 Balance -65.577 / 278.873 -171 / 107.873 Physical Exam Narrative: GENERAL: In general he is on BiPAP, is arousable and only mildly short of breath HEENT: Exam within normal limits. NECK: Supple without jugular vein distention. The carotid upstroke is normal without bruits. BACK: Exam normal. LUNGS: Scattered wheezes and rales HEART: Regular rate and rhythm. ABDOMEN: Benign without organomegaly or tenderness. EXTREMITIES: No edema. NEUROLOGIC: Exam normal. SKIN: Unremarkable. 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 No family here today. Yesterday, I believe the decisions were made not to reintubate, not to perform CRRT and not to use CPR. Medications are still appropriate. No further insertion of balloon pump. Attestations Medical Necessity Statement*: Requires hospitalization for management of cardiogenic shock and acute myocardial infarction. 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
[2023-04-07] MEDS: HYDROmorphone 1 mg/mL INJ 1 mL 0.2 MG IVP (07:44)
[2023-04-07] MEDS: FUROsemide 10 mg/mL SDV 10mL 60 MG IVP (07:45)
[2023-04-07] MEDS: budesonide 0.5 mg/2 mL Neb INHALATION (08:16)
[2023-04-07] MEDS: atorvastatin 40 mg Tablet PO (08:46)
[2023-04-07] MEDS: amiodarone 200 mg Tablet PO (08:46)
[2023-04-07] MEDS: lidocaine 5% Patch 1 PATCH TOPICAL (08:46)
[2023-04-07] MEDS: aspirin 81 mg EC Tablet XX (08:46)
[2023-04-07] MEDS: citalopram 20 mg Tablet 40 MG PO (08:46)
[2023-04-07] MEDS: guaiFENesin 600 mg Tablet 1200 MG PO (08:46)
[2023-04-07] MEDS: clopidogrel 75 mg Tablet OG-TUBE (08:46)
--- NOTE | 2023-04-07 10:06 | PM.PN ---
Subjective Subjective: on BIPAP uop 550 cc last night Medications: Reviewed: Yes Vitals/I&O/Wt Last Vital Signs Temp 98.8 F 04/06/23 18:30 Pulse 65 04/07/23 08:32 Resp 15 04/07/23 08:16 BP 94/64 04/07/23 08:00 Pulse Ox 98 04/07/23 08:19 O2 Del Method BiPAP 04/07/23 08:16 O2 Flow Rate 5 04/04/23 10:00 FiO2 30 04/07/23 08:19 04/06/23 04/07/23 04/07/23 22:59 06:59 14:59 Intake Total 659.423 / 1003.873 254 / 1257.873 230 / 230 Output Total 725 / 725 425 / 1150 200 / 200 Balance -65.577 / 278.873 -171 / 107.873 Physical Exam Narrative: Patient on BiPAP, mild distress Sinus regular rhythm per report Crackles bilaterally per report No pedal edema Urinary Catheter Management: Arreguin: Cath Placed During This Visit: yes Reason for Continuing Indwelling Catheter: Accurate Measurement of Urinary Output in Critically Ill Patients Urinary Catheter Date of Insertion: 03/27/23 Urinary Catheter Time of Insertion: 03:20 Data 04/07/23 03:00 04/07/23 03:00 A&P Assessment and plan (1) Acute kidney injury superimposed on CKD: Plan 1. Acute on chronic kidney disease stage III: Baseline creatinine in the mid 1 range, patient now has ELIESER with a creatinine of 3.2 today-secondary to recent contrast exposure and hypotension, in the setting of cardiogenic shock. -Patient is volume overloaded but no response to IV Lasix likely from poor perfusion/low blood pressures. - renal function further worse , with oliguria-on Lasix 60 mg IV bid and Levophed 8 mcg - UOp still low -offered CRRT but pt and family refused 2. Metabolic acidosis: Mild secondary to worsening ELIESER, monitor 3. Status post STEMI, cardiogenic shock: , Status post left heart cath and proximal LAD stent. Blood pressures on the low side 4. History of COPD Overall poor prognosis due to multiple comorbidities Patient evaluated using audiovisual cart. Time spent 25 minutes Attestations Medical Necessity Statement*: per medicine Coding Level of Care Code Acute Code for Chg Fwd Diagnoses Acute kidney injury superimposed on CKD N17.9; N18.9
[2023-04-07] MEDS: morphine 4 mg/mL SDV 1 mL 2 MG IVP (10:33)
[2023-04-07] MEDS: LORazepam 2 mg/mL INJ 1 mL IVP ×6 (11:17→18:04)
[2023-04-07] MEDS: morphine 4 mg/mL SDV 1 mL IVP ×6 (11:18→18:03)
--- NOTE | 2023-04-07 14:39 | P.PN_ITS ---
Subjective Subjective: Patient was evaluated multiple times Medical DPOA at the bedside Patient and medical DPOA wants to continue with hospice care starting today family notified including son and the brother Questions were answered to their satisfaction Patient this morning was requiring Levophed at 8 mics, became short of breath and required BiPAP, he is getting BiPAP dependent has not been able to eat to his satisfaction, getting deconditioned As per the nursing staff he has a blanchable sacral area without active ulcer Left arm PICC line only 1 port is functional Vitals/I&O/Wt Last Vital Signs Temp 98.1 F 04/07/23 10:30 Pulse 64 04/07/23 12:00 Resp 12 04/07/23 14:20 BP 73/51 04/07/23 12:00 Pulse Ox 89 L 04/07/23 14:20 O2 Del Method BiPAP 04/07/23 11:00 O2 Flow Rate 5 04/04/23 10:00 FiO2 30 04/07/23 10:27 04/06/23 04/07/23 04/07/23 22:59 06:59 14:59 Intake Total 659.423 / 1003.873 254 / 1257.873 484 / 484 Output Total 725 / 725 425 / 1150 275 / 275 Balance -65.577 / 278.873 -171 / 107.873 209 / 209 Physical Exam Narrative: Lethargic and fatigued Able to understand questions and answer simple questions Nasal area with pressure injury with redness of nose Dehydrated malnourished Deconditioned Patient was BiPAP dependent I was not able to examine his back Abdomen soft Lower extremity without edema Family at the bedside S1, S2 Low blood pressure 70/51 mm hg Urinary Catheter Management: Arreguin: Cath Placed During This Visit: yes Reason for Continuing Indwelling Catheter: Accurate Measurement of Urinary Output in Critically Ill Patients Urinary Catheter Date of Insertion: 03/27/23 Urinary Catheter Time of Insertion: 03:20 Data 04/07/23 03:00 04/07/23 03:00 A&P Assessment and plan (1) Carotid stenosis: (2) Hypoxia: (3) Poor intravenous access: (4) Goals of care, counseling/discussion: (5) Ventricular fibrillation: (6) On intra-aortic balloon pump assist: (7) AAA (abdominal aortic aneurysm): (8) Elevated lactic acid level: (9) Leukocytosis: (10) Cardiogenic shock: (11) Acute kidney injury superimposed on CKD: (12) Respiratory failure: Qualifiers: Chronicity: acute Respiratory failure complication: hypoxia Qualified Code(s): J96.01 - Acute respiratory failure with hypoxia (13) Pulmonary edema cardiac cause: (14) Hospice care: Plan 2 family meetings conducted today Medical DPOA at the bedside Patient and family/medical DPOA want to pursue hospice care starting today Depending on the progress in next few hours further decision will be made whether family would like skilled nursing on hospice versus inpatient training project manager notified Discontinue Levophed and BiPAP and use nasal cannula at this point Start morphine and hospice medication orders Patient seems to have guarded prognosis Family at the bedside Son and brother notified as well Attestations Medical Necessity Statement*: Hospice care Diagnoses Carotid stenosis I65.29 Hypoxia R09.02 Poor intravenous access Z78.9 Goals of care, counseling/discussion Z71.89 Ventricular fibrillation I49.01 On intra-aortic balloon pump assist Z98.890 AAA (abdominal aortic aneurysm) I71.4 Elevated lactic acid level R79.89 Leukocytosis D72.829 Cardiogenic shock R57.0 Acute kidney injury superimposed on CKD N17.9; N18.9 Respiratory failure J96.01 Chronicity: acute Respiratory failure complication: hypoxia Pulmonary edema cardiac cause I50.1 Hospice care Z51.5
--- NOTE | 2023-04-07 15:24 | PC.NURSE ---
Report called to second [facility], room 269 for patient comfort and privacy.
--- NOTE | 2023-04-07 16:19 | PC.OT ---
OT tx attempted. Pt has been put on comfort care measures at this time. MENDOZA consulting OTR with change in pts status. OT services will be discharged at this time.
[2023-04-07] MEDS: morphine 10 mg/0.5 mL oral liq UD SUBLINGUAL ×2 (20:59→23:06)
[2023-04-08 00:46] VITALS: RESP 14
[2023-04-08] MEDS: morphine 4 mg/mL SDV 1 mL 2 MG IVP (00:46)
[2023-04-08] MEDS: morphine 10 mg/0.5 mL oral liq UD SUBLINGUAL (05:16)
--- NOTE | 2023-04-08 07:36 | PM.PN ---
Subjective Subjective: He has been moved to the second floor. Comfort care has been initiated. He is off BiPAP and on nasal prongs. No further labs. He is fast asleep this morning and I did not make an attempt to arouse him. Vitals/I&O/Wt Last Vital Signs Temp 98.2 F 04/07/23 23:47 Pulse 62 04/07/23 23:47 Resp 14 04/08/23 00:46 BP 107/62 04/07/23 23:47 Pulse Ox 92 04/07/23 23:47 O2 Del Method Nasal Cannula 04/07/23 14:00 O2 Flow Rate 1 04/07/23 19:30 FiO2 30 04/07/23 10:27 04/07/23 04/08/23 04/08/23 22:59 06:59 14:59 Intake Total 0 / 484 Output Total 550 / 825 Balance 0 / 209 -550 / -341 Physical Exam Narrative: GENERAL: In general he is comfortable off of the BiPAP and asleep HEENT: Exam within normal limits. NECK: Supple without jugular vein distention. The carotid upstroke is normal without bruits. BACK: Exam normal. LUNGS: Clear. HEART: Regular rate and rhythm. ABDOMEN: Benign without organomegaly or tenderness. EXTREMITIES: No edema. NEUROLOGIC: Exam normal. SKIN: Unremarkable. Urinary Catheter Management: Arreguin: Cath Placed During This Visit: yes Reason for Continuing Indwelling Catheter: Hospice/Comfort/Palliative Care Urinary Catheter Date of Insertion: 03/27/23 Urinary Catheter Time of Insertion: 03:20 Data 04/07/23 03:00 04/07/23 03:00 A&P Assessment and plan (1) Hospice care: (2) Carotid stenosis: (3) Hypoxia: (4) Smoker unmotivated to quit: (5) Congestive heart failure: (6) Ventricular fibrillation: (7) AAA (abdominal aortic aneurysm): (8) Acute kidney injury superimposed on CKD: (9) Cardiogenic shock: (10) Respiratory failure: Qualifiers: Chronicity: acute Respiratory failure complication: hypoxia Qualified Code(s): J96.01 - Acute respiratory failure with hypoxia (11) Pulmonary edema cardiac cause: (12) CAD (coronary artery disease): (13) ST elevation myocardial infarction (STEMI): Plan Comfort measures now. Attestations Medical Necessity Statement*: Hospitalization required for management of multiple medical problems and now end-of-life care. and Straight Forward/Low Time for a total of 20 minutes, includes reviewing past or interval history, examining/interviewing patient, discussing plan of care with staff and documenting encounter Diagnoses Hospice care Z51.5 Carotid stenosis I65.29 Hypoxia R09.02 Smoker unmotivated to quit F17.200 Congestive heart failure I50.9 Ventricular fibrillation I49.01 AAA (abdominal aortic aneurysm) I71.4 Acute kidney injury superimposed on CKD N17.9; N18.9 Cardiogenic shock R57.0 Respiratory failure J96.01 Chronicity: acute Respiratory failure complication: hypoxia Pulmonary edema cardiac cause I50.1 CAD (coronary artery disease) I25.10 ST elevation myocardial infarction (STEMI) I21.3
[2023-04-08 07:58] VITALS: BP 84/58; PULSE 67; RESP 19; TEMP 36.6; O2SAT 81
[2023-04-08] MEDS: LORazepam 2 mg/mL INJ 1 mL IVP ×4 (08:49→18:35)
[2023-04-08] MEDS: morphine 4 mg/mL SDV 1 mL IVP ×5 (08:49→20:18)
--- NOTE | 2023-04-08 09:26 | PC.CHAP ---
Pastoral Care Encounter/Spiritual Assessment Type of Contact [] Declined vice president regulatory visit [] Patient/Family/Request visit [] Outpatient visit [] Follow-up visit [] Physician referral [] Code/Alert [] Routine visit [] Staff referral [] Actively dying [x] Patient sleeping [] Family support [] [] Out of room [] Palliative care [] [] Receiving care in room [] Pre-surgical visit [] Trauma [] Long length of stay [] ICU visit [] Other: Relational/Emotional Strength [] Patient feels connected with others/family/visitors/staff [] Distress [] Loneliness/isolation [] Abandonment Spirituality of Patient [] Person of Kim [] Attends Mosque of their Kim [] Believes in Prayer [] Reads Bible or Jain materials [] There are Spiritual issues to be addressed Brine Tank Tender Interventions [] Prayer [] Active listening [] Non-anxious presence [] Spiritual/emotional support [] Crisis/trauma care [] Spiritual counseling [] Bereavement support [] Provided bereavement packet [] Provided Bible/devotional materials [] Provided toy/stuffed animal, coloring book to patient or family member [] Provided Communion [] Anointing/[place] [] Salvation [] Completed spiritual assessment [] Other: Impact on Illness or Injury [] Angry [] Fearful [] Anxious [] Often cries [] Exhaustion [] Unable to work [] Unable to attend congregational [] Unable to walk/stand [] Unable to read [] Unable to drive [] Unable to eat/drink [] Unable to sleep [] Unable to be with family [] Patient intubated [] Other: Summary Time spent with patient
--- NOTE | 2023-04-08 11:16 | PM.PN ---
Subjective Subjective: Patient is showing signs of agonal breathing Not on oxygen Family at the bedside Vitals/I&O/Wt Last Vital Signs Temp 97.8 F 04/08/23 07:58 Pulse 67 04/08/23 07:58 Resp 19 H 04/08/23 07:58 BP 84/58 04/08/23 07:58 Pulse Ox 81 L 04/08/23 07:58 O2 Del Method Nasal Cannula 04/08/23 07:58 O2 Flow Rate 1 04/07/23 19:30 FiO2 30 04/07/23 10:27 04/07/23 04/08/23 04/08/23 22:59 06:59 14:59 Intake Total 0 / 484 Output Total 550 / 825 Balance 0 / 209 -550 / -341 Physical Exam Narrative: Patient is obtunded Not arousable Agonal breathing Dehydrated new malnourished Family is at the bedside Neuro exam limited Urinary Catheter Management: Arreguin: Cath Placed During This Visit: yes Reason for Continuing Indwelling Catheter: Hospice/Comfort/Palliative Care Urinary Catheter Date of Insertion: 03/27/23 Urinary Catheter Time of Insertion: 03:20 Data 04/07/23 03:00 04/07/23 03:00 A&P Assessment and plan (1) Hospice care: Plan Patient showing signs of agonal breathing He has comfort care meds on board Continue comfort/hospice medications I am anticipating he might within next 24 hours Attestations Medical Necessity Statement*: Hospice care Diagnoses Hospice care Z51.5
[2023-04-08 20:00] VITALS: BP 64/48; PULSE 87; RESP 12; TEMP 37.3; O2SAT 91
[2023-04-08 22:00] VITALS: BP 76/50; PULSE 55; RESP 10; TEMP 36.4; O2SAT 82
[2023-04-09] MEDS: morphine 4 mg/mL SDV 1 mL IVP (00:48)
[2023-04-09] MEDS: morphine 10 mg/0.5 mL oral liq UD SUBLINGUAL ×6 (04:10→20:03)
--- NOTE | 2023-04-09 07:05 | PM.PN ---
Subjective Subjective: Mingo is basically unchanged however he is comatose and not responsive at this point. His breathing is not labored, is comfortable and is around 8 respirations per minute. His son is in the room this morning. Vitals/I&O/Wt Last Vital Signs Temp 97.6 F 04/08/23 22:00 Pulse 55 L 04/08/23 22:00 Resp 10 L 04/08/23 22:00 BP 76/50 04/08/23 22:00 Pulse Ox 82 L 04/08/23 22:00 O2 Del Method Room Air 04/08/23 22:00 O2 Flow Rate 0.5 04/08/23 08:00 FiO2 30 04/07/23 10:27 04/08/23 04/09/23 04/09/23 22:59 06:59 14:59 Intake Total 0 / 0 Output Total 120 / 120 10 / 130 Balance -120 / -120 -10 / -130 Physical Exam Narrative: GENERAL: In general he is resting comfortably. Not awake. HEENT: Exam within normal limits. NECK: Supple without jugular vein distention. The carotid upstroke is normal without bruits. BACK: Exam normal. LUNGS: Clear. HEART: Regular rate and rhythm. ABDOMEN: Benign without organomegaly or tenderness. EXTREMITIES: No edema. NEUROLOGIC: Coma SKIN: Unremarkable. 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 I spoke to his son and updated him. Attestations Medical Necessity Statement*: Hospitalization for multiple medical problems as mentioned above and Straight Forward/Low Time for a total of 15 minutes, includes reviewing past or interval history, counseling patient/family/other support, updating patient/family/other support and documenting encounter Diagnoses Hospice care Z51.5 Carotid stenosis I65.29 Smoker unmotivated to quit F17.200 Congestive heart failure I50.9 AAA (abdominal aortic aneurysm) I71.4 Acute kidney injury superimposed on CKD N17.9; N18.9 ST elevation myocardial infarction (STEMI) I21.3 CAD (coronary artery disease) I25.10
[2023-04-09 07:48] VITALS: BP 66/40; PULSE 52; RESP 13; TEMP 36.4; O2SAT 67
--- NOTE | 2023-04-09 11:03 | PM.PN ---
Subjective Subjective: Patient on hospice care Vitals/I&O/Wt Last Vital Signs Temp 97.6 F 04/09/23 07:48 Pulse 52 L 04/09/23 07:48 Resp 13 04/09/23 07:48 BP 66/40 04/09/23 07:48 Pulse Ox 67 L 04/09/23 07:48 O2 Del Method Room Air 04/09/23 07:48 O2 Flow Rate 0.5 04/08/23 08:00 FiO2 30 04/07/23 10:27 04/08/23 04/09/23 04/09/23 22:59 06:59 14:59 Intake Total 0 / 0 0 / 0 Output Total 120 / 120 10 / 130 Balance -120 / -120 -10 / -130 0 / 0 Physical Exam Narrative: Nonverbal Not arousable Significant apnea with spells of tachypnea Family at the bedside Currently on room air Urinary Catheter Management: Arreguin: Cath Placed During This Visit: yes Reason for Continuing Indwelling Catheter: Hospice/Comfort/Palliative Care Urinary Catheter Date of Insertion: 03/27/23 Urinary Catheter Time of Insertion: 03:20 Data 04/07/23 03:00 04/07/23 03:00 A&P Assessment and plan (1) Hospice care: Plan Hospice care I am not plan to change any of his medications today Met with the family today Attestations Medical Necessity Statement*: Hospice care Diagnoses Hospice care Z51.5
--- NOTE | 2023-04-09 11:08 | PC.SOCIAL ---
IMM Update pg 2 of IMM not updated @ this time as patient remains on comfort care.
--- NOTE | 2023-04-09 17:16 | PC.NURSE ---
pt has shown s/s of air hunger throughout the day, administered oral sublingual roxanol as needed to relieve s/s. pt currently resting comfortably with family at bedside.
[2023-04-09 19:13] VITALS: BP 60/40; PULSE 50; RESP 14; TEMP 36.3; O2SAT 90
[2023-04-09 23:58] VITALS: TEMP 36.7
[2023-04-10] MEDS: morphine 10 mg/0.5 mL oral liq UD SUBLINGUAL ×2 (02:30→12:21)
[2023-04-10 07:17] VITALS: BP 50/31; PULSE 39; RESP 18; TEMP 36.4
--- NOTE | 2023-04-10 07:49 | PM.PN ---
Subjective Subjective: No changes this morning. Mingo is still comatose with comfortable breathing. He is in no distress. No family members in the room this morning. Vitals/I&O/Wt Last Vital Signs Temp 97.5 F L 04/10/23 07:17 Pulse 39 L 04/10/23 07:17 Resp 18 04/10/23 07:17 BP 50/31 04/10/23 07:17 Pulse Ox 90 04/09/23 19:13 O2 Del Method Room Air 04/09/23 19:13 O2 Flow Rate 0.5 04/08/23 08:00 FiO2 30 04/07/23 10:27 04/09/23 04/10/23 04/10/23 22:59 06:59 14:59 Intake Total 0 / 0 0 / 0 Output Total 0 / 0 0 / 0 Balance 0 / 0 0 / 0 Physical Exam Narrative: GENERAL: Breathing comfortably and in no distress HEENT: Exam within normal limits. NECK: Supple without jugular vein distention. The carotid upstroke is normal without bruits. BACK: Exam normal. LUNGS: Clear. HEART: Regular rate and rhythm. ABDOMEN: Benign without organomegaly or tenderness. EXTREMITIES: No edema. NEUROLOGIC: Coma SKIN: Unremarkable. 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 Attestations Medical Necessity Statement*: End-of-life care in hospital. 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
--- NOTE | 2023-04-10 09:44 | PM.PN ---
Subjective Subjective: Family not at the bedside today As per the nursing staff patient tried to bite on the swab when they were trying to clean his mouth Patient is not arousable Vitals/I&O/Wt Last Vital Signs Temp 97.5 F L 04/10/23 07:17 Pulse 39 L 04/10/23 07:17 Resp 18 04/10/23 07:17 BP 50/31 04/10/23 07:17 Pulse Ox 90 04/09/23 19:13 O2 Del Method Room Air 04/09/23 19:13 O2 Flow Rate 0.5 04/08/23 08:00 FiO2 30 04/07/23 10:27 04/09/23 04/10/23 04/10/23 22:59 06:59 14:59 Intake Total 0 / 0 0 / 0 Output Total 0 / 0 0 / 0 Balance 0 / 0 0 / 0 Physical Exam Narrative: Agonal breathing Hospice care Room air pt is not arousable Urinary Catheter Management: Arreguin: Cath Placed During This Visit: yes Reason for Continuing Indwelling Catheter: Other Urinary Catheter Date of Insertion: 03/27/23 Urinary Catheter Time of Insertion: 03:20 Data 04/07/23 03:00 04/07/23 03:00 A&P Assessment and plan (1) Hospice care: Plan Hospice care Attestations Medical Necessity Statement*: Hospice care Coding Level of Care Code Acute Code for Chg Fwd Diagnoses Hospice care Z51.5
[2023-04-10] MEDS: morphine 4 mg/mL SDV 1 mL 2 MG IVP (15:51)
--- NOTE | 2023-04-10 16:58 | PC.NURSE ---
called to room by family member at bedside, this nurse found patient to be pulseless with no respirations. Second nurse confirm by Ashlie Valente RN. Dr. Nicolas notified and son, Mingo,notified by phone who stated he would call back with which home they would like to use.
--- NOTE | 2023-04-10 17:08 | PM.DDS ---
Discharge Providers DDS Date of Admission: 03/27/23 04:04 Date Summary Completed: 04/24/23 Attending Provider at Admission: Librado Villarreal M.D Time of : 16:49 Attending Provider at Discharge: Prosper Nicolas MD Primary Care Provider: ANNA Elise Diagnoses Hospital Diagnoses (1) Hospice care: Reason for Visit Reason for Visit CHEST PAIN Summary Date and Time of Date of : 04/10/23 Time of : 16:49 Summary Summary: 82-year-old male who had a very complicated hospital course related to cardiogenic shock, multiorgan failure, persistent hypotension requiring Levophed, medical DPDENISE Mar decided to pursue hospice care Cause of end-stage heart failure Additional Data Advance directives?: No Discharge Plan Discharge Patient Disposition: Condition: Serious DS Attestations Time Spent in /Discharge Care*: less than 30 min Quality - AMI: AMI present?: No Quality - Stroke: CVA present?: No Symptom Onset Unknown: No Quality - VTE: VTE present?: No Deep Vein Thrombosis/Pulmonary Embolism Present on Admission: No Coding Level of Care Code Acute Code for Chg Fwd Diagnoses Hospice care Z51.5
--- NOTE | 2023-04-10 18:24 | PC.OT ---
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
== END 2023-04-10 16:49 | disposition expired | DRG 270 ==
LOC: ER 01:47 → CCL 01:49 → ICU 04:05 → MEDSURG 04-07 16:09
PROVIDERS: Internal Medicine; Student in an Organized Health Care Education/Training Program; Admitting Provider Internal Medicine; Emergency Provider Emergency Medicine; PCP Nurse Practitioner; Visit Provider Internal Medicine
PROC: 5A02210 Assistance with Cardiac Output using Balloon Pump, Continuous (ICD-10-PCS; principal; 2023-03-27 01:30)
PROC: 5A02210 Assistance with Cardiac Output using Balloon Pump, Continuous (ICD-10-PCS; 2023-03-27 01:30)
DX: I21.02 ST elevation (STEMI) myocardial infarction involving left anterior descending coronary artery (principal); I50.23 Acute on chronic systolic (congestive) heart failure; T81.11XA Postprocedural cardiogenic shock, initial encounter; J18.9 Pneumonia, unspecified organism; J96.01 Acute respiratory failure with hypoxia; E87.20 Acidosis, unspecified; T82.855A Stenosis of coronary artery stent, initial encounter; E46 Unspecified protein-calorie malnutrition; Z68.1 Body mass index [BMI] 19.9 or less, adult; J44.0 Chronic obstructive pulmonary disease with (acute) lower respiratory infection; N17.9 Acute kidney failure, unspecified; I13.0 Hypertensive heart and chronic kidney disease with heart failure and stage 1 through stage 4 chronic kidney disease, or unspecified chronic kidney disease; I50.84 End stage heart failure; I95.9 Hypotension, unspecified; I71.43 Infrarenal abdominal aortic aneurysm, without rupture; Y83.8 Other surgical procedures as the cause of abnormal reaction of the patient, or of later complication, without mention of misadventure at the time of the procedure; I25.119 Atherosclerotic heart disease of native coronary artery with unspecified angina pectoris; Y71.8 Miscellaneous cardiovascular devices associated with adverse incidents, not elsewhere classified; E86.0 Dehydration; F41.1 Generalized anxiety disorder; Z85.828 Personal history of other malignant neoplasm of skin; N18.30 Chronic kidney disease, stage 3 unspecified; I25.2 Old myocardial infarction; Z86.73 Personal history of transient ischemic attack (TIA), and cerebral infarction without residual deficits; Z87.01 Personal history of pneumonia (recurrent); Z86.16 Personal history of COVID-19; F17.210 Nicotine dependence, cigarettes, uncomplicated; I49.01 Ventricular fibrillation; M54.50 Low back pain, unspecified; E87.6 Hypokalemia; E83.51 Hypocalcemia; Z92.3 Personal history of irradiation; Z51.5 Encounter for palliative care
CPT/HCPCS: 31500; 33967; 36415; 36569; 36592; 36600; 71045; 80048; 80051; 80053; 80202; 81001; 82330; 82436; 82607; 82746; 82805; 83036; 83540; 83550; 83605; 83690; 83735; 83880; 84100; 84132; 84133; 84145; 84300; 84484; 85025; 85347; 85610; 85730; 87040; 87070; 87205; 87641; 92507; 92523; 92526; 92610; 92920; 93005; 93306; 93454; 93978; 94002; 94003; 94640; 94660; 94669; 94799; 96360; 96361; 96365; 96366; 96367; 96372; 96376; 97110; 97161; 97165; 97530; 99152; 99153; 99291; A4570; C1725; C1751; C1769; C1874; C1887; C1894; C8924; C9113; C9600; J0131; J0282; J0461; J0610; J0692; J1170; J1642; J1644; J1815; J1940; J2060; J2250; J2270; J2370; J2543; J2704; J3010; J3370; J3475; J3480; J3490; J7030; J7040; J7050; J7060; J7626; P9047; Q3014; Q9956; Q9967